=== PATIENT | female | born 1955 | race Caucasian/White ===

== ENCOUNTER → 2016-07-15 | Outpatient (CLI) | payer OTHER ==
[~2016-07-15] MED LIST: /AMLO25TA PO; /BACL20TA OR; /ESCI20TA OR; /QUET25TA OR; ACET50TA PO; AMBI10TA OR; AMBIEN PO; AMLO10TA2 PO; ATORVASTATIN PO; BACL-67 PO; BUSP15TA OR; CALC500T49 PO; COLA100C2 OR; COLA50CA3 PO; CRES20TA OR; DETR4CAP PO; DOC-8.6T PO; FIBE625T4 PO; FOLI1TAB OR; FOLI1TAB2 PO; HYDR-3565 PO; HYDR1TAB97 PO; HYZAAR PO; IMIT100T OR; LAMO100T PO; LORATADINE PO; LOSARTAN/HCTZ PO; LYRI150C PO; LYRI300C OR; NEUR300C PO; NORC10TA2 PO; NORVASC; OMEP20TA7 PO; OXYB5TA PO; OXYC1TAB23 PO; OXYCO5TA PO; OXYCODONE PO; PAXI40TA2 PO; PRIN10TA PO; PROP20TA2 PO; PROZ10CA OR; PROZ40CA PO; PROZAC PO; SERO1TAB PO; SERO200T PO; TRAZ100T OR; TRAZ100T2 PO; TRAZADONE PO; VALT500T PO; VARE05TA PO; VARE1TA OR; VENL37CA PO; VENL75CA PO; VENTAER IN; VESICARE PO; VICO5TAB OR; VICODINES TAB OR; VITA500019 PO; WELL75TA PO; ZOFR20TA PO; [UNRECOGNIZED DRUG - CODE] PO; [UNRECOGNIZED DRUG - MIXTURE] PO; [UNRECOGNIZED DRUG - OTHER] PO; [UNRECOGNIZED DRUG - REMARK] TOP; fibercon PO; hyzaar PO; oysco
--- NOTE | 2016-07-15 08:45 | REP ---
Clinical: Left upper quadrant mass by physical examination. Technique: Real time boone scale and color evaluation using linear high frequency transducer. Findings: Directed ultrasound examination in the left upper quadrant over the area of presumed mass in straits normal subcutaneous tissues without mass lesion, fluid collection, or obvious abnormality. Contralateral right side of the abdomen was scanned for comparison and demonstrates similar normal findings. Impression: No obvious fluid collection or mass lesion identified in the left upper quadrant anterior abdominal wall. Signed by Angelito Jones MD 07/15/2016 08:37 A
== END ==
LOC: M RAD 07:59
PROVIDERS: ATTEND Physician Assistant Medical
DX: R10.84 Generalized abdominal pain (principal)

== ENCOUNTER → 2016-09-05 | Outpatient (CLI) | payer OTHER ==
[~2016-09-05] MED LIST changes: +GASTROGRAFIN SOLUTION 30ML (Q9963) As Ordered ONE; -HYDR-3565 PO; +HYDR-3713 PO; +HYDR-3719 PO; -HYDR1TAB97 PO; +ISOVUE-370 76% 100ML VIAL (Q9967) As Ordered ONE
[2016-09-05 16:11] LABS: BASO % 0.3 % (0.0-1.0); EOS # 0.2 K/mm3 (0.0-0.50); EOS % 3.1 % (0.0-3.0); LYMPH # 1.5 K/mm3 (1.5-4.5); LYMPH % 27.8 % (24.0-44.0); MEAN CORPUSCULAR HEMOGLOBIN 29.4 pg (27.0-33.0); MEAN CORPUSCULAR HGB CONC 31.7 g/dl (32.0-36.5); MEAN CORPUSCULAR VOLUME 92.9 fl (80.0-96.0); MONO # 0.2 K/mm3 (0.0-0.8); MONO % 4.6 % (0.0-5.0); NEUTROPHILS # 3.3 K/mm3 (1.8-7.7); NEUTROPHILS % 62.5 % (36.0-66.0); RED CELL DISTRIBUTION WIDTH 14.5 % (11.5-14.5); WHITE BLOOD COUNT 5.2 K/mm3 (4.0-10.0)
[2016-09-05 16:24] LABS: ALBUMIN 3.7 GM/DL (3.2-5.2); ALBUMIN/GLOBULIN RATIO 1.12 (1.00-1.93); ALKALINE PHOSPHATASE 76 U/L (45-117); ALT/SGPT 18 U/L (12-78); ANION GAP 7 MEQ/L (8-16); AST/SGOT 14 U/L (15-37); BILIRUBIN,TOTAL 0.2 MG/DL (0.2-1.0); BLOOD UREA NITROGEN 17 MG/DL (7-18); CALCIUM LEVEL 8.3 MG/DL (8.8-10.2); CARBON DIOXIDE LEVEL 30 MEQ/L (21-32); CHLORIDE LEVEL 102 MEQ/L (98-107); CHOLESTEROL LEVEL 137 MG/DL (<200); CREATININE FOR GFR 0.64 MG/DL (0.55-1.02); GLOMERULAR FILTRATION RATE > 60.0 (>45); GLUCOSE, FASTING 119 MG/DL (80-110); PERCENT SATURATION 10.3 % (13.2-37.4); POTASSIUM SERUM 4.1 MEQ/L (3.5-5.1); SODIUM LEVEL 139 MEQ/L (136-145); TOTAL IRON BINDING CAPACITY 477 UG/DL (250-450); TRIGLYCERIDES LEVEL 133 MG/DL (<150)
--- NOTE | 2016-09-05 16:45 | REP ---
CT ABDOMEN AND PELVIS: HISTORY: Generalized abdominal pain. COMPARISON: Noncontrast enhanced CT of the abdomen and pelvis 06/19/2012. CONTRAST: 100 mL Isovue-370. The lung bases are essentially clear and unchanged from the prior exam. There are no pleural or pericardiac effusions. There is minimal bibasilar dependent subsegmental atelectatic change. There is a small to moderate hiatal hernia. The size of which has increased from the prior exam. The precontrast enhanced portion of the examination shows hepatic and splenic densities to be within normal limits. There is no evidence of cholelithiasis. There was no evidence of right sided nephrolithiasis as seen in the inferior mid polar region of the left kidney there is a tiny 3 mm sized calcification which is not causing obstructive phenomena but has increased in size by 2 mm compared to the prior exam. Contrast enhanced portion of the examination shows the liver, gallbladder, spleen, pancreas, adrenal glands, kidneys to be within normal limits. The abdominal aorta and paraaortic regions are within normal limits. The bowel loops of the mesenteries are within normal limits. There is no free fluid or free air. CT PELVIS: The bowel loops and their mesenteries are within normal limits. There is no free fluid or air. There is no mass or adenopathy. Bone window technique throughout the examination shows no evidence of an acute abnormality. Posterior spinous process lumbar spine fixators are noted at multiple levels which represent a change from the prior exam. IMPRESSION: 1. There is evidence of a hiatal hernia as described above. 2. There is no evidence of acute intraabdominal or intrapelvic disease. 3. There is a tiny left nephrolith as described above. Signed by Major Allen DO 09/06/2016 12:00 P
== END ==
LOC: M RAD 13:12
PROVIDERS: ATTEND Physician Assistant Medical
DX: R10.84 Generalized abdominal pain (principal); K44.9 Diaphragmatic hernia without obstruction or gangrene; N20.0 Calculus of kidney

== ENCOUNTER → 2016-10-22 | Outpatient (CLI) | payer OTHER ==
[~2016-10-22] MED LIST changes: -GASTROGRAFIN SOLUTION 30ML (Q9963) As Ordered ONE; -ISOVUE-370 76% 100ML VIAL (Q9967) As Ordered ONE
[2016-10-22 12:16] LABS: FREE T4 0.89 NG/DL (0.76-1.46)
== END ==
LOC: M LAB 11:21
PROVIDERS: ATTEND Physician Assistant Medical
DX: E07.9 Disorder of thyroid, unspecified (principal)

== ENCOUNTER → 2016-11-28 | Outpatient (CLI) | payer OTHER ==
--- NOTE | 2016-11-28 10:30 | REP ---
Gastric emptying nuclear scintigraphy: History: Nausea and vomiting. Technique: 1.01 mCi of technetium-99m sulfur colloid was ingested in two scrambled eggs and 6 ounces of water and sequential anterior and posterior images are acquired for an 89-minute imaging observation period. Regions of interest are drawn around the stomach to plot gastric emptying. Scintigraphic findings: Expected T1/2 is 90 minutes. Only 2 % emptying is observed in this patient during the 89-minute imaging observation period, for a calculated T1/2 in this patient of 2004 minutes. Impression: Markedly delayed gastric emptying. Signed by Devonte Whiting MD 11/28/2016 10:21 A
== END ==
LOC: M RAD 07:19
PROVIDERS: ATTEND Internal Medicine Gastroenterology
DX: R47.02 Dysphasia (principal)

== ENCOUNTER → 2016-12-12 | Outpatient (CLI) | payer OTHER ==
[~2016-12-12] MED LIST changes: +E-Z-GAS II EFFERVESCENT PACKET (SODIUM BICARB./CITRIC ACID/SIMETHICONE) As Ordered ONE; +E-Z-HD 98% w/w 340GM SUSP BTL As Ordered ONE; +E-Z-PAQUE 96% w/w SUSP 176GM BTL As Ordered ONE
--- NOTE | 2016-12-12 16:52 | REP ---
Esophagram The procedure was performed under the direct supervision of Dr. Whiting. The images were reviewed with Dr. Whiting. A single view PA chest x-ray is submitted as a beet topper film. The superior mediastinal structures are midline. The heart size is within normal limits. The lungs are clear. Liquid barium and gas producing granules were given in the erect position as well as liquid barium in the prone oblique positions in order to perform a double contrast esophagram examination. The oral and pharyngeal stages of deglutition are unremarkable. Esophageal transport demonstrates tertiary waves. There is no esophagitis, stricture or mucosal ring. There is a hiatal hernia present. There is gastroesophageal reflux demonstrated to below the level of the nino. Impression: 1. Esophageal dysmotility. 2. There is a hiatal hernia present. There is gastroesophageal reflux demonstrated to below the level of the nino. 1 minute and 2 seconds of fluoro time was utilized for this procedure. Reviewed by CHARLES Pike 12/12/2016 03:21 PSigned by Devonte Whiting MD 12/12/2016 04:43 P
== END ==
LOC: M RAD 08:18
PROVIDERS: ATTEND Internal Medicine Gastroenterology
DX: R13.10 Dysphagia, unspecified (principal)

== ENCOUNTER → 2016-12-16 | Outpatient (CLI) | payer OTHER ==
[~2016-12-16] MED LIST changes: -E-Z-GAS II EFFERVESCENT PACKET (SODIUM BICARB./CITRIC ACID/SIMETHICONE) As Ordered ONE; -E-Z-HD 98% w/w 340GM SUSP BTL As Ordered ONE; -E-Z-PAQUE 96% w/w SUSP 176GM BTL As Ordered ONE
[2016-12-16 13:47] LABS: BASO % 0.2 % (0.0-1.0); EOS # 0.2 K/mm3 (0.0-0.50); EOS % 3.1 % (0.0-3.0); LYMPH # 1.3 K/mm3 (1.5-4.5); LYMPH % 24.4 % (24.0-44.0); MEAN CORPUSCULAR HEMOGLOBIN 31.1 pg (27.0-33.0); MEAN CORPUSCULAR VOLUME 97.3 fl (80.0-96.0); MONO # 0.2 K/mm3 (0.0-0.8); MONO % 4.5 % (0.0-5.0); NEUTROPHILS # 3.4 K/mm3 (1.8-7.7); NEUTROPHILS % 66.7 % (36.0-66.0); RED CELL DISTRIBUTION WIDTH 13.8 % (11.5-14.5); WHITE BLOOD COUNT 5.2 K/mm3 (4.0-10.0)
[2016-12-16 14:35] LABS: FERRITIN 19 NG/ML (8-252); PHOSPHORUS LEVEL 2.8 MG/DL (2.5-4.9)
[2016-12-16 17:19] LABS: VITAMIN B12 LEVEL 1243 PG/ML (247-911)
[2016-12-16 17:20] LABS: FOLATE > 24.0 NG/ML (>5.4)
[2016-12-18 00:06] LABS: Lyme Disease IgG/IgM Antibodie <0.91 ISR (0.00-0.90); Lyme Disease IgM Ab Quantitati <0.80 index (0.00-0.79)
== END ==
LOC: M LAB 12:50
PROVIDERS: ATTEND Physician Assistant Medical
DX: R53.83 Other fatigue (principal)

== ENCOUNTER → 2016-12-16 | Outpatient (CLI) | payer OTHER ==
[2016-12-16 13:53] LABS: MEAN CORPUSCULAR HEMOGLOBIN 31.7 pg (27.0-33.0); MEAN CORPUSCULAR HGB CONC 32.5 g/dl (32.0-36.5); MEAN CORPUSCULAR VOLUME 97.3 fl (80.0-96.0); RED CELL DISTRIBUTION WIDTH 13.6 % (11.5-14.5); WHITE BLOOD COUNT 5.7 K/mm3 (4.0-10.0)
[2016-12-16 13:59] LABS: ALBUMIN 3.9 GM/DL (3.2-5.2); ALBUMIN/GLOBULIN RATIO 1.44 (1.00-1.93); ALKALINE PHOSPHATASE 69 U/L (45-117); ALT/SGPT 22 U/L (12-78); ANION GAP 7 MEQ/L (8-16); AST/SGOT 13 U/L (15-37); BILIRUBIN,DIRECT < 0.1 MG/DL (0.0-0.2); BILIRUBIN,TOTAL 0.2 MG/DL (0.2-1.0); BLOOD UREA NITROGEN 18 MG/DL (7-18); CALCIUM LEVEL 8.3 MG/DL (8.8-10.2); CARBON DIOXIDE LEVEL 28 MEQ/L (21-32); CHLORIDE LEVEL 105 MEQ/L (98-107); CREATININE FOR GFR 0.77 MG/DL (0.55-1.02); GLOMERULAR FILTRATION RATE > 60.0 (>45); GLUCOSE, FASTING 117 MG/DL (80-110); PHOSPHORUS LEVEL 2.8 MG/DL (2.5-4.9); POTASSIUM SERUM 4.2 MEQ/L (3.5-5.1); SODIUM LEVEL 140 MEQ/L (136-145); TOTAL PROTEIN 6.6 GM/DL (6.4-8.2)
== END ==
LOC: M LAB 12:53
PROVIDERS: ATTEND Podiatrist Foot & Ankle Surgery
DX: B35.1 Tinea unguium (principal)

== ENCOUNTER → 2017-05-24 | Outpatient (CLI) | payer OTHER ==
[~2017-05-24] MED LIST changes: -BACL-67 PO; +BACL1TAB9 PO; -DOC-8.6T PO; +DOC-8.6T3 PO; -FOLI1TAB2 PO; +FOLI1TAB4 PO; -NORC10TA2 PO; +NORC10TA21 PO; -OXYB5TA PO; +OXYB5TAB10 PO; +PAXI40TA10 PO; -PAXI40TA2 PO; +PROHANCE 279.3MG/ML 15ML VIAL (A9576) As Ordered ONE; +PROHANCE 279.3MG/ML 5ML VIAL (A9576) As Ordered ONE
--- NOTE | 2017-05-24 10:02 | REP ---
CT LUMBAR SPINE WITHOUT CONTRAST: HISTORY: None provided. COMPARISON: 11/09/2013 There is no disc bulge or herniation at the L1-2 and L2-3 levels. The nerves exit the neural foramina without compression. A diffuse disc bulge is present at the L3-4 level. There is hypertrophy of the ligamenta flava and posterior articulating facets. There are 5 mm of grade 1 spondylolisthesis of L3 on 4. These findings produce mild central canal stenosis. The L3 nerves exit the neural foramina without compression. A diffuse disc bulge is present at the L4-5 level. There is hypertrophy of the ligamenta flava and posterior articulating facets. There are 4 mm of retrolisthesis of L4 on 5. These findings produce mild central canal stenosis. The L4 nerves exit the neural foramina without compression. A diffuse disc bulge is present at the L5 S1 level. There is minimal compression of the thecal sac. There is hypertrophy of the posterior to the facets. The L5 nerves exit the neural foramina without compression. The patient is status post L3-4 and L4-5 interspinous spacer placement. The L3-4 and L4-5 intervertebral discs are decreased in height. Vacuum phenomenon is present at the L4-5 level. These findings are consistent with disc degeneration. IMPRESSION: 1. Mild central canal stenosis at the L3-4 level secondary to disc bulge, ligamentous and facet hypertrophy and grade 1 spondylolisthesis. 2. Mild central canal stenosis at the L4-5 level secondary to disc bulge, ligamentous and facet hypertrophy and retrolisthesis. 3. Diffuse disc bulge at the L5-S1 level with minimal thecal sac compression. 4. The patient is status post L3-4 and L4-5 interspinous spacer placement. Signed by Clifford De Leon MD 05/24/2017 10:08 A
--- NOTE | 2017-05-24 10:26 | REP ---
PARTIAL LUMBAR SPINE, THREE VIEWS: HISTORY: None provided. COMPARISON: 11/07/2013 The patient is status post L3-4 and L4-5 interspinous spacer placement. There is no acute fracture. The L3-4 through L5-S1 intervertebral discs are decreased in height. Vacuum phenomenon is present at the L4-5 level. These findings are consistent with disc degeneration. There are 5 mm of grade I spondylolisthesis of L3 on L4 and 4 mm of retrolisthesis of L4 on L5. IMPRESSION: Degenerative change as described above. Signed by Clifford De Leon MD 05/24/2017 10:58 A
--- NOTE | 2017-05-24 12:05 | REP ---
MR LUMBAR SPINE WITHOUT AND WITH CONTRAST: HISTORY: Back pain. CONTRAST: ProHance 18 mL. COMPARISON: 06/23/2016 Decreased signal intensity on T2-weighted images is present in the lumbar intervertebral discs. The L2-3 through L5-S1 intervertebral discs are decreased in height. These findings are consistent with disc degeneration. There is no disc bulge or herniation at the L1-2 level. The L1 nerves exit the neural foramina without compression. A diffuse disc bulge is present at the L2-3 level. There is minimal compression of the thecal sac. There is hypertrophy of the posterior articulating facets. The L2 nerves exit the neural foramina without compression. The patient is status post L3-4 interspinous spacer placement. A diffuse disc bulge and small left paracentral disc extrusion are present at the L3-4 level. There is superior migration of disc material. There is hypertrophy of the posterior articulating facets. There are 3 mm of grade 1 spondylolisthesis of L3 on L4. These findings produce minimal central canal stenosis. The L3 nerves exit the neural foramina without compression. The patient is status post L4-5 interspinous spacer placement. A diffuse disc bulge is present. There is hypertrophy of the posterior articulating facets. There are 4 mm of retrolisthesis of L4 on L5. There is minimal compression of the thecal sac. The L4 nerves exit the neural foramina without compression. A diffuse disc bulge and small disc protrusion central and eccentric to the left are present at the L5-S1 level. There is no thecal sac or nerve compression. There is hypertrophy of the posterior articulating facets. The L5 nerves exit the neural foramina without compression. The conus medullaris is normal in appearance terminating at the level of the L1-2 intervertebral disc. Increased signal intensity on T2-weighted images is present in the endplates of the L3 through L5 vertebral bodies. This represents degenerative change. There is scoliosis convex to the left. IMPRESSION: 1. Diffuse disc bulge at the L2-3 level with minimal thecal sac compression. 2. Minimal central canal stenosis at the L3-4 level secondary to disc bulge, facet hypertrophy, and grade 1 spondylolisthesis. 3. Diffuse disc bulge and retrolisthesis at the L4-5 level with minimal thecal sac compression. 4. Diffuse disc bulge and small disc protrusion at the L5-S1 level without thecal sac or nerve compression. 5. The patient is status post L3-4 and L4-5 interspinous spacer placement. There is no significant change compared to the previous study. Signed by Clifford De Leon MD 05/24/2017 12:09 P
== END ==
LOC: M RAD 09:02
PROVIDERS: ATTEND Neurological Surgery
DX: M48.07 Spinal stenosis, lumbosacral region (principal)
CPT/HCPCS: 72100; 72131; 72158; A9576

== ENCOUNTER → 2017-07-25 | Outpatient (REF) | payer OTHER ==
[2017-07-25 21:23] LABS: BASO % 0.5 % (0.0-1.0); EOS # 0.2 10^3/uL (0.0-0.50); HEMATOCRIT 40.7 % (36.0-47.0); HEMOGLOBIN 12.8 g/dl (12.0-16.0); IMMATURE GRANULOCYTE % 0.3 % (0-0); LYMPH # 1.9 10^3/uL (1.5-4.5); LYMPH % 32.3 % (24.0-44.0); MEAN CORPUSCULAR HEMOGLOBIN 30.4 pg (27.0-33.0); MEAN CORPUSCULAR HGB CONC 31.4 g/dl (32.0-36.5); MEAN CORPUSCULAR VOLUME 96.7 fl (80.0-96.0); MONO # 0.3 10^3/uL (0.0-0.8); MONO % 5.7 % (0.0-5.0); NEUTROPHILS # 3.5 10^3/uL (1.8-7.7); NEUTROPHILS % 58.2 % (36.0-66.0); PLATELET COUNT, AUTOMATED 263 10^3/uL (150-450); RED BLOOD COUNT 4.21 10^6/uL (4.00-5.40)
[2017-07-25 21:39] LABS: ALBUMIN 4.6 GM/DL (3.2-5.2); ALBUMIN/GLOBULIN RATIO 1.53 (1.00-1.93); ALKALINE PHOSPHATASE 76 U/L (45-117); ALT/SGPT 21 U/L (12-78); ANION GAP 4 MEQ/L (8-16); AST/SGOT 15 U/L (7-37); BILIRUBIN,TOTAL 0.2 MG/DL (0.2-1.0); BLOOD UREA NITROGEN 19 MG/DL (7-18); CALCIUM LEVEL 9.2 MG/DL (8.8-10.2); CARBON DIOXIDE LEVEL 33 MEQ/L (21-32); CHLORIDE LEVEL 104 MEQ/L (98-107); CHOLESTEROL LEVEL 172 MG/DL (<200); CHOLESTEROL RISK RATIO 3.245 (<5); CREATININE FOR GFR 0.77 MG/DL (0.55-1.02); FREE THYROXINE INDEX 2.4 % (1.3-4.8); GLOMERULAR FILTRATION RATE > 60.0 (>45); GLUCOSE, FASTING 106 MG/DL (80-110); HDL CHOLESTEROL 53 MG/DL (>40); LDL CHOLESTEROL 84.8 MG/DL (<100); NON-HDL-C 119 MG/DL; POTASSIUM SERUM 5.1 MEQ/L (3.5-5.1); SODIUM LEVEL 141 MEQ/L (136-145); T UPTAKE 31 % (30-39); THYROID STIMULATING HORMONE 0.684 uIU/ML (0.358-3.740); THYROXINE (T4) 7.6 UG/DL (4.5-12.0); TOTAL 25(OH) VITAMIN D 34.8 NG/ML (30.0-100.0); TOTAL PROTEIN 7.6 GM/DL (6.4-8.2); TRIGLYCERIDES LEVEL 171 MG/DL (<150)
[2017-07-26 11:23] LABS: HEPATITIS C VIRUS ABY INDEX 0.1 INDEX (<0.8)
[2017-07-26 11:24] LABS: HIV 1&2 SCREEN CENTAUR NEGATIVE (NEGATIVE)
== END ==
LOC: M LABDRWAD 20:20
DX: E78.2 Mixed hyperlipidemia (principal); G47.00 Insomnia, unspecified; E55.9 Vitamin D deficiency, unspecified; Z11.3 Encounter for screening for infections with a predominantly sexual mode of transmission

== ENCOUNTER → 2018-01-22 | Outpatient (CLI) | payer OTHER | LOC: M RAD 14:46 | DX: M47.892 Other spondylosis, cervical region (principal); M50.223 Other cervical disc displacement at C6-C7 level; M50.222 Other cervical disc displacement at C5-C6 level | CPT/HCPCS: 72141 ==

== ENCOUNTER 2018-08-09 15:05 | Emergency (ER) | payer OTHER ==
[~2018-08-09] VITALS: Ht 157.5 cm; Wt 79.5 kg
[~2018-08-09 15:05] MED LIST changes: +AMLO10TA5 PO; +FOLI1TAB11 PO; -FOLI1TAB4 PO; -PROHANCE 279.3MG/ML 15ML VIAL (A9576) As Ordered ONE; -PROHANCE 279.3MG/ML 5ML VIAL (A9576) As Ordered ONE; -ZOFR20TA PO; +ZOFR4TAB16 PO
[2018-08-09] MEDS ORDERED: ROPI2TAB PO ×2 (15:30)
[2018-08-09] MEDS ORDERED: TROS20TA3 PO (15:31)
[2018-08-09] MEDS ORDERED: KETOROLAC 30 MG/ML VIAL (J1885) IV ONE (16:30)
[2018-08-09 16:31] LABS: BASO % 0.4 % (0.0-1.0); EOS # 0.2 10^3/uL (0.0-0.50); EOS % 3.2 % (0.0-3.0); HEMATOCRIT 39.1 % (36.0-47.0); HEMOGLOBIN 12.7 g/dl (12.0-15.5); LYMPH # 1.7 10^3/uL (1.5-4.5); LYMPH % 33.5 % (24.0-44.0); MEAN CORPUSCULAR HEMOGLOBIN 30.8 pg (27.0-33.0); MEAN CORPUSCULAR HGB CONC 32.5 g/dl (32.0-36.5); MEAN CORPUSCULAR VOLUME 94.9 fl (80.0-96.0); MONO # 0.4 10^3/uL (0.0-0.8); MONO % 7.6 % (0.0-5.0); NEUTROPHILS # 2.8 10^3/uL (1.8-7.7); NEUTROPHILS % 54.9 % (36.0-66.0); PLATELET COUNT, AUTOMATED 257 10^3/uL (150-450); RED BLOOD COUNT 4.12 10^6/uL (4.00-5.40)
[2018-08-09 16:38] LABS: ALBUMIN 4.2 GM/DL (3.2-5.2); ALT/SGPT 23 U/L (12-78); BILIRUBIN,DIRECT 0.1 MG/DL (0.0-0.2); BILIRUBIN,TOTAL 0.4 MG/DL (0.2-1.0); BLOOD UREA NITROGEN 15 MG/DL (7-18); CALCIUM LEVEL 9.2 MG/DL (8.8-10.2); CARBON DIOXIDE LEVEL 25 MEQ/L (21-32); CHLORIDE LEVEL 107 MEQ/L (98-107); GLOMERULAR FILTRATION RATE > 60.0 (>45); GLUCOSE, FASTING 108 MG/DL (70-100); POTASSIUM SERUM 3.5 MEQ/L (3.5-5.1); SODIUM LEVEL 140 MEQ/L (136-145); TOTAL PROTEIN 7.1 GM/DL (6.4-8.2)
[2018-08-09] MEDS ORDERED: METOCLOPRAMIDE INJ 10MG/2ML VIAL (J2765) IV ONE (17:00)
[2018-08-09] MEDS ORDERED: LISINOPRIL 10 MG TAB PO ONE (17:15)
[2018-08-09 17:26] VITALS: BP 151/86
[2018-08-09 18:34] VITALS: BP 168/86
--- NOTE | 2018-08-16 10:42 | REP ---
CT of the brain without IV contrast for headache and hypertension: Comparison is 04/20/2008. There is no hemorrhage. There is no edema, mass effect or midline shift. Ventricles are normal size and midline. The cortical stripe is unremarkable. The visualized paranasal sinuses and mastoid air cells are clear. Impression: Essentially negative CT study of the brain. There is no interval change. Electronically Signed by Eduardo Awad MD 08/16/2018 10:33 A
== END 2018-08-09 18:37 | disposition home or self-care (01) ==
LOC: EDBD 15:05 → M ED 15:05
DX: G43.909 Migraine, unspecified, not intractable, without status migrainosus (principal); I10 Essential (primary) hypertension; Z79.899 Other long term (current) drug therapy; Z88.5 Allergy status to narcotic agent; Z88.8 Allergy status to other drugs, medicaments and biological substances; F17.210 Nicotine dependence, cigarettes, uncomplicated
CPT/HCPCS: 36415; 70450; 80048; 80076; 85025; 96374; 96375; 99284; J1885; J2765

== ENCOUNTER → 2018-09-04 | Outpatient (CLI) | payer OTHER ==
[~2018-09-04] MED LIST changes: +ROPI2TAB PO; +TROS20TA3 PO
--- NOTE | 2018-09-04 15:02 | REP ---
Clinical: Left wrist pain. Technique: AP and lateral views of the left wrist. Findings: Generalized age-related changes are appreciated. No acute fracture dislocation. No significant osteoarthritic degenerative changes noted. Surrounding soft tissues are unremarkable. Impression: Generalized age-related changes. Electronically Signed by Angelito Jones MD 09/04/2018 02:53 P
--- NOTE | 2018-09-04 15:02 | REP ---
Clinical: Cough . Comparison: 12/06/2013 . Technique: PA and lateral. Findings: The mediastinum and cardiac silhouette are normal. The lung knowles are clear and without acute consolidation, effusion, or pneumothorax. The skeletal structures are intact and normal. Impression: 1. No acute cardiopulmonary process. Electronically Signed by Angelito Jones MD 09/04/2018 02:52 P
== END ==
LOC: M RAD 14:31
PROVIDERS: ATTEND Family Medicine Addiction Medicine
DX: M25.532 Pain in left wrist (principal); R05 Cough

== ENCOUNTER → 2019-02-22 | Outpatient (REF) | payer OTHER ==
[~2019-02-22] MED LIST changes: -/AMLO25TA PO; -/BACL20TA OR; -/ESCI20TA OR; -/QUET25TA OR; -ACET50TA PO; +BACL1TAB9 OR; +CALC625T13 PO; -FIBE625T4 PO; +LEXA1TAB2 OR; +MAPA500T17 PO; -NORC10TA21 PO; +NORC1TAB5 PO; +NORV2TAB PO; +OXYC-517 PO; -OXYCO5TA PO; +SERO1TAB3 OR
[2019-02-22 13:24] LABS: BASO % 0.4 % (0.0-1.0); EOS # 0.3 10^3/uL (0.0-0.50); EOS % 4.2 % (0.0-3.0); HEMATOCRIT 39.5 % (36.0-47.0); HEMOGLOBIN 12.6 g/dl (12.0-15.5); LYMPH # 1.9 10^3/uL (1.5-4.5); LYMPH % 24.5 % (24.0-44.0); MEAN CORPUSCULAR HGB CONC 31.9 g/dl (32.0-36.5); MEAN CORPUSCULAR VOLUME 97.1 fl (80.0-96.0); MONO # 0.5 10^3/uL (0.0-0.8); MONO % 6.7 % (0.0-5.0); NEUTROPHILS # 4.9 10^3/uL (1.8-7.7); NEUTROPHILS % 63.5 % (36.0-66.0); PLATELET COUNT, AUTOMATED 263 10^3/uL (150-450); RED BLOOD COUNT 4.07 10^6/uL (4.00-5.40); WHITE BLOOD COUNT 7.7 10^3/uL (4.0-10.0)
[2019-02-22 13:36] LABS: ALBUMIN 4.2 GM/DL (3.2-5.2); ALT/SGPT 24 U/L (12-78); BILIRUBIN,TOTAL 0.1 MG/DL (0.2-1.0); BLOOD UREA NITROGEN 23 MG/DL (7-18); CALCIUM LEVEL 9.5 MG/DL (8.8-10.2); CARBON DIOXIDE LEVEL 28 MEQ/L (21-32); CHLORIDE LEVEL 106 MEQ/L (98-107); CHOLESTEROL LEVEL 198 MG/DL (<200); CHOLESTEROL RISK RATIO 4.125 (<5); CREATININE FOR GFR 0.72 MG/DL (0.55-1.30); FERRITIN 64 NG/ML (8-252); FREE T4 0.86 NG/DL (0.76-1.46); GLOMERULAR FILTRATION RATE > 60.0 (>45); GLUCOSE, FASTING 98 MG/DL (70-100); HDL CHOLESTEROL 48 MG/DL (>40); IRON (FE) 64 UG/DL (50-170); LDL CHOLESTEROL 119 MG/DL (<100); NON-HDL-C 150 MG/DL; POTASSIUM SERUM 4.2 MEQ/L (3.5-5.1); SODIUM LEVEL 141 MEQ/L (136-145); THYROID STIMULATING HORMONE 0.591 uIU/ML (0.358-3.740); TOTAL 25(OH) VITAMIN D 19.5 NG/ML (30.0-100.0); TOTAL PROTEIN 7.3 GM/DL (6.4-8.2); TRIGLYCERIDES LEVEL 154 MG/DL (<150)
[2019-02-22 13:58] LABS: HEMOGLOBIN A1c 6.1 %
== END ==
LOC: M LAB REF 12:12
PROVIDERS: ATTEND Nurse Practitioner Family
DX: Z00.00 Encounter for general adult medical examination without abnormal findings (principal)

== ENCOUNTER → 2019-07-14 | Outpatient (REF) | payer MEDICARE, MEDICAID ==
[~2019-07-14] MED LIST changes: -LAMO100T PO; +LAMO100T3 PO
== END ==
LOC: M LAB REF 12:09
PROVIDERS: ATTEND Physician Assistant
DX: N39.0 Urinary tract infection, site not specified (principal)

== ENCOUNTER → 2019-09-11 | Outpatient (REF) | payer MEDICARE, MEDICAID ==
[~2019-09-11] MED LIST changes: -ROPI2TAB PO; +ROPI2TAB3 PO
[2019-09-11 17:47] LABS: C REACTIVE PROTEIN QUANTITATIV 0.35 MG/DL (0.00-0.30); RHEUMATOID FACTOR QUANT < 10.0 IU/ML (<15.0)
== END ==
LOC: M SFHCRHEU 14:58
PROVIDERS: ATTEND Internal Medicine
DX: M25.50 Pain in unspecified joint (principal)
CPT/HCPCS: 36415; 85652; 86140; 86200; 86431; G0463

== ENCOUNTER → 2019-09-26 | Outpatient (CLI) | payer MEDICARE, MEDICAID ==
--- NOTE | 2019-09-26 14:58 | REP ---
BILATERAL HAND SERIES: Four views of each hand performed. No acute fracture or dislocation is seen. There is mild diffuse narrowing of the proximal and distal interphalangeal joints. This is relatively symmetrical. There is mild calcification in the right triangular fibrocartilage complex. Rounded calcific density adjacent to the second distal phalanx probably represents an old avulsion fracture. IMPRESSION: Bilateral degenerative changes of the proximal and distal interphalangeal joints. Electronically Signed by Eduardo Qiu MD 09/26/2019 05:42 P
== END ==
LOC: M ADAMS 13:32
PROVIDERS: ATTEND Internal Medicine
DX: M25.50 Pain in unspecified joint (principal)

== ENCOUNTER → 2019-11-05 | Outpatient (REF) | payer MEDICARE, MEDICAID ==
[2019-11-05 17:34] LABS: BASO % 0.6 % (0.0-1.0); EOS # 0.3 10^3/uL (0.0-0.5); EOS % 3.9 % (0.0-3.0); HEMATOCRIT 38.8 % (36.0-47.0); HEMOGLOBIN 12.4 g/dl (12.0-15.5); LYMPH # 1.7 10^3/uL (1.5-5.0); LYMPH % 27.4 % (24.0-44.0); MEAN CORPUSCULAR HEMOGLOBIN 30.4 pg (27.0-33.0); MEAN CORPUSCULAR VOLUME 95.1 fl (80.0-96.0); MONO # 0.4 10^3/uL (0.0-0.8); MONO % 5.8 % (0.0-5.0); NEUTROPHILS # 3.9 10^3/uL (1.5-8.5); NEUTROPHILS % 61.8 % (36.0-66.0); PLATELET COUNT, AUTOMATED 260 10^3/uL (150-450); RED BLOOD COUNT 4.08 10^6/uL (4.00-5.40); WHITE BLOOD COUNT 6.3 10^3/uL (4.0-10.0)
[2019-11-05 18:08] LABS: ALBUMIN 4.2 GM/DL (3.2-5.2); ALT/SGPT 19 U/L (12-78); BILIRUBIN,TOTAL 0.3 MG/DL (0.2-1.0); BLOOD UREA NITROGEN 26 MG/DL (7-18); CALCIUM LEVEL 9.1 MG/DL (8.8-10.2); CARBON DIOXIDE LEVEL 27 MEQ/L (21-32); CHLORIDE LEVEL 109 MEQ/L (98-107); CHOLESTEROL LEVEL 147 MG/DL (<200); CHOLESTEROL RISK RATIO 3.868 (<5); CREATININE FOR GFR 0.69 MG/DL (0.55-1.30); FREE T4 0.88 NG/DL (0.76-1.46); GLOMERULAR FILTRATION RATE > 60.0 (>45); GLUCOSE, FASTING 101 MG/DL (70-100); HDL CHOLESTEROL 38 MG/DL (>40); LDL CHOLESTEROL 86 MG/DL (<100); NON-HDL-C 109 MG/DL; POTASSIUM SERUM 4.5 MEQ/L (3.5-5.1); SODIUM LEVEL 142 MEQ/L (136-145); THYROID STIMULATING HORMONE 0.342 uIU/ML (0.358-3.740); TRIGLYCERIDES LEVEL 114 MG/DL (<150)
[2019-11-05 18:11] LABS: TOTAL 25(OH) VITAMIN D 25.8 NG/ML (30.0-100.0)
== END ==
LOC: M LAB REF 17:13
PROVIDERS: ATTEND Nurse Practitioner Family
DX: M25.50 Pain in unspecified joint (principal); F41.1 Generalized anxiety disorder; N32.81 Overactive bladder; F41.8 Other specified anxiety disorders; F51.04 Psychophysiologic insomnia; I10 Essential (primary) hypertension; M54.5 Low back pain

== ENCOUNTER → 2020-01-09 | Outpatient (REF) | payer MEDICARE, MEDICAID ==
[~2020-01-09] MED LIST changes: -AMLO10TA5 PO; +AMLO1TAB25 PO
[2020-01-09 18:46] LABS: BASO % 0.4 % (0.0-1.0); EOS # 0.2 10^3/uL (0.0-0.5); EOS % 2.9 % (0.0-3.0); HEMATOCRIT 39.1 % (36.0-47.0); HEMOGLOBIN 12.3 g/dl (12.0-15.5); LYMPH # 2.5 10^3/uL (1.5-5.0); LYMPH % 34.5 % (24.0-44.0); MEAN CORPUSCULAR HEMOGLOBIN 30.9 pg (27.0-33.0); MEAN CORPUSCULAR HGB CONC 31.5 g/dl (32.0-36.5); MEAN CORPUSCULAR VOLUME 98.2 fl (80.0-96.0); MONO # 0.4 10^3/uL (0.0-0.8); MONO % 6.1 % (0.0-5.0); NEUTROPHILS % 55.7 % (36.0-66.0); PLATELET COUNT, AUTOMATED 268 10^3/uL (150-450); RED BLOOD COUNT 3.98 10^6/uL (4.00-5.40); WHITE BLOOD COUNT 7.2 10^3/uL (4.0-10.0)
[2020-01-09 19:17] LABS: ALBUMIN 4.2 GM/DL (3.2-5.2); ALT/SGPT 19 U/L (12-78); BILIRUBIN,TOTAL 0.3 MG/DL (0.2-1.0); BLOOD UREA NITROGEN 18 MG/DL (7-18); CALCIUM LEVEL 9.3 MG/DL (8.8-10.2); CARBON DIOXIDE LEVEL 28 MEQ/L (21-32); CHLORIDE LEVEL 108 MEQ/L (98-107); CREATININE FOR GFR 0.65 MG/DL (0.55-1.30); FREE T4 0.95 NG/DL (0.76-1.46); GLOMERULAR FILTRATION RATE > 60.0 (>45); GLUCOSE, FASTING 85 MG/DL (70-100); POTASSIUM SERUM 4.3 MEQ/L (3.5-5.1); SODIUM LEVEL 140 MEQ/L (136-145); THYROID STIMULATING HORMONE 0.385 uIU/ML (0.358-3.740); TOTAL PROTEIN 7.2 GM/DL (6.4-8.2)
== END ==
LOC: M LAB REF 17:42
PROVIDERS: ATTEND Nurse Practitioner Family
DX: L29.2 Pruritus vulvae (principal); R73.03 Prediabetes; Z13.9 Encounter for screening, unspecified; F33.1 Major depressive disorder, recurrent, moderate

== ENCOUNTER → 2020-05-01 | Outpatient (CLI) | payer MEDICARE, MEDICAID ==
--- NOTE | 2020-05-05 14:35 | ECWPNPC ---
PATIENT NAME: LUL RAMOS : 1955 GENDER: FEMALE VISIT DATE: 05/01/2020 DISCHARGE DATE: 05/01/20 1350 VISIT LOCKED DATE TIME: PHYSICIAN: YUVAL TEJADA RESOURCE: YUVAL TEJADA REASON FOR APPOINTMENT 1. LOW BACK HISTORY OF PRESENT ILLNESS GENERAL: 65-YEAR-OLD FEMALE KNOWN TO OUR PRACTICE RETURNS FOR CONSULTATION IN REGARDS TO CHRONIC LOW BACK PAIN. PAIN HAS GOTTEN WORSE OVER THE PAST YEAR. PAIN IS LOCATED ACROSS THE LOWER BACK WITH INTERMITTENT RADIATION INTO THE RIGHT LATERAL THIGH. PAIN IS AGGRAVATED BY STANDING TO DO THE DISHES. PAIN IS RELIEVED SOMEWHAT AT REST. ATTENDED PHYSICAL THERAPY THIS YEAR WHICH ENDED AROUND SEPTEMBER. STATES THAT SHE DID NOT IMPROVE POST PHYSICAL THERAPY. CURRENTLY ON BACLOFEN 20 MG 3 TIMES A DAY FOR CHRONIC BACK PAIN WHICH SHE FINDS IT INEFFECTIVE. NO RECENT IMAGING OF THE LUMBAR SPINE. DENIES BOWEL OR BLADDER INCONTINENCE. DENIES RECENT ILLNESS OR WEIGHT LOSS.- - -. FALL RISK SCREENING: SCREENING :TWO OR MORE FALLS WITHOUT INJURY IN THE PAST YEAR PAIN SCREENING: PATIENT HAS A COMPLAINT OF ACUTE OR CHRONIC PAIN :YES LOCATION OF PAIN:LOW BACK, RIGHT HIP, LEG(S) RADIATES DOWN RIGHT LEG INTENSITY OF PAIN (SCALE OF 1 TO 10):6 WHAT DOES YOUR PAIN FEEL LIKE:ACHING, INTERMITTENT, STABBING DURATION:MAINLY DURING THE NIGHT PAIN IS INCREASED BY:ACTIVITIES, PROLONGED STANDING PAIN IS DECREASED BY:OTHERS NOTHING REALLY HELPS PAIN RIGHT NOW NURSING NOTE: - - -. PAIN CENTER INTAKE QUESTIONS: DO YOU HAVE A HISTORY OF MRSA? :NO DO YOU TAKE A BLOOD THINNERS? :NO DO YOU HAVE ANY BLEEDING DISORDERS? :NO ANY NEW NUMBNESS OR WEAKNESS IN YOUR LEGS OR ARMS? :YES STATES NUMBNESS AND WEAKNESS HAS GOTTEN WORSE IN HER RIGHT LEG, MAKES HER FEEL LIKE SHE IS GOING TO FALL ANY PACEMAKER,DEFIBRILLATOR, OR DORSAL COLUMN STIMULATOR? :NO DO YOU HAVE ANY RASHES OR OPEN SORES? :YES STOMACH AREA STATES "JUST LIKE A HEAT RASH" ARE YOU ALLERGIC TO IV DYE? :NO ARE YOU DIABETIC? :NO ANY NEW PROBLEMS WITH YOUR MEDICATIONS? :NO HAVE YOU RECEIVED A VACCINE IN THE PAST 30 DAYS? :NO DO YOU PLAN TO RECEIVE A VACCINE IN THE NEXT 21 DAYS? :NO DO YOU NEED ANY PRESCRIPTION? :NO DO YOU TAKE ANY IMMUNOSUPPRESSIVE MEDICATIONS? :NO ANY HISTORY OF SEIZURES? :NO ANY HISTORY OF CARDIAC ISSUES OR EVENTS? :NO DO YOU HAVE SLEEP APNEA? :YES DO YOU WEAR A CPAP?YES ANY RECENT HEAD INJURY? :NO DO YOU HAVE ANY NEW INFECTIONS? :NO IS THERE A CHANCE YOU COULD BE ? :NO ARE YOU BREAST FEEDING? :NO CURRENT MEDICATIONS TAKING LISINOPRIL 10 MG TABLET 1 TABLET ORALLY ONCE A DAY TAKING ATORVASTATIN CALCIUM 10 MG TABLET 1 TABLET ORALLY ONCE A DAY TAKING LAMOTRIGINE 100 MG TABLET 1 TAB ORALLY ONCE A DAY, NOTES: [facility] TAKING ZOFRAN 8 MG TABLET 1 TABLET ORALLY TWICE A DAY NEEDED TAKING ROPINIROLE HCL 2 MG TABLET 1 1/2 TABS ORALLY 1 HOUR BEFORE BEDTIME TAKING OMEPRAZOLE 40 MG CAPSULE DELAYED RELEASE 1 CAPSULE ORALLY TWICE A DAY TAKING METOPROLOL TARTRATE 25 MG TABLET 1 TABLET WITH FOOD ORALLY TWICE A DAY TAKING ZALEPLON 10 MG CAPSULE 1 CAPSULE AT BEDTIME NEEDED ORALLY ONCE A DAY TAKING ESCITALOPRAM OXALATE 20 MG TABLET 1 TABLET ORALLY ONCE A DAY TAKING AMLODIPINE BESYLATE 2.5 MG TABLET 1 TABLET ORALLY ONCE A DAY TAKING AIMOVIG 70 MG/ML SOLUTION AUTO-INJECTOR DIRECTED SUBCUTANEOUS TAKING BACLOFEN 20 MG TABLET 1 TABLET WITH FOOD OR MILK ORALLY EVERY 8 HRS PRN FOR SPASMS TAKING ZOLMITRIPTAN 5 MG TABLET 1 TABLET ORALLY ONCE A DAY, NOTES: AT THE ONSET OF A MIGRAINE MAY REPEAT IN 2 HOURS TAKING MYRBETRIQ 25 MG TABLET EXTENDED RELEASE 24 HOUR 1 TABLET ORALLY ONCE A DAY TAKING METOPROLOL TARTRATE 25 MG TABLET 1 TABLET WITH FOOD ORALLY TWICE A DAY TAKING SHOWER CHAIR WITHOUT WHEELS DX: 724.2 DIRECTED - DAILY USE NOT-TAKING BACLOFEN 10 MG TABLET 1 TABLET WITH FOOD OR MILK ORALLY FOUR TIMES DAILY, NOTES: PAIN CLINIC NOT-TAKING GABAPENTIN 600 MG TABLET 2-AM,1NOON,2PM ORALLY THREE TIMES A DAY, NOTES: PAIN CLINIC NOT-TAKING TYLENOL 8 HOUR 650 MG TABLET EXTENDED RELEASE ORALLY NEEDED NOT-TAKING DRISDOL 50024 UNIT CAPSULE 1 CAPSULE ORALLY ONCE EVERY 2 WEEKS WITH MEAL NOT-TAKING TROSPIUM CHLORIDE 20 MG TABLET 1 TAB ORALLY BID NOT-TAKING FIBERCON 625MG TABLET 1 TABLET NEEDED ORALLY TWO TIMES A DAY NOT-TAKING FOLIC ACID 1MG DAILY TABLET 1 TAB ORALLY DAILY NOT-TAKING VITAMIN B-12 1000 MCG TABLET SUBLINGUAL 1 TABLET UNDER THE TONGUE AND ALLOW TO DISSOLVE SUBLINGUAL ONCE A DAY NOT-TAKING TRAZODONE HCL 150 MG TABLET TABS ORALLY AT BEDTIME, NOTES: [facility] NOT-TAKING PAXIL 40 MG TABLET [address] THE M[address] DIEZ ORALLY ONCE A DAY, NOTES: [facility] NOT-TAKING MIRALAX 17 G POWDER 1 CAPFUL MIXED WITH 8 OUNCES OF FLUID ORALLY TWICE A DAY NEEDED NOT-TAKING TYLENOL PM EXTRA STRENGTH 500-25 MG TABLET 2 TABS AT BEDTIME NEEDED ORALLY ONCE A DAY NOT-TAKING IMITREX 100MG TABLET 1 TABLET NEEDED ONE TIME ORALLY ONCE A DAY NOT-TAKING NORCO 5-325 MG TABLET 1-2 ORALLY Q8H PRN MDD3 NOT-TAKING COLACE 100MG CAPSULE 2 CAPSULES ORALLY THREE TIMES DAILY NEEDED NOT-TAKING NORCO 10-325 MG TABLET 1/2 ORALLY Q8H PRN MDD1.5, NOTES: PAIN CLINIC NOT-TAKING VALTREX 1 GM TABLET 2 TAB ORALLY EVERY 12 HRS X 1 DAY AT ONSET NOT-TAKING OYSCO 500+D - TABLET 1 TAB ORALLY ONCE DAILY WITH MEAL NOT-TAKING SEROQUEL 100 MG TABLET [address] DIEZ ORALLY AT BEDTIME, NOTES: [facility] NOT-TAKING SLEEP AID (DIPHENHYDRAMINE) 25 MG TABLET 1 TABLET AT BEDTIME ORALLY ONCE A DAY NOT-TAKING SALINE NASAL SPRAY 0.65 % SOLUTION 2 DROPS IN EACH NOSTRIL NEEDED NASALLY EVERY 2 HRS NOT-TAKING CHANTIX 0.5 MG TABLET 1 TABLET ORALLY ONCE A DAY NOT-TAKING OXYBUTYNIN CHLORIDE 5 MG TABLET 1 TABLET ORALLY TWICE A DAY, NOTES: [facility] NOT-TAKING CHOLECALCIFEROL 5000 UNIT CAPSULE ORALLY EVERY 2 WEEKS MEDICATION LIST REVIEWED AND RECONCILED WITH THE PATIENT PAST MEDICAL HISTORY HYPERTENSION HEADACHES, MIGRAINES GERD DEPRESSION,ANXIETY, PTSD - [facility] FIBROMYALGIA ARTHRITIS DEGENERATIVE DISC DISEASE - CHRONIC BACK PAIN _ DR NAYAK URINARY INCONTINENCE - CAR GROOMER ALLERGIES TOPAMAX 100: TONGUE SWELLING - SIDE EFFECTS TRAMADOL: TONGUE SWELLING - SIDE EFFECTS CYMBALTA: MUSCLE SPASMS - SIDE EFFECTS PREDNISONE: TONGUE SWELLING - SIDE EFFECTS SURGICAL HISTORY BLADDER REPAIR -CAR GROOMER 2003,2005,2111 NO PERSONAL OR FHX OF SEVERE REACTION TO ANESTHESIA HYSTERECTOMY 1977 EGD ([facility]) - GASTRITIS,GERD, HH 2005,03/20 COLONOSCOPY (JT) 2005 CARPAL TUNNEL RELEASE (S.FISH) RIGHT 2000 BACK SURGERY DECOMPRESION L3-4 AND L4-5 - WILIAM 11-06-13 RECTOCELE REPAIR- DR CABRERA ([facility] CAR GROOMER) 1-15 BILAT CATARACT 2-15 COLONOSCOPY EGD - SMALL MARK - NAYA 02-04-15 FAMILY HISTORY FATHER: 60 YRS, DIAGNOSED WITH OTHER MALIGNANT NEOPLASM OF UNSPECIFIED SITE MOTHER: 55 YRS, UNSPECIFIED HEART DISEASE 5 BROTHER(S) , 1 SISTER(S) . 2 SON(S) , 1 DAUGHTER(S) - HEALTHY. NOT SURE OF [facility] HISTORYNO KNOWN FAMILY HX OF RHEUMATIC ILLNESSES. SOCIAL HISTORY GENERAL: TOBACCO USE ARE YOU A:CURRENT SMOKER ARE YOU INTERESTED IN QUITTING?NOT READY TO QUIT COUNSELED THE PATIENT ON SMOKING EFFECTS, EDUCATION ESTDPWJA90/23/2020 LATEX QUESTIONNAIRE LATEX ALLERGY : HAVE YOU EVER DEVELOPED ANY TYPE OF REACTION AFTER HANDLING LATEX PRODUCTS SUCH RUBBER GLOVES, CONDOMS, DIAPHRAGMS, BALLOONS, SOCKS, OR UNDERWEAR?NO LATEX ALLERGY : HAVE YOU EVER DEVELOPED ANY TYPE OF REACTION DURING OR AFTER DENTAL APPOINTMENT, VAGINAL/RECTAL EXAMINATION, SURGICAL PROCEDURE, OR ANY OTHER EXPOSURE?NO LATEX RISK : HAVE YOU EVER HAD ANY DIFFICULTY BREATHING OR HIVES AFTER EATING OR HANDLING ANY FRUITS, OR VEGETABLES; SUCH KIWI, BANANAS, STONE FRUITS, OR CHESTNUTSNO LATEX RISK : DO YOU HAVE A PREVIOUS PERSONAL HISTORY OF MORE THAN NINE SURGERIES, SPINA BIFIDA, OR REPEATED CATHERIZATIONS? YES - PLEASE INDICATE : > 9 SURGERIES LATEX RISK : ARE YOU FREQUENTLY EXPOSED TO LATEX PRODUCTS IN YOUR OCCUPATION?NO DATE ASKED : 05/01/2020 ALCOHOL SCREENING DID YOU HAVE A DRINK CONTAINING ALCOHOL IN THE PAST YEAR?NO POINTS0 INTERPRETATIONNEGATIVE RECREATIONAL DRUG USE DENIES. CAFFEINE 1-2/DAY COFFEE, 1 SODA/DAY. [place] NO DENOMINATIONAL BELIEFS THAT WOULD IMPACT HEALTH CARE, NO PREFERENCE. LANGUAGE LANGUAGES SPOKEN:SYRIAN LEARNING BARRIERS / SPECIAL NEEDS ABILITY TO UNDERSTAND VERBAL INSTRUCTIONS AVERAGE, ABILITY TO UNDERSTAND WRITTEN INSTRUCTIONS AVERAGE, KNOWLEDGE OF EDUCATIONAL NEEDS/TREATMENT PLAN AVERAGE, DENOMINATIONAL? NO, LEARNING PREFERENCE NO PREFERENCE, ORIENTED TO PLAN OF CARE: PATIENT, TEACHING MATERIALS DEMONSTRATION/VERBAL INSTRUCTION, RESPONSE TO EDUCATION EXPLAINES ACCURATELY/VERBALIZES UNDERSTANDING, PAIN MANAGEMENT PATIENT, TEACHING MATERIALS DEMONSTRATION/VERBAL INSTRUCTION, RESPONSE TO EDUCATION EXPLAINS ACCURATELY/VERBALIZES UNDERSTANDING. DOMESTIC VIOLENCE NONE. OCCUPATION: DISABILITY. DIET: REGULAR, HIGH FIBER. EXERCISE: NO REGULAR EXERCISE. OTHERS AT HOME: BOYFRIEND AND HIS SON. PAIN CLINIC PFS, CLERGY, PUBLIC HEALTH REFERRALS HAS THE PATIENT BEEN EDUCATED REGARDING HIS/HER PLAN OF CARE?YES HAS THE PATIENT BEEN EDUCATED REGARDING PAIN, THE RISK FOR PAIN, THE IMPORTANCE OF EFFECTIVE PAIN MANAGEMENT, AND THE PAIN ASSESSMENT PROCESS?YES ADVANCE DIRECTIVE HEALTH CARE PROXY? NO INFORMATION OFFERED AND DECLINED.. HOSPITALIZATION/MAJOR DIAGNOSTIC PROCEDURE SURGERY RELATED MENTAL HEALTH - DEPRESSION 05/2013, 02/2011 REVIEW OF SYSTEMS CONSTITUTIONAL: ANY RECENT FEVER NO . CHILLS NO . WEIGHT CHANGE OF UNKNOWN REASONS NO . MUSCULOSKELETAL: ANY UNUSUAL JOINT PAIN OR SWELLING NOT MENTIONED NO . SYSTEMIC LUPUS NO . ANY NEUROMUSCULAR DISORDER NOT MENTIONED NO . LYME DISEASE NO . GASTROENTEROLOGY: ANY NEW CHANGE IN BOWEL CONTROL? NO . HISTORY OF LIVER DISORDER NOT MENTIONED NO . HISTORY OF UNUSUAL ABDOMINAL PAIN OR CRAMPING NOT MENTIONED NO . NO CONSTIPATION. GENITOURINARY: ANY NEW CHANGE IN BLADDER CONTROL? NO . ANY RENAL/KIDNEY CONDITON NOT MENTIONED NO . NEUROLOGY: HISTORY OF TBI NOT MENTIONED NO . HAVE YOU FALLEN IN THE PAST 12 MONTHS? NO, NO . HEAD INJURY NO, NO . DEMENTIA NO, NO . CEREBRAL PALSY NO, NO . MULTIPLE SCLEROSIS NO, NO . MYAASTHENIA GRAVIS NO, NO . NEW ONSET DIZZINESS OR NEUROLOGICAL CHANGES NOT MENTIONED NO . PATIENT COMPLAINING OF FOLLOWS WITH NEUROLOGY IN [place] FOR CHRONIC MIGRAINE HEADACHE . DIZZINESS NO, NO . VERTIGO NO, NO . CARDIOLOGY: HEART SURGERY NO . CONGESTIVE HEART FAILURE/FLUID OVERLOAD NOT MENTIONED NO . HISTORY OF CHEST PAIN,IRREGULAR HEART BEAT NOT MENTIONED YES-FOLLOWING WITH CARDIOLOGY FOR RAPID HEARTBEAT . RESPIRATORY: SHORTNESS OF BREATH ON EXERTION, WHEEZES, UNUSUAL COUGH NOT MENTIONED NO . ENDOCRINOLOGY: ADRENAL GLAND OR THYROID DISORDERS NOT MENTIONED NO . UNUSUAL URINATION, DIZZINESS OR LETHARGY NOT MENTIONED NO . VITAL SIGNS WT 194.2 LBS, HT 62 IN, BMI 35.52 INDEX, BP 142/82 MM HG, HR 61 /MIN, RR 18 /MIN, TEMP 97.7 F, OXYGEN SAT % 96%, SAFE IN ENV? (Y/N) YES, NA INITIALS SC 13:00, REVIEWED BY: SHAHEEN. EXAMINATION GENERAL EXAMINATION: GENERALNO ACUTE DISTRESS, WELL NOURISHED AND HYDRATED. PSYCHAPPROPRIATE MOOD AND AFFECT . NECK:NO LYMPHADENOPATHY, SUPPLE, NO THYROMEGALLY,. LUNGS:CLEAR TO AUSCULTATION BILATERALLY, NO WHEEZES, RHONCHI, RALES. HEART:NO MURMURS, REGULAR RATE AND RHYTHM. MUSCULOSKELETAL:NORMAL RANGE OF MOTION/MUSCLE STRENGTH TESTING UPPER AND LOWER EXTREMITIES 5/5. LUMBAR: PALPATION: POSITIVE FOR PAIN OVER L/S SPINE. POSITIVE FOR PAIN OVER L/S PARSPINALS TENDER OVER BILATERAL SACROILIAC JOINTS. ASSESSMENTS LOW BACK PAIN AT MULTIPLE SITES - M54.5 (PRIMARY) TREATMENT LOW BACK PAIN AT MULTIPLE SITES [facility] MRI LUMBAR W/O CONTRAST (CPT 31013)[id number] PROCEDURE CODES FA211 ESTABILISHED PATIENT [facility] FACILITY CHARGE DISPOSITION & COMMUNICATION FOLLOW UP 6 WEEKS (REASON: LOW BACK PAIN/REVIEW MRI L/S SPINE) ELECTRONICALLY SIGNED BY KYLE GREGORY ON 05/05/2020 AT 11:23 AM EDT DISCLAIMER : THIS IS A VISIT SUMMARY EXTRACTED FROM THE [employer] CHART. IT IS NOT A COPY OF THE [employer] PROGRESS NOTE. JOHN
== END ==
LOC: M PAIN 13:00
PROVIDERS: ATTEND Nurse Practitioner Family
DX: M54.5 Low back pain (principal); G89.29 Other chronic pain; G47.30 Sleep apnea, unspecified; I10 Essential (primary) hypertension; G43.909 Migraine, unspecified, not intractable, without status migrainosus; K21.9 Gastro-esophageal reflux disease without esophagitis; M79.7 Fibromyalgia; F17.210 Nicotine dependence, cigarettes, uncomplicated; Z86.59 Personal history of other mental and behavioral disorders; Z88.5 Allergy status to narcotic agent; Z88.8 Allergy status to other drugs, medicaments and biological substances; Z79.899 Other long term (current) drug therapy

== ENCOUNTER → 2020-06-01 | Outpatient (CLI) | payer MEDICARE, MEDICAID ==
--- NOTE | 2020-06-01 20:54 | REPVR ---
PROCEDURE INFORMATION: Exam: MR Lumbar Spine Without Contrast. Exam date and time: 06/01/2020 6:46 PM Age: 65 years old Clinical indication: Low back pain; Patient HX: Lbp TECHNIQUE: Imaging protocol: Multiplanar magnetic resonance images of the lumbar spine without intravenous contrast. COMPARISON: MRI-LS SPINE W/O FOLL WITH CON 05/24/2017 10:15 AM FINDINGS: Grade 1 anterolisthesis of L2 on L3 and L3 on L4. Mild retrolisthesis of L4 on L5. Vertebral body heights are preserved. Multilevel disc desiccation and disc space narrowing. Conus medullaris terminates L1. No epidural fluid collection. No evidence of discitis/osteomyelitis. There is posterior metallic hardware. Previous laminectomy at L3-L4 through L4-L5. T12-L1: Shallow central protrusion without central or foraminal stenosis. L1-L2: No significant central or foraminal stenosis. L2-L3: Mild bilateral facet joint arthropathy. No significant central or foraminal stenosis. L3-L4: Mild posterior disc bulge with bilateral facet joint hypertrophy. No significant central or foraminal stenosis. L4-L5: Hxyi-ry-wrdzmszo disc osteophyte complex with bilateral facet joint hypertrophy. No significant central canal stenosis. Cgvj-lh-bnbwdlfu right and mild left foraminal stenosis. L5-S1: Mild disc bulge and mild bilateral facet joint arthropathy. Small left-sided facet joint effusion. No significant central canal stenosis. Moderate to severe right and czhe-ce-loiilrad left foraminal stenosis. IMPRESSION: 1. No acute abnormality involving the lumbar spine. 2. No significant central canal compromise. 3. Foraminal stenosis greatest at L5-S1, moderate to severe on the right and [id number]-yh-[id number] on the left. Electronically signed by: Peter Herman On 06/01/2020 20:54:37 PM
== END ==
LOC: M RAD 18:08
PROVIDERS: ATTEND Nurse Practitioner Family
DX: M51.27 Other intervertebral disc displacement, lumbosacral region (principal)

== ENCOUNTER → 2020-08-05 | Outpatient (CLI) | payer MEDICARE, MEDICAID ==
[~2020-08-05] MED LIST changes: +AMLO2.5T3; +ATOR1TAB21; +ESCI20TA16; +LAMO200T3; +LISI20TA35; +METO1TAB87; +MYRB25TA; +ZALE10CA
--- NOTE | 2020-08-12 03:21 | ECWPNPC ---
PATIENT NAME: LUL RAMOS : 1955 GENDER: FEMALE VISIT DATE: 08/05/2020 DISCHARGE DATE: 08/05/20 1523 VISIT LOCKED DATE TIME: PHYSICIAN: YUVAL TEJADA RESOURCE: YUVAL TEJADA REASON FOR APPOINTMENT 1. LOW BACK PAIN/REVIEW MRI L/S SPINE HISTORY OF PRESENT ILLNESS DEPRESSION SCREENING: PHQ-2 (2015 EDITION) LITTLE INTEREST OR PLEASURE IN DOING THINGS?NOT AT ALL FEELING DOWN, DEPRESSED, OR HOPELESS?SEVERAL DAYS TOTAL SCORE1 GENERAL: HERE FOR F/U AND TO REVIEW MRI L/S SPINE.CONTINUES WITH LOW BACK PAIN THAT RADIATES INTO RIGHT LEG.PAIN IS AGGREVATED BY PROLONGED STANDING.DISCUSSED TREATMENT OPTIONS. -. FALL RISK SCREENING: SCREENING :TWO OR MORE FALLS WITHOUT INJURY IN THE PAST YEAR PAIN SCREENING: PATIENT HAS A COMPLAINT OF ACUTE OR CHRONIC PAIN :YES LOCATION OF PAIN:LOW BACK INTENSITY OF PAIN (SCALE OF 1 TO 10):7 WHAT DOES YOUR PAIN FEEL LIKE:ACHING DURATION:CONTINOUS, AWAKENS FROM SLEEP PAIN IS INCREASED BY:ACTIVITIES, PROLONGED STANDING BENDING, LIFTING PAIN IS DECREASED BY:OTHERS HEATING PAD, REST NURSING NOTE: -. PAIN CENTER INTAKE QUESTIONS: DO YOU HAVE A HISTORY OF MRSA? :NO DO YOU TAKE A BLOOD THINNERS? :NO DO YOU HAVE ANY BLEEDING DISORDERS? :NO ANY NEW NUMBNESS OR WEAKNESS IN YOUR LEGS OR ARMS? :NO ANY PACEMAKER,DEFIBRILLATOR, OR DORSAL COLUMN STIMULATOR? :NO DO YOU HAVE ANY RASHES OR OPEN SORES? :NO ARE YOU ALLERGIC TO IV DYE? :NO ARE YOU DIABETIC? :NO ANY NEW PROBLEMS WITH YOUR MEDICATIONS? :NO HAVE YOU RECEIVED A VACCINE IN THE PAST 30 DAYS? :YES IF SO WHAT VACCINE AND WHEN? FLU & PNEUMONIA 07/10/20 DO YOU PLAN TO RECEIVE A VACCINE IN THE NEXT 21 DAYS? :NO DO YOU NEED ANY PRESCRIPTION? :NO DO YOU TAKE ANY IMMUNOSUPPRESSIVE MEDICATIONS? :NO IS THERE A CHANCE YOU COULD BE ? :NO ARE YOU BREAST FEEDING? :NO CURRENT MEDICATIONS TAKING LISINOPRIL 10 MG TABLET 1 TABLET ORALLY ONCE A DAY TAKING ATORVASTATIN CALCIUM 10 MG TABLET 1 TABLET ORALLY ONCE A DAY TAKING LAMOTRIGINE 100 MG TABLET 1 TAB ORALLY ONCE A DAY, NOTES: HC TAKING ZOFRAN 8 MG TABLET 1 TABLET ORALLY TWICE A DAY NEEDED TAKING ROPINIROLE HCL 2 MG TABLET 1 1/2 TABS ORALLY 1 HOUR BEFORE BEDTIME TAKING OMEPRAZOLE 40 MG CAPSULE DELAYED RELEASE 1 CAPSULE ORALLY TWICE A DAY TAKING METOPROLOL TARTRATE 25 MG TABLET 1 TABLET WITH FOOD ORALLY TWICE A DAY TAKING ZALEPLON 10 MG CAPSULE 1 CAPSULE AT BEDTIME NEEDED ORALLY ONCE A DAY TAKING ESCITALOPRAM OXALATE 20 MG TABLET 1 TABLET ORALLY ONCE A DAY TAKING AMLODIPINE BESYLATE 2.5 MG TABLET 1 TABLET ORALLY ONCE A DAY TAKING AIMOVIG 70 MG/ML SOLUTION AUTO-INJECTOR DIRECTED SUBCUTANEOUS TAKING BACLOFEN 20 MG TABLET 1 TABLET WITH FOOD OR MILK ORALLY EVERY 8 HRS PRN FOR SPASMS TAKING ZOLMITRIPTAN 5 MG TABLET 1 TABLET ORALLY ONCE A DAY, NOTES: AT THE ONSET OF A MIGRAINE MAY REPEAT IN 2 HOURS TAKING MYRBETRIQ 25 MG TABLET EXTENDED RELEASE 24 HOUR 1 TABLET ORALLY ONCE A DAY TAKING SHOWER CHAIR WITHOUT WHEELS DX: 724.2 DIRECTED - DAILY USE NOT-TAKING METOPROLOL TARTRATE 25 MG TABLET 1 TABLET WITH FOOD ORALLY TWICE A DAY NOT-TAKING BACLOFEN 10 MG TABLET 1 TABLET WITH FOOD OR MILK ORALLY FOUR TIMES DAILY, NOTES: PAIN CLINIC NOT-TAKING GABAPENTIN 600 MG TABLET 2-AM,1NOON,2PM ORALLY THREE TIMES A DAY, NOTES: PAIN CLINIC NOT-TAKING TYLENOL 8 HOUR 650 MG TABLET EXTENDED RELEASE ORALLY NEEDED NOT-TAKING DRISDOL 66146 UNIT CAPSULE 1 CAPSULE ORALLY ONCE EVERY 2 WEEKS WITH MEAL NOT-TAKING TROSPIUM CHLORIDE 20 MG TABLET 1 TAB ORALLY BID NOT-TAKING FIBERCON 625MG TABLET 1 TABLET NEEDED ORALLY TWO TIMES A DAY NOT-TAKING FOLIC ACID 1MG DAILY TABLET 1 TAB ORALLY DAILY NOT-TAKING VITAMIN B-12 1000 MCG TABLET SUBLINGUAL 1 TABLET UNDER THE TONGUE AND ALLOW TO DISSOLVE SUBLINGUAL ONCE A DAY NOT-TAKING TRAZODONE HCL 150 MG TABLET TABS ORALLY AT BEDTIME, NOTES: [facility] NOT-TAKING PAXIL 40 MG TABLET [address] THE MORNING [address] DIEZ ORALLY ONCE A DAY, NOTES: [facility] NOT-TAKING MIRALAX 17 G POWDER 1 CAPFUL MIXED WITH 8 OUNCES OF FLUID ORALLY TWICE A DAY NEEDED NOT-TAKING TYLENOL PM EXTRA STRENGTH 500-25 MG TABLET 2 TABS AT BEDTIME NEEDED ORALLY ONCE A DAY NOT-TAKING IMITREX 100MG TABLET 1 TABLET NEEDED ONE TIME ORALLY ONCE A DAY NOT-TAKING NORCO 5-325 MG TABLET 1-2 ORALLY Q8H PRN MDD3 NOT-TAKING COLACE 100MG CAPSULE 2 CAPSULES ORALLY THREE TIMES DAILY NEEDED NOT-TAKING NORCO 10-325 MG TABLET 1/2 ORALLY Q8H PRN MDD1.5, NOTES: PAIN CLINIC NOT-TAKING VALTREX 1 GM TABLET 2 TAB ORALLY EVERY 12 HRS X 1 DAY AT ONSET NOT-TAKING OYSCO 500+D - TABLET 1 TAB ORALLY ONCE DAILY WITH MEAL NOT-TAKING SEROQUEL 100 MG TABLET [address] DIEZ ORALLY AT BEDTIME, NOTES: [facility] NOT-TAKING SLEEP AID (DIPHENHYDRAMINE) 25 MG TABLET 1 TABLET AT BEDTIME ORALLY ONCE A DAY NOT-TAKING SALINE NASAL SPRAY 0.65 % SOLUTION 2 DROPS IN EACH NOSTRIL NEEDED NASALLY EVERY 2 HRS NOT-TAKING CHANTIX 0.5 MG TABLET 1 TABLET ORALLY ONCE A DAY NOT-TAKING OXYBUTYNIN CHLORIDE 5 MG TABLET 1 TABLET ORALLY TWICE A DAY, NOTES: [facility] NOT-TAKING CHOLECALCIFEROL 5000 UNIT CAPSULE ORALLY EVERY 2 WEEKS MEDICATION LIST REVIEWED AND RECONCILED WITH THE PATIENT PAST MEDICAL HISTORY HYPERTENSION HEADACHES, MIGRAINES GERD DEPRESSION,ANXIETY, PTSD - [facility] FIBROMYALGIA ARTHRITIS DEGENERATIVE DISC DISEASE - CHRONIC BACK PAIN _ DR NAYAK 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 COUNSELED THE PATIENT ON SMOKING CESSATION, EDUCATION [id number]/27/2021 HOW MANY CIGARETTES A DAY DO YOU SMOKE?11-20 PATIENT COUNSELED ON THE DANGERS OF TOBACCO USE AND URGED TO QUIT:08/05/2020 LATEX QUESTIONNAIRE LATEX ALLERGY : HAVE YOU EVER DEVELOPED ANY TYPE OF REACTION AFTER HANDLING LATEX PRODUCTS SUCH RUBBER GLOVES, CONDOMS, DIAPHRAGMS, BALLOONS, SOCKS, OR UNDERWEAR?NO LATEX ALLERGY : HAVE YOU EVER DEVELOPED ANY TYPE OF REACTION DURING OR AFTER DENTAL APPOINTMENT, VAGINAL/RECTAL EXAMINATION, SURGICAL PROCEDURE, OR ANY OTHER EXPOSURE?NO LATEX RISK : HAVE YOU EVER HAD ANY DIFFICULTY BREATHING OR HIVES AFTER EATING OR HANDLING ANY FRUITS, OR VEGETABLES; SUCH KIWI, BANANAS, STONE FRUITS, OR CHESTNUTSNO LATEX RISK : DO YOU HAVE A PREVIOUS PERSONAL HISTORY OF MORE THAN NINE SURGERIES, SPINA BIFIDA, OR REPEATED CATHERIZATIONS? YES - PLEASE INDICATE : > 9 SURGERIES LATEX RISK : ARE YOU FREQUENTLY EXPOSED TO LATEX PRODUCTS IN YOUR OCCUPATION?NO DATE ASKED : 08/05/2020 ALCOHOL USE: NO. ALCOHOL SCREENING DID YOU HAVE A DRINK CONTAINING ALCOHOL IN THE PAST YEAR?NO POINTS0 INTERPRETATIONNEGATIVE RECREATIONAL DRUG USE DENIES. CAFFEINE 1-2/DAY COFFEE, 1 SODA/DAY. MUSLIM NO MU-ISM BELIEFS THAT WOULD IMPACT HEALTH CARE, NO PREFERENCE. 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 DIET: REGULAR, HIGH FIBER. EXERCISE: NO REGULAR EXERCISE. OTHERS AT HOME: BOYFRIEND AND HIS SON. REVIEW OF SYSTEMS CONSTITUTIONAL: ANY RECENT FEVER NO . CHILLS NO . WEIGHT CHANGE OF UNKNOWN REASONS NO . GASTROENTEROLOGY: NEW UNEXPLAINABLE CHANGES IN BOWEL CONTROL NO . CONSTIPATION NO . GENITOURINARY: ANY NEW CHANGE IN BLADDER CONTROL? NO . NEUROLOGY: NEW ONSET DIZZINESS OR NEUROLOGICAL CHANGES NOT MENTIONED NO . NEW NUMBNESS OR PAIN PATTERNS NOT MENTIONED AND PERTINENT TO TODAY'S VISIT NO . CARDIOLOGY: NEW CHEST PRESSURE NO . NEW CHEST PAIN NO . RESPIRATORY: UNEXPLAINABLE COUGH NO . NEW SHORTNESS OF BREATH NO . VITAL SIGNS WT 195.4 LBS, HT 62 IN, BMI 35.74 INDEX, BP 177/80 MM HG, REPEAT BP 150/84 MANUAL, HR 60 /MIN, RR 18 /MIN, TEMP 98 F, OXYGEN SAT % 98, SAFE IN ENV? (Y/N) YES, REVIEWED BY: APNOTIFIED YUVAL TEJADA OF ELEVATED BP AND THAT PATIENT TAKES BLOOD PRESSURE MEDICATION AT HOME. Shravan TEJADA AWARE. Kulwant MARINELLI RN. EXAMINATION GENERAL EXAMINATION: GENERAL AWAKE,ALERT ,PLEASANT . PSYCH AFFECT NORMAL . LUNGS: LUNG CARRASCO ARE CLEAR TO AUSCULTATION BILATERALLY. GOOD MOVEMENT OF AIR . HEART: S1, S2 IN A REGULAR RATE AND RHYTHM. NO SIGNIFICANT MURMURS, RUBS OR GALLOPS NOTED . LUMBAR: PALPATION: + FOR PAIN OVER L/S SPINE. + FOR PAIN OVER L/S PARASPINALS . NEUROLOGIC EXAM: WEAKNESS NOTED OVER RIGHT LEG. DIAGNOSTIC TESTS REVIEWED MRI L/S SPINE 2020. ASSESSMENTS POST LAMINECTOMY SYNDROME - M96.1 (PRIMARY) TREATMENT POST LAMINECTOMY SYNDROME NOTES: CAUDAL EPIDURAL STEROID INJECTION PATIENT EDUCATED ON PRE-PROCEDURE INSTRUCTIONS AND VERBALIZED AN UNDERSTANDING. PATIENT GIVEN INFORMATIONAL HANDOUT ON CUADAL EPIDURAL STEROID INJECTION. Kulwant MARINELLI RN. PROCEDURE CODES FA211 ESTABILISHED PATIENT [facility] CHARGE DISPOSITION & COMMUNICATION FOLLOW UP POST PROC (REASON: CAUDAL EPIDURAL STEROID INJECTION) ELECTRONICALLY SIGNED BY KYLE GREGORY ON 08/11/2020 AT 05:44 PM EST DISCLAIMER : THIS IS A VISIT SUMMARY EXTRACTED FROM THE [employer] CHART. IT IS NOT A COPY OF THE [employer] PROGRESS NOTE. JOHN
== END ==
LOC: M PAIN 14:15
PROVIDERS: ATTEND Nurse Practitioner Family
DX: M96.1 Postlaminectomy syndrome, not elsewhere classified (principal); G43.909 Migraine, unspecified, not intractable, without status migrainosus; K21.9 Gastro-esophageal reflux disease without esophagitis; M79.7 Fibromyalgia; F17.210 Nicotine dependence, cigarettes, uncomplicated; Z86.59 Personal history of other mental and behavioral disorders; Z88.5 Allergy status to narcotic agent; Z88.8 Allergy status to other drugs, medicaments and biological substances; Z79.899 Other long term (current) drug therapy

== ENCOUNTER 2020-08-12 22:31 | Emergency (ER) | payer MEDICARE, MEDICAID ==
[~2020-08-12] VITALS: Ht 157.5 cm; Wt 91.5 kg
[~2020-08-12 22:31] MED LIST changes: -AMLO2.5T3; -ATOR1TAB21; -ESCI20TA16; -LAMO200T3; -LISI20TA35; -METO1TAB87; -MYRB25TA; -ZALE10CA
[2020-08-12 22:32] VITALS: BP 165/79
--- OUTSIDE RECORDS SUMMARY | 2020-08-12 22:41 | CCD ---
Author Organization Unknown Address [address] [place] [address] Phone [phone] Care Team Providers Care Promotional Model Name Role Phone ANAHY CARDENAS 3 Unavailable Allergies Code Code System Name Reaction Severity Status Onset 462966 RxNorm Cymbalta Active 10/03/2017 Tramadol Active 10/03/2017 8640 RxNorm Prednisone Active 05/04/2018 Medications Name Status Start Date Stop Date Aimovig Autoinjector 140 mg/mL subcutane ous auto-injector INJECT 1ML UNDER THE SKIN ONCE A MONTH START 1 MONTH FROM LAST DOSE DIRECTED Active Not available Aimovig Autoinjector 70 mg/mL subcutaneous auto-injector Active Not available albuterol sulfate HFA 90 mcg/actuation aerosol inhaler Active Not available amlodipine 2.5 mg tablet Active Not fya ilable atorvastatin 10 mg tablet Active Not av ailable atorvastatin 20 mg tablet Active Not av ailable baclofen 20 mg tablet Active Not availa ble cephalexin 500 mg capsule Active Not av ailable Chantix 1 mg tablet TAKE ONE TABLET BY MOUTH TWICE A DAY Active No t available Chantix Starting Month Box 0.5 mg (11)-1 mg (42) tablets in dose pack Active Not available clindamycin HCl 300 mg capsule Active N ot available doxycycline monohydrate 100 mg tablet Active Not available escitalopram 10 mg tablet Active Not av ailable escitalopram 20 mg tablet Take 1 tablet every day by oral route. Active Not available fluticasone propionate 50 mcg/actuation nasal spray,suspension A ctive Not available lamotrigine 100 mg tablet Active Not av ailable lamotrigine 200 mg tablet Take 1 tablet every day by oral route for 30 days. Active Not available lamotrigine 25 mg tablet Active Not fay ilable lisinopril 10 mg-hydrochlorothiazide 12.5 mg tablet Active Not available lisinopril 20 mg-hydrochlorothiazide 12.5 mg tablet Active Not available metoprolol tartrate 25 mg tablet Active Not available Myrbetriq 25 mg tablet,extended release Active Not available nystatin 100,000 unit/gram topical cream Active Not available nystatin 100,000 unit/gram topical ointment Active Not available omeprazole 40 mg capsule,delayed release Active Not available ondansetron HCl 8 mg tablet Active Not available ropinirole 2 mg tablet Active Not avail able zaleplon 10 mg capsule Active Not avail able zolmitriptan 5 mg tablet Active Not fay ilable zolpidem 10 mg tablet Take 1 tablet by oral route at bedtime for 30 days. Active Not available zolpidem 5 mg tablet Active Not availab le Problems Name Status Onset Date Source Low Back Pain Active 10/03/2017 History At Risk - Finding Active 11/09/2017 History Chronic Constipation Active 03/23/2018 History Obstructive Sleep Apnea Syndrome Active 05/04/2018 History Cough Active 06/28/2018 History Breast Neoplasm Screening Status Active 06/28/2018 History Pain of Left Wrist Active 06/28/2018 History Hypertensive Disorder Active 08/28/2018 History Influenza Vaccine Needed Active 08/28/2018 History Clinical Finding Active 08/29/2018 History Psychophysiologic Insomnia Active 08/30/2018 Histo ry Tobacco Use and Exposure - Finding Active 10/10/2018 History Migraine Active 01/24/2019 History Chest Pain Active 01/24/[address] Concept Active 01/24/2019 History Emotional State Finding Active 03/07/2019 History Overactive Bladder Active 04/19/2019 History Severe Recurrent Major Depression without Psychotic Features Act chante 05/09/2019 History Generalized Anxiety Disorder Active 05/09/2019 His tory Posttraumatic Stress Disorder Active 05/09/2019 Hi story Panic Disorder Active 05/09/2019 History Nasal Congestion Active 08/05/2019 History Nausea and Vomiting Active 08/05/2019 History Epigastric Pain Active 08/05/2019 History Finding of Body Region Active 08/05/2019 History Moderate Recurrent Major Depression Active 09/12/2019 History Clinical Finding Active 10/28/2019 History Pruritus of Vulva Active 12/05/2019 History Prediabetes Active 12/05/2019 History Patient Asked to Attend Active 12/05/2019 History Procedure by Method Active 12/05/2019 History Procedures Notes: full hysterectomy (1977), eye candida luci , back surgery Results Lab Results None recorded. Past Encounters 05/25/2020 Severe Recurrent Major Depression without Psychotic Features; Mixed Anxiety and Depressive Disorder Nai Navarro MD: [address] [place] [address], Ph. Social History Tobacco Smoking Status Heavy Tobacco Smoker (1 PPD) Vaccine List Vaccine Type Influenza, injectable, MDCK, preservativ e free, quadrivalent 08/28/20180.5 mL Plan of Care Reminders Provider Appointments None recorded. Lab None recorded. Referral None recorded. Procedures None recorded. Surgeries None recorded. Imaging None recorded. Vitals 05/25/2020 01:00PM TELEHEALTH 30 Height Weight BMI 62 in 192 lbs 6.4 oz 35.2 kg/m2 02/03/2020 Height Weight 62 in 190 lbs 8 oz 12/09/2019 Height Weight 62 in 190 lbs 6.08 oz 12/05/2019 Height Weight Blood Pressure 62 in 186 lbs 6.08 oz 112/71 mm[Hg] 11/05/2019 Blood Pressure 135/66 mm[Hg] 09/30/2019 Height Weight 62 in 191 lbs 0.96 oz 08/12/2019 Blood Pressure 134/90 mm[Hg] 08/05/2019 Height Weight Blood Pressure 62 in 195 lbs 9.6 oz 156/96 mm[Hg] 07/01/2019 Height Weight Blood Pressure 62 in 178 lbs 6.08 oz 153/104 mm[Hg] 05/30/2019 Height Weight 62 in 201 lbs 2.08 oz 05/02/2019 Height Weight 62 in 198 lbs 8 oz 03/07/2019 Height Weight Blood Pressure 62 in 201 lbs 136/88 mm[Hg] 01/24/2019 Height Weight Blood Pressure 62 in 203 lbs 179/95 mm[Hg] 08/28/2018 Height Weight Blood Pressure 62 in 178 lbs 8 oz 149/102 mm[Hg]
--- OUTSIDE RECORDS SUMMARY | 2020-08-12 22:41 | CCD ---
Author Organization Unknown Address [address] [place] [address] Phone [phone] Care Team Providers Care Power Shovel Engineer Name Role Phone ANAHY CARDENAS 3 Unavailable Allergies Code Code System Name Reaction Severity Status Onset 506330 RxNorm Cymbalta Active 10/03/2017 Tramadol Active 10/03/2017 8640 RxNorm Prednisone Active 05/04/2018 Medications Name Status Start Date Stop Date Aimovig Autoinjector 140 mg/mL subcutaneous auto-injector Active Not available Aimovig Autoinjector 70 mg/mL subcutaneous auto-injector Active Not available albuterol sulfate HFA 90 mcg/actuation a erosol inhaler INHALE ONE PUFF BY MOUTH EVERY 6 HOURS NEEDED FOR WHEEZING Active Not available amlodipine 2.5 mg tablet Active Not fay ilable atorvastatin 10 mg tablet Completed 2020 atorvastatin 20 mg tablet Active Not av ailable baclofen 20 mg tablet Active Not availa ble cephalexin 500 mg capsule Completed 2020 Chantix 1 mg tablet TAKE ONE TABLET BY MOUTH TWICE A DAY Active No t available Chantix Starting Month Box 0.5 mg (11)-1 mg (42) tablets in dose pack Active Not available clindamycin HCl 300 mg capsule Completed 0 07/24/2020 doxycycline monohydrate 100 mg tablet Active Not available escitalopram 10 mg tablet Completed 2020 escitalopram 20 mg tablet Active Not av ailable fluticasone propionate 50 mcg/actuation nasal spray,suspension A ctive Not available lamotrigine 100 mg tablet Completed 2020 lamotrigine 200 mg tablet Active Not av ailable lamotrigine 25 mg tablet Active Not fay ilable lisinopril 10 mg-hydrochlorothiazide 12.5 mg tablet Active Not available lisinopril 20 mg-hydrochlorothiazide 12.5 mg tablet Active Not available metoprolol tartrate 25 mg tablet Active Not available Myrbetriq 25 mg tablet,extended release Active Not available naproxen 500 mg tablet Take 1 tablet twice a day by oral route. Active Not available nystatin 100,000 unit/gram topical cream Active Not available nystatin 100,000 unit/gram topical ointment Active Not available omeprazole 40 mg capsule,delayed release Active Not available ondansetron HCl 8 mg tablet Active Not available ropinirole 2 mg tablet Active Not avail able Valtrex 1 gram tablet Take 2 tablets every 12 hours by oral route as directed for 1 day. take two tablet every 12 hours x 1 day on onset of cold sore Active Not available zaleplon 10 mg capsule Active Not avail able zolmitriptan 5 mg tablet TAKE 1 TABLET BY MOUTH AT ONSET OF MIGRAINS MAY REPEAT IN 2 HOURS NEEDED MAXIMUM DAILY DOSE 2 MAXIMUM WEEKLY DOSE 3 Active Not available zolpidem 10 mg tablet TAKE ONE TABLET BY MOUTH AT BEDTIME MAXIMUM DAILY DOSE 1 TABLET Active Not available zolpidem 5 mg tablet [...] History Procedure by Method Active 12/05/2019 History Herpes Labialis Active 07/26/2020 Administration of Pneumococcal Vaccine Active Needs Influenza Immunization Active 07/26/2020 Nicotine Dependence with Current Use Active 07/26/2020 Procedures Notes: full hysterectomy (1977), eye candida luci , back surgery Results Lab Results None recorded. Past Encounters 07/24/2020 Nicotine Dependence with Current Use; Administration of Pneumococcal Vaccine; Needs Influenza Immunization; Pain of Left Wrist; Prediabetes; Herpes Labialis; Severe Recurrent Major Depression without Psychotic Features Radha Paiz TRAFFIC COUNTER-: [address] [place] [address], Ph. 05/25/2020 Severe Recurrent Major Depression without Psychotic Features; Mixed Anxiety and Depressive Disorder Nai Navarro MD: [address] [place] [address], Ph. Social History Tobacco Smoking Status Heavy Tobacco Smoker (1 PPD) Vaccine List Vaccine Type Influenza, injectable, MDCK, preservativ e free, quadrivalent 08/28/20180.5 mL influenza, injectable, quadrivalent, pre servative free 10.5 mL pneumococcal polysaccharide PPV23 .5 mL Plan of Care Reminders Provider Appointments None recorded. Lab None recorded. Referral None recorded. Procedures None recorded. Surgeries None recorded. Imaging None recorded. Vitals 07/24/2020 01:40PM ESTABLISHED [id number] Height Weight BMI Blood Pressure 62 in 196 lbs 3.2 oz 35.9 kg/m2 131/69 mm[Hg ] 05/25/2020 01:00PM TELEHEALTH 30 Height Weight BMI [...]
[2020-08-12] MEDS ORDERED: ZALE10CA (22:42)
[2020-08-12] MEDS ORDERED: METO1TAB87 (22:42)
[2020-08-12] MEDS ORDERED: MYRB25TA (22:42)
[2020-08-12] MEDS ORDERED: ATOR1TAB21 (22:42)
[2020-08-12] MEDS ORDERED: AMLO2.5T3 (22:42)
[2020-08-12] MEDS ORDERED: LISI20TA35 (22:42)
[2020-08-12] MEDS ORDERED: ESCI20TA16 (22:42)
[2020-08-12] MEDS ORDERED: LAMO200T3 (22:42)
--- OUTSIDE RECORDS SUMMARY | 2020-08-12 22:42 | CCD ---
Author Author [facility] Organization [facility] Address Unknown Phone Unavailable Care Team Providers Care Canvas Worker Apprentice Name Role Phone Flores, T Russ PA Unavailable Unavailable Flores, T Russ PA Unavailable Unavailable Flores, T Russ PA Unavailable Unavailable Flores, T Russ PA Unavailable Unavailable Flores, T Russ PA Unavailable Unavailable Flores, T Russ PA Unavailable Unavailable Flores, T Russ PA Unavailable Unavailable Flores, T Russ PA Unavailable Unavailable Flores, T Russ PA Unavailable Unavailable Flores, T Russ PA Unavailable Unavailable Flores, T Russ PA Unavailable Unavailable Flores, T Russ PA Unavailable Unavailable Flores, T Russ PA Unavailable Unavailable Flores, T Russ PA Unavailable Unavailable Flores, T Russ PA Unavailable Unavailable Flores, T Russ PA Unavailable Unavailable Flores, T Russ PA Unavailable Unavailable Flores, T Russ PA Unavailable Unavailable Flores, T Russ PA Unavailable Unavailable Flores, T Russ PA Unavailable Unavailable Flores, T Russ PA Unavailable Unavailable Flores, T Russ PA Unavailable Unavailable Flores, T Russ PA Unavailable Unavailable Flores, T Russ PA Unavailable Unavailable Flores, T Russ PA Unavailable Unavailable Flores, T Russ PA Unavailable Unavailable Flores, T Russ PA Unavailable Unavailable Flores, T Russ PA Unavailable Unavailable Flores, T Russ PA Unavailable Unavailable Flores, T Russ PA Unavailable Unavailable Flores, T Russ PA Unavailable Unavailable Flores, T Russ PA Unavailable Unavailable Flores, T Russ PA Unavailable Unavailable Flores, T Russ PA Unavailable Unavailable Flores, T Russ PA Unavailable Unavailable Flores, T Russ PA Unavailable Unavailable Flores, T Russ PA Unavailable Unavailable Flores, T Russ PA Unavailable Unavailable Flores, T Russ PA Unavailable Unavailable Flores, T Russ PA Unavailable Unavailable Flores, T Russ PA Unavailable Unavailable Flores, T Russ PA Unavailable Unavailable Flores, T Russ PA Unavailable Unavailable Maki, Dot Unavailable Unavailable Maki, Dot Unavailable Unavailable Maki, Dot Unavailable Unavailable Hoang Elizabeth MD Unavailable Unavailable Hoang Elizabeth MD Unavailable Unavailable Hoang Elizabeth MD Unavailable Unavailable Hoang Elizabeth MD Unavailable Unavailable Hoang Elizabeth MD Unavailable Unavailable Hoang Elizabeth MD Unavailable Unavailable Hoang Elizabeth MD Unavailable Unavailable Hoang Elizabeth MD Unavailable Unavailable Hoang Elizabeth MD Unavailable Unavailable Amy Acevedo HOT PACKER HOT PACKER Unavailable Unavailable Garcia, L Mariya PA Unavailable Unavailable Garcia, L Mariya PA Unavailable Unavailable Garcia, L Mariya PA Unavailable Unavailable Garcia, L Mariya PA Unavailable Unavailable Garcia, L Mariya PA Unavailable Unavailable Garcia, L Mariya PA Unavailable Unavailable Garcia, L Mariya PA Unavailable Unavailable Garcia, L Mariya PA Unavailable Unavailable Garcia, L Mariya PA Unavailable Unavailable Garcia, L Mariya PA Unavailable Unavailable Garcia, L Mariya PA Unavailable Unavailable Garcia, L Mariya PA Unavailable Unavailable Garcia, L Mariya PA Unavailable Unavailable Garcia, L Mariya PA Unavailable Unavailable Garcia, L Mariya PA Unavailable Unavailable Garcia, L Mariya PA Unavailable Unavailable Garcia, L Mariya PA Unavailable Unavailable Garcia, L Mariya PA Unavailable Unavailable Garcia, L Mariya PA Unavailable Unavailable Garcia, L Mariya PA Unavailable Unavailable Garcia, L Mariya PA Unavailable Unavailable Garcia, L Mariya PA Unavailable Unavailable Garcia, L Mariya PA Unavailable Unavailable Garcia, L Mariya PA Unavailable Unavailable Garcia, L Mariya PA Unavailable Unavailable Garcia, L Mariya PA Unavailable Unavailable Garcia, L Mariya PA Unavailable Unavailable Garcia, L Mariya PA Unavailable Unavailable Garcia, L Mariya PA Unavailable Unavailable Garcia, L Mariya PA Unavailable Unavailable Garcia, L Mariya PA Unavailable Unavailable Garcia, L Mariya PA Unavailable Unavailable Garcia, L Mariya PA Unavailable Unavailable Garcia, L Mariya PA Unavailable Unavailable Garcia, L Mariya PA Unavailable Unavailable Garcia, L Mariya PA Unavailable Unavailable Chencho, A Radha HOT PACKER Unavailable Unavailable Chencho, A Radha HOT PACKER Unavailable Unavailable Chencho, A Radha HOT PACKER Unavailable Unavailable Chencho, A Radha HOT PACKER Unavailable Unavailable Chencho, A Radha HOT PACKER Unavailable Unavailable Chencho, A Radha HOT PACKER Unavailable Unavailable Chencho, A Radha HOT PACKER Unavailable Unavailable Chencho, A Radha HOT PACKER Unavailable Unavailable Chencho, A Radha HOT PACKER Unavailable Unavailable Bradley, A Radha HOT PACKER Unavailable Unavailable Bradley, A Radha HOT PACKER Unavailable Unavailable Bradley, A Radha HOT PACKER Unavailable Unavailable Bradley, A Radha HOT PACKER Unavailable Unavailable Bradley, A Radha HOT PACKER Unavailable Unavailable Bradley, A Radha HOT PACKER Unavailable Unavailable Bradley, A Radha HOT PACKER Unavailable Unavailable Bradley, A Radha HOT PACKER Unavailable Unavailable Bradley, A Radha HOT PACKER Unavailable Unavailable Bradley, A Radha HOT PACKER Unavailable Unavailable Bradley, A Radha HOT PACKER Unavailable Unavailable Bradley, A Radha HOT PACKER Unavailable Unavailable Bradley, A Radha HOT PACKER Unavailable Unavailable Bradley, A Radha HOT PACKER Unavailable Unavailable Bradley, A Radha HOT PACKER Unavailable Unavailable Bradley, A Radha HOT PACKER Unavailable Unavailable Bradley, A Radha HOT PACKER Unavailable Unavailable Bradley, A Radha HOT PACKER Unavailable Unavailable Chencho, A Radha HOT PACKER Unavailable Unavailable Flores, T Russ PA Unavailable Unavailable Flores, T Russ PA Unavailable Unavailable Flores, T Russ PA Unavailable Unavailable Flores, T Russ PA Unavailable Unavailable Flores, T Russ PA Unavailable Unavailable Flores, T Russ PA Unavailable Unavailable Flores, T Russ PA Unavailable Unavailable Flores, T Russ PA Unavailable Unavailable Flores, T Russ PA Unavailable Unavailable Flores, T Russ PA Unavailable Unavailable Flores, T Russ PA Unavailable Unavailable Flores, T Russ PA Unavailable Unavailable Flores, T Russ PA Unavailable Unavailable Flores, T Russ PA Unavailable Unavailable Flores, T Russ PA Unavailable Unavailable Flores, T Russ PA Unavailable Unavailable Flores, T Russ PA Unavailable Unavailable Flores, T Russ PA Unavailable Unavailable Flores, T Russ PA Unavailable Unavailable Flores, T Russ PA Unavailable Unavailable Flores, T Russ PA Unavailable Unavailable Flores, T Russ PA Unavailable Unavailable Flores, T Russ PA Unavailable Unavailable Flores, T Russ PA Unavailable Unavailable Flores, T Russ PA Unavailable Unavailable Flores, T Russ PA Unavailable Unavailable Flores, T Russ PA Unavailable Unavailable Flores, T Russ PA Unavailable Unavailable Flores, T Russ PA Unavailable Unavailable Flores, T Russ PA Unavailable Unavailable Flores, T Russ PA Unavailable Unavailable Flores, T Russ PA Unavailable Unavailable Flores, T Russ PA Unavailable Unavailable Flores, T Russ PA Unavailable Unavailable Flores, T Russ PA Unavailable Unavailable Flores, T Russ PA Unavailable Unavailable Flores, T Russ PA Unavailable Unavailable Flores, T Russ PA Unavailable Unavailable Flores, T Russ PA Unavailable Unavailable Flores, T Russ PA Unavailable Unavailable Flores, T Russ PA Unavailable Unavailable Flores, T Russ PA Unavailable Unavailable Flores, T Russ PA Unavailable Unavailable STEPHENIE, P BUBBA MD Unavailable Unavailable STEPHENIE, P BUBBA MD Unavailable Unavailable STEPHENIE, P BUBBA MD Unavailable Unavailable STEPHENIE, P BUBBA MD Unavailable Unavailable STEPHENIE, P BUBBA MD Unavailable Unavailable STEPHENIE, P BUBBA MD Unavailable Unavailable STEPHENIE, P BUBBA MD Unavailable Unavailable STEPHENIE, P BUBBA MD Unavailable Unavailable STEPHENIE, P BUBBA MD Unavailable Unavailable STEPHENIE, P BUBBA MD Unavailable Unavailable STEPHENIE, P BUBBA MD Unavailable Unavailable STEPHENIE, P BUBBA MD Unavailable Unavailable STEPHENIE, P BUBBA MD Unavailable Unavailable STEPHENIE, P BUBBA MD Unavailable Unavailable STEPHENIE, P BUBBA MD Unavailable Unavailable STEPHENIE, P BUBBA MD Unavailable Unavailable STEPHENIE, P BUBBA MD Unavailable Unavailable STEPHENIE, P BUBBA MD Unavailable Unavailable STEPHENIE, P BUBBA MD Unavailable Unavailable STEPHENIE, P BUBBA MD Unavailable Unavailable STEPHENIE, P BUBBA MD Unavailable Unavailable STEPHENIE, P BUBBA MD Unavailable Unavailable STEPHENIE, P BUBBA MD Unavailable Unavailable STEPHENIE, P BUBBA MD Unavailable Unavailable STEPHENIE, P BUBBA MD Unavailable Unavailable STEPHENIE, P BUBBA MD Unavailable Unavailable STEPHENIE, P BUBBA MD Unavailable Unavailable STEPHENIE, P BUBBA MD Unavailable Unavailable STEPHENIE, P BUBBA MD Unavailable Unavailable STEPHENIE, P BUBBA MD Unavailable Unavailable STEPHENIE, P BUBBA MD Unavailable Unavailable STEPHENIE, P BUBBA MD Unavailable Unavailable STEPHENIE, P BUBBA MD Unavailable Unavailable STEPHENIE, P BUBBA MD Unavailable Unavailable STEPHENIE, P BUBBA MD Unavailable Unavailable STEPHENIE, P BUBBA MD Unavailable Unavailable STEPHENIE, P BUBBA MD Unavailable Unavailable STEPHENIE, P BUBBA MD Unavailable Unavailable STEPHENIE, P BUBBA MD Unavailable Unavailable STEPHENIE, P BUBBA MD Unavailable Unavailable STEPHENIE, P BUBBA MD Unavailable Unavailable STEPHENIE, P BUBBA MD Unavailable Unavailable STEPHENIE, P BUBBA MD Unavailable Unavailable STEPHENIE, P BUBBA MD Unavailable Unavailable STEPHENIE, P BUBBA MD Unavailable Unavailable STEPHENIE, P BUBBA MD Unavailable Unavailable STEPHENIE, P BUBBA MD Unavailable Unavailable STEPHENIE, P BUBBA MD Unavailable Unavailable STEPHENIE, P BUBBA MD Unavailable Unavailable STEPHENIE, P BUBBA MD Unavailable Unavailable STEPHENIE, P BUBBA MD Unavailable Unavailable STEPHENIE, P BUBBA MD Unavailable Unavailable STEPHENIE, P BUBBA MD Unavailable Unavailable STEPHENIE, P BUBBA MD Unavailable Unavailable STEPHENIE, P BUBBA MD Unavailable Unavailable STEPHENIE, P BUBBA MD Unavailable Unavailable STEPHENIE, P BUBBA MD Unavailable Unavailable STEPHENIE, P BUBBA MD Unavailable Unavailable STEPHENIE, P BUBBA MD Unavailable Unavailable STEPHENIE, P BUBBA MD Unavailable Unavailable STEPHENIE, P BUBBA MD Unavailable Unavailable STEPHENIE, P BUBBA MD Unavailable Unavailable STEPHENIE, P BUBBA MD Unavailable Unavailable STEPHENIE, P BUBBA MD Unavailable Unavailable STEPHENIE, P BUBBA MD Unavailable Unavailable STEPHENIE, P BUBBA MD Unavailable Unavailable STEPHENIE, P BUBBA MD Unavailable Unavailable STEPHENIE, P BUBBA MD Unavailable Unavailable STEPHENIE, P BUBBA MD Unavailable Unavailable STEPHENIE, P BUBBA MD Unavailable Unavailable STEPHENIE, P BUBBA MD Unavailable Unavailable STEPHENIE, P BUBBA MD Unavailable Unavailable STEPHENIE, P BUBBA MD Unavailable Unavailable STEPHENIE, P BUBBA MD Unavailable Unavailable STEPHENIE, P BUBBA MD Unavailable Unavailable STEPHENIE, P BUBBA MD Unavailable Unavailable STEPHENIE, P BUBBA MD Unavailable Unavailable STEPHENIE, P BUBBA MD Unavailable Unavailable STEPHENIE, P BUBBA MD Unavailable Unavailable STEPHENIE, P BUBBA MD Unavailable Unavailable STEPHENIE, P BUBBA MD Unavailable Unavailable STEPHENIE, P BUBBA MD Unavailable Unavailable STEPHENIE, P BUBBA MD Unavailable Unavailable STEPHENIE, P BUBBA MD Unavailable Unavailable STEPHENIE, P BUBBA MD Unavailable Unavailable STEPHENIE, P BUBBA MD Unavailable Unavailable STEPHENIE, P BUBBA MD Unavailable Unavailable STEPHENIE, P BUBBA MD Unavailable Unavailable STEPHENIE, P BUBBA MD Unavailable Unavailable STEPHENIE, P BUBBA MD Unavailable Unavailable STEPHENIE, P BUBBA MD Unavailable Unavailable STEPHENIE, P BUBBA MD Unavailable Unavailable STEPHENIE, P BUBBA MD Unavailable Unavailable STEPHENIE, P BUBBA MD Unavailable Unavailable RING, K DHRUV PA Unavailable Unavailable RING, K DHRUV PA Unavailable Unavailable RING, K DHRUV PA Unavailable Unavailable RING, K DHRUV PA Unavailable Unavailable RING, K DHRUV PA Unavailable Unavailable RING, K DHRUV PA Unavailable Unavailable RING, K DHRUV PA Unavailable Unavailable RING, K DHRUV PA Unavailable Unavailable RING, K DHRUV PA Unavailable Unavailable RING, K DHRUV PA Unavailable Unavailable RING, K DHRUV PA Unavailable Unavailable RING, K DHRUV PA Unavailable Unavailable RING, K DHRUV PA Unavailable Unavailable RING, K DHRUV PA Unavailable Unavailable RING, K DHURV PA Unavailable Unavailable RING, K DHRUV PA Unavailable Unavailable RING, K DHRUV PA Unavailable Unavailable RING, K DHRUV PA Unavailable Unavailable RING, K DHRUV PA Unavailable Unavailable RING, K DHRUV PA Unavailable Unavailable RING, K DHRUV PA Unavailable Unavailable Acevedo, F Amy HOT PACKER-BC Unavailable Unavailable Acevedo, F Amy HOT PACKER-BC Unavailable Unavailable Acevedo, F Amy HOT PACKER-BC Unavailable Unavailable Acevedo, F Amy HOT PACKER-BC Unavailable Unavailable Acevedo, F Amy HOT PACKER-BC Unavailable Unavailable Acevedo, F Amy HOT PACKER-BC Unavailable Unavailable Acevedo, F Amy HOT PACKER-BC Unavailable Unavailable Acevedo, F Amy HOT PACKER-BC Unavailable Unavailable Acevedo, F Amy HOT PACKER-BC Unavailable Unavailable Acevedo, F Amy HOT PACKER-BC Unavailable Unavailable Acevedo, F Amy HOT PACKER-BC Unavailable Unavailable Acevedo, F Amy HOT PACKER-BC Unavailable Unavailable Acevedo, F Amy HOT PACKER-BC Unavailable Unavailable Acevedo, F Amy HOT PACKER-BC Unavailable Unavailable Acevedo, F Amy HOT PACKER-BC Unavailable Unavailable Acevedo, F Amy HOT PACKER-BC Unavailable Unavailable Acevedo, F Amy HOT PACKER-BC Unavailable Unavailable Acevedo, F Amy HOT PACKER-BC Unavailable Unavailable Acevedo, F Amy HOT PACKER-BC Unavailable Unavailable Acevedo, F Amy HOT PACKER-BC Unavailable Unavailable Acevedo, F Amy HOT PACKER-BC Unavailable Unavailable Acevedo, F Amy HOT PACKER-BC Unavailable Unavailable PorrasNuris PA Unavailable Unavailable Porras, Nuris Yuann PA Unavailable Unavailable Porras, Nuris Julia PA Unavailable Unavailable Porras, Nuris Julia PA Unavailable Unavailable Porras, Nuris Julia PA Unavailable Unavailable Porras, Nuris Julia PA Unavailable Unavailable Porras, Nuris Julia PA Unavailable Unavailable Porras, Nuris Julia PA Unavailable Unavailable Porras, Nuris Julia PA Unavailable Unavailable Porras, Nuris Julia PA Unavailable Unavailable Chaudhri, S Mahipal MD Unavailable Unavailable Chaudhri, S Mahipal MD Unavailable Unavailable Chaudhri, S Mahipal MD Unavailable Unavailable Chaudhri, S Mahipal MD Unavailable Unavailable Chaudhri, S Mahipal MD Unavailable Unavailable Chaudhri, S Mahipal MD Unavailable Unavailable Chaudhri, S Mahipal MD Unavailable Unavailable Chaudhri, S Mahipal MD Unavailable Unavailable Re-disclosure Warning The records that you are about to access may contain information from federally-assisted alcohol or drug abuse programs. If such information is present, then the following federally mandated warning applies: This information has been disclosed to you from records protected by federal confidentiality rules (42 CFR part 2). The federal rules prohibit you from making any further disclosure of this information unless further disclosure is expressly permitted by the written consent of the person to whom it pertains or as otherwise permitted by 42 CFR part 2. A general authorization for the release of medical or other information is NOT sufficient for this purpose. The Federal rules restrict any use of the information to criminally investigate or prosecute any alcohol or drug abuse patient.The records that you are about to access may contain highly sensitive health information, the redisclosure of which is protected by Article 27-F of the [facility] Public Health law. If you continue you may have access to information: Regarding HIV / AIDS; Provided by facilities licensed or operated by the [facility] Office of Mental Health; or Provided by the [facility] Office for People With Developmental Disabilities. If such information is present, then the following [facility] mandated warning applies: This information has been disclosed to you from confidential records which are protected by state law. State law prohibits you from making any further disclosure of this information without the specific written consent of the person to whom it pertains, or as otherwise permitted by law. Any unauthorized further disclosure in violation of state law may result in a fine or alf sentence or both. A general authorization for the release of medical or other information is NOT sufficient authorization for further disc losure. Allergies and Adverse Reactions Type Description Substance Reaction Status Data Source(s ) Drug allergy Cymbalta Drug allergy muscle spasms Active eCW1 ( [facility]) Drug allergy Topamax 100 Drug allergy tongue swelling Active eCW 1 ([facility]) Drug allergy Tramadol Tramadol tongue swelling Active eCW1 ( [facility]) PredniSONE PredniSONE PredniSONE tongue swelling Active eCW1 ([facility]) PredniSONE PredniSONE PredniSONE tongue swelling Active eCW1 ([facility]) Family History Family Member Name Family Member Gender Family Member Status Date o f Status Description Data Source(s) Unknown Male Problem MEDENT ([facility]) Unknown Male Problem MEDENT ([facility]) Unknown Unknown Problem MEDENT ([facility]) Unknown Male Problem MEDENT ([facility] () [facility] Unknown Problem MED[facility] ([facility]) Unknown Unknown Problem [facility] ([facility]) Unknown Female Problem [facility] ([facility]) Encounters Encounter Providers Location Date Indications Data Source(s ) Outpatient Attender: Hoang Elizabeth MD 01/06/2021 12:00:00 AM [facility] Radha Paiz [facility]: [address] [place] [address], Ph. Attender: Radha Paiz [facility] Medical 07/24/2020 12:00:00 AM MEENU GIBBS ([facility]) Nai Navarro MD: [address] [place] [address], Ph. Attender: Nai Navarro MD [facility] Medical 05/25/2020 12:00:00 AM EST BERNIE ([facility]) Nai Navarro MD: [address] [place] [address], Ph. Attender: Nai Navarro MD MD - [facility] Medical 05/25/2020 12:00:00 AM EST [facility] ([facility]) Outpatient Attender: Mariya ROSE-SJConrad.JOHNNA 10/2019 12:00:00 AM EST - 05/13/2020 02:50:02 PM EST [facility] Outpatient [address] [facility] [address] 05/01/2020 12:00:00 AM EDT eCW1 ([facility]) Outpatient Attender: Amy DALLAS 04/21/2020 05: 47:00 PM EDT [facility] Outpatient Attender: Amy DALLAS 04/13/2020 07: 15:08 PM EDT [facility] Outpatient Attender: Russ FLANNERY [facility] [place] 04/07/2020 03:40:00 PM EDT [facility] ([facility]) Outpatient Attender: KYLE DALLAS 03/17/2020 11:52:01 AM EDT [facility] Outpatient Attender: Amy DALLAS 03/02/2020 01: 02:03 PM EDT [facility] Outpatient Attender: Julia sullivan 02/29/2020 02:15:00 PM EDT [facility] ([facility]) Outpatient Attender: KYLE DALLAS 02/20/2020 12:02:21 AM EDT [facility] Outpatient Attender: KYLE DALLAS 02/19/2020 03:38:00 PM EDT [facility] Outpatient Attender: Amy DALLAS 02/16/2020 11: 50:02 PM EDT [facility] Outpatient Attender: Amy DALLAS 02/13/2020 03: 04:01 PM EDT [facility] Outpatient Attender: KYLE DALLAS 02/04/2020 10:43:01 AM EDT [facility] Outpatient Attender: KYLE DALLAS 02/03/2020 03:44:01 PM EDT [facility] Outpatient Attender: KYLE WRIGHT FP 01/15/2020 08:43:01 AM EDT [facility] Outpatient Attender: KYLE DALLAS 01/13/2020 01:18:01 PM EDT [facility] Outpatient Attender: Amy DALLAS 01/13/2020 01: 18:00 PM EDT [facility] Outpatient Attender: Amy DALLAS 01/13/2020 01: 17:04 PM EDT [facility] Outpatient Attender: KYLE WRIGHT FP 01/13/2020 01:17:03 PM EDT [facility] Outpatient Attender: KYLE DALLAS 01/08/2020 12:03:00 PM EDT [facility] Outpatient Attender: KYLE WRIGHT FP 01/07/2020 10:56:00 AM EDT [facility] Outpatient Attender: Amy DALLAS 01/06/2020 01: 17:04 PM EDT [facility] Outpatient Attender: KYLE WRIGHT FP 01/06/2020 10:36:01 AM EDT [facility] Outpatient Attender: Hoang Elizabeth MD [id number] 12/30/19 12:00:00 AM EDT - 12/30/2019 02:17:00 PM EDT [facility] Restless legs syndrome Outpatient Attender: Amy DALLAS 12/29/2019 04: 44:00 PM EDT [facility] Outpatient Attender: Amy DALLAS 12/26/2019 08: 45:04 AM EDT [facility] Outpatient Attender: Russ FLANNERY [facility] [place] 12/18/2019 12:40:00 PM EDT [facility] ([facility]) Outpatient Attender: KYLE DALLAS 12/17/2019 07:54:21 PM EDT [facility] Outpatient Attender: Amy DALLAS 12/10/2019 03: 32:02 PM EDT [facility] Outpatient Attender: KYLE DALLAS 12/06/2019 07:10:00 AM EDT [facility] Outpatient Attender: KYLE DALLSA 12/05/2019 04:02:02 PM EDT [facility] Outpatient Attender: Amy SALGUEROBC FP 12/05/2019 04: 02:00 PM EDT [facility] Outpatient Attender: KYLE WRIGHT FP 12/05/2019 04:01:59 PM EDT [facility] Outpatient Attender: KYLE WRIGHT FP 12/05/2019 02:35:00 PM EDT [facility] Outpatient Attender: KYLE WRIGHT FP 12/05/2019 02:34:00 PM EDT [facility] Outpatient Attender: KYLE WRIGHT FP 11/29/2019 01:22:01 PM EDT [facility] Outpatient Attender: KYLE WRIGHT FP 11/12/2019 03:41:01 PM EDT [facility] Outpatient Attender: Amy SALGUEROBC FP 11/10/2019 09: 16:01 PM EDT [facility] Outpatient Attender: KYLE WRIHGT FP 11/10/2019 09:16:01 PM EDT [facility] Outpatient Attender: Amy SALGUEROBC FP 11/07/2019 03: 28:03 PM EDT [facility] Outpatient Attender: KYLE WRIGHT FP 11/05/2019 11:08:00 AM EDT [facility] Outpatient Attender: KYLE WRIGHT FP 10/28/2019 04:24:01 PM EDT [facility] Outpatient Attender: Amy SALGUEROBC FP 10/28/2019 04: 23:01 PM EDT [facility] Outpatient Attender: KYLE WRIGHT FP 10/28/2019 10:27:01 AM EDT [facility] Outpatient Attender: KYLE WRIGHT FP 10/25/2019 05:20:00 PM EDT [facility] [address] [place] [address] 10/10/2019 12:00:00 AM EDT eCW1 ([facility]) Outpatient Attender: KYLE WRIGHT FP 10/03/2019 08:01:03 PM EDT [facility] Outpatient Attender: Amy HIGGINBOTHAM FP 10/03/2019 06: 22:59 PM EDT [facility] Outpatient Attender: KYLE WRIGHT FP 10/03/2019 03:39:01 PM EDT [facility] Outpatient Attender: KYLE WRIGHT FP 10/01/2019 01:24:00 PM EDT [facility] Outpatient Attender: KYLE WRIGHT FP 09/30/2019 12:51:01 PM EDT [facility] Outpatient Attender: Amy SALGUEROBC FP 09/26/2019 12: 57:01 PM EDT [facility] Outpatient Attender: Amy SALGUEROBC FP 09/26/2019 12: 56:03 PM EDT [facility] Outpatient Attender: KYLE WRIGHT FP 09/12/2019 08:01:04 PM EST [facility] Outpatient Attender: KYLE WRIGHT FP 09/12/2019 11:00:01 AM EST [facility] [address] [place] [id number] 09/11/2019 12:00:00 AM EST [facility] ([facility]) Outpatient Attender: Mariya ROSE-SJCatrachitaJOHNNA 12:00:00 AM EST [facility] Outpatient Attender: KYLE WRIGHT FP 08/27/2019 01:23:02 PM EST [facility] Outpatient Attender: Amy WRIGHT-BC FP 08/21/2019 01: 11:03 PM EST [facility] [facility] Referrer: Mariya ROSE-SJCatrachitaJOHNNA 06/2020 12:00:00 AM EST - 08/21/2019 04:15:27 PM EST [facility] Outpatient Referrer: Russ FLANNERY 08/13/2019 08:57:00 PM EST [facility] Outpatient Attender: KYLE WRIGHT FP 08/12/2019 01:04:01 PM EST [facility] Outpatient Referrer: Russ FLANNERY 08/10/2019 08:16:00 AM EST [facility] Outpatient Referrer: Russ FLANNERY 08/10/2019 08:16:00 AM EST [facility] Outpatient Attender: KYLE WRIGHT FP 08/09/2019 02:51:00 PM [facility] Outpatient Referrer: Russ FLANNERY 08/09/2019 02:34:00 PM EST [facility] Outpatient Attender: Amy WRIGHT-BC CELENA 08/06/2019 05: 49:02 AM [facility] Outpatient Attender: BUBBA CASIANO MD 08/06/2019 12:00:00 AM [facility] Outpatient Attender: KYLE WRIGHT FP 08/05/2019 08:01:02 PM [facility] Outpatient Attender: KYLE WRIGHT FP 08/05/2019 02:06:05 PM [facility] Outpatient Attender: KYLE WRIGHT FP 08/05/2019 09:20:00 AM [facility] Outpatient Attender: BUBBA CASIANO MD 07/30/2019 12:00:00 AM [facility] Outpatient Attender: KYLE WRIGHT FP 07/29/2019 11:08:00 AM [facility] Outpatient Referrer: Russ FLANNERY 07/25/2019 02:32:00 PM EST [facility] Outpatient Referrer: Russ FLANNERY 07/24/2019 08:34:00 AM EST [facility] Outpatient Referrer: Russ FLANNERY 07/23/2019 11:09:00 AM EST [facility] Outpatient Referrer: Russ FLANNERY 07/23/2019 11:08:00 AM EST [facility] Outpatient Referrer: Russ FLANNERY 07/23/2019 11:08:00 AM EST [facility] Outpatient Attender: Russ FLANNERY [facility] [place] 07/22/2019 03:00:00 PM EST [facility] ([facility] Outpatient Attender: KYLE WRIGHT FP 07/15/2019 10:47:00 AM [facility] Outpatient Attender: KYLE WRIGHT FP 07/15/2019 10:46:01 AM [facility] Outpatient Attender: DHRUV Blair 07/14/2019 12:45:00 PM EST [facility] ([facility] Outpatient Attender: KYLE WRIGHT FP 07/12/2019 11:16:02 AM [facility] Outpatient Attender: KYLE WRIGHT FP 07/11/2019 08:01:01 PM [facility] Outpatient Attender: KYLE WRIGHT FP 07/11/2019 02:00:01 PM [facility] Outpatient Attender: KYLE WRIGHT FP 07/11/2019 01:50:01 PM [facility] Outpatient Attender: KYLE WRIGHT FP 07/08/2019 01:58:00 PM [facility] Outpatient Attender: Amy HIGGINBOTHAM FP 07/08/2019 01: 57:01 PM [facility] Outpatient Attender: Dot Gambino 07/08/2019 12:00:00 AM [facility] Outpatient Attender: KYLE WRIGHT FP 07/04/2019 03:13:00 PM [facility] Outpatient Attender: KYLE WRIGHT FP 07/04/2019 02:51:01 PM [facility] Outpatient Attender: Amy DALLAS 07/02/2019 10: 55:01 AM [facility] Outpatient Attender: KYLE WRIGHT FP 07/01/2019 12:49:00 PM [facility] Outpatient Attender: KYLE WRIGHT FP 06/28/2019 08:03:24 PM [facility] Outpatient Attender: Hoang Elizabeth MD [id number] 06/03/20 19 12:00:00 AM EST - 06/03/2019 04:40:57 PM [facility] Restless legs syndrome [facility] Restless legs syndrome Immunizations Vaccine Date Status Description Data Source(s) pneumococcal polysaccharide PPV23 07/24/2020 04:08:00 PM EST com pleted .5 mL [facility] ([facility]) New in 2011. IIV4 07/24/2020 04:08:00 PM EST completed .5 mL [facility] ([facility]) INFLUENZA VIRUS VACCINE TRIVAL SPLIT [id number](64 YR U P)/PF 07/09/2019 12:00:00 AM EST completed [facility] PNEUMOCOCCAL 13-VALENT CONJUGATE VACCINE (DIPHTHERIA C RM)/PF 07/09/2019 12:00:00 AM EST completed [facility] Medications Medication Brand Name Start Date Product Form Dose Route Admi nistrative Instructions Pharmacy Instructions Status Indications Reaction Description Data Source(s) valacyclovir 1000 MG Oral Tablet VALACYCLOVIR HCL 07/27/2020 12: 00:00 AM EST tablet 4 TAKE 2 TABLETS BY MOUTH EVERY 12 HOURS DIRECTED FOR 1 DAY TAKE 2 TABLETS BY MOUTH EVERY 12 HOURS DIRECTED FOR 1 DAY SOLD: 07/29/2020 [facility] 500 mg 07/24/2020 12:00:00 AM EST tablet 60 TAKE ONE TABLET BY MOUTH TWICE A DAY TAKE ONE TABLET BY MOUTH TWICE A DAY SOLD: 07/25/2020 [facility] 10 mg 07/23/2020 12:00:00 AM EST capsule 30 TAKE ONE CAPSULE BY MOUTH AT BEDTIME, MAXIMUM DAILY DOSE = 1 CAPSULE TAKE ONE CAPSULE BY MOUTH AT BEDTIME, MAXIMUM DAILY DOSE = 1 CAPSULE SOLD: 07/23/2020 [facility] 20-12.5 mg 07/21/2020 12:00:00 AM EST tablet 30 TAKE ONE TABLET BY MOUTH EVERY DAY TAKE ONE TABLET BY MOUTH EVERY DAY SOLD: 07/21/2020 [facility] 2 mg 07/18/2020 12:00:00 AM EST tablet 45 TAKE ONE AND ONE-HALF TABLETS BY MOUTH EVERY EVENING ONE HOUR BEFORE BEDTIME TAKE ONE AND ONE-HALF TABLETS BY MOUTH EVERY EVENING ONE HOUR BEFORE BEDTIME SOLD: 07/20/2020 [facility] 25 mg 07/18/2020 12:00:00 AM EST tablet extended release 24 hr 30 TAKE ONE TABLET BY MOUTH EVERY DAY TAKE ONE TABLET BY MOUTH EVERY DAY SOLD: 07/20/2020 [facility] 40 mg 07/18/2020 12:00:00 AM EST capsule,delayed release (DR/EC) 60 TAKE ONE CAPSULE BY MOUTH TWICE A DAY TAKE ONE CAPSULE BY MOUTH TWICE A DAY SOLD: 07/20/2020 [facility] 200 mg 07/18/2020 12:00:00 AM EST tablet 30 TAKE ONE TABLET BY MOUTH EVERY DAY TAKE ONE TABLET BY MOUTH EVERY DAY SOLD: 07/20/2020 [facility] 8 mg 06/23/2020 12:00:00 AM EST tablet 60 TAKE ONE TABLET BY MOUTH TWICE A DAY DIRECTED TAKE ONE TABLET BY MOUTH TWICE A DAY DIRECTED SOLD: 07/23/2020 [facility] 8 mg 06/23/2020 12:00:00 AM EST tablet 60 TAKE ONE TABLET BY MOUTH TWICE A DAY DIRECTED TAKE ONE TABLET BY MOUTH TWICE A DAY DIRECTED SOLD: 06/24/2020 [facility] 10 mg 06/23/2020 12:00:00 AM EST capsule 30 TAKE ONE CAPSULE BY MOUTH AT BEDTIME MAXIMUM DAILY DOSE = 1 CAPSULE TAKE ONE CAPSULE BY MOUTH AT BEDTIME MAXIMUM DAILY DOSE = 1 CAPSULE SOLD: 06/24/2020 [facility] 90 mcg/actuation 06/16/2020 12:00:00 AM EST HFA aerosol inha ler 25 INHALE ONE PUFF BY MOUTH EVERY 6 HOURS NEEDED FOR WHEEZING INHALE ONE PUFF BY MOUTH EVERY 6 HOURS NEEDED FOR WHEEZING SOLD: 06/17/2020 [facility] 20 mg 06/14/2020 12:00:00 AM EST tablet 90 TAKE 1 TABLET BY MOUTH EVERY 8 HOURS NEEDED FOR SPASMS TAKE 1 TABLET BY MOUTH EVERY 8 HOURS NEEDED FOR SPASMS SOLD: 07/20/2020 [facility] 10 mg 05/26/2020 12:00:00 AM EST tablet 30 TAKE ONE TABLET BY MOUTH AT BEDTIME MAXIMUM DAILY DOSE = 1 TABLET TAKE ONE TABLET BY MOUTH AT BEDTIME MAXIMUM DAILY DOSE = 1 TABLET SOLD: 05/29/2020 [facility] 10 mg 05/23/2020 12:00:00 AM EST capsule 30 TAKE ONE CAPSULE BY MOUTH AT BEDTIME TAKE ONE CAPSULE BY MOUTH AT BEDTIME SOLD: 05/25/2020 [facility] Escitalopram 20 MG Oral Tablet ESCITALOPRAM OXALATE 05/16/2020 1 2:00:00 AM EST tablet 30 TAKE ONE TABLET BY MOUTH EVERY D AY TAKE ONE TABLET BY MOUTH EVERY DAY SOLD: 05/17/2020 [facility] Escitalopram 20 MG Oral Tablet ESCITALOPRAM OXALATE 05/16/2020 1 2:00:00 AM EST tablet 30 TAKE ONE TABLET BY MOUTH EVERY D AY TAKE ONE TABLET BY MOUTH EVERY DAY SOLD: 07/20/2020 [facility] 1 mg 05/14/2020 12:00:00 AM EST tablet 120 TAKE ONE TABLET BY MOUTH TWICE A DAY TAKE ONE TABLET BY MOUTH TWICE A DAY SOLD: 05/17/2020 [facility] 0.5 mg (11)- 1 mg (42) 05/13/2020 12:00:00 AM EST tablets,do se pack 53 TAKE ONE TABLET BY MOUTH ONCE A DAY FOR 3 DAYS THEN 1 TABLET BY MOUTH TWO TIMES A DAY FOR 4 DAYS THEN INCREASE TO 1MG TWO TIMES A DAY TAKE ONE TABLET BY MOUTH ONCE A DAY FOR 3 DAYS THEN 1 TABLET BY MOUTH TWO TIMES A DAY FOR 4 DAYS THEN INCREASE TO 1MG TWO TIMES A DAY SOLD: 05/17/2020 [email or web address] varenicline 1 MG Oral Tablet varenicline (CHANTIX CONTINUING MONTH ) 1 MG tablet varenicline (CHANTIX CONTINUING MONTH ) 1 MG tablet 05/13/2020 12:00:00 AM EST 1 mg Oral active Cigarette smoker Take 1 tablet (1 mg total) by mouth 2 (two) times a day [facility] Cigarette smoker varenicline (CHANTIX STARTING MONTH ) 0.5 MG X 11 & 1 MG X 42 tablet [id number] 05/13/2020 12:00:00 AM EST active Cigar ette smoker Take 0.5mg tablet by mouth once daily for 3 days, then 0.5mg tablet twice daily for 4 days, then increase to 1mg tablet twice daily. [facility] Cigarette smoker Ondansetron 8 MG Oral Tablet ondansetron (ZOFRAN) 8 MG tablet ondansetron (ZOFRAN) 8 MG tablet 05/03/2020 12:00:00 AM EDT active TAKE ONE TABLET BY MOUTH TWICE A DAY DIRECTED [facility] zolmitriptan 5 MG Oral Tablet ZOLMitriptan (ZOMIG) 5 M G tablet ZOLMitriptan (ZOMIG) 5 MG tablet 05/03/2020 12:00:00 AM EDT active TAKE 1 TABLET BY MOUTH AT ONSET OF MIGRAINS MAY REPEAT IN 2 HOURS NEEDED MAXIMUM DAILY DOSE 2 MAXIMUM WEEKLY DOSE 3 [facility] 10 mg 04/25/2020 12:00:00 AM EDT capsule 30 TAKE ONE CAPSULE BY MOUTH AT BEDTIME, MAXIMUM DAILY DOSE = 1 CAPSULE TAKE ONE CAPSULE BY MOUTH AT BEDTIME, MAXIMUM DAILY DOSE = 1 CAPSULE SOLD: 04/25/2020 [facility] zaleplon 10 MG Oral Capsule zaleplon (SONATA) 10 MG ca psule zaleplon (SONATA) 10 MG capsule 04/25/2020 12:00:00 AM EDT active TAKE ONE CAPSULE BY MOUTH AT BEDTIME MAXIMUM DAILY DOSE 1 CAPSULE [facility] Nystatin 100 UNT/MG Topical Ointment nystatin (MYCOSTA TIN) ointment nystatin (MYCOSTATIN) ointment 04/21/2020 12:00:00 AM EDT Topical active Apply topically [facility] 200 mg 04/20/2020 12:00:00 AM EDT tablet 30 TAKE ONE TABLET BY MOUTH EVERY DAY TAKE ONE TABLET BY MOUTH EVERY DAY SOLD: 04/21/2020 [facility] 200 mg 04/20/2020 12:00:00 AM EDT tablet 30 TAKE ONE TABLET BY MOUTH EVERY DAY TAKE ONE TABLET BY MOUTH EVERY DAY SOLD: 05/17/2020 [facility] Escitalopram 20 MG Oral Tablet escitalopram (LEXAPRO) 20 MG tablet escitalopram (LEXAPRO) 20 MG tablet 04/20/2020 12:00:00 AM EDT 20 mg Oral active Take 20 mg by mouth daily [facility] 140 mg/mL 04/08/2020 12:00:00 AM EDT auto-injector 1 INJECT 1ML UNDER THE SKIN ONCE A MONTH, START 1 MONTH FROM LAST DOSE DIRECTED INJECT 1ML UNDER THE SKIN ONCE A MONTH, START 1 MONTH FROM LAST DOSE DIRECTED SOLD: 04/09/2020 [facility] 140 mg/mL 04/08/2020 12:00:00 AM EDT auto-injector 1 INJECT 1ML UNDER THE SKIN ONCE A MONTH, START 1 MONTH FROM LAST DOSE DIRECTED INJECT 1ML UNDER THE SKIN ONCE A MONTH, START 1 MONTH FROM LAST DOSE DIRECTED SOLD: 05/19/2020 [facility] 140 mg/mL 04/08/2020 12:00:00 AM EDT auto-injector 1 INJECT 1ML UNDER THE SKIN ONCE A MONTH, START 1 MONTH FROM LAST DOSE DIRECTED INJECT 1ML UNDER THE SKIN ONCE A MONTH, START 1 MONTH FROM LAST DOSE DIRECTED SOLD: 07/20/2020 [facility] AIMOVIG 140 MG/ML SOAJ [id number] 04/08/2020 12:00:00 AM EDT active INJECT 1ML UNDER THE SKIN ON CE A MONTH START 1 MONTH FROM LAST DOSE DIRECTED [facility] Aimovig Aimovig 04/07/2020 12:00:00 AM EDT active [facility] ([facility]) 10 mg 03/25/2020 12:00:00 AM EDT capsule 30 TAKE ONE CAPSULE BY MOUTH AT BEDTIME, MAXIMUM DAILY DOSE = 1 CAPSULE TAKE ONE CAPSULE BY MOUTH AT BEDTIME, MAXIMUM DAILY DOSE = 1 CAPSULE SOLD: 03/27/2020 [facility] 20 mg 03/20/2020 12:00:00 AM EDT tablet 270 TAKE ONE TABLET BY MOUTH EVERY 8 HOURS NEEDED FOR SPASMS TAKE ONE TABLET BY MOUTH EVERY 8 HOURS A S NEEDED FOR SPASMS SOLD: 03/22/2020 [facility] 100,000 unit/gram 03/02/2020 12:00:00 AM EDT ointment 15 APPLY TO AFFECTED AREA TWICE DAILY NEEDED APPLY TO AFFECTED AREA TWICE DAILY NEEDED SOLD: 03/05/2020 [facility] 100,000 unit/gram 03/02/2020 12:00:00 AM EDT ointment 15 APPLY TO AFFECTED AREA TWICE DAILY NEEDED APPLY TO AFFECTED AREA TWICE DAILY NEEDED SOLD: 04/21/2020 [facility] Clindamycin 300 MG Oral Capsule Clindamycin HCL 02/29/2020 12:00:00 A M EDT active [facility] ([facility]) 300 mg 02/29/2020 12:00:00 AM EDT capsule 28 TAKE ONE CAPSULE BY MOUTH FOUR TIMES A DAY FOR 7 DAYS TAKE ONE CAPSULE BY MOUTH FOUR TIMES A DAY FOR 7 DAYS SOLD: 02/29/2020 [facility] Escitalopram 20 MG Oral Tablet ESCITALOPRAM OXALATE 02/24/2020 1 2:00:00 AM EDT tablet 30 TAKE ONE TABLET BY MOUTH EVERY D AY TAKE ONE TABLET BY MOUTH EVERY DAY SOLD: 04/21/2020 [facility] 25 mg 02/24/2020 12:00:00 AM EDT tablet 60 TAKE ONE TABLET BY MOUTH TWICE A DAY TAKE ONE TABLET BY MOUTH TWICE A DAY SOLD: 03/27/2020 [facility] 25 mg 02/24/2020 12:00:00 AM EDT tablet 60 TAKE ONE TABLET BY MOUTH TWICE A DAY TAKE ONE TABLET BY MOUTH TWICE A DAY SOLD: 05/17/2020 [facility] 25 mg 02/24/2020 12:00:00 AM EDT tablet 60 TAKE ONE TABLET BY MOUTH TWICE A DAY TAKE ONE TABLET BY MOUTH TWICE A DAY SOLD: 02/25/2020 [facility] Escitalopram 20 MG Oral Tablet ESCITALOPRAM OXALATE 02/24/2020 1 2:00:00 AM EDT tablet 30 TAKE ONE TABLET BY MOUTH EVERY D AY TAKE ONE TABLET BY MOUTH EVERY DAY SOLD: 03/27/2020 [facility] Escitalopram 20 MG Oral Tablet ESCITALOPRAM OXALATE 02/24/2020 1 2:00:00 AM EDT tablet 30 TAKE ONE TABLET BY MOUTH EVERY D AY TAKE ONE TABLET BY MOUTH EVERY DAY SOLD: 02/25/2020 [facility] 25 mg 02/24/2020 12:00:00 AM EDT tablet 60 TAKE ONE TABLET BY MOUTH TWICE A DAY TAKE ONE TABLET BY MOUTH TWICE A DAY SOLD: 07/20/2020 [facility] 25 mg 02/24/2020 12:00:00 AM EDT tablet 60 TAKE ONE TABLET BY MOUTH TWICE A DAY TAKE ONE TABLET BY MOUTH TWICE A DAY SOLD: 04/21/2020 [facility] 2.5 mg 02/23/2020 12:00:00 AM EDT tablet 30 TAKE ONE TABLET BY MOUTH EVERY DAY TAKE ONE TABLET BY MOUTH EVERY DAY SOLD: 03/27/2020 [facility] 2.5 mg 02/23/2020 12:00:00 AM EDT tablet 30 TAKE ONE TABLET BY MOUTH EVERY DAY TAKE ONE TABLET BY MOUTH EVERY DAY SOLD: 05/17/2020 [facility] 2.5 mg 02/23/2020 12:00:00 AM EDT tablet 30 TAKE ONE TABLET BY MOUTH EVERY DAY TAKE ONE TABLET BY MOUTH EVERY DAY SOLD: 07/20/2020 [facility] 2.5 mg 02/23/2020 12:00:00 AM EDT tablet 30 TAKE ONE TABLET BY MOUTH EVERY DAY TAKE ONE TABLET BY MOUTH EVERY DAY SOLD: 04/21/2020 [facility] 2.5 mg 02/23/2020 12:00:00 AM EDT tablet 30 TAKE ONE TABLET BY MOUTH EVERY DAY TAKE ONE TABLET BY MOUTH EVERY DAY SOLD: 02/25/2020 [facility] 200 mg 02/06/2020 12:00:00 AM EDT tablet 16 TAKE ONE TABLET BY MOUTH EVERY DAY TAKE ONE TABLET BY MOUTH EVERY DAY SOLD: 02/06/2020 [facility] 200 mg 02/06/2020 12:00:00 AM EDT tablet 30 TAKE ONE TABLET BY MOUTH EVERY DAY TAKE ONE TABLET BY MOUTH EVERY DAY SOLD: 02/25/2020 [facility] 200 mg 02/06/2020 12:00:00 AM EDT tablet 30 TAKE ONE TABLET BY MOUTH EVERY DAY TAKE ONE TABLET BY MOUTH EVERY DAY SOLD: 03/27/2020 [facility] atorvastatin 20 MG Oral Tablet ATORVASTATIN CALCIUM 01/23/2020 1 2:00:00 AM EDT tablet 30 TAKE ONE TABLET BY MOUTH EVERY D AY TAKE ONE TABLET BY MOUTH EVERY DAY SOLD: 01/27/2020 [facility] 2 mg 01/23/2020 12:00:00 AM EDT tablet 45 TAKE ONE AND ONE-HALF TABLETS BY MOUTH EVERY EVENING 1 HOUR BEFORE BEDTIME TAKE ONE AND ONE-HALF TABLETS BY MOUTH EVERY EVENING 1 HOUR BEFORE BEDTIME SOLD: 02/25/2020 [facility] 20 mg 01/23/2020 12:00:00 AM EDT tablet 90 TAKE 1 TABLET BY MOUTH EVERY 8 HOURS NEEDED FOR SPASMS TAKE 1 TABLET BY MOUTH EVERY 8 HOURS NEEDED FOR SPASMS SOLD: 02/25/2020 [facility] 2 mg 01/23/2020 12:00:00 AM EDT tablet 45 TAKE ONE AND ONE-HALF TABLETS BY MOUTH EVERY EVENING 1 HOUR BEFORE BEDTIME TAKE ONE AND ONE-HALF TABLETS BY MOUTH EVERY EVENING 1 HOUR BEFORE BEDTIME SOLD: 03/27/2020 [facility] atorvastatin 20 MG Oral Tablet ATORVASTATIN CALCIUM 01/23/2020 1 2:00:00 AM EDT tablet 30 TAKE ONE TABLET BY MOUTH EVERY D AY TAKE ONE TABLET BY MOUTH EVERY DAY SOLD: 02/25/2020 [facility] 20 mg 01/23/2020 12:00:00 AM EDT tablet 90 TAKE 1 TABLET BY MOUTH EVERY 8 HOURS NEEDED FOR SPASMS TAKE 1 TABLET BY MOUTH EVERY 8 HOURS NEEDED FOR SPASMS SOLD: 01/27/2020 [facility] atorvastatin 20 MG Oral Tablet ATORVASTATIN CALCIUM 01/23/2020 1 2:00:00 AM EDT tablet 30 TAKE ONE TABLET BY MOUTH EVERY D AY TAKE ONE TABLET BY MOUTH EVERY DAY SOLD: 07/20/2020 [facility] 20-12.5 mg 01/23/2020 12:00:00 AM EDT tablet 30 TAKE ONE TABLET BY MOUTH EVERY DAY TAKE ONE TABLET BY MOUTH EVERY DAY SOLD: 03/27/2020 [facility] 20-12.5 mg 01/23/2020 12:00:00 AM EDT tablet 30 TAKE ONE TABLET BY MOUTH EVERY DAY TAKE ONE TABLET BY MOUTH EVERY DAY SOLD: 01/27/2020 [facility] atorvastatin 20 MG Oral Tablet ATORVASTATIN CALCIUM 01/23/2020 1 2:00:00 AM EDT tablet 30 TAKE ONE TABLET BY MOUTH EVERY D AY TAKE ONE TABLET BY MOUTH EVERY DAY SOLD: 05/17/2020 [facility] atorvastatin 20 MG Oral Tablet ATORVASTATIN CALCIUM 01/23/2020 1 2:00:00 AM EDT tablet 30 TAKE ONE TABLET BY MOUTH EVERY D AY TAKE ONE TABLET BY MOUTH EVERY DAY SOLD: 04/21/2020 [facility] 20-12.5 mg 01/23/2020 12:00:00 AM EDT tablet 30 TAKE ONE TABLET BY MOUTH EVERY DAY TAKE ONE TABLET BY MOUTH EVERY DAY SOLD: 02/25/2020 [facility] 2 mg 01/23/2020 12:00:00 AM EDT tablet 45 TAKE ONE AND ONE-HALF TABLETS BY MOUTH EVERY EVENING 1 HOUR BEFORE BEDTIME TAKE ONE AND ONE-HALF TABLETS BY MOUTH EVERY EVENING 1 HOUR BEFORE BEDTIME SOLD: 01/27/2020 [facility] 2 mg 01/23/2020 12:00:00 AM EDT tablet 45 TAKE ONE AND ONE-HALF TABLETS BY MOUTH EVERY EVENING 1 HOUR BEFORE BEDTIME TAKE ONE AND ONE-HALF TABLETS BY MOUTH EVERY EVENING 1 HOUR BEFORE BEDTIME SOLD: 05/17/2020 [facility] 20-12.5 mg 01/23/2020 12:00:00 AM EDT tablet 30 TAKE ONE TABLET BY MOUTH EVERY DAY TAKE ONE TABLET BY MOUTH EVERY DAY SOLD: 04/21/2020 [facility] atorvastatin 20 MG Oral Tablet ATORVASTATIN CALCIUM 01/23/2020 1 2:00:00 AM EDT tablet 30 TAKE ONE TABLET BY MOUTH EVERY D AY TAKE ONE TABLET BY MOUTH EVERY DAY SOLD: 03/27/2020 [facility] 20-12.5 mg 01/23/2020 12:00:00 AM EDT tablet 30 TAKE ONE TABLET BY MOUTH EVERY DAY TAKE ONE TABLET BY MOUTH EVERY DAY SOLD: 05/17/2020 [facility] 2 mg 01/23/2020 12:00:00 AM EDT tablet 45 TAKE ONE AND ONE-HALF TABLETS BY MOUTH EVERY EVENING 1 HOUR BEFORE BEDTIME TAKE ONE AND ONE-HALF TABLETS BY MOUTH EVERY EVENING 1 HOUR BEFORE BEDTIME SOLD: 04/21/2020 [facility] atorvastatin 20 MG Oral Tablet atorvastatin (LIPITOR) 20 MG tablet atorvastatin (LIPITOR) 20 MG tablet 01/23/2020 12:00:00 AM EDT active TAKE ONE TABLET BY MOUTH EVERY DAY [facility] Hydrochlorothiazide 12.5 MG / Lisinopril 20 MG Oral Tablet lisinopril- hydrochlorothiazide (PRINZIDE,ZESTORETIC) 20-12.5 MG per tablet lisinopril- hydrochlorothiazide (PRINZIDE,ZESTORETIC) 20-12.5 MG per tablet 01/23/2020 12:00:00 AM EDT active TAKE ONE TABLET BY MOUTH ONCE DAILY [facility] 100 mg 01/14/2020 12:00:00 AM EDT tablet 45 TAKE 1 1/2 TABLETS BY MOUTH ONCE DAILY TAKE 1 1/2 TABLETS BY MOUTH ONCE DAILY SOLD: 01/27/2020 [facility] 100 mg 01/14/2020 12:00:00 AM EDT tablet 21 TAKE 1 1/2 TABLETS BY MOUTH ONCE DAILY TAKE 1 1/2 TABLETS BY MOUTH ONCE DAILY SOLD: 01/23/2020 [facility] 8 mg 01/08/2020 12:00:00 AM EDT tablet 30 TAKE ONE TABLET BY MOUTH TWICE A DAY DIRECTED TAKE ONE TABLET BY MOUTH TWICE A DAY DIRECTED SOLD: 01/09/2020 [facility] 8 mg 01/08/2020 12:00:00 AM EDT tablet 30 TAKE ONE TABLET BY MOUTH TWICE A DAY DIRECTED TAKE ONE TABLET BY MOUTH TWICE A DAY DIRECTED SOLD: 05/04/2020 [facility] 8 mg 01/08/2020 12:00:00 AM EDT tablet 30 TAKE ONE TABLET BY MOUTH TWICE A DAY DIRECTED TAKE ONE TABLET BY MOUTH TWICE A DAY DIRECTED SOLD: 02/25/2020 [facility] 8 mg 01/08/2020 12:00:00 AM EDT tablet 30 TAKE ONE TABLET BY MOUTH TWICE A DAY DIRECTED TAKE ONE TABLET BY MOUTH TWICE A DAY DIRECTED SOLD: 06/10/2020 [facility] 8 mg 01/08/2020 12:00:00 AM EDT tablet 30 TAKE ONE TABLET BY MOUTH TWICE A DAY DIRECTED TAKE ONE TABLET BY MOUTH TWICE A DAY DIRECTED SOLD: 03/27/2020 [facility] Hydrochlorothiazide 12.5 MG / Lisinopril 10 MG Oral Ta blet 10-12.5 mg LISINOPRIL/HYDROCHLOROTHIAZIDE 01/07/2020 12:00:00 AM EDT tablet 21 TAKE ONE TABLET BY MOUTH EVERY DAY TAKE ONE TABLET BY MOUTH EVERY DAY SOLD: 01/09/2020 [facility] 10 mg 12/27/2019 12:00:00 AM EDT capsule 30 TAKE ONE CAPSULE BY MOUTH AT BEDTIME MAXIMUM DAILY DOSE = 1 CAPSULE TAKE ONE CAPSULE BY MOUTH AT BEDTIME MAXIMUM DAILY DOSE = 1 CAPSULE SOLD: 12/27/2019 [facility] 10 mg 12/27/2019 12:00:00 AM EDT capsule 30 TAKE ONE CAPSULE BY MOUTH AT BEDTIME MAXIMUM DAILY DOSE = 1 CAPSULE TAKE ONE CAPSULE BY MOUTH AT BEDTIME MAXIMUM DAILY DOSE = 1 CAPSULE SOLD: 01/27/2020 [facility] 10 mg 12/27/2019 12:00:00 AM EDT capsule 30 TAKE ONE CAPSULE BY MOUTH AT BEDTIME MAXIMUM DAILY DOSE = 1 CAPSULE TAKE ONE CAPSULE BY MOUTH AT BEDTIME MAXIMUM DAILY DOSE = 1 CAPSULE SOLD: 02/25/2020 [facility] Metoprolol Tartrate 25 MG Oral Tablet me toprolol tartrate (LOPRESSOR) 25 MG tablet metoprolol tartrate (LOPRESSOR) 25 MG tablet 12/23/2019 12:0 0:00 AM EDT 25 mg Oral active Palpitations Take 1 tabl et (25 mg total) by mouth 2 (two) times a day [facility] Palpitations Escitalopram 20 MG Oral Tablet ESCITALOPRAM OXALATE 12/10/2019 1 2:00:00 AM EDT tablet 16 TAKE ONE TABLET BY MOUTH EVERY D AY TAKE ONE TABLET BY MOUTH EVERY DAY SOLD: 01/13/2020 [facility] Escitalopram 20 MG Oral Tablet ESCITALOPRAM OXALATE 12/10/2019 1 2:00:00 AM EDT tablet 30 TAKE ONE TABLET BY MOUTH EVERY D AY TAKE ONE TABLET BY MOUTH EVERY DAY SOLD: 12/13/2019 [facility] Escitalopram 20 MG Oral Tablet ESCITALOPRAM OXALATE 12/10/2019 1 2:00:00 AM EDT tablet 30 TAKE ONE TABLET BY MOUTH EVERY D AY TAKE ONE TABLET BY MOUTH EVERY DAY SOLD: 01/27/2020 [facility] Hydrochlorothiazide 12.5 MG / Lisinopril 10 MG Oral Ta blet 10-12.5 mg LISINOPRIL/HYDROCHLOROTHIAZIDE 12/06/2019 12:00:00 AM EDT tablet 30 TAKE ONE TABLET BY MOUTH EVERY DAY TAKE ONE TABLET BY MOUTH EVERY DAY SOLD: 12/07/2019 [facility] 100,000 unit/gram 12/05/2019 12:00:00 AM EDT ointment 15 APPLY TO AFFECTED AREA TWO TIMES A DAY NEEDED APPLY TO AFFECTED AREA TWO TIMES A DAY NEEDED SOLD: 12/17/2019 [facility] 100,000 unit/gram 12/05/2019 12:00:00 AM EDT ointment 15 APPLY TO AFFECTED AREA TWO TIMES A DAY NEEDED APPLY TO AFFECTED AREA TWO TIMES A DAY NEEDED SOLD: 12/18/2019 [facility] 20 mg 11/26/2019 12:00:00 AM EDT tablet 90 TAKE ONE TABLET BY MOUTH EVERY 8 HOURS NEEDED FOR SPASMS MAXIMUM DAILY DOSE = 3 TAKE ONE TABLET BY MOUTH EVERY 8 HOURS NEEDED FOR SPASMS MAXIMUM DAILY DOSE = 3 SOLD: 12/27/2019 [facility] 20 mg 11/26/2019 12:00:00 AM EDT tablet 90 TAKE ONE TABLET BY MOUTH EVERY 8 HOURS NEEDED FOR SPASMS MAXIMUM DAILY DOSE = 3 TAKE ONE TABLET BY MOUTH EVERY 8 HOURS NEEDED FOR SPASMS MAXIMUM DAILY DOSE = 3 SOLD: 11/27/2019 [facility] 2 mg 11/25/2019 12:00:00 AM EDT tablet 60 TAKE ONE-HALF TABLET BY MOUTH EVERY EVENING 1 HOUR BEFORE BEDTIME TAKE ONE-HALF TABLET BY MOUTH EVERY EVEN ING 1 HOUR BEFORE BEDTIME SOLD: 11/27/2019 [facility] 100 mg 11/16/2019 12:00:00 AM EDT tablet 45 TAKE 1 AND 1/2 TABLET BY MOUTH ONCE DAILY TAKE 1 AND 1/2 TABLET BY MOUTH ONCE DAILY SOLD: 12/18/2019 [facility] 100 mg 11/16/2019 12:00:00 AM EDT tablet 45 TAKE 1 AND 1/2 TABLET BY MOUTH ONCE DAILY TAKE 1 AND 1/2 TABLET BY MOUTH ONCE DAILY SOLD: 11/18/2019 [facility] ropinirole 2 MG Oral Tablet rOPINIRole HCl 2 MG Oral T ablet (REQUIP) rOPINIRole HCl 2 MG Oral Tablet (REQUIP) 11/15/2019 12:00:00 AM EDT 3 mg Oral active Restless leg syndrome Take 1.5 tablets by mouth ni silastleze Take 1 hr before bedtime. [facility] Restless leg syndrome ropinirole 2 MG Oral Tablet rOPINIRole (REQUIP) 2 MG t ablet rOPINIRole (REQUIP) 2 MG tablet 11/15/2019 12:00:00 AM EDT 3 mg Oral active Take 3 mg by mouth nightly [facility] 100,000 unit/gram 11/04/2019 12:00:00 AM EDT cream 15 APPLY TWO TIMES A DAY TO RASH UNDER BREASTS FOR UP TO 2 WEEKS APPLY TWO TIMES A DAY TO RASH UNDER BREASTS FOR UP TO 2 WEEKS SOLD: 11/29/2019 [facility] 100,000 unit/gram 11/04/2019 12:00:00 AM EDT cream 15 APPLY TWO TIMES A DAY TO RASH UNDER BREASTS FOR UP TO 2 WEEKS APPLY TWO TIMES A DAY TO RASH UNDER BREASTS FOR UP TO 2 WEEKS SOLD: 11/05/2019 [facility] zaleplon 10 MG Oral Capsule Zaleplon 10 MG Oral Capsul e (SONATA) Zaleplon 10 MG Oral Capsule (SONATA) 10/30/2019 12:00:00 AM EDT a [facility] 25 mg 10/29/2019 12:00:00 AM EDT tablet extended release 24 hr 90 TAKE ONE TABLET BY MOUTH EVERY DAY TAKE ONE TABLET BY MOUTH EVERY DAY SOLD: 10/30/2019 [facility] 25 mg 10/29/2019 12:00:00 AM EDT tablet extended release 24 hr 30 TAKE ONE TABLET BY MOUTH EVERY DAY TAKE ONE TABLET BY MOUTH EVERY DAY SOLD: 02/25/2020 [facility] 25 mg 10/29/2019 12:00:00 AM EDT tablet extended release 24 hr 30 TAKE ONE TABLET BY MOUTH EVERY DAY TAKE ONE TABLET BY MOUTH EVERY DAY SOLD: 03/27/2020 [facility] Escitalopram 10 MG Oral Tablet ESCITALOPRAM OXALATE 10/29/2019 1 2:00:00 AM EDT tablet 30 TAKE ONE TABLET BY MOUTH EVERY M ORNING TAKE ONE TABLET BY MOUTH EVERY MORNING SOLD: 10/30/2019 [facility] 25 mg 10/29/2019 12:00:00 AM EDT tablet extended release 24 hr 30 TAKE ONE TABLET BY MOUTH EVERY DAY TAKE ONE TABLET BY MOUTH EVERY DAY SOLD: 01/27/2020 [facility] Escitalopram 10 MG Oral Tablet ESCITALOPRAM OXALATE 10/29/2019 1 2:00:00 AM EDT tablet 30 TAKE ONE TABLET BY MOUTH EVERY M ORNING TAKE ONE TABLET BY MOUTH EVERY MORNING SOLD: 11/29/2019 [facility] 70 mg/mL 10/17/2019 12:00:00 AM EDT auto-injector 1 INJECT ONCE PER MONTH INJECT ONCE PER MONTH SOLD: 02/27/2020 [facility] 5 mg 10/17/2019 12:00:00 AM EDT tablet 9 TAKE 1 TABLET BY MOUTH AT ONSET OF MIGRAINS, MAY REPEAT IN 2 HOURS NEEDED MAXIMUM DAILY DOSE = 2 MAXIMUM WEEKLY DOSE = 3 TAKE 1 TABLET BY MOUTH AT ONSET OF MIGRA INS, MAY REPEAT IN 2 HOURS NEEDED MAXIMUM DAILY DOSE = 2 MAXIMUM WEEKLY DOSE = 3 SOLD: 12/27/2019 [facility] zolmitriptan 5 MG Oral Tablet ZOLMitriptan 5 MG Oral T ablet (ZOMIG) ZOLMitriptan 5 MG Oral Tablet (ZOMIG) 10/17/2019 12:00:00 AM EDT [facility] 70 mg/mL 10/17/2019 12:00:00 AM EDT auto-injector 1 INJECT ONCE PER MONTH INJECT ONCE PER MONTH SOLD: 11/21/2019 [facility] 70 mg/mL 10/17/2019 12:00:00 AM EDT auto-injector 1 INJECT ONCE PER MONTH INJECT ONCE PER MONTH SOLD: 03/27/2020 [facility] 5 mg 10/17/2019 12:00:00 AM EDT tablet 9 TAKE 1 TABLET BY MOUTH AT ONSET OF MIGRAINS, MAY REPEAT IN 2 HOURS NEEDED MAXIMUM DAILY DOSE = 2 MAXIMUM WEEKLY DOSE = 3 TAKE 1 TABLET BY MOUTH AT ONSET OF MIGRA INS, MAY REPEAT IN 2 HOURS NEEDED MAXIMUM DAILY DOSE = 2 MAXIMUM WEEKLY DOSE = 3 SOLD: 03/27/2020 [facility] 5 mg 10/17/2019 12:00:00 AM EDT tablet 9 TAKE 1 TABLET BY MOUTH AT ONSET OF MIGRAINS, MAY REPEAT IN 2 HOURS NEEDED MAXIMUM DAILY DOSE = 2 MAXIMUM WEEKLY DOSE = 3 TAKE 1 TABLET BY MOUTH AT ONSET OF MIGRA INS, MAY REPEAT IN 2 HOURS NEEDED MAXIMUM DAILY DOSE = 2 MAXIMUM WEEKLY DOSE = 3 SOLD: 05/04/2020 [facility] 70 mg/mL 10/17/2019 12:00:00 AM EDT auto-injector 1 INJECT ONCE PER MONTH INJECT ONCE PER MONTH SOLD: 10/18/2019 [facility] 5 mg 10/17/2019 12:00:00 AM EDT tablet 9 TAKE 1 TABLET BY MOUTH AT ONSET OF MIGRAINS, MAY REPEAT IN 2 HOURS NEEDED MAXIMUM DAILY DOSE = 2 MAXIMUM WEEKLY DOSE = 3 TAKE 1 TABLET BY MOUTH AT ONSET OF MIGRA INS, MAY REPEAT IN 2 HOURS NEEDED MAXIMUM DAILY DOSE = 2 MAXIMUM WEEKLY DOSE = 3 SOLD: 10/18/2019 [facility] 5 mg 10/17/2019 12:00:00 AM EDT tablet 9 TAKE 1 TABLET BY MOUTH AT ONSET OF MIGRAINS, MAY REPEAT IN 2 HOURS NEEDED MAXIMUM DAILY DOSE = 2 MAXIMUM WEEKLY DOSE = 3 TAKE 1 TABLET BY MOUTH AT ONSET OF MIGRA INS, MAY REPEAT IN 2 HOURS NEEDED MAXIMUM DAILY DOSE = 2 MAXIMUM WEEKLY DOSE = 3 SOLD: 02/27/2020 [facility] 70 mg/mL 10/17/2019 12:00:00 AM EDT auto-injector 1 INJECT ONCE PER MONTH INJECT ONCE PER MONTH SOLD: 01/27/2020 [facility] 5 mg 10/17/2019 12:00:00 AM EDT tablet 9 TAKE 1 TABLET BY MOUTH AT ONSET OF MIGRAINS, MAY REPEAT IN 2 HOURS NEEDED MAXIMUM DAILY DOSE = 2 MAXIMUM WEEKLY DOSE = 3 TAKE 1 TABLET BY MOUTH AT ONSET OF MIGRA INS, MAY REPEAT IN 2 HOURS NEEDED MAXIMUM DAILY DOSE = 2 MAXIMUM WEEKLY DOSE = 3 SOLD: 06/24/2020 [facility] 70 mg/mL 10/17/2019 12:00:00 AM EDT auto-injector 1 INJECT ONCE PER MONTH INJECT ONCE PER MONTH SOLD: 12/20/2019 [facility] Escitalopram 10 MG Oral Tablet ESCITALOPRAM OXALATE 10/01/2019 1 2:00:00 AM EDT tablet 30 TAKE ONE TABLET BY MOUTH EVERY M ORNING TAKE ONE TABLET BY MOUTH EVERY MORNING SOLD: 10/02/2019 [facility] 10 mg 10/01/2019 12:00:00 AM EDT capsule 30 TAKE ONE CAPSULE BY MOUTH AT BEDTIME MAXIMUM DAILY DOSE = 1 TAKE ONE CAPSULE BY MOUTH AT BEDTIME MAX IMUM DAILY DOSE = 1 SOLD: 11/29/2019 [facility] 10 mg 10/01/2019 12:00:00 AM EDT capsule 30 TAKE ONE CAPSULE BY MOUTH AT BEDTIME MAXIMUM DAILY DOSE = 1 TAKE ONE CAPSULE BY MOUTH AT BEDTIME MAX IMUM DAILY DOSE = 1 SOLD: 10/30/2019 [facility] 10 mg 10/01/2019 12:00:00 AM EDT capsule 30 TAKE ONE CAPSULE BY MOUTH AT BEDTIME MAXIMUM DAILY DOSE = 1 TAKE ONE CAPSULE BY MOUTH AT BEDTIME MAX IMUM DAILY DOSE = 1 SOLD: 10/02/2019 [facility] 2.5 mg 09/27/2019 12:00:00 AM EDT tablet 90 TAKE ONE TABLET BY MOUTH EVERY DAY TAKE ONE TABLET BY MOUTH EVERY DAY SOLD: 09/28/2019 [facility] 2.5 mg 09/27/2019 12:00:00 AM EDT tablet 30 TAKE ONE TABLET BY MOUTH EVERY DAY TAKE ONE TABLET BY MOUTH EVERY DAY SOLD: 01/27/2020 [facility] 20 mg 09/27/2019 12:00:00 AM EDT tablet 90 TAKE ONE TABLET BY MOUTH EVERY 8 HOURS NEEDED FOR SPASMS MAXIMUM DAILY DOSE = 3 TAKE ONE TABLET BY MOUTH EVERY 8 HOURS NEEDED FOR SPASMS MAXIMUM DAILY DOSE = 3 SOLD: 09/28/2019 [facility] 20 mg 09/27/2019 12:00:00 AM EDT tablet 90 TAKE ONE TABLET BY MOUTH EVERY 8 HOURS NEEDED FOR SPASMS MAXIMUM DAILY DOSE = 3 TAKE ONE TABLET BY MOUTH EVERY 8 HOURS NEEDED FOR SPASMS MAXIMUM DAILY DOSE = 3 SOLD: 10/28/2019 [facility] 2.5 mg 09/27/2019 12:00:00 AM EDT tablet 34 TAKE ONE TABLET BY MOUTH EVERY DAY TAKE ONE TABLET BY MOUTH EVERY DAY SOLD: 12/27/2019 [facility] 100 mg 09/17/2019 12:00:00 AM EDT tablet 45 TAKE 1 AND 1/2 TABLET BY MOUTH ONCE DAILY TAKE 1 AND 1/2 TABLET BY MOUTH ONCE DAILY SOLD: 10/18/2019 [facility] 100 mg 09/17/2019 12:00:00 AM EDT tablet 45 TAKE 1 AND 1/2 TABLET BY MOUTH ONCE DAILY TAKE 1 AND 1/2 TABLET BY MOUTH ONCE DAILY SOLD: 10/18/2019 [facility] 25 mg 08/29/2019 12:00:00 AM EST tablet 180 TAKE ONE TABLET BY MOUTH TWICE A DAY TAKE ONE TABLET BY MOUTH TWICE A DAY SOLD: 08/29/2019 [facility] 25 mg 08/29/2019 12:00:00 AM EST tablet 180 TAKE ONE TABLET BY MOUTH TWICE A DAY TAKE ONE TABLET BY MOUTH TWICE A DAY SOLD: 11/29/2019 [facility] AIMOVIG 70 MG/ML SOAJ [id number] 08/22/2019 12:00:00 AM EST aborted [facility] 20-12.5 mg 08/15/2019 12:00:00 AM EST tablet 90 TAKE ONE TABLET BY MOUTH EVERY DAY TAKE ONE TABLET BY MOUTH EVERY DAY SOLD: 08/19/2019 [facility] 100 mg 08/12/2019 12:00:00 AM EST tablet 30 TAKE ONE AND ONE-HALF TABLETS BY MOUTH EVERY DAY TAKE ONE AND ONE-HALF TABLETS BY MOUTH EVERY DAY SOLD: 08/12/2019 [facility] 100 mg 08/12/2019 12:00:00 AM EST tablet 30 TAKE ONE AND ONE-HALF TABLETS BY MOUTH EVERY DAY TAKE ONE AND ONE-HALF TABLETS BY MOUTH EVERY DAY SOLD: 09/01/2019 [facility] 40 mg 08/10/2019 12:00:00 AM EST capsule,delayed release (DR/EC) 60 TAKE ONE CAPSULE BY MOUTH TWICE A DAY TAKE ONE CAPSULE BY MOUTH TWICE A DAY SOLD: 01/27/2020 [facility] 40 mg 08/10/2019 12:00:00 AM EST capsule,delayed release (DR/EC) 60 TAKE ONE CAPSULE BY MOUTH TWICE A DAY TAKE ONE CAPSULE BY MOUTH TWICE A DAY SOLD: 04/21/2020 [facility] 40 mg 08/10/2019 12:00:00 AM EST capsule,delayed release (DR/EC) 60 TAKE ONE CAPSULE BY MOUTH TWICE A DAY TAKE ONE CAPSULE BY MOUTH TWICE A DAY SOLD: 03/27/2020 [facility] 40 mg 08/10/2019 12:00:00 AM EST capsule,delayed release (DR/EC) 60 TAKE ONE CAPSULE BY MOUTH TWICE A DAY TAKE ONE CAPSULE BY MOUTH TWICE A DAY SOLD: 02/25/2020 [facility] 40 mg 08/10/2019 12:00:00 AM EST capsule,delayed release (DR/EC) 60 TAKE ONE CAPSULE BY MOUTH TWICE A DAY TAKE ONE CAPSULE BY MOUTH TWICE A DAY SOLD: 08/12/2019 [facility] 40 mg 08/10/2019 12:00:00 AM EST capsule,delayed release (DR/EC) 60 TAKE ONE CAPSULE BY MOUTH TWICE A DAY TAKE ONE CAPSULE BY MOUTH TWICE A DAY SOLD: 09/11/2019 [facility] 40 mg 08/10/2019 12:00:00 AM EST capsule,delayed release (DR/EC) 60 TAKE ONE CAPSULE BY MOUTH TWICE A DAY TAKE ONE CAPSULE BY MOUTH TWICE A DAY SOLD: 11/08/2019 [facility] 40 mg 08/10/2019 12:00:00 AM EST capsule,delayed release (DR/EC) 60 TAKE ONE CAPSULE BY MOUTH TWICE A DAY TAKE ONE CAPSULE BY MOUTH TWICE A DAY SOLD: 12/07/2019 [facility] 40 mg 08/10/2019 12:00:00 AM EST capsule,delayed release (DR/EC) 60 TAKE ONE CAPSULE BY MOUTH TWICE A DAY TAKE ONE CAPSULE BY MOUTH TWICE A DAY SOLD: 05/17/2020 [facility] 40 mg 08/10/2019 12:00:00 AM EST capsule,delayed release (DR/EC) 60 TAKE ONE CAPSULE BY MOUTH TWICE A DAY TAKE ONE CAPSULE BY MOUTH TWICE A DAY SOLD: 10/10/2019 [facility] 40 mg 08/10/2019 12:00:00 AM EST capsule,delayed release (DR/EC) 42 TAKE ONE CAPSULE BY MOUTH TWICE A DAY TAKE ONE CAPSULE BY MOUTH TWICE A DAY SOLD: 01/09/2020 [facility] 2.5 mg 08/06/2019 12:00:00 AM EST tablet 30 TAKE ONE TABLET BY MOUTH EVERY DAY TAKE ONE TABLET BY MOUTH EVERY DAY SOLD: 08/06/2019 [facility] 25 mg 08/06/2019 12:00:00 AM EST tablet extended release 24 hr 90 TAKE ONE TABLET BY MOUTH EVERY DAY TAKE ONE TABLET BY MOUTH EVERY DAY SOLD: 08/06/2019 [facility] 25 mg 08/06/2019 12:00:00 AM EST tablet extended release 24 hr 30 TAKE ONE TABLET BY MOUTH EVERY DAY TAKE ONE TABLET BY MOUTH EVERY DAY SOLD: 04/21/2020 [facility] 2.5 mg 08/06/2019 12:00:00 AM EST tablet 30 TAKE ONE TABLET BY MOUTH EVERY DAY TAKE ONE TABLET BY MOUTH EVERY DAY SOLD: 09/03/2019 [facility] 25 mg 08/06/2019 12:00:00 AM EST tablet extended release 24 hr 30 TAKE ONE TABLET BY MOUTH EVERY DAY TAKE ONE TABLET BY MOUTH EVERY DAY SOLD: 05/17/2020 [facility] 50 mcg/actuation 08/05/2019 12:00:00 AM EST spray,suspension 16 SPRAY 1 SPRAY EACH NOSTRIL TWO TIMES A DAY NEEDED FOR 7 DAYS SPRAY 1 SPRAY EACH NOSTRIL TWO TIMES A DAY NEEDED FOR 7 DAYS SOLD: 08/05/2019 [facility] benzonatate 100 MG Oral Capsule BENZONATATE 08/05/2019 12:00:00 AM EST capsule 30 TAKE ONE CAPSULE BY MOUTH THREE TIMES A DAY NEEDED FOR 10 DAYS TAKE ONE CAPSULE BY MOUTH THREE TIMES A DAY NEEDED FOR 10 DAYS SOLD: 08/05/2019 [facility] Amlodipine 2.5 MG Oral Tablet amLODIPine (NORVASC) 2.5 MG tablet amLODIPine (NORVASC) 2.5 MG tablet 08/05/2019 12:00:00 AM EST 2.5 mg Oral active Take 2.5 mg by mouth daily [facility] 5 mg 07/26/2019 12:00:00 AM EST tablet 9 TAKE 1 TABLET BY MOUTH AT ONSET OF MIGRAINE, MAY REPEAT IN 2 HOURS NEEDED, MAX DAILY DOSE = 2 TABLETS, MAX WEEKLY DOSE = 3 TABLETS TAKE 1 TABLET BY MOUTH AT ONSET OF MIGRA INE, MAY REPEAT IN 2 HOURS NEEDED, MAX DAILY DOSE = 2 TABLETS, MAX WEEKLY DOSE = 3 TABLETS SOLD: 09/11/2019 [facility] 5 mg 07/26/2019 12:00:00 AM EST tablet 9 TAKE 1 TABLET BY MOUTH AT ONSET OF MIGRAINE, MAY REPEAT IN 2 HOURS NEEDED, MAX DAILY DOSE = 2 TABLETS, MAX WEEKLY DOSE = 3 TABLETS TAKE 1 TABLET BY MOUTH AT ONSET OF MIGRA INE, MAY REPEAT IN 2 HOURS NEEDED, MAX DAILY DOSE = 2 TABLETS, MAX WEEKLY DOSE = 3 TABLETS SOLD: 07/26/2019 [facility] 70 mg/mL 07/24/2019 12:00:00 AM EST auto-injector 1 INJECT ONCE PER MONTH INJECT ONCE PER MONTH SOLD: 09/21/2019 [facility] 70 mg/mL 07/24/2019 12:00:00 AM EST auto-injector 1 INJECT ONCE PER MONTH INJECT ONCE PER MONTH SOLD: 08/23/2019 [facility] 70 mg/mL 07/24/2019 12:00:00 AM EST auto-injector 1 INJECT ONCE PER MONTH INJECT ONCE PER MONTH SOLD: 07/25/2019 [facility] zolmitriptan 5 MG Oral Tablet Zolmitriptan 07/22/2019 12:00:00 AM EST active [facility] ([facility]) Aimovig Aimovig 07/22/2019 12:00:00 AM EST active [facility] ([facility]) 200 ACTUAT Albuterol 0.09 MG/ACTUAT Metered Dose Inhaler [Pr oAir] Proair HFA 07/14/2019 12:00:00 AM EST ORAL active [facility] ([facility], [facility]) Cephalexin 500 MG Oral Tablet Cephalexin 07/14/2019 12:00:00 AM EST ORAL active [facility] ([facility]) benzonatate 200 MG Oral Capsule Benzonatate 07/14/2019 12:00:00 AM EST ORAL active [facility] ([facility]) 500 mg 07/14/2019 12:00:00 AM EST capsule 14 TAKE ONE CAPSULE BY MOUTH EVERY 12 HOURS FOR 7 DAYS TAKE ONE CAPSULE BY MOUTH EVERY 12 HOURS FOR 7 DAYS SO LD: 07/14/2019 [facility] 90 mcg/actuation 07/14/2019 12:00:00 AM EST HFA aerosol inha ler 8 INHALE TWO PUFFS BY MOUTH EVERY 4 TO 6 HOURS NEEDED FOR COUGH AND WHEEZING INHALE TWO PUFFS BY MOUTH EVERY 4 TO 6 HOURS NEEDED FOR COUGH AND WHEEZING SOLD: 07/14/2019 [facility] benzonatate 200 MG Oral Capsule BENZONATATE 07/14/2019 12:00:00 AM EST capsule 15 TAKE ONE CAPSULE BY MOUTH EVERY 8 HOURS NEEDED FOR COUGH TAKE ONE CAPSULE BY MOUTH EVERY 8 HOURS NEEDED FOR COUGH SOLD: 07/14/2019 [facility] 100 mg 07/11/2019 12:00:00 AM EST tablet 30 TAKE 1 1/2 TABLETS BY MOUTH ONCE DAILY TAKE 1 1/2 TABLETS BY MOUTH ONCE DAILY SOLD: 07/11/2019 [facility] 100 mg 07/11/2019 12:00:00 AM EST tablet 30 TAKE 1 1/2 TABLETS BY MOUTH ONCE DAILY TAKE 1 1/2 TABLETS BY MOUTH ONCE DAILY SOLD: 07/31/2019 [facility] 10 mg 07/09/2019 12:00:00 AM EST capsule 30 TAKE ONE CAPSULE BY MOUTH AT BEDTIME TAKE ONE CAPSULE BY MOUTH AT BEDTIME SOLD: 07/11/2019 [facility] 10 mg 07/09/2019 12:00:00 AM EST capsule 30 TAKE ONE CAPSULE BY MOUTH AT BEDTIME TAKE ONE CAPSULE BY MOUTH AT BEDTIME SOLD: 09/03/2019 [facility] 10 mg 07/09/2019 12:00:00 AM EST capsule 30 TAKE ONE CAPSULE BY MOUTH AT BEDTIME TAKE ONE CAPSULE BY MOUTH AT BEDTIME SOLD: 08/06/2019 [facility] 25 mg 07/02/2019 12:00:00 AM EST tablet extended release 24 hr 30 TAKE ONE TABLET BY MOUTH EVERY DAY TAKE ONE TABLET BY MOUTH EVERY DAY SOLD: 07/02/2019 [facility] 2 mg 07/01/2019 12:00:00 AM EST tablet 60 TAKE ONE AND ONE-HALF TABLETS BY MOUTH 1 HOUR BEFORE BEDTIME TAKE ONE AND ONE-HALF TABLETS BY MOUTH 1 HOUR BEFORE BEDTIME SOLD: 07/02/2019 [facility] Baclofen 20 MG Oral Tablet baclofen (LIORESAL) 20 MG t ablet baclofen (LIORESAL) 20 MG tablet 06/24/2019 12:00:00 AM EST active [facility] ropinirole 2 MG Oral Tablet rOPINIRole HCl 2 MG Oral T ablet (REQUIP) rOPINIRole HCl 2 MG Oral Tablet (REQUIP) 06/03/2019 12:00:00 AM EST 3 mg Oral active Restless leg syndrome Take 1.5 tablets by mouth ni ghtly Take 1 hr before bedtime. [facility] Restless leg syndrome ropinirole 2 MG Oral Tablet rOPINIRole (REQUIP) 2 MG t ablet rOPINIRole (REQUIP) 2 MG tablet 06/03/2019 12:00:00 AM EST 3 mg Oral aborte d Take 3 mg by mouth [facility] 100 mg 05/30/2019 12:00:00 AM EST tablet 30 TAKE 1 TABLET BY MOUTH AT NIGHT TAKE 1 TABLET BY MOUTH AT NIGHT SOLD: 06/27/2019 [facility] 10 mg 05/30/2019 12:00:00 AM EST tablet 30 TAKE ONE TABLET BY MOUTH AT BEDTIME MAXIMUM DAILY DOSE = 1 TAKE ONE TABLET BY MOUTH AT BEDTIME MAXI MUM DAILY DOSE = 1 SOLD: 06/27/2019 [facility] 20 mg 05/27/2019 12:00:00 AM EST tablet 90 TAKE ONE TABLET BY MOUTH EVERY 8 HOURS NEEDED FOR SPASMS TAKE ONE TABLET BY MOUTH EVERY 8 HOURS A S NEEDED FOR SPASMS SOLD: 06/26/2019 [facility] 10 mg 05/06/2019 12:00:00 AM EDT tablet 25 TAKE ONE TABLET BY MOUTH EVERY DAY TAKE ONE TABLET BY MOUTH EVERY DAY SOLD: 01/03/2020 [facility] atorvastatin 20 MG Oral Tablet ATORVASTATIN CALCIUM 04/08/2019 1 2:00:00 AM EDT tablet 90 TAKE ONE TABLET BY MOUTH EVERY D AY TAKE ONE TABLET BY MOUTH EVERY DAY SOLD: 07/08/2019 [facility] atorvastatin 20 MG Oral Tablet ATORVASTATIN CALCIUM 04/08/2019 1 2:00:00 AM EDT tablet 90 TAKE ONE TABLET BY MOUTH EVERY D AY TAKE ONE TABLET BY MOUTH EVERY DAY SOLD: 10/03/2019 [facility] 20-12.5 mg 03/30/2019 12:00:00 AM EDT tablet 30 TAKE ONE TABLET BY MOUTH ONCE DAILY TAKE ONE TABLET BY MOUTH ONCE DAILY SOLD: 07/25/2019 [facility] 20-12.5 mg 03/30/2019 12:00:00 AM EDT tablet 30 TAKE ONE TABLET BY MOUTH ONCE DAILY TAKE ONE TABLET BY MOUTH ONCE DAILY SOLD: 11/21/2019 [facility] 20-12.5 mg 03/30/2019 12:00:00 AM EDT tablet 30 TAKE ONE TABLET BY MOUTH ONCE DAILY TAKE ONE TABLET BY MOUTH ONCE DAILY SOLD: 06/26/2019 [facility] 2 mg 03/21/2019 12:00:00 AM EDT tablet 60 TAKE 1 TABLET BY MOUTH NIGHTLY 1 HOUR BEFORE BEDTIME TAKE 1 TABLET BY MOUTH NIGHTLY 1 HOUR BEFORE BEDTIME S OLD: 08/12/2019 [facility] 2 mg 03/21/2019 12:00:00 AM EDT tablet 60 TAKE 1 TABLET BY MOUTH NIGHTLY 1 HOUR BEFORE BEDTIME TAKE 1 TABLET BY MOUTH NIGHTLY 1 HOUR BEFORE BEDTIME S OLD: 10/10/2019 [facility] 40 mg 08/25/2018 12:00:00 AM EST capsule,delayed release (DR/EC) 60 TAKE ONE CAPSULE BY MOUTH TWICE A DAY TAKE ONE CAPSULE BY MOUTH TWICE A DAY SOLD: 06/17/2019 [facility] 40 mg 08/25/2018 12:00:00 AM EST capsule,delayed release (DR/EC) 60 TAKE ONE CAPSULE BY MOUTH TWICE A DAY TAKE ONE CAPSULE BY MOUTH TWICE A DAY SOLD: 07/14/2019 [facility] lamotrigine 100 MG Oral Tablet lamotrigine 100 mg tabl et lamotrigine 100 mg tablet completed lamotrigine 100 MG Oral Tablet [facility] ([facility]) Clindamycin 300 MG Oral Capsule clindamycin HCl 300 mg capsule clindamycin HCl 300 mg capsule completed clindam ycin 300 MG Oral Capsule [facility] ([facility]) Cephalexin 500 MG Oral Capsule cephalexin 500 mg capsu le cephalexin 500 mg capsule completed cephalexin 500 MG Oral Capsule [facility] ([facility]) atorvastatin 10 MG Oral Tablet atorvastatin 10 mg tabl et atorvastatin 10 mg tablet completed atorvastatin 10 MG Oral Tablet [facility] ([facility]) Escitalopram 10 MG Oral Tablet escitalopram 10 mg tabl et escitalopram 10 mg tablet completed escitalopram 10 MG Oral Tablet [facility] ([facility]) Insurance Providers Payer name Policy type / Coverage type Policy ID Covered libertarian ID Covered libertarian's relationship to maria Policy Maria Plan Information EMEDYOSELIN [id number] SP [id number] MEDICARE [id number] SP [id number] MEDICARE C [id number] S [id number] MEDICAID M [id number] MEDICAID M [id number] Self [id number] MEDICARE A [id number] Self [id number] MEDICAID [id number] MEDICARE [id number] MEDICAID [id number] MEDICARE [id number] Jennifer [id number] T15 Medicare P [id number] S [id number] Medicaid S [id number] S [id number] MEDICAID [id number] SP [id number] [facility] I [id number] Self [id number] Medicare P [id number] S [id number] Medicaid S [id number] MEDICARE [id number] SP [id number] [facility] COMMUNITY PLAN MCDHMO [id number] SP [id number] Managed Care - [facility] Community Plan P [id number] S [id number] Managed Care - Community Plan [employer] P [id number] S [id number] Managed Care - Community Plan [facility] P [id number] S [id number] UNITED HEALTHCARE HEA [id number] S [id number] UNITED HEALTHCARE HEA [id number] S [id number] Medicaid S [id number] [facility] Community Plan Commercial [id number] Self [id number] [facility] COMMUNITY PLAN MCDHMO [id number] SP [id number] [place] Ins (pr) Medigap Part [id number] Self [id number] [facility] Community Plan Commercial [id number] Self [id number] United CR/Community [facility] (HMO) [id number] Self [id number] Medicaid [place] Medigap Part B [id number] Self [id number] United Healthcare Commercial [id number] Self [id number] [facility](MCAID) O [id number] S [id number] [facility] Care Hmo Commercial [id number] Self [id number] UnitedHealth Care Hmo Commercial [id number] Self [id number] Medicaid [place] Medigap Part B [id number] Self [id number] Medicare [facility] Medigap Part B [id number] Self [id number] [facility] Commercial [id number] Self [id number] UNHC COMMUNITY PLAN MCDHMO [id number] SP [id number] [facility] Hmo Commercial [id number] Self [id number] [facility] Health Maintenance Organization (HMO) [id number] Self [id number] United[employer] Medicaid Medicaid [id number] Self [id number] Unitedhealthcare Medicaid Medicaid [id number] Self [id number] Unitedhealthcare Medicaid Medicaid [id number] Self [id number] [facility] Hmo Commercial [id number] Self [id number] [facility] Hmo Commercial [id number] Self [id number] MEDICAID M [id number] Self [id number] [facility](MCAID) O [id number] S [id number] [facility] Hmo Commercial Self UNHC COMMUNITY PLAN MCDHMO [id number] SP [id number] United CR/Community [facility] (HMO) Self [employer] Medicaid Medicaid Self UNHC COMMUNITY PLAN MCDHMO [id number] SP [id number] United HLCR/Community [facility] (HMO) Self United[employer] Medicaid Medicaid Self MEDICAID [id number] SP [id number] MEDICAID [id number] SP [id number] MEDICAID M [id number] Self [id number] MEDICAID-O/P [id number] MEDICAID - CLINIC [id number] Problems, Conditions, and Diagnoses Code Display Name Description Problem Type Effective Dates Data Source(s) 738977933 Nicotine dependence with current use Osito otine Dependence with Current Use Problem 07/26/2020 12:00:00 AM [facility]U [facility] ([facility]) [id number] Needs influenza immunization Needs Influenza Immunizat ion Problem 07/26/2020 12:00:00 AM [facility]U [facility] ([facility]) 29009930 Administration of pneumococcal vaccine A dministration of Pneumococcal Vaccine Problem 07/26/2020 12:00:00 AM [facility] ([facility]) 1793710 Herpes labialis Herpes Labialis Problem 07/26/2020 12:0 0:00 AM EST [place] ([facility]) R73.03 Prediabetes Prediabetes 12/05/2019 04:01:12 PM EDT [facility] V65.8 Person consulting for explanation of exa mination or test findings Person consulting for explanation of examination or test findings 12/05/2019 04:01:12 PM EDT [facility] V70.0 Encounter for general adult medical exam ination with abnormal findings Encounter for general adult medical examination with abnormal findings 12/05/2019 04:01:12 PM EDT [facility] [id number] Pruritus vulvae Pruritus vulvae 12/05/2019 04:0 1:12 PM EDT [facility] [id number] Procedure by method Procedure by Method Problem 0 12/05/2019 12:00:00 AM EDT [place] ([facility]) [id number] Patient asked to attend Patient Asked to Attend [facility] 12/05/2019 12:00:00 AM EDT [place] ([facility]) 303041481 Prediabetes Prediabetes Problem 12/05/2019 12:00:00 AM EDT [facility]) 76118401 Pruritus of vulva Pruritus of Vulva Problem 12/05/2019 12:00:00 AM EDT [facility]) [id number] Procedure by method Procedure by Method Problem 0 12/05/2019 12:00:00 AM EDT [place] ([facility]) [id number] Patient asked to attend Patient Asked to Attend [facility] 12/05/2019 12:00:00 AM EDT [place] ([facility]) [id number] Prediabetes Prediabetes Problem 12/05/2019 12:00:00 AM EDT [place] ([facility]) 05394673 Pruritus of vulva Pruritus of Vulva Problem 12/05/2019 12:00:00 AM EDT [facility]) V70.0 Health Screening Health Screening 10/28/2019 04 :22:28 PM EDT [facility] [id number] Clinical finding Clinical Finding Problem 10/28/2019 12 :00:00 AM EDT [place] ([facility]) [id number] Clinical finding Clinical Finding Problem 10/28/2019 12 :00:00 AM EDT [facility] ([facility]) M19.041 [id number] Primary osteoarthritis, right hand Proble m 10/10/2019 12:00:00 AM EDT [facility]) M19.042 [id number] Primary osteoarthritis, left hand Prob estephania 10/10/2019 12:00:00 AM EDT [facility] ([facility]) M19.041 [id number] Primary osteoarthritis, right hand Proble m 10/10/2019 12:00:00 AM EDT eCW1 ([facility]) M19.042 [id number] Primary osteoarthritis, left hand Prob estephania 10/10/2019 12:00:00 AM EDT eCW1 ([facility]) [id number] Moderate recurrent major depression Mode rate Recurrent Major Depression Problem 09/12/2019 12:00:00 AM EST BERNIE ([facility]) [id number] Moderate recurrent major depression Mode rate Recurrent Major Depression Problem 09/12/2019 12:00:00 AM EST BENRIE ([facility]) M79.7 [id number] Fibromyalgia Problem 09/11/2019 12:00:00 AM EST eCW1 ([facility]) M15.0 [id number] Primary osteoarthritis involving multiple joints Problem 09/11/2019 12:00:00 AM EST eCW1 [facility] M47.812 [id number] Cervical spondylosis Problem 09/11/2019 12:0 0:00 AM EST eCW1 ([facility]) M51.36 [id number] Lumbar degenerative disc disease Problem 09/11/2019 12:00:00 AM EST eCW1 ([facility]) M79.7 [id number] Fibromyalgia Problem 09/11/2019 12:00:00 AM EST eCW1 ([facility]) M15.0 [id number] Primary osteoarthritis involving multiple joints Problem 09/11/2019 12:00:00 AM EST eCW1 ([facility]) M47.812 [id number] Cervical spondylosis Problem 09/11/2019 12:0 0:00 AM EST eCW1 ([facility]) M51.36 [id number] Lumbar degenerative disc disease Problem 09/11/2019 12:00:00 AM EST eCW1 ([facility]) I10 Essential hypertension Essential hypertension [id number] 08/28/2019 12:00:[address] [facility] R07.89 Other chest pain Other chest pain [id number] 08/28/2019 12 :00:[address] [facility] R00.2 Palpitations Palpitations [id number] 08/28/2019 12:00:[address] [facility] F17.210 Cigarette smoker Cigarette smoker [id number] 08/28/2019 12 :00:[address] [facility] R06.02 Shortness of breath Shortness of breath [id number] 0 08/28/2019 12:00:[address] [facility] 786.2 Cough Cough 08/05/2019 02:04:00 PM ES T [facility] 478.19 Congestion of nasal sinus Congestion of nasal sinus 08/05/2019 02:04:00 PM [facility] 787.01 Nausea with vomiting, unspecified Nausea with vomiting , unspecified 08/05/2019 02:04:00 PM [facility] R10.13 Epigastric pain Burning epigastric pain 020 02:04:00 PM [facility] [id number] Pain in unspecified joint Pain in unspecified joint 08/05/2019 02:04:00 PM [facility] [id number] Finding of body region Finding of Body Region Problem 08/05/2019 12:00:00 AM EST BERNIE ([facility]) [id number] Epigastric pain Epigastric Pain Problem 08/05/2019 12:0 0:00 AM EST [facility]) [id number] Nausea and vomiting Nausea and Vomiting Problem 0 08/05/2019 12:00:00 AM EST BERNIE ([facility]) [id number] Nasal congestion Nasal Congestion Problem 08/05/2019 12 :00:00 AM EST [facility]) [id number] Finding of body region Finding of Body Region Problem 08/05/2019 12:00:00 AM EST BERNIE ([facility]) [id number] Epigastric pain Epigastric Pain Problem 08/05/2019 12:0 0:00 AM EST BERNIE ([facility]) [id number] Nausea and vomiting Nausea and Vomiting Problem 0 08/05/2019 12:00:00 AM EST BERNIE ([facility]) [id number] Nasal congestion Nasal Congestion Problem 08/05/2019 12 :00:00 AM MEENU GIBBS ([facility]) R06.02 Shortness of breath Shortness of breath Diagnosis 1 07/13/2019 01:43:53 PM EST [facility] R00.2 Palpitations Palpitations Diagnosis 05/13/2020 01:43:53 P M EST [facility] R07.89 Other chest pain Other chest pain Diagnosis 05/13/2020 01 :43:[address] [facility] I10 Essential (primary) hypertension Essential (primary) h ypertension Diagnosis 05/13/2020 01:43:[address] [facility] F17.210 Nicotine dependence, cigarettes, uncompl icated Nicotine dependence, cigarettes, uncompl Diagnosis 05/13/2020 01:43:53 PM EST [facility] F17.210 Nicotine dependence, cigarettes, uncompl icated Nicotine dependence, cigarettes, uncomplicated Diagnosis 12/30/2019 07:18:16 AM [facility] R07.9 Chest pain, unspecified Chest pain, unspecified Diagno sis 08/21/2019 07:57:[address] [facility] Surgeries/Procedures Procedure Description Date Indications Data Source(s) ECG ROUTINE ECG W/LEAST 12 LDS W/I&R POCT AMB EKG Routine 05/13/2020 2:42 PM EST Essential hypertension Other chest pain 05/13/2020 07:42:00 PM EST Other chest p ainEssential hypertension [facility] Other chest pain Essential hypertension BLOOD COUNT COMPLETE AUTO&AUTO DIFRNTL WBC COUNT CBC AND DIFFER ENTIAL Routine 01/09/2020 01/09/2020 12:00:00 AM EDT [facility] THYROID STIMULATING HORMONE TSH TSH Routine 01/09/2020 01/09/2020 12:00:00 AM EDT [facility] HEPATIC FUNCTION PANEL HEPATIC FUNCTION PANEL Routine 01/09/2020 01/09/2020 12:00:00 AM EDT [facility] BASIC METABOLIC PANEL CALCIUM TOTAL BASIC METABOLIC PANEL Routine 01/09/2020 01/09/2020 12:00:00 AM EDT [facility] LIPID PANEL LIPID PANEL Routine 11/05/2019 11/05/2019 1 2:00:00 AM EDT [facility] Office Visit, Est Pt., Level 2 FC 10/10/2019 12:00:00 AM EDT eCW1 ([facility]) Office Visit, Est Pt., Level 4 PC 10/10/2019 12:00:00 AM EDT eCW1 ([facility]) Office Visit, New Pt., Level 4 PC 09/11/2019 12:00:00 AM EST eCW1 ([facility]) Office Visit, New Pt., Level 3 FC 09/11/2019 12:00:00 AM EST eCW1 ([facility]) VENIPUNCT, ROUTINE* 09/11/2019 12:00:00 AM EST eCW1 ([facility]) Results ID Date Data Source [id number] 01/20/2020 08:48:35 AM EDT [facility] Name Value Range Interpretation Code Description Data Elli rce(s) Supporting Document(s) Progress Note [facility] RMEMCe8zMrVJEsRk05/CXQuoJZCgs9YnWPkzNSg0URuoEXQnF2QtHSM0rT0hHRB3WQqBDzRzKrSfKpMa lbm [file] z1WmixS6npEwWHqxHCF7AH6XNBTQY2NRWa== ID Date Data Source [id number] 01/09/2020 10:50:00 AM EDT [facility] Name Value Range Interpretation Code Description Data Elli rce(s) Supporting Document(s) BG FASTING 85 mg/dL 70-100 N [facility] T4, FREE 0.95 ng/dL 0.76-1.46 N [facility] TSH 0.385 microintl units/mL 0.358-3.740 N [facility] ID Date Data Source [id number] 01/09/2020 10:50:00 AM EDT [facility] Name Value Range Interpretation Code Description Data Elli rce(s) Supporting Document(s) HCT 39.1 % 36.0-47.0 N [facility] HGB 12.3 g/dL 12.0-15.5 N [facility] MCH 31.5 G/DL pg 32.0-36.5 L [facility] MCHC 30.9 PG % 27.0-33.0 N [facility] PLATELETS 268 10 10*3/mm3 150-450 N [facility] RBC 3.98 10 10*6/mm3 4.00-5.40 L [facility] RDW 13.7 % 11.5-14.5 N [facility] WBC TOTAL 7.2 4.0-10.0 N [facility] ID Date Data Source [id number] 01/09/2020 07:53:24 AM EDT [facility] Labs In-House Blood TestsDate/Time Colle cted: January 09, 2020 7:53 AMTest Result Reference Range Normal ValueShanice [facility], February 11, 2020 7:53 AMAssessment & Plan Orders:[id number] Vst-Est Level I [[id number]] 92140 - Venipuncture [[id number]] Name Value Range Interpretation Code Description Data Elli rce(s) Supporting Document(s) ID Date Data Source [id number] 12/30/2019 12:06:03 PM EDT [facility] Name Value Range Interpretation Code Description Data Elli rce(s) Supporting Document(s) Progress Note [facility] IKUZLw9tVkDRBoJu04/KLBgqDRLri3VlTOidUIf8XQxyHPGqX4KeWWO2nB3oFBM6WQhPKjPdSuVxCiTu lbm [file] p3EJhqzFEGTpE1PzlNSqStez6Fu4HRZpo3iwxZzeCvazUcHPkCMnbxlFIBxNJb2YCqwwEmXvZEyJ/ANIMAL 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 [file] AMKg/qlnCj+gAAAAAAAAAAAAAAAAAAAAAAAAAAAAAAAAAAAAAAAAAAAAAAAAAAAAAAAAAAAAAAAAAAAA AAAAAAAAAAAAAAAAAAAAAAAAAAAAAAAAAAAAAAAAAA AAAAAAAAAAAAAAAAAAAAAAAAAAAAAAAAAAAAAAAAAAAAAAAAAAAAAAAAAAAAAAAAAAAAAAAAAAAAAAAA AAAAAAAAAAAAAAAAAAAAAAAAAAAAAAAAAAAAAAAAAAAAAAAAAAAAAAAAAAAAAAAAAAAAAAAAAAAAAAAA AAAAAAAAAAAAAAAAAAAAAAAAAAAAAAAAAAAAAAAAAA AAAAAAAAAAAAAAAAAAAAAAAAAAAAAAAAAAAAAAAAAAAAAAAAAAAAAAAAAAAAAAAAAAAAAAAAAAAAAAAA AAAAAAAAAAAAAAAAAAAAAAAAAAAAAAAAAAAAAAAAAAAAAAAAAAAAAAAAAAAAAAAAAAAAAAAAAAAAAAAA AAAAAAAAAAAAAAAAAAAAAAAAAAAAAAAAAAAAAAAAAA AAAAAAAAAAAAAAAAAAAAAAAAAAAAAAAAAAAAAAAAAAAAAAAAAAAAAAAAAAAAAAAAAAAAAAAAAAAAAAAA AAAAAAAAAAAAAAAAAAAAAAAAAAAAAAAAAAAAAAAAAAAAAAAAAAAAAAAAAAAAAAAAAAAAAAAAAAAAAAAA AAAAAAAAAAAAAAAAAAAAAAAAAAAAAAAAAAAAAAAAAA AAAAAAAAAAAAAAAAAAAAAAAAAAAAAAAAAAAAAAAAAAAAAAAAAAAAAAAAAAAAAAAAAAAAAAAAAAAAAAAA AAAAAAAAAAAAAAAAAAAAAAAAAAAAAAAAAAAAAAAAAAAAAAAAAAAAAAAAAAAAAAAAAAAAAAAAAAAAAAAA AAAAAAAAAAAAAAAAAAAAAAAAAAAAAAAAAAAAAAAAAA UIJXOKQOXQAFWYNWXISWZFGWFPPKQLZMYTNGRRMJZVHCIWBPOPAETEICTCKJOJVMDJJYOJLSNlVL0FJq 7PVZ8is3XkCGEtVNgqjdKxEdrSErTeTVUht8LzDKa0YV8ZVGWdMGcwUD1DL9WePIW5S8Z6LbC3pFUiXE 3pL1VrJzBfCX3rwJtoR0LywCSOIUXMd04ya43rcvFa KJ7Rf6kriaNzMXDqG6XliwgpYKUPJu7JeCL8zMQ5GHthGWEtA5f0XXb6HN8ZGI5nkQgxVKt5MqSmZ0Ea vCTqwiQnY2MmCJHwXAYre9GdVV8SYGBsR63uh4jrMuYxRCVUGH4SUk3YTyJ5rbUecT7HIQHgjC3dnskU zlxiKPkATqPYyBShgIhnhTw5YtmQM4HPTYPDDZG19u dfH4IX1PK64e9wts68qg6isqVQrZVrA+ocadfjm8vMtyjhbtS/RYuhZle82QWYE/61u/NorVYGLz7+qP Lc1Yo8xQT8B/AweR2h7+yOUEiCX4RPyFzDPGUsq/JHDGH5x7XBQnctgXTul9EqEfOiCx4/39RNxo56QD 2Z3C7uSwHbvlSTQJjCioSswr2vUZ8yXV+cv55O2ok3 GPUpVjdTqslk+cuFo0aONfJb5hS5rHEpDj31uZzVfqt0EzuilXpA0NVKtmBHKUgrSvdNFay320/NqC1M vQelxqgmk+isCGthZclWqUxsT4gMyfJlo0I65bJHzJ9cxjrkJhRr6YLXQeDQnJaHLOCGWa5LkdoF+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 [file] MktVixq0twibUKZ0z8ifDHXPJsUVOKDOXa+CwV5V+SELF SEALING FUEL TANK BUILDER+GaSwxauKzQxSR33ekCRsAIGNs/XDrqQTiFx [file] g4LwHYy2ARVm7C78dbg4t5nhxXg5FaTwP9/Ir+BARREL RIFLER BUTTON/j [file] ckWte7q3daaGZ5dOEAoB+f9+dH0dvAU2vm9hWEYeR6tVcAikGOy0o7uCL4qRoqboiBZm0up/WhaZ/Radhames OCJ/h8G9WZUfXswcx7K37j53rj38wmmv0Pk8AjwVg7 R8VtU5+WWXGuYoKp0Ao7SBy75Gz8lmhPG26f/Ch/7935859i79/6s6cA/hjVDbNZBHBUoKZALrvWmUnR VkuH96wOptAtQ1o/9pb0iQTsxQh6q7vulW57bCMk8MLvkG9VSMdbvfg0CjXQm1JjGPqI1eJBJ9kZ4jRN BZzHRD71cLrz7MCjjRy4v8gZ3V5XJ5VbzjQS/LPt2v 8pmDii9he/jmwjU6kItHky89GU0grRif0qPUfsv/c0w4EFOwHb4bjb3qUhiNm7UQex8KuZXCp1hzCUad ScBrBf5MK0eixQa2Yx6bUkYRdlw4rO0tflVzaQBKqX2OV7bmTANBDe4BYF2eJkLT9DUIa477pXV/zxU7 tnAYAZk6BX2ez+TzKsclU1mD530Xe1/x8/BCB75MfP QEc4dxGlJJ+tVXc+Gc5Pbr28NlWwFgttTMqJkcxidOwjMcf1eqzlP2AX4LCz93LtS5EtUKbsPzkjGurq mm2ky4jwtNRUxUrxHt2Qk1s5V8v74xhhT1CQnOnJbOK0UQjPog1IpA1TVX3RBxzHlw8Dt9csz8jG9ZZv wR98Oj6k7e1u/s+BKOgDAdYDGAwGg+Zy7FeMFlagyf IYPgXJFP/QTzA0GisbNeq/QNmvC3OTJG2Ed8MnVWbNEuIgjakZmhpy/wn9xmDV5J6OiN6TU3UuCYq+DF 90JZuGEwHk3PbiVofSuDhSVrFQhAVGYp7Lq8qCHq3PBrTe8WfGHx8UOeezRUcPDsDULjbPfbcRI [facility] [place] [file] AgICAgICAgICAgICAgICAgICAgICAgICAgICAgICAgICAgICAgICAgICAgICAgICAgICAgICAgICAgIC AgICAgICAgICAgICANCiAgICAgICAgICAgICAgICAg ICAgICAgICAgICAgICAgICAgICAgICAgICAgICAgICAgICAgICAgICAgICAgICAgICAgICAgICAgICAg ICAgICAgICAgICAgICAgICAgICAgICANCiAgICAgICAgICAgICAgICAgICAgICAgICAgICAgICAgICAg ICAgICAgICAgICAgICAgICAgICAgICAgICAgICAgIC AgICAgICAgICAgICAgICAgICAgICAgICAgICAgICAgICANCiAgICAgICAgICAgICAgICAgICAgICAgIC AgICAgICAgICAgICAgICAgICAgICAgICAgICAgICAgICAgICAgICAgICAgICAgICAgICAgICAgICAgIC AgICAgICAgICAgICAgICANCiAgICAgICAgICAgICAg ICAgICAgICAgICAgICAgICAgICAgICAgICAgICAgICAgICAgICAgICAgICAgICAgICAgICAgICAgICAg ICAgICAgICAgICAgICAgICAgICAgICAgICANCiAgICAgICAgICAgICAgICAgICAgICAgICAgICAgICAg ICAgICAgICAgICAgICAgICAgICAgICAgICAgICAgIC AgICAgICAgICAgICAgICAgICAgICAgICAgICAgICAgICAgICANCiAgICAgICAgICAgICAgICAgICAgIC AgICAgICAgICAgICAgICAgICAgICAgICAgICAgICAgICAgICAgICAgICAgICAgICAgICAgICAgICAgIC AgICAgICAgICAgICAgICAgICANCiAgICAgICAgICAg ICAgICAgICAgICAgICAgICAgICAgICAgICAgICAgICAgICAgICAgICAgICAgICAgICAgICAgICAgICAg ICAgICAgICAgICAgICAgICAgICAgICAgICAgICANCiAgICAgICAgICAgICAgICAgICAgICAgICAgICAg ICAgICAgICAgICAgICAgICAgICAgICAgICAgICAgIC AgICAgICAgICAgICAgICAgICAgICAgICAgICAgICAgICAgICAgICANCiAgICAgICAgICAgICAgICAgIC AgICAgICAgICAgICAgICAgICAgICAgICAgICAgICAgICAgICAgICAgICAgICAgICAgICAgICAgICAgIC AgICAgICAgICAgICAgICAgICAgICANCjw/gIJfT1dk wUTdshI7C5upDj9NEj9BLW1ip2HpASXkUUtxatMrBkbRQpSvZAXmCmgWPyn1YTrbTL8XhJLaL9HsO2Dp CJchJU6LZDGxZJQwjQVeINGjTXLmAlC5EPGeQRiaJZ4NoSIjAHegZFLjUZCwDrYsHKAsNUEbGPErENEg NXZGJQDgGZXvQuOvSPNmROXzKV5WMBCjX934rrIdDr 1LVp4LUbFeXO3szw8IMuFzOQDxYrjZEdk5QFmxOZ3NcWMklBTzSHYvNYLLXzDzW8lus2KzZcIdXLFEMD fuPO2Nt8HjyCDfIXx+Vo7QZM6se0YiJTuqAYLyKO0lqw3GFFlUKeUaD4ZgqDqeALIut8tlSRUeRM2qqD CmXHI1FXBnSFQktrLSeCNpFK7ANDB0JTNlMhTzGxLl FLSsQYneLDOQBQiQWhBfN8Cqh2WyLzS9GYBzNuMwKGdgSUFxXoA3DQ88pXlxXK3GSYOlNBYwUQ67FDL0 RKBgPj3YVc5FTvSfWE9fcp3LEoHnTQKzOeoMRio8WJfdVP8RpVXuS5CkyOTha8ySKjXaX5IXQBZiNNYm Ey1JSMMcNjVoYOPzBKdnUZ7bPDNrLKUEhZbtgrQ9MA 2WXW3mywOzKN0INuNzJu1aMv4BYsPxP6ZzW8YeUGWjBZGGTUprYL8KZEesUQ9tRJ2Bt2CJlIOwzL2wvz 4XAUGiGEEuRiimfw2FDgoaZ8R1kIhwOIEvLxUzRNGGHIwqLA3TJLHgGCX0MJXjJiDhXSZMRqDfQ17zYV 8MK8Yxd81uLxX2MWYcYlZkOXszHZ28zGwagvYtxUEr aElaVY9RVm8+RTdjkeEoKblZIiwdUYBFYgIvKjyDRrFxNRWkAGCgCVAgMaY6TgWuLw9UTYIeLMGiVNFu EvOwCAHuAQSqXAssZPCuQeJjYut6ZVVeSQOqSU7WUiZbLHEqPDH9ZXSgFDCsTAPreu5UYHWoTWKmNWY4 IqLgSPAxZILqBMwzHLFqADBiYHAzJKLzWJZdGU3QPt ZhJJZsFQKdGVygXEPsNQJxem3JCOIlKSCwSeL1LOCxBVFhCLCtJQaqQTZxILV0AVomFFVuEEWxOM9CXz PfOSZeRRYdERBvEAFfCZBefs5HWZTsRPZpIZR7HXEeSAMgKGHjYNunMUHjHXIgOmh4QSPuBIUwMH3LPx QeALKmTGA6WNNgWZRgWNYewp1ZWTMfSUTcNXU7NJNo MEOmYHAzAXxhPKXrVTO7Fpk0UHQpBGOdAT0LZpZaMSZuJEivVJpoIHRhBULzgf9XBXHfQPRxHvHuCLCo SYCuUHPvDYgvYALbRPU7TIb6PNZoSEEeXQ3ATeVkNXCxZYyfCnNePJXkZYJyuq9ILGAlTMGsASK7QOLr OFHrUQSqNOxcOLOlPVN9QCUjSZInWNGjKS5VXaRsEP NtHZp8OUKlFQKlBFPsnr9MHBJnYSMwCFlgQyAgAJXpPHLmHHktXZCwFTBfNxAoHQNgFKHqIE6LRmKfDO IsDLLcBKEeSYBsIVZdxv7ZZQPdWHD8CULgIQEbBYEiNSMdAWcwYBVcSIN0Rro5ZHRvKGHiTL9ZJcRpWP HbOPM0GMPqVFDjENCvez7CWHLbILH6XqW6QGXpMZVi JWWwRVjrWDBySFI3Gpa8WUTaCDDqCF2KJsOaRIRsBGQ3EBLcFEYiPMPpfi4YFDVaMAX3CbovDeRgSUAu HCNaCUonJMFqWfWfDdE5JORyGLMsFN5MDaMcQZUsUATfBSDlKAUlTPLxlf3QUNExCWW5CIY5CTLpTLWj OKMoQNybXVUyDsN0BnV6JPDbKGVgJK5VFqZyCUQhSJ I0UCTlBOIjZKJvjw9OrCVwbQzted3MELfURp3WiZcuNSR4WIawKo9zaAInHnKzPEBUQk5JvjClKVOxUZ HFSVplHSCmZYohMTUjQWO7P5UbFTE6WJBoQNX6KtJzRCIlUCEiHmLxAgG8BSX2MfG1BHCeGoP5NvI3J3 RkNTljNWExMWZlYTNiZmE+FD4eXMa+Fl5Ji3QnijA7vfIoUAhnDHSeHVBXEcDoEA6BNRz= ID Date Data Source [id number] 12/27/2019 03:11:50 PM EDT [facility] Name Value Range Interpretation Code Description Data Elli rce(s) Supporting Document(s) Progress Note [facility] TVVDJr7jRpMRHwOm92/MPBqpUDPfm3TvKPceCAy8IQxpRMGtV3OpUXC5lG5mEHN8KOdBCuKsPpHnJkE2 lbm [file] AgICAgICAgICAgICAgICAgICAgICAgICAgICAgICAgICAgICAgICAgICAgICAgICAgICAgICAgDQogIC AgICAgICAgICAgICAgICAgICAgICAgICAgICAgICAg ICAgICAgICAgICAgICAgICAgICAgICAgICAgICAgICAgICAgICAgICAgICAgICAgICAgICAgICAgICAg ICAgICAgDQogICAgICAgICAgICAgICAgICAgICAgICAgICAgICAgICAgICAgICAgICAgICAgICAgICAg ICAgICAgICAgICAgICAgICAgICAgICAgICAgICAgIC AgICAgICAgICAgICAgICAgDQogICAgICAgICAgICAgICAgICAgICAgICAgICAgICAgICAgICAgICAgIC AgICAgICAgICAgICAgICAgICAgICAgICAgICAgICAgICAgICAgICAgICAgICAgICAgICAgICAgICAgDQ ogICAgICAgICAgICAgICAgICAgICAgICAgICAgICAg ICAgICAgICAgICAgICAgICAgICAgICAgICAgICAgICAgICAgICAgICAgICAgICAgICAgICAgICAgICAg ICAgICAgICAgDQogICAgICAgICAgICAgICAgICAgICAgICAgICAgICAgICAgICAgICAgICAgICAgICAg ICAgICAgICAgICAgICAgICAgICAgICAgICAgICAgIC AgICAgICAgICAgICAgICAgICAgDQogICAgICAgICAgICAgICAgICAgICAgICAgICAgICAgICAgICAgIC AgICAgICAgICAgICAgICAgICAgICAgICAgICAgICAgICAgICAgICAgICAgICAgICAgICAgICAgICAgIC AgDQogICAgICAgICAgICAgICAgICAgICAgICAgICAg ICAgICAgICAgICAgICAgICAgICAgICAgICAgICAgICAgICAgICAgICAgICAgICAgICAgICAgICAgICAg ICAgICAgICAgICAgDQogICAgICAgICAgICAgICAgICAgICAgICAgICAgICAgICAgICAgICAgICAgICAg ICAgICAgICAgICAgICAgICAgICAgICAgICAgICAgIC AgICAgICAgICAgICAgICAgICAgICAgDQogICAgICAgICAgICAgICAgICAgICAgICAgICAgICAgICAgIC AgICAgICAgICAgICAgICAgICAgICAgICAgICAgICAgICAgICAgICAgICAgICAgICAgICAgICAgICAgIC AaMPYhAEu5I6jeAPBgLKKoIX0vSQw1Fe2+DQoNCmVu SJJ1skHodO7AUS7xt4GcPCocKFRun1WlEDg4QK7ZLHSvSJyqQM9PMBcdiw4PBLOyRTYujEROt6owGgCd FJH7SEXdDhyfTT7DRESkW6xzjtKuMALbLXQUNJ0DLyKuO9GybJ45JXBMYz3+AAqmjvGvSlzWPwY3ZRDv a5NmFXu8PS5HDNEyMqucn8FaMkAwOEYXHPznGS8VFE A6ANDyHJShAt5OGFVoT105ovZbHR1OAj3NOlVgNI5kwi9RFbFxNUCcRqoWKpy7GFurXC8VaHHjOIrPlp 0vzlQsvkDNd5BygsTazKAXSVpdRJDdQoSpthCka2ZxWWEOYS7dHUGtSf2oWj3hTMIwUPSmQfGyXPQQXQ 5HSXMqKKPhxUVwQEPeRWKTZL1BHIzoGAB5PJTrmpGc nUMiVLpfMF1LPAGkumPgNTwtGTGNKSy+Lh5PLB6ef5EjUNrgICDiIC5lvk6EPCmUVrDbE0Z8dBHaH7O7 GGzwKa1JSAQxHUGoMEwjGOFEIEwzGV0OBU5elcQ4HU3KzFTqKSXjJSGtgBErGZw9P79uoCZdTTguXF5N ICA+Jeremy+Qy2EXYWsMJZwQNFpBmZyHGBGQgQyV2AwV8 NEy5ZlC6TqBH16fRhlplJuFTiqDT9JSR8zOJKgXFVHLH7DaJOnxB7nhuMpCDYhBQTAMtFfQ88tuAWoUJ KyODK4KSRaMp8FTLEpC0MdyiEdtCwexeMrQCXcJHMNMD4EMNwkxoNchOQuxVrtKS63sRgsIV4IMo5HRc ZzLQ5bng1NjCNcNa7JKUUrIz0AGNRaMGRuRPTlWDQ9 DQUwOqKfURlqBADmEESkTAT5HEQgAGEgBJ3IWyYwWACoZTwuLYIvTSMoCEJlnm3MQQZhNIFxMFdvZnQs LZYuRLRwBLcnXFPfBBAkGRJ1OJMrTRWnMM0KHaEzTIPdRHC4QVEcYWObKBQpmt6RFISpEADeTwAoVUYo UYXhDASrCMsxLFUoNNDhMEw2NJIzONGoWL8JInErOJ NwSIAfAjMgLYQmIMJszd8VBZZlDEGrHqS4LFTgTITmWHMyCBqiUGTiMQN5UPP7IMGbHWDcJA7WJfCjGW HfXJT1HXJkKFWpAMRnnl9GXJXzKSYcKHz4GrEnFNMmXEUbRUesKGFfOKD7YPNuPQEgEKIdGD2PQdJiQX WyJRI4IxaxZRZkZMFrbz3NVAEzVRIwJnF2AcGxZTIe QEMcDAbfJFWpQQL2JRU3DABqYFEmXI0VYfSoMZKjJErqYoCnKLVzAXNrcs6ZVWOgGCKhXgA1LpYxFODg VZUyHQamQYUyAAZ4GKCfHOGxFLNyPF3OJdXmEEIiMEz5YqShSPTxAOFurs7QBKDcKMQzQGInOSFgJKUn XXAbBYj9zeCnbXXdVWk9MG2EM6TxmyEyAkPQAp3Yy3 81KECwQZHiWa6OA1yvVo4aBSClXVKHEu1ZRMb3OvY1QSW2ZUO1PHn3BSN8FxofRDSeT6JeXjBjXLJ6Z1 Y+LFl8AurzBRy7VtA1ASp2VZVoXSD2FhXcX9FlEnZ3TqGnEs5iDOQDMj5+BObaxALncDjsARNPRaJ2Ck F6XCcbNDJMFr0O ID Date Data Source [id number] 12/27/2019 03:11:35 PM EDT [facility] Name Value Range Interpretation Code Description Data Elli rce(s) Supporting Document(s) Progress Note [facility] PRIHSy6tHtNJMaIp79/CJNtyKUInc3VhVZbrFHf1RTyiHKFeZ0RkXTO1rC0wYBC9ENzFLoHnOyScDgC8 lbm [file] ICAgICAgICAgICAgICAgICAgICAgICAgICAgICAgICAgICAgICAgICAgICAgICAgICAgICAgICAgICAg ICAgICAgICAgICAgDQogICAgICAgICAgICAgICAgIC AgICAgICAgICAgICAgICAgICAgICAgICAgICAgICAgICAgICAgICAgICAgICAgICAgICAgICAgICAgIC AgICAgICAgICAgICAgICAgICAgICAgDQogICAgICAgICAgICAgICAgICAgICAgICAgICAgICAgICAgIC AgICAgICAgICAgICAgICAgICAgICAgICAgICAgICAg ICAgICAgICAgICAgICAgICAgICAgICAgICAgICAgICAgDQogICAgICAgICAgICAgICAgICAgICAgICAg ICAgICAgICAgICAgICAgICAgICAgICAgICAgICAgICAgICAgICAgICAgICAgICAgICAgICAgICAgICAg ICAgICAgICAgICAgICAgDQogICAgICAgICAgICAgIC AgICAgICAgICAgICAgICAgICAgICAgICAgICAgICAgICAgICAgICAgICAgICAgICAgICAgICAgICAgIC AgICAgICAgICAgICAgICAgICAgICAgICAgDQogICAgICAgICAgICAgICAgICAgICAgICAgICAgICAgIC AgICAgICAgICAgICAgICAgICAgICAgICAgICAgICAg ICAgICAgICAgICAgICAgICAgICAgICAgICAgICAgICAgICAgDQogICAgICAgICAgICAgICAgICAgICAg ICAgICAgICAgICAgICAgICAgICAgICAgICAgICAgICAgICAgICAgICAgICAgICAgICAgICAgICAgICAg ICAgICAgICAgICAgICAgICAgDQogICAgICAgICAgIC AgICAgICAgICAgICAgICAgICAgICAgICAgICAgICAgICAgICAgICAgICAgICAgICAgICAgICAgICAgIC AgICAgICAgICAgICAgICAgICAgICAgICAgICAgDQogICAgICAgICAgICAgICAgICAgICAgICAgICAgIC AgICAgICAgICAgICAgICAgICAgICAgICAgICAgICAg ICAgICAgICAgICAgICAgICAgICAgICAgICAgICAgICAgICAgICAgDQogICAgICAgICAgICAgICAgICAg ICAgICAgICAgICAgICAgICAgICAgICAgICAgICAgICAgICAgICAgICAgICAgICAgICAgICAgICAgICAg RSEtGHFvCCBhIULlCNTvMHPkRTEzKKy3A5ubLMUvRL SvZH3sSIp0Tt0+SKtTEhJlRHL0kwChnN6VMI2eh5HwWIpcFYMxz5UiHSb8NW3BDDJxZYlqWH5XZXdgrn 8VBGDcFQOlrUJKp0xsUgUlWCR4SOBbJxdqRL5JDIKtX6qhigPoAZLvFEJUQG3VNtYiD2MzmA51OUIADq 4+GVuuolSrKvlOIvW1EWDgz8LwULk0ZY8SWCYzLuhg m0OaIsYmJNYNEPhvWV2ERTU4OYPyNWQlMz5YHALxU616xgEjWW3IGo5AVfRqYF5adl4HBbHtVORtVnmU Wqy8ILziAB5CrIUmLKaKvc0idoLriuZRu3DvhpPjiBYRZBdsRUHfGqJcqiGpr9RtXHNYFE7qFLIzKa7z El7xEFPoWGYeShAqFBYTEJ3IGIFdSAVtvTDqINDlGW LPVS9MIWvcEDA0KJYpgmGeaBRlEWuhUN5YAJScypUzKNirJWIEXHn+Vr4PRY9iy0VuDCedREBwXE1ivf 0SZRwMPaTyQ2R0nIPkD1E1YXbaQf9GJENyIDUzKQttAXQTHPdgPR1WDI2zmwE8QD3RuCEaWYQdIEPtcF WoGJp8N43kmRGlTNkxQV5CKLA+Jeremy+Ni6KMQFwSQQq NBYkAjSbVQUWZiTuV1RcJ4CVm4UpS4LcKI14eAgeeqIhBBdeIN9WLK6hYAByRIBUFI8AoGHvgN4ptlWq JLUjLOKWCfQxF18qrKBgZXPpRTQ1IKTuOu6ZVYPtM9SpunNlhVfrmgHnTCOcJAWSQC5PITcecgJheWNi gDdsPC93zOpxMJ3XZx2MMjFfCY8six5WlLDmJm2WLJ OeNq2AEYXaUFTuKVWqABA6SHPuUcWaGVzxDZOrNAMbENA8KVYbRERjEL2LYoCjEKExBXb3YJqvFSOrLM Nwrr2DTJNnCEVzPCU4OsKfHAQsCVAnYLacXUIlKXVsFFP5GYAtSDNoIL5HVnGkZKXrDPB2ANBkGGUjSH Ttwm0DJFPdLESfYmr4BGJhCEEbTGXzODubZKRmKGRo FIK9MQUkFYDwIY3TLvVrUXJgAHQnTZIkLSLvDBHxcw7VSQUkJGGbJBRtSZOeJZGkHBYiXJyhLXYmWFV0 QMxvNRYyEEZcTI1LXkBvJQYzBXVcJWXmRFFoBUFjmt8BHGMaPRStVAV2WFFuXXEqGVNtRTkaUXWxACS3 VJQ4GKJxJOAnAZ7CXlRvUMKqUItzMLGjSDHaCVZjou 9BJANmGGUfMtN7IIZuISFzUPJyYJglQSCfSTL2JaozNCMlZPTgOR2CJwIeQWVkEMr7TelhYROlNTIvbm 8GNHNhSBKgSIFuUpIrKTDpCVGcJDrfATYdOWK7Vqi4NMQdBROrKI1AJpVeHXAdMWd3DIOoZHGjJEMfdk 5OWTLeHWPiQHr8TTWcWVTsLOGyMLp5nzTcaYIdKLn6 OR5ZT0NyghVzWuGNHd1My451DKHxPLDoGp9BA1bxHs7fPDPtWFEJEh4IJXd9BmE5CyMiRRfzWELjQafj JyZcJrK1HST9SNE6ZFSmQqu+OFwlXHOvYQOwT3XlVzWlOZHoXVGsErW4SMsmXPM4EyHgHy9nEUMPVb3+ MJzzvMWoyBtkBIBBYoFzWVTlYAniWKHCKw5F ID Date Data Source [id number] 12/05/2019 02:37:04 PM EDT [facility] Measurements & CalculationsHeight: 62 inches (5 ft. 2 in.) 157.48 cm Weight: 186 pounds 6 oz. 84.72 kg Body Mass Index (BMI): 34.21BMI Interpretation: ObeseBody Surface Area (BSA): 1.86Weight Management Education Done (Nutrition/Physical Activity)Vital SignsTemperature: 97.6FPulse Rate: 66 beats/minuteRespiratory Rate: 14 respirati ons/minuteBlood Pressure: 112/71 O2 Saturation: 96% Vital Signs performed by: Delmy Scott LPN, December 05, 2019 2:37 PMVital Signs performed by: Delmy Scott LPN, December 05, 2019 2:37 PMMultiple Vital SignsInitial BP: 80/53Vitals #2BP: 112/71 (primary)Initial Intake Information From: patientRoom #: 11Infectious Disease / Travel ScreeningRecent travel for you or any close contacts? NoHave you had any close contact with anyone diagnosed with or under investigation for COVID-19 (coronavirus)? NoFever? NoRespiratory symptoms: cough, cold, congestion, shortness of breath, difficulty breathing? NoLoss of smell? NoLoss of taste? NoSmoking, Tobacco, Vaping or Smoke Exposure StatusSmoke Status: current every day smokerTobacco Use: YesAdv to Quit: YesDo you vape? NoPassive Smoke Exposure: YesPassive Smoke Exposure comments: FamilyMenstrual HistoryAny possibility of ? NoComments: totall hysterectomyHealthcare HistorySince your last office visit...Have you been admitted to the hospital? No Have you been to an emergency room (ER) or urgent care clinic? NoHave you seen another healthcare provider? Yes - Pulmonary,cardio,Have you seen a dentist? NoIntake performed by: Delmy Scott LPN, December 05, 2019 2:42 PMRate Your HealthIn general, would you say your health is? FairPain AssessmentAre you currently having any pain which... You would like your provider to address? Yes Affects your activity level? YesDepression Screening - PHQ-2Over the last two weeks, have you... Had little interest or pleasure in doing things? Not at all Been feeling down, depressed, or hopeless? Not at all PHQ-2 Score: 0Anxiety Screening - MIGUELANGEL-2Over the last two weeks, have you been... Feeling nervous, anxious, or on edge? Not at all Unable to stop or control worrying? Not at all MIGUELANGEL-2 Score: 0Food InsecurityWithin the past year...Did you worry whether your food would run out before you got money to buy more? NoWas there a time when the food you bought didn't last and you didn't have money to get more? Cheryain AssessmentPain ScaleNumeric Rating Scale: 8 / 10Location: low back Duration: chronicFrequency: DailyCharacter/Quality: aching and stabbingIs the pain radiating? YesTo what body part(s) is the pain radiating? down Right leg PRAPARE Sociodemographic Characteristics Race: White Ethnicity: Patient Declined Preferred Language: EnglishFamily and Home Address: [address] [place] [address] What is your housing situation today? I have housing Are you worried about losing your housing? YesMoney and Resources In the past year, have you or any family members you live with been unable to get any of the following when it was really needed? Denies Insecurity: food, utilities, clothing, child support case officer, phone, legal services, otherWithin the past year did you worry whether your food would run out before you got money to buy more? NoWithin the past year was there a time when the food you bought didn't last and you didn't have money to get more? NoSocial and Emotional Health How often do you see or talk to people that you care about and feel close to? More than 5 times a week How stressed are you? Quite a bitAdditional Optional Domains Do you feel physically and emotionally safe where you live? Yes In the past year, have you been afraid of a partner, ex-partner? NoScreening, Brief Intervention, & Referral to Treatment (SBIRT)Pre-Screening Questions How many times have you have 4 or more drinks in a day? 0How many times have you used an illegal drug or used a prescription medication for a non-medical reason? 0Performed by: Delmy Scott LPN, December 05, 2019 2:56 PMPatient History Medical History:fibromyalgia DepressionHypertensionChronic pain Anxiety Surgical History:full hysterectomy (1977)eye surgery back surgery Family History:Heart disease (Mother)leukemia (Father)Social/Personal History: Age of First Use: 15Advised to Quit/Tobacco Education: YesChief Complaintannual exam room 11History of Present Illness (HPI)64 yo female here today for annual physical. Pt states taking medications as prescribed without side effects. 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 Pt states had back surgery in the past but pain started flaring up about 2-3 years ago. HPI performed by: Radha WRIGHT, December 05, 2019 3:14 PMTransitions of Care InboundMedication Reconciliation & ReviewMe dication List was reviewed and/or updated during this visit, including review of any ucjp-qsp-cazffpl medications, herbal therapies, and/or supplements.Allergy ReviewAllergy List was reviewed and/or updated during this visit.Adult Preventive CareProvider Calculated and Reviewed all Clinical Protocols for patient today. Screening Tobacco Screening: Smoking Status: current every day smoker (12/05/2019) Tobacco Use: Currently (12/05/2019) Advised to Quit: Yes (12/05/2019)Labs/Meds/Other Counseling-Nutrition and Physical Activity:BMI Interpretation: Obese (12/05/2019) Counseling: Done (12/05/2019) Physical Activity: Done (12/05/2019)Cancer Screening Mammogram Reviewed: Previous Comments: Would lue referral (10/28/2019)Today's Comments: wouldn like referral Review of Systems General: Denies loss of appetite, chills, dizziness, fatigue, fever, continued fever, headache, feeling ill, sweats, night sweats, sleep disturbances, weight loss. Eyes: Denies blurring of vision, double vision, irritation, discharge, vision loss, eye pain, eye swelling, droopy eyelid, sensitivity to light, redness, itching. Ears/Nose/Throat: Denies earache, ear discharge, ringing in ears, decreased hearing, nasal congestion, nosebleeds, runny nose, sore throat, hoarseness, difficulty swallowing, dry mouth, tooth pain, bleeding gums, swollen glands. Cardiovascular: Denies chest pain, palpitations, feeling faint, trouble breathing w/exertion, SOB upon lying down, SOB at night, peripheral edema, elevated blood pressure, decreased heart rate. Respiratory: Denies cough, difficulty breathing, shortness of breath, excessive sputum, coughing up blood, wheezing, chest pain. Breast: Denies discoloration, tenderness, breast changes, breast lump, nipple discharge. Gastrointestinal: Denies nausea, vomiting, bleeding, burning, itching, irritation, cramps, diarrhea, constipation. Genitourinary: Complains of vaginal itching. Denies urinary incontinence, pain with urination, burning with urination, urinary frequency, urinary hesitancy, urinary urgency, urinary urgency at night, incomplete emptying, blood in urine. Musculoskeletal: Complains of back pain, joint pain, leg pain, muscle aches. Denies other pain-see comments, joint swelling, body aches, muscle cramps, muscle weakness, stiffness, recent injury. Skin: Denies rash, hives, redness, itching, dryness, nail changes, suspicious lesions, athlete's foot, rash on palms, rash on bottom of feet. Neurologic: Denies muscle impairment, weakness, numbness/tingling, seizures, slurred speech, feeling faint, tremors, vertigo, paralysis on one side, paralysis on both sides. Psychiatric: Denies depression, anxiety, memory loss, mental disturbance, suicidal ideation, homicidal ideation, hallucinations, paranoia, feeling stressed, hearing voices. Endocrine: Denies cold intolerance, heat intolerance, excessive thirst, excessive hunger, excessive urination, weight loss, weight gain. Physical ExamGeneral Appearance: well nourished, well hydrated, no acute distressEyes, External: conjunctivae and lids normal, EOMIRespiratory, Auscultation: clear to auscultation bilaterally; no rales, rhonchi, or wheezesRespiratory, Effort: no intercostal retractions or use of accessory musclesCardiovascular, Auscultation: S1, S2 audible; no murmur, rub, or gallop; RRRPeripheral Circulation: no clubbing, cyanosis, edema, or varicositiesAbdomen: soft, non-tender, no masses, bowel sounds normalGait & Station: normalSkin, Inspection: no rashes, lesions, or ulcerationsOrientation: oriented to time, place, and personMood & Affect: no depression, anxiety, or agitationJudgment &am p; Insight: intactCare Management Plan Transitions of CareInboundRate Your HealthIn general, would you say your health is? FairAssessment & Plan Problems:Added: Pruritus vulvae (NTZ14-V04.2) Assessment: Instructions: We have sent a prescription to your pharmacy today. Please use medication as prescribed. Please try to maintain good personal hygiene.Prediabetes (ICD10- R73.03) Assessment: Instructions: HGA1c 6.0. This indicates prediabetes. Please continue lifestyle changes to include healthy diet and physical activities. Please try to limit sugars and carbohydrates in your diet.Encounter for general adult medical examination with abnormal findings (ICD-V70.0) (ICD10- Z00.01) Assessment: Instructions: You have had your annual physical exam day done today.Person consulting for explanation of examination or test findings (ICD-V65.8) (XGH73-D77.2) Assessment: Instructions: lab results reviewed with you today.Assessed:Chronic low back pain (ICD-724.2) (NNX70-C08.5) Assessment: Instructions: We have made areferral for you today. We will contact you to set this up.May continue muscle relaxers as prescribed.Health Screening (ICD-V70.0) (MOJ99-J84.9) Assessment: Instructions: labs reviewed with you today. Will recheck cbc cmp and tsh in 6 weeksPatient Instructions/Care Plan: Chronic low back pain: We have made areferral for you today. We will contact you to set this up.May continue muscle relaxers as prescribed.Pruritus vulvae: We have sent a prescription to your pharmacy today. Please use medication as prescribed. Please try to maintain good personal hygiene.Predia jim: HGA1c 6.0. This indicates prediabetes. Please continue lifestyle changes to include healthy diet and physical activities. Please try to limit sugars and carbohydrates in your diet.Encounter for general adult medical examination with abnormal findings: You have had your annual physical exam day done today.Person consulting for explanation of examination or test findings: lab results reviewed with you today.Health Screening: labs reviewed with you today. Will recheck cbc cmp and tsh in 6 weeks Plan developed in collaboration with patient and/or familyMedications:AIMOVIG INJECTION 70MG/MLZOLMITIRIPTAN 5 MGMETOPROLOL TARTRATE 25 MGNYSTATIN 266509 UNIT/GM EXTERNAL OINTMENTBLOOD PRESSURE MONITOR/ARM DEVICELEXAPRO 10 MG ORAL TABLETNORVASC 2.5 MG ORAL TABLETFLONASE ALLERGY RELIEF 50 MCG/ACT NASAL SUSPENSIONLISINOPRIL-HYDROCHLOROTHIAZIDE 10-12.5 MG ORAL TABLETZALEPLON 10 MG ORAL CAPSULEMYRBETRIQ 25 MG ORAL TABLET EXTENDED RELEASE 24 HOURLAMICTAL 100 MG ORAL TABLETLIPITOR 10 MG ORAL TABLETONDANSETRON HCL 8 MG ORAL TABLETROPINIROLE HCL 1 MG ORAL TABLETBACLOFEN 20 MG ORAL TABLETMedication Changes:Added: * METOPROLOL TARTRATE 25 MG-Take one tab my mouth twice daily* ZOLMITIRIPTAN 5 MG-take one tablet at onset of migraine , may repeat in 2 hours as needed mdd 2 tabs, max weekly dose is 3 tabs* AIMOVIG INJECTION 70MG/ML-as needed for migrainesRefilled:NYSTATIN 063781 UNIT/GM EXTERNAL OINTMENT-apply to affected area twice daily as needed Qty: 1[Tube] Refills: 1 Method: ElectronicLISINOPRIL-HYDROCHLOROTHIAZIDE 10-12.5 MG ORAL TABLET-take one tablet by mouth daily Qty: 30[Tablet] Refills: 3 Method: ElectronicChanged:From: EXTERNAL NYSTATIN 538313 UNIT/GM EXTERNAL CREAM Qty: [id number] Refills: 1[Tube] To: NYSTATIN 398543 UNIT/GM EXTERNAL OINTMENT- apply to affected area twice daily as needed Qty: 1[Tube] Refills: 1From: ORAL LISINOPRIL-HYDROCHLOROTHIAZIDE 20-12.5 MG ORAL TABLET Qty: [phone] Refills: 30[Tablet] To: LISINOPRIL-HYDROCHLOROTHIAZIDE 10-12.5 MG ORAL TABLET- take one tablet by mouth daily Qty: 30[Tablet] Refills: 3Allergies:* TRAMADOL (Critical)PREDNISONE (PREDNISONE TABS) (Critical)* CYMBALTA (Critical)Orders:Pain Management Consult [CPT-82820] COMP METABOLIC PANEL [CPT- 12266] CBC W/DIFF [CPT-52343] TSH [CPT-71621] T-4 free [CPT-66376] Adult - Ofc Vst, EST, Level IV [CPT-59594] Follow-Up Return to clinic: 4-6 weeks for follow up Clinical Visit Summary CompletedMedications:LISINOPRIL-HYDROCHLOROTHIAZIDE 10-12.5 MG ORAL TABLET (LISINOPRIL-HYDROCHLOROTHIAZIDE) take one tablet by mouth daily #30[Tablet] x 3 Route:ORAL Entered and Authorized by: Radha WRIGHT Method used: Electronically to [facility] (retail) [id number] [facility] [address] [place] [address] Ph: Note to Pharmacy: Route: ORAL; Indications: ESSENTIAL (PRIMARY) HYPERTENSION RxID: [id number] UNIT/GM EXTERNAL OINTMENT (NYSTATIN) apply to affected area twice daily as needed #1[Tube] x 1 Route:EXTERNAL Entered and Authorized by: Radha WRIGHT Method used: Electronically to [facility] (retail) [address] [facility] [address] [place] [id number] Note to Pharmacy: Route: EXTERNAL; Indications: PRURITUS VULVAE RxID: [id number] signed by Radha WRIGHT on 12/10/2019 at 3:31 PM Name Value Range Interpretation Code Description Data Elli rce(s) Supporting Document(s) ID Date Data Source [id number] 11/05/2019 12:00:00 PM EDT [facility] Name Value Range Interpretation Code Description Data Elli rce(s) Supporting Document(s) VIT D25 TOT 25.8 ng/mL 30.0-100.0 L [facility] BG FASTING 101 mg/dL 70-100 H [facility] T4, FREE 0.88 ng/dL 0.76-1.46 N [facility] TSH 0.342 microintl units/mL 0.358-3.740 L [facility] ID Date Data Source [id number] 11/05/2019 12:00:00 PM EDT [facility] Name Value Range Interpretation Code Description Data Elli rce(s) Supporting Document(s) HCT 38.8 % 36.0-47.0 N [facility] HGB 12.4 g/dL 12.0-15.5 N [facility] MCH 32.0 G/DL pg 32.0-[facility].5 [facility] MCHC 30.4 PG % 27.0-33.0 N [facility] PLATELETS 260 10 10*3/mm3 150-450 N [facility] RBC 4.08 10 10*6/mm3 4.00-5.40 [facility] RDW 14.2 % 11.5-14.5 [facility] WBC TOTAL 6.3 4.0-10.0 N [facility] ID Date Data Source [id number] 11/05/2019 12:00:00 PM EDT [facility] Name Value Range Interpretation Code Description Data Elli rce(s) Supporting Document(s) HGBA1C 6.0 % N [facility] ID Date Data Source [id number] 11/05/2019 11:55:36 AM EDT [facility] Information From: patientRoom #: 9Infect ious Disease / Travel ScreeningRecent travel for you or any close contacts? NoHave you had any close contact with anyone diagnosed with or under investigation for COVID-19 (coronavirus)? NoFever? NoRespiratory symptoms: cough, cold, congestion, shortness of breath, difficulty breathing? NoLoss of smell? NoLoss of taste? NoPediatric Acute Intake History of Present Illness Chief Complaint: BP recheckLabs In-House Blood TestsDate/Time Collected: November 05, 2019 11:56 AMTest Result Reference Range Normal ValueShanice Seaman, November 05, 2019 11:56 AMAssessment & Plan Orders:[id number] Vst-Est Level I [CPT-10221] 70007 - Venipuncture [CPT-36605] Vital SignsTemperature: 98.4FPulse Rate: 60 beats/minuteRespiratory Rate: 14 respirations/minuteBlood Pressure: 135/66 Vital Signs performed by: Shanice Seaman, November 05, 2019 11:57 AMVital Signs performed by: Shanice Seaman, November 05, 2019 11:57 AMElect ronically signed by Radha WRIGHT on 11/07/2019 at 3:27 PM Name Value Range Interpretation Code Description Data Elli rce(s) Supporting Document(s) ID Date Data Source [id number] 10/28/2019 02:57:49 PM EDT [facility] Vital Signs performed by: Delmy Espino, October 28, 2019 2:59 PMVital Signs performed by: Delmy Scott LPN, October 28, 2019 2:59 PMInitial Intake Information from: patientSmoking, Tobacco, Vaping or Smoke Exposure StatusSmoke Status: current every day smokerTobacco Use: YesAdv to Quit: YesDo you vape? NoPassive Smoke Exposure: YesPassive Smoke Exposure comments: Family Menstrual HistoryAny possibility of ? NoComments: Total Hysterectomy Healthcare HistorySince your last office visit...Have you been admitted to the hospital? NoHave you been to an emergency room (ER) or urgent care clinic? NoHave you seen another healthcare provider? Yes - Pulm, Cardio, Ortho,Have you seen a dentist? NoInfectious Disease / Travel ScreeningRecent travel for you or any close contacts? NoHave you had any close contact with anyone diagnosed with or under investigation for COVID-19 (coronavirus)? NoHave you had any of the following symptoms recently? Fever? NoRespiratory symptoms: cough, cold, congestion, sh ortness of breath, difficulty breathing? NoScreening, Brief Intervention, & Referral to Treatment (SBIRT)Pre-Screening Questions How many times have you have 4 or more drinks in a day? 0How many times have you used an illegal drug or used a prescription medication for a non-medical reason? 0Performed by: Delmy Scott LPN, October 28, 2019 3:02 PMPatient History Medical History:fibromyalgia DepressionHypertensionChronic pain Anxiety Surgical History:full hysterectomy (1977)eye surgery back surgery Family History:Heart disease (Mother)leukemia (Father)Social/Personal History: Age of First Use: 15Advised to Quit/Tobacco Education: YesChief Complaintfollow-up visit HTN Via phone call History of Present Illness (HPI)This visit was conducted via telephone. KYLE [facility] has received verbal consent from the patient/guardian to conduct this visit via telehealth. The patient has been made aware that they have the right to refuse telehealth; of my location and the security of the telehealth software; any other parties present in the session; and that they have a right to select another provider if chosen for a face to face visit.64 YO female for phone follow up visit.Pt states tolerating BP medications well without side effects. Pt denies s/s of elevated blood pressures. Pt requesting home blood pressure monitor. Pt requesting refill of Myrbetrriq. Pt verbalized ongoing fatique, requesting thyroid levels to be checked. Pt denies other concerns todayTelephone visit 12 minutes HPI performed by: Radha WRIGHT, October 28, 2019 3:30 PMTransitions of Care InboundProblem ReviewProblem List was reviewed and/or updated during this visit.Medication Reconciliation & ReviewMedication List was reviewed and/or updated during this visit, including review of any jetr-ahp-cqcdfzn medications, herbal therapies, and/or supplements.Allergy ReviewAllergy List was reviewed and/or updated during this visit.Adult Preventive CareProvider Calculated and Reviewed all Clinical Protocols for tena nt today. Screening Tobacco Screening: Smoking Status: current every day smoker (10/28/2019) Tobacco Use: Currently (10/28/2019) Advised to Quit: Yes (10/28/2019)Cancer Screening Mammogram Reviewed: Previous Comments: unsure of where her last one was done (08/05/2019)Today's Comments: Would lue referralReview of Systems General: Complains of fatigue. Denies loss of appetite, chills, dizziness, fever, continued fever, headache, feeling ill, sweats, night sweats, sleep disturbances, weight loss. Eyes: Denies blurring of vision, double vision, irritation, discharge, vision loss, eye pain, eye swel ling, droopy eyelid, sensitivity to light, redness, itching. Ears/Nose/Throat: Denies earache, ear discharge, ringing in ears, decreased hearing, nasal congestion, nosebleeds, runny nose, sore throat, hoarseness, difficulty swallowing, dry mouth, tooth pain, bleeding gums, swollen glands. Cardiovascular: Denies chest pain, palpitations, feeling faint, trouble breathing w/exertion, SOB upon lying down, SOB at night, peripheral edema, elevated blood pressure, decreased heart rate. Respiratory: Denies cough, difficulty breathing, shortness of breath, excessive sputum, coughing up blood, wheezing, chest pain. Gastrointestinal: Denies nausea, vomiting, bleeding, burning, itching, irritation, cramps, diarrhea, constipation. Genitourinary: Denies urinary incontinence, pain with urination, burning with urination, urinary frequency, urinary hesitancy, urinary urgency, urinary urgency at night, incomplete emptying, blood in urine. Musculoskeletal: Denies back pain, joint pain, leg pain, joint swelling, body aches, muscle aches, muscle cramps, muscle weakness, stiffness, recent injury. Skin: Denies rash, hives, redness, itching, dryness, nail changes, suspicious lesions, athlete's foot, rash on palms, rash on bottom of feet. Neurologic: Denies muscle impairment, weakness, numbness/tingling, seizures, slurred speech, feeling faint, tremors, vertigo, paralysis on one side, paralysis on both sides. Psychiatric: Denies depression, anxiety, memory loss, mental disturbance, suicidal ideation, homicidal ideation, hallucinations, paranoia, feeling stressed, hearing voices. Endocrine: Denies cold intolerance, heat intolerance, excessive thirst, excessive hunger, excessive urination, weight loss, weight gain. Physical ExamJudgment & Insight: seems intact. Care Management Plan Transitions of CareInboundAssessment & Plan Problems:Added: Health Screening (ICD-V70.0) (BFS65-P86.9) Assessment: telephone visit 12 minutes Instructions: We have ordered fasting labs for you today.Assessed:Essential (primary) hypertension (JXW35-V88) Assessment: Blood pressure management discussed. Pt requesting home BP monitoring device.Pt denies dizziness. pt denies headaches. pt denies chest pain. Pt denies SOB. Pt will come in for nurse visit to have BP checked and blood work done. Instructions: Please continue medications as prescribed. Please continue lifestyle changes to include healthy diet and physical activities. Please try to maintain adequate fluid intakePlease try to avoid added sodium in your diet. Please try to avoid processed foods.Overactive bladder (ICD-596.51) (CKK40-N37.81) Assessment: Instructions: We have refilled medication for you today. Please try to maintain good nutrition and adequate fluid intake.Patient Instructions/Care Plan: Essential (primary) hypertension: Please continue medications as prescribed. Please continue lifestyle changes to include healthy diet and physical activities. Please try to maintain adequate fluid intakePlease try to avoid added sodium in your diet. Please try to avoid processed foods.Overactive bladder: We have refilled medication for you today. Please try to maintain good nutrition and adequate fluid intake.Health Screening: We have ordered fasting labs for you today. Plan developed in collaboration with patient and/or familyMedications:BLOOD PRESSURE MONITOR/ARM DEVICELEXAPRO 10 MG ORAL TABLETNORVASC 2.5 MG ORAL TABLETFLONASE ALLERGY RELIEF 50 MCG/ACT NASAL SUSPENSIONLISINOPRIL-HYDROCHLOROTHIAZIDE 20-12.5 MG ORAL TABLETZALEPLON 10 MG ORAL CAPSULEMYRBETRIQ 25 MG ORAL TABLET EXTENDED RELEASE 24 HOURLAMICTAL 100 MG ORAL TABLETLIPITOR 10 MG ORAL TABLETONDANSETRON HCL 8 MG ORAL TABLETROPINIROLE HCL 1 MG ORAL TABLETBACLOFEN 20 MG ORAL TABLETMedication Changes:Refilled:MYRBETRIQ 25 MG ORAL TABLET EXTENDED RELEASE 24 HOUR-Take one tab po qd Qty: 90[Tablet] Refills: 1 Method: ElectronicNew Prescription:BLOOD PRESSURE MONITOR/ARM DEVICE-use to monitor blood pressure twice daily Qty: 1[Device] Refills: 0 Method: ElectronicRemoved:TESSALON PERLES 100 MG ORAL CAPSULE-take one capsule by mouth three times daily as needed x 10 day. Qty: 30[Capsule] Refills: 0Allergies:* TRAMADOL (Critical)PREDNISONE (PREDNISONE TABS) (Critical)* CYMBALTA (Critical)Orders:COMP METABOLIC PANEL [CPT-67172] CBC W/DIFF [CPT-84583] HgBA1c [CPT-62955] LIPID PANEL [CPT-03332] TSH [CPT-04457] T-4 free [CPT-11479] Vitamin D 250H Unspecified [CPT-43814] URINALYSIS [CPT-41635] Telephone E&M 11-20 min Medical Discussion [CPT-29337] Follow-Up Return to clinic: 4-6 weeks for follow up. Additional Follow-Up: nurse visit for BP check and labsMedications:BLOOD PRESSURE MONITOR/ARM DEVICE (BLOOD PRESSURE MONITORING) use to monitor blood pressure twice daily #1[Device] x 0 Entered and Authorized by: Radha WRIGHT Method used: Electronically to [facility] (retail) [address] [place] [address] Ph: Indications: ESSENTIAL (PRIMARY) HYPERTENSION RxID: [id number] 25 MG ORAL TABLET EXTENDED RELEASE 24 HOUR (MIRABEGRON) Take one tab po qd #90[Tablet] x 1 Route:ORAL Entered and Authorized by: Radha WRIGHT Method used: Electronically to [facility] (retail) [address] [place] [address] Note to Pharmacy: Route: ORAL; Indications: OVERACTIVE BLADDER RxID: [id number] TESSALSANTANA PERLES 100 MG ORAL CAPSULE (BENZONATATE) take one capsule by mouth three times daily as needed x 10 day. #30[Capsule] x 0 Route:ORAL Entered by: Delmy Scott LPN Authorized by: Radha WRIGHT Method used: Electronically to [facility] (retail) [address] [facility] [address] [place] [address] Ph: [phone] RxID: [id number] signed by Radha WRIGHT on 10/28/2019 at 4:22 PM Name Value Range Interpretation Code Description Data Elli rce(s) Supporting Document(s) ID Date Data Source [id number] 08/12/2019 01:07:12 PM [facility] Initial Intake Information from: patient Room #: 10Chief ComplaintBP recheckVital SignsPulse Rate: 75 beats/minuteRespiratory Rate: 14 respirations/minuteBlood Pressure: 134/90 Vital Signs performed by: Shanice Seaman, August 12, 2019 1:10 PMVital Signs performed by: Shanice Seaman, August 12, 2019 1:10 PM Name Value Range Interpretation Code Description Data Elli rce(s) Supporting Document(s) ID Date Data Source [id number] 08/09/2019 12:00:00 AM EST [facility] [place] [facility] [place] Patient Name: TORRIE RAMOS Date of : 1955[address] Date of Exam: 08/09/2019YOSELIN Whyte [id number]#: Fax: [phone] EXAM: MRI BRAIN WITHOUT CONTRASTPROCEDURE INFORMATION:Exam: MR Head Without ContrastExam date and time: 08/09/2019 2:54 PM Age: 64 years oldClinical indication: Pain; HeadacheTECHNIQUE: Imaging protocol: MR of the head without contrast.COMPARISON: MRI BRAIN WITHOUT CONTRAST 03/25/2017 11:54 AMFINDINGS: Brain: No evidence of acute cortical infarct. No evidence ofrestricted diffusion. No abnormal magnetic susceptibility signal changes.No intracranial hemorrhage. Nonspecific Flair/T2 hyperintensities withinthe cerebral white matter statistically most likely on the basis of chronicsmall vessel ischemic change. No basal ganglion, thalami, midbrain,brainstem or cerebellar mass. No Chiari malformation. No CP angle mass.Ventricles: Normal. No ventriculomegaly.Bones/joints: No suspicious marrow replacing lesions.Soft tissues: Unremarkable. Sinuses: The demonstrated paranasal sinuses arefree of air-fluid level or suspicious mass.Mastoid air cells: Mastoids are free of acute inflammatory change.Orbits: No suspicious orbital mass.Sella: No pituitary region mass. The optic chiasm is normal.Internal carotid arteries: Normal vascular flow voids are present.Basilar artery: Normal vascular flow void present.IMPRESSION:No evidence of acute ischemia, hemorrhage or mass effect. Similar to thecomparison study, nonspecific Flair/T2 hyperintensities within the cerebralwhite matter statistically most likely on the basis of chronic small vesselischemic change.Thank you for allowing us to participate in the care of your patient.Dictated and Authenticated by: Angelito Rodriguez MD 08/10/2019 11:09 AMEastern Time ([place] & [place])VrrosaV/Garth you for referring LUL RAMOS to our office. Electronically Signed - PIYUSH 08/12/19 9:08 Name Value Range Interpretation Code Description Data Elli rce(s) Supporting Document(s) ID Date Data Source [id number] 08/05/2019 01:07:02 PM [facility] Measurements & CalculationsHeight: 62 inches (5 ft. 2 in.) 157.48 cm Weight: 195.6 pounds 88.91 kg Body Mass Index (BMI): 35.91BMI Interpretation: ObeseBody Surface Area (BSA): 1.90Weight Management Education Done (Nutrition/Physical Activity)Vital SignsTemperature: 97.4F oral Pulse Rate: 68 beats/minuteRespiratory Rate: 17 respirations/minuteBlood Pressure: 156/96 right arm sitting automaticO2 Saturation: 99% room airVital Signs performed by: Gretta Manzano MA, August 05, 2019 1:15 PMInitial Intake Information from: patientRoom #: 14Infectious Disease- Travel Have you or your sexual partner travelled outside of the country recently? NoSmoking, Tobacco or Smoke Exposure StatusSmoke Status: current every day smokerTobacco Use: YesPassive Smoke Exposure: YesMenstrual HistoryComments: Total HysterectomyHealthcare HistorySince your last office visit...Have you been admitted to the hospital? NoHave you been to an emergency room (ER) or urgent care clinic? Yes - [facility], Sinus InfectionsHave you seen another healthcare provider? Yes - Pulm, Neuro, Ortho, RheumHave you seen a dentist? NoIntake performed by: Gretta Manzano MA, August 05, 2019 1:08 PMRate Your HealthIn general, would you say your health is? FairPain AssessmentAre you currently having any pain which... You would like your provider to address? No Affects your activity level? NoDepression Screening - PHQ-2Over the last two weeks, have you... Had little interest or pleasure in doing things? Not at all Been feeling down, depressed, or hopeless? Not at all PHQ-2 Score: 0Anxiety Screening - MIGUELANGEL-2Over the last two weeks, have you been... Feeling nervous, anxious, or on edge? Not at all Unable to stop or control worrying? Not at all MIGUELANGEL-2 Score: 0Screening, Brief Intervention, & Referral to Treatment (SBIRT)Pre-Screening Questions How many times have you have 4 or more drinks in a day? 0How many times have you used an illegal drug or used a prescription medication for a non-medical reason? 0Performed by: Gretta Manzano MA, August 05, 2019 1:09 PMPatient History Medical History:fibromyalgia DepressionHypertensionChronic pain Anxiety Surgical History:full hysterectomy (1977)eye surgery back surgery Family History:Heart disease (Mother)leukemia (Father)Social/Personal History: Smoking Status: current every day smokerAge of First Use: 15Chief ComplaintFollow-up visit Needs referral for GI History of Present Illness (HPI)64 yo female here for a referral for GI - Dr Samuel has seen him in the past & found a hiatal hernia but they did not treat her for it. Wants referral to someone else for a 2nd opinion. Would like referral to [facility] in [place] as it is too hard to get to her appts in [place]. Pt states was seen in [facility] for a sinus infection 2-3 weeks ago and does not feel as if she is getting any better. Pt requesting refills on Myrbetriq. HPI performed by: Radha WRIGHT, August 05, 2019 1:30 PMTransitions of Care InboundProblem ReviewProblem List was reviewed and/or updated during this visit.Medication Reconciliation & ReviewMedication List was reviewed and/or updated during this visit, including review of any lsrd-odq-qsecaxn medications, herbal therapies, and/or supplements.Allergy ReviewAllergy List was reviewed and/or updated during this visit.Adult Preventive CareProvider Calculated and Reviewed all Clinical Protocols for patient today. Labs/Meds/Other Counseling- Nutrition and Physical Activity:BMI Interpretation: Obese (08/05/2019) Counseling: Done (08/05/2019) Physical Activity: Done (08/05/2019)Review of Systems General: Denies loss of appetite, chills, dizziness, fatigue, fever, continued fever, headache, feeling ill, sweats, night sweats, sleep disturbances, weight loss. Eyes: Denies blurring of vision, double vision, irritation, discharge, vision loss, eye pain, eye swelling, droopy eyelid, sensitivity to light, redness, itching. Ears/Nose/Throat: Denies earache, ear discharge, ringing in ears, decreased hearing, nasal congestion, nosebleeds, runny nose, sore throat, hoarseness, difficulty swallowing, dry mouth, tooth pain, bleeding gums, swollen glands. Cardiovascular: Denies chest pain, palpitations, feeling faint, trouble breathing w/exertion, SOB upon lying down, SOB at night, peripheral edema, elevated blood pressure, decreased heart rate. Respiratory: Denies cough, difficulty breathing, shortness of breath, excessive sputum, coughing up blood, wheezing, chest pain. Gastrointestinal: Complains of nausea, vomiting, abdominal pain, heartburn. Denies bleeding, burning, itching, irritation, cramps, diarrhea, constipation. Genitourinary: Denies urinary incontinence, pain with urination, burning with urination, urinary frequency, urinary hesitancy, urinary urgency, urinary urgency at night, incomplete emptying, blood in urine. Musculoskeletal: Complains of back pain, joint pain. Denies leg pain, joint swelling, body aches, muscle aches, muscle cramps, muscle weakness, stiffness, recent injury. Neurologic: Denies muscle impairment, weakness, numbness/tingling, seizures, slurred speech, feeling faint , tremors, vertigo, paralysis on one side, paralysis on both sides. Psychiatric: Denies depression, anxiety, memory loss, mental disturbance, suicidal ideation, homicidal ideation, hallucinations, paranoia, feeling stressed, hearing voices. Endocrine: Denies cold intolerance, heat intolerance, excessive thirst, excessive hunger, excessive urination, weight loss, weight gain. Physical ExamGeneral Appearance: well nourished, well hydrated, no acute distressEyes, External: conjunctivae and lids normal, EOMIRespiratory, Auscultation: clear to auscultation bilaterally; no rales, rhonchi, or wheezesR espiratory, Effort: no intercostal retractions or use of accessory musclesCardiovascular, Auscultation: S1, S2 audible; no murmur, rub, or gallop; RRRPeripheral Circulation: no clubbing, cyanosis, edema, or varicositiesAbdomen: soft, non-tender, no masses, bowel sounds normalGait & Station: normalSkin, Inspection: no rashes, lesions, or ulcerationsOrientation: oriented to time, place, and personMood & Affect: no depression, anxiety, or agitationJudgment & Insight: intactCare Management Plan Transitions of CareInboundRate Your HealthIn general, would you say your health is? FairAssessment & Plan Problems:Added: Pain in unspecified joint (NJO87-T85.50) Assessment: Instructions: We have made a referral to Rheumatology. We will contact you to set this up.Cough (ICD-786.2) (QBV26-M49) Assessment: Instructions: We have sent a prescription to your pharmacy today. Please take medication as prescribed. Please report any major side effects.Please try to maintain adequate fluid intake to include 6-8 glasses of water daily.Congestion of nasal sinus (ICD-478.19) (AIO51-U08.81) Assessment: Instructions: We have sent a prescription to your pharmacy today. Please take medication as prescribed. Please report any major side effects.Please try to maintain adequate fluid intake to include 6-8 glasses of water daily.Nausea with vomiting, unspecified (ICD-787.01) (YHL63-U51.2) Assessment: Instructions: Please continue medications as prescribed. Please continue to maintain lifestyle changes to include a bland diet. Please try to avoid spicy or acidic foods. Please try to limit your caffeine intake. Please try to maintain adequate fluid intake.Burning epigastric pain (ICD-789.06) (LTZ10-D75.13) Assessment: Instructions: Please continue medications as prescribed. Please continue to maintain lifestyle changes to include a bland diet. Please try to avoid spicy or acidic foods. Please try to limit your caffeine intake. Please try to maintain adequate fluid intake.Assessed:Essential (primary) hypertension (AQC61-G78) Assessment: Instructions: Your Blood Pressure is elevated today. We have added norvasc. Please take this medication as prescribed. Please report any lonny or side effects. Please start lifestyle changes to include healthy diet and physical activities. Please try to avoid added sodium in your diet. Please try to quit smoking.Smokes tobacco daily (ICD-305.1) (GCO04-P84.0) Assessment: Instructions: Please try to quit smoking. Please let us know if you need assistance in doing so.Patient Instructions/Care Plan: Pain in unspecified joint: We have made a referral to Rheumatology. We will contact you to set this up.Cough: We have sent a prescription to your pharmacy today. Please take medication as prescribed. Please report any major side effects.Please try to maintain adequate fluid intake to include 6-8 glasses of water daily.Congestion of nasal sinus: We have sent a prescription to your pharmacy today. Please take medication as prescribed. Please report any major side effects.Please try to maintain adequate fluid intake to include 6-8 glasses of water daily.Nausea with vomiting- unspecified: Please continue medications as prescribed. Please cont inue to maintain lifestyle changes to include a bland diet. Please try to avoid spicy or acidic foods. Please try to limit your caffeine intake. Please try to maintain adequate fluid intake.Burning epigastric pain: Please continue medications as prescribed. Please continue to maintain lifestyle changes to include a bland diet. Please try to avoid spicy or acidic foods. Please try to limit your caffeine intake. Please try to maintain adequate fluid intake.Essential (primary) hypertension: Your Blood Pressure is elevated today. We have added norvasc. Please take this medication as prescribed. Please report any major side effects. Please start lifestyle changes to include healthy diet and physical activities. Please try to avoid added sodium in your diet. Please try to quit smoking.Smokes tobacco daily: Please try to quit smoking. Please let us know if you need assistance in doing so. Plan developed in collaboration with patient and/or familyMedications:NORVASC 2.5 MG ORAL TABLETTESSALON PERLES 100 MG ORAL CAPSULEFLONASE ALLERGY RELIEF 50 MCG/ACT NASAL SUSPENSIONLISINOPRIL-HYDROCHLOROTHIAZIDE 20-12.5 MG ORAL TABLETZALEPLON 10 MG ORAL CAPSULEMYRBETRIQ 25 MG ORAL TABLET EXTENDED RELEASE 24 HOURLAMICTAL 100 MG ORAL TABLETLIPITOR 10 MG ORAL TABLETONDANSETRON HCL 8 MG ORAL TABLETROPINIROLE HCL 1 MG ORAL TABLETBACLOFEN 20 MG ORAL TABLETMedication Changes:Refilled:MYRBETRIQ 25 MG ORAL TABLET EXTENDED RELEASE 24 HOUR-Take one tab po qd Qty: 90[Tablet] Refills: 1 Method: ElectronicNew Prescription:FLONASE ALLERGY RELIEF 50 MCG/ACT NASAL SUSPENSION-one spray to each nostril twice daily as needed x 7 days Qty: 1[Unspecified] Refills: 0 Method: ElectronicTESSALON PERLES 100 MG ORAL CAPSULE-take one capsule by mouth three times daily as needed x 10 day. Qty: 30[Capsule] Refills: 0 Method: ElectronicNORVASC 2.5 MG ORAL TABLET-take one tablet by mouth daily Qty: 30[Tablet] Refills: 1 Method: ElectronicRemoved:EQL VITAMIN D3 2000 UNIT ORAL CAPSULE-Take one tab po QD Qty: 30[Capsule] Refills: 2, BLOOD PRESSURE MONITOR AUTOMAT DEVICE-Check BP once a day at the same time. Check BP if patien has headache. Qty: 1[Device] Refills: 0, BLOOD PRESSURE MONITOR AUTOMAT DEVICE- Check BP every day at the same time Qty: 1[Device] Refills: 0, BLOOD PRESSURE MONITOR AUTOMAT DEVICE-Take BP daily at the same time, DOCUSATE SODIUM 100 MG ORAL CAPSULE-One po q12h prn constipation. MDD 2., VITAMIN D2 2000 UNIT ORAL TABLET-take one cap po weekly, CETIRIZINE HCL 10 MG ORAL TABLET-take one tab po qd, TROSPIUM CHLORIDE 20 MG ORAL TABLET-take one tab po bid Qty: 30[Tablet] Refills: 2Changed:From: ORAL MYRBETRIQ 25 MG ORAL TABLET EXTENDED RELEASE 24 HOUR Qty: [id number] Refills: 90[Tablet] To: MYRBETRIQ 25 MG ORAL TABLET EXTENDED RELEASE 24 HOUR-Take one tab po qd Qty: 90[Tablet] Refills: 1All ergies:* TRAMADOL (Critical)PREDNISONE (PREDNISONE TABS) (Critical)* CYMBALTA (Critical)Orders:Rheumatology Consult [CPT-75956] Gastroenterology Consult [CPT- 83853] Adult - Ofc Vst, EST, Level IV [CPT-62189] Follow-Up Return to clinic: 4- 6 weeks for follow up Additional Follow-Up: please return in one week for nurse visit to have BP rechecked. Clinical Visit Summary Completed Name Value Range Interpretation Code Description Data Elli rce(s) Supporting Document(s) ID Date Data Source [id number] 07/22/2019 02:52:00 PM EST [facility] ([facility]) Name Value Range Interpretation Code Description Data Elli rce(s) Supporting Document(s) MRI Brain W/O Contrast Laboratory test result [facility] ([facility]) ID Date Data Source [id number] 07/14/2019 02:31:00 PM EST [facility] ([facility]) Name Value Range Interpretation Code Description Data Elli rce(s) Supporting Document(s) Bacteria identified in Urine by Culture <pending> [facility] ([facility], [facility]) ID Date Data Source [id number] 06/26/2019 08:52:48 AM EST [facility] Name Value Range Interpretation Code Description Data Elli rce(s) Supporting Document(s) Progress Note [facility] GGZUIt1cClJWUzVf05/VOPklRPBfe9SsJEbxSNk6HJkgXKYvU0DlPBM3pH1rIHW6KMoTDgYlEFczVkM9 [facility] [file] Kpp633xhc1fHNTaw/+1fM+6b/9S3V/roe+bsfZDLiiq+2wvXaCDKTlZWqj7RulrQswCMTkPWKc8icCVem j3bpCOJada4/rjqSvBG2eF4Qu7V0jSoIH/hxw5jgbV 91Gz9CwQ1Qc2ZBrgYAB31HVJn5FE0WOple8YoMYKY8HsTxo3Z3VsS8xqKIKrNhtwqrqWdYunEKtPNPZg d26DcIp9A8MHvgzr11NykMjHVO/+VnuTBtcCsh5qNGKOdBBZoR4Yz6CbpO4QobMBkAHxNnssjxY7w2mL l4c5IzR5L1I1Aawsvkz553sfLyq7o3+vx2QMVaWjSu ZasR8VRe/maBeivFDRXPajJhHZSXDn1WsZMrXiiB+16x48KXWyHoR12H7GSOZK58qimy7aXb2loNUgWm KXBWrKlBxoChhLQ1CNxeaNRHQl6MP/a1pw9OJX4PL7tJc0mYJillHGnYPh+/vkOLuJZH2knsIVCxGLRw KyV5TOyzYoU9E9wxfgBD3JN+ayi7COqxNfnVmKpM4U Ms5GBFEdIlO9sMJ7nNBLRRae/5ManhAqwLdL3di7fxULEzB8vjWDrRbQ7vhFTgLPUQ3fRoj1pXHeWHeO EjQCeZv54JrYP8mxAvCppucHTtHlvlFiDrDVvuQVnpVReNUeIXu0OfHVNWVZj9tD9+tA/rdMoX3E+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 [file] 6h8bO9UQBeWNt/OEvQ0XBO73LEjhQN9gMZ0d1sQ34RGsrVvd6cPJenkrVLhk/Hernán/xhNkRLLi08BViMa [file] XSANCj4+EPhflVCkuSbpKPTLJmU6FqMmDMhlAVLBGt3P Procedure Social History Code Duration Value Status Description Data Source(s ) Alcohol intake 05/13/2020 12:00:00 AM EST Never completed [facility] Cigarette pack-years 05/13/2020 12:00:00 AM EST UNK completed [facility] Cigarettes smoked current (pack per day) - Reported 05/13/20 12:00:00 AM EST UNK completed [facility] Smoking 05/13/2020 12:00:00 AM EST Current some day smoker com pleted Current some day smoker [facility] Smoking 05/01/2020 12:00:00 AM EDT Current Smoker completed [facility] nt Smoker eCW1 ([facility]) Alcohol intake 12/30/2019 12:00:00 AM EDT Current non-d brendan of alcohol (finding) completed Current non-drinker of alcohol (finding) [facility] Cigarette pack-years 12/30/2019 12:00:00 AM EDT UNK [facility] Cigarettes smoked current (pack per day) - Reported 12/30/19 12:00:00 AM EDT UNK completed [facility] Smoking 12/30/2019 12:00:00 AM EDT Current some day smoker com pleted Current some day smoker [facility] Vital Signs ID Date Data Source UNK Name Value Range Interpretation Code Description Data Source(s) Body weight 3139.2 [oz_av] 3139.2 [oz_av] ATHEN A ([facility]) Systolic blood pressure 131 mm[Hg] 131 mm[Hg] A THENA ([facility]) Body mass index (BMI) [Ratio] 35.9 kg/m2 35.9 k g/m2 BERNIE ([facility]) Body height 62 [in_i] 62 [in_i] BERNIE ([facility]) Diastolic blood pressure 69 mm[Hg] 69 mm[Hg] BERNIE ([facility]) Body weight 3078.4 [oz_av] 3078.4 [oz_av] ATHEN A ([facility]) Body mass index (BMI) [Ratio] 35.2 kg/m2 35.2 k g/m2 BERNIE ([facility]) Body height 62 [in_i] 62 [in_i] BERNIE ([facility]) Body weight 3078.4 [oz_av] 3078.4 [oz_av] ATHMYNOR A ([facility]) Body mass index (BMI) [Ratio] 35.2 kg/m2 35.2 k g/m2 BERNIE ([facility]) Body height 62 [in_i] 62 [in_i] BERNIE ([facility]) Oxygen saturation in Arterial blood by Pulse oximetry 96 % 96 % [facility] Body mass index (BMI) [Ratio] 35.23 kg/m2 35.23 kg/m2 [facility] Body weight 87.363 kg 87.363 kg [facility] Body height 157.5 cm 157.5 cm [facility] Heart rate 59 /min 59 /min [facility] Diastolic blood pressure 80 mm[Hg] 80 mm[Hg] [facility] Systolic blood pressure 130 mm[Hg] 130 mm[Hg] [facility] Diastolic blood pressure 82 mm[Hg] 82 mm[Hg] eCW1 ([facility]) Systolic blood pressure 142 mm[Hg] 142 mm[Hg] e CW1 ([facility]) Body temperature 97.7 [degF] 97.7 [degF] eCW1 ( [facility]) Respiratory rate 18 /min 18 /min eCW1 ([facility]) Body height 62 [in_i] 62 [in_i] eCW1 ([facility]) Body weight 194.2 [lb_av] 194.2 [lb_av] eCW1 ([facility]) Heart rate 61 /min 61 /min eCW1 ([facility]) Body mass index (BMI) [Ratio] 35.52 kg/m2 35.52 kg/m2 eCW1 ([facility]) Body mass index (BMI) [Ratio] 34.7 kg/m2 34.7 k g/m2 [facility] ([facility]) Body height 62 [in_i] 62 [in_i] [facility] ([facility]) 5'2" Body weight 190.00 [lb_av] 190.00 [lb_av] MEDEN T ([facility], [facility]) Body temperature 97.3 [degF] 97.3 [degF] [facility] ([facility], [facility]) Oxygen saturation in Arterial blood by Pulse oximetry 98 % 98 % [facility] ([place] [facility]) Respiratory rate 16 /min 16 /min [facility] ( [facility] [facility], [facility]) Heart rate 66 /min 66 /min [facility] ([facility], [facility]) Diastolic blood pressure 80 mm[Hg] 80 mm[Hg] [facility] ([place] [facility]) Systolic blood pressure 125 mm[Hg] 125 mm[Hg] M EDENT ([place] [facility]) Body weight 3048 [oz_av] 3048 [oz_av] BERNIE ([facility]) Body height 62 [in_i] 62 [in_i] BERNIE ([facility]) Body weight 3048 [oz_av] 3048 [oz_av] BERNIE ([facility]) Body height 62 [in_i] 62 [in_i] BERNIE ([facility]) Body weight 3046.08 [oz_av] 3046.08 [oz_av] ATH AGGIE ([facility]) Body height 62 [in_i] 62 [in_i] BERNIE ([facility]) Body weight 3046.08 [oz_av] 3046.08 [oz_av] ATH AGGIE ([facility]) Body height 62 [in_i] 62 [in_i] BERNIE ([facility]) Body weight 2982.08 [oz_av] 2982.08 [oz_av] ATH AGGIE ([facility]) Systolic blood pressure 112 mm[Hg] 112 mm[Hg] A THENA ([facility]) Body height 62 [in_i] 62 [in_i] BERNIE ([facility]) Diastolic blood pressure 71 mm[Hg] 71 mm[Hg] BERNIE ([facility]) Body weight 2982.08 [oz_av] 2982.08 [oz_av] ATH AGGIE ([facility]) Systolic blood pressure 112 mm[Hg] 112 mm[Hg] A THENA ([facility]) Body height 62 [in_i] 62 [in_i] BERNIE ([facility]) Diastolic blood pressure 71 mm[Hg] 71 mm[Hg] BERNIE ([facility]) Systolic blood pressure 135 mm[Hg] 135 mm[Hg] A THENA ([facility]) Diastolic blood pressure 66 mm[Hg] 66 mm[Hg] BERNIE ([facility]) Systolic blood pressure 135 mm[Hg] 135 mm[Hg] A THENA ([facility]) Diastolic blood pressure 66 mm[Hg] 66 mm[Hg] BERNIE ([facility]) Systolic blood pressure 112 mm[Hg] 112 mm[Hg] e CW1 ([facility]) Body temperature 97.8 [degF] 97.8 [degF] eCW1 ( [facility]) Respiratory rate 18 /min 18 /min eCW1 ([facility]) Heart rate 59 /min 59 /min eCW1 ([facility]) Body mass index (BMI) [Ratio] 34.97 kg/m2 34.97 kg/m2 [facility] ([facility]) Body height 62 [in_us] 62 [in_us] eCW1 ([facility]) Body weight Measured 191.2 [lb_av] 191.2 [lb_av ] eCW1 ([facility]) Diastolic blood pressure 60 mm[Hg] 60 mm[Hg] eCW1 ([facility]) Body weight 3056.96 [oz_av] 3056.96 [oz_av] ATH AGGIE ([facility]) Body height 62 [in_i] 62 [in_i] BERNIE ([facility]) Body weight 3056.96 [oz_av] 3056.96 [oz_av] ATH AGGIE ([facility]) Body height 62 [in_i] 62 [in_i] BERNIE ([facility]) Diastolic blood pressure 80 mm[Hg] 80 mm[Hg] eCW1 ([facility]) Systolic blood pressure 132 mm[Hg] 132 mm[Hg] e CW1 ([facility]) Body temperature 98.4 [degF] 98.4 [degF] eCW1 ( [facility]) Respiratory rate 18 /min 18 /min eCW1 ([facility]) Heart rate 69 /min 69 /min eCW1 ([facility]) Body mass index (BMI) [Ratio] 35.55 kg/m2 35.55 kg/m2 eCW1 ([facility]) Body height 62 [in_us] 62 [in_us] eCW1 ([facility]) Body weight Measured 194.4 [lb_av] 194.4 [lb_av ] eCW1 ([facility]) Systolic blood pressure 134 mm[Hg] 134 mm[Hg] A [facility] ([facility]) Diastolic blood pressure 90 mm[Hg] 90 mm[Hg] BERNIE ([facility]) Systolic blood pressure 134 mm[Hg] 134 mm[Hg] A [facility] ([facility]) Diastolic blood pressure 90 mm[Hg] 90 mm[Hg] BERNIE ([facility]) Body weight 3129.6 [oz_av] 3129.6 [oz_av] ATHEN A ([facility]) Systolic blood pressure 156 mm[Hg] 156 mm[Hg] [facility] Body height 62 [in_i] 62 [in_i] BERNIE ([facility]) Diastolic blood pressure 96 mm[Hg] 96 mm[Hg] BERNIE ([facility]) Body weight 3129.6 [oz_av] 3129.6 [oz_av] ATHEN A ([facility]) Systolic blood pressure 156 mm[Hg] 156 mm[Hg] A [facility]) Body height 62 [in_i] 62 [in_i] BERNIE ([facility]) Diastolic blood pressure 96 mm[Hg] 96 mm[Hg] BERNIE ([facility]) Respiratory rate 16 /min 16 /min [facility] ( [facility]) Body temperature 36.5 Camryn 36.5 Camryn [facility] ( [facility]) Body temperature 97.7 [degF] 97.7 [degF] [facility] ([facility]) Heart rate 84 /min 84 /min [facility] ([facility]) Diastolic blood pressure 81 mm[Hg] 81 mm[Hg] [facility] ([facility]) Systolic blood pressure 132 mm[Hg] 132 mm[Hg] EDENT ([facility]) Respiratory rate 16 /min 16 /min [facility] ( [facility]) Body temperature 97.7 [degF] 97.7 [degF] [facility] ([facility]) Heart rate 84 /min 84 /min [facility] ([facility]) Diastolic blood pressure 81 mm[Hg] 81 mm[Hg] [facility] ([facility]) Systolic blood pressure 132 mm[Hg] 132 mm[Hg] [facility] ([facility]) Body mass index (BMI) [Ratio] 36.6 kg/m2 36.6 k g/m2 [facility]) Body height 62 [in_i] 62 [in_i] [facility] [facility]) 5'2" Body weight 200.00 [lb_av] 200.00 [lb_av] MEDEN T ([facility], [facility]) Body temperature 98.4 [degF] 98.4 [degF] MEDENT ([facility], [facility]) Oxygen saturation in Arterial blood by Pulse oximetry 96 % 96 % MEDENT ([facility], [facility]) Respiratory rate 18 /min 18 /min MEDENT ( [facility], [facility]) Heart rate 89 /min 89 /min MEDENT ([facility], [facility]) Diastolic blood pressure 84 mm[Hg] 84 mm[Hg] MEDENT ([facility], [facility]) Systolic blood pressure 135 mm[Hg] 135 mm[Hg] [facility]) Body weight 2854.08 [oz_av] 2854.08 [oz_av] ATH AGGIE ([facility]) Systolic blood pressure 153 mm[Hg] 153 mm[Hg] A THENA ([facility]) Body height 62 [in_i] 62 [in_i] BERNIE ([facility]) Diastolic blood pressure 104 mm[Hg] 104 mm[Hg] BERNIE ([facility]) Body weight 2854.08 [oz_av] 2854.08 [oz_av] ATH AGGIE ([facility]) Systolic blood pressure 153 mm[Hg] 153 mm[Hg] A BRANDT ([facility]) Body height 62 [in_i] 62 [in_i] BERNIE ([facility]) Diastolic blood pressure 104 mm[Hg] 104 mm[Hg] BERNIE ([facility]) ID Date Data Source [id number] 07/17/2019 01:31:45 PM [facility] Name Value Range Interpretation Code Description Data Source(s) WEIGHT RECORDED 202.4 lb 202.4 lb [facility] Body height Measured 62.01 in 62.01 in [facility] Patient Treatment Plan of Care Planned Activity Planned Date Details Description Data Source (s) varenicline 1 MG Oral Tablet 05/13/2020 12:00:[address] [facility] varenicline (CHANTIX STARTING MONTH ) 0.5 MG X 11 & 1 MG X 42 tablet 05/13/2020 12:00:00 AM EST [facility] Ondansetron 8 MG Oral Tablet 05/03/2020 12:00:00 AM EDT [facility] zolmitriptan 5 MG Oral Tablet 05/03/2020 12:00:00 AM EDT [facility] zaleplon 10 MG Oral Capsule 04/25/2020 12:00:00 AM EDT [facility] Nystatin 100 UNT/MG Topical Ointment 04/21/2020 12:00:00 AM EDT [facility] Escitalopram 20 MG Oral Tablet 04/20/2020 12:00:00 AM EDT [facility] AIMOVIG 140 MG/ML SOAJ 04/08/2020 12:00:00 AM EDT [facility] atorvastatin 20 MG Oral Tablet 01/23/2020 12:00:00 AM EDT [facility] Hydrochlorothiazide 12.5 MG / Lisinopril 20 MG Oral Ta blet 01/23/2020 12:00:00 AM EDT [facility] Metoprolol Tartrate 25 MG Oral Tablet 12/23/2019 12:00:00 AM EDT [facility] ropinirole 2 MG Oral Tablet 11/15/2019 12:00:00 AM EDT [facility] ropinirole 2 MG Oral Tablet 11/15/2019 12:00:00 AM [facility] zaleplon 10 MG Oral Capsule 10/30/2019 12:00:00 AM [facility] zolmitriptan 5 MG Oral Tablet 10/17/2019 12:00:00 AM [facility] AIMOVIG 70 MG/ML SOAJ 08/22/2019 12:00:[address] [facility] Amlodipine 2.5 MG Oral Tablet 08/05/2019 12:00:00 AM EST [facility] Baclofen 20 MG Oral Tablet 06/24/2019 12:00:00 AM EST [facility] ropinirole 2 MG Oral Tablet 06/03/2019 12:00:[address] [facility] ropinirole 2 MG Oral Tablet 06/03/2019 12:00:00 AM [facility] Escitalopram 10 MG Oral Tablet BERNIE ([facility]) Clindamycin 300 MG Oral Capsule BERNIE ([facility]) Cephalexin 500 MG Oral Capsule BERNIE ([facility]) atorvastatin 10 MG Oral Tablet BERNIE ([facility]) lamotrigine 100 MG Oral Tablet BERNIE ([facility])
--- NOTE | 2020-08-12 23:09 | REPVR ---
PROCEDURE INFORMATION: Exam: XR Left Wrist Exam date and time: 08/12/2020 10:46 PM Age: 65 years old Clinical indication: Other: Trauma; Additional info: Injury TECHNIQUE: Imaging protocol: XR Left wrist. Views: 3 or more views. COMPARISON: CR Wrist Ap, Lat 09/04/2018 2:43 PM FINDINGS: Bones/joints: Widening of the scapholunate ligament which is unchanged from the prior study. Mild deformity of the scaphoid with spur extending horizontally distal to the radial styloid. Joint space narrowing between the scaphoid and radial styloid. No acute fracture. Flattening of the 1st metacarpal head which is unchanged. No acute fracture. Soft tissues: Within normal limits. IMPRESSION: 1. Widening of the scapholunate ligament suggesting disruption which is similar to 08/29. 2. Mild deformity of the scaphoid with spur extending from the mid scaphoid which may be slightly more pronounced since the prior study. There is narrowing of the articulation between the scaphoid and radial styloid and findings may reflect residua old trauma or fracture. 3. Flattening of the 1st metacarpal head which may reflect residua of old fracture or avascular necrosis. 4. Otherwise negative left wrist. No acute fracture. Electronically signed by: Patrick Carl On 08/12/2020 23:09:26 PM
--- OUTSIDE RECORDS SUMMARY | 2020-08-13 01:05 | CCD ---
Author Author [facility] Organization [facility] Address Unknown Phone Unavailable Care Team Providers Care Box Maker Name Role Phone Flores, T Russ PA [...] Unavailable Flores, T Russ PA Unavailable Unavailable Maik, Dot Unavailable Unavailable Maki, Dot Unavailable Unavailable Maki, Dot Unavailable Unavailable Hoang Elizabeth MD Unavailable Unavailable Hoang Elizabeth MD Unavailable Unavailable Hoang Elizabeth MD Unavailable Unavailable Hoang Elizabeth MD Unavailable Unavailable Hoang Elizabeth MD Unavailable Unavailable Hoang Elizabeth MD Unavailable Unavailable Hoang Elizabeth MD Unavailable Unavailable Hoang Elizabeth MD Unavailable Unavailable Hoang Elizabeth MD Unavailable Unavailable Amy Acevedo MANAGER E COMMERCE MANAGER E COMMERCE Unavailable Unavailable Garcia, L Mariya PA Unavailable [...] Mariya PA Unavailable Unavailable Chencho, A Radha MANAGER E COMMERCE Unavailable Unavailable Chencho, A Radha MANAGER E COMMERCE Unavailable Unavailable Chencho, A Radha MANAGER E COMMERCE Unavailable Unavailable Chencho, A Radha MANAGER E COMMERCE Unavailable Unavailable Chencho, A Radha MANAGER E COMMERCE Unavailable Unavailable Chencho, A Radha MANAGER E COMMERCE Unavailable Unavailable Chencho, A Radha MANAGER E COMMERCE Unavailable Unavailable Chencho, A Radha MANAGER E COMMERCE Unavailable Unavailable Chencho, A Radha MANAGER E COMMERCE Unavailable Unavailable [place], A Radha MANAGER E COMMERCE Unavailable Unavailable [place], A Radha MANAGER E COMMERCE Unavailable Unavailable [place], A Radha MANAGER E COMMERCE Unavailable Unavailable [place], A Radha MANAGER E COMMERCE Unavailable Unavailable [place], A Radha MANAGER E COMMERCE Unavailable Unavailable [place], A Radha MANAGER E COMMERCE Unavailable Unavailable [place], A Radha MANAGER E COMMERCE Unavailable Unavailable [place], A Radha MANAGER E COMMERCE Unavailable Unavailable [place], A Radha MANAGER E COMMERCE Unavailable Unavailable [place], A Radha MANAGER E COMMERCE Unavailable Unavailable [place], A Radha MANAGER E COMMERCE Unavailable Unavailable [place], A Radha MANAGER E COMMERCE Unavailable Unavailable [place], A Radha MANAGER E COMMERCE Unavailable Unavailable [place], A Radha MANAGER E COMMERCE Unavailable Unavailable [place], A Radha MANAGER E COMMERCE Unavailable Unavailable [place], A Radha MANAGER E COMMERCE Unavailable Unavailable [place], A Radha MANAGER E COMMERCE Unavailable Unavailable [place], A Radha MANAGER E COMMERCE Unavailable Unavailable Chencho, A Radha MANAGER E COMMERCE Unavailable Unavailable Flores, T Russ PA Unavailable [...] Unavailable STEPHENIE, P BUBBA MD Unavailable Unavailable STEPHEINE, P BUBBA MD Unavailable Unavailable STEPHENIE, P [...] Unavailable STEPHENIE, P BUBBA MD Unavailable Unavailable STEPEHNIE, P BUBBA MD Unavailable Unavailable STEPHENIE, P [...] DHRUV PA Unavailable Unavailable Acevedo, F Amy MANAGER E COMMERCE-BC Unavailable Unavailable Acevedo, F Amy MANAGER E COMMERCE-BC Unavailable Unavailable Acevedo, F Amy MANAGER E COMMERCE-BC Unavailable Unavailable Acevedo, F Amy MANAGER E COMMERCE-BC Unavailable Unavailable Acevedo, F Amy MANAGER E COMMERCE-BC Unavailable Unavailable Acevedo, F Amy MANAGER E COMMERCE-BC Unavailable Unavailable Acevedo, F Amy MANAGER E COMMERCE-BC Unavailable Unavailable Acevedo, F Amy MANAGER E COMMERCE-BC Unavailable Unavailable Acevedo, F Amy MANAGER E COMMERCE-BC Unavailable Unavailable Acevedo, F Amy MANAGER E COMMERCE-BC Unavailable Unavailable Acevedo, F Amy MANAGER E COMMERCE-BC Unavailable Unavailable Acevedo, F Amy MANAGER E COMMERCE-BC Unavailable Unavailable Acevedo, F Amy MANAGER E COMMERCE-BC Unavailable Unavailable Acevedo, F Amy MANAGER E COMMERCE-BC Unavailable Unavailable Acevedo, F Amy MANAGER E COMMERCE-BC Unavailable Unavailable Acevedo, F Amy MANAGER E COMMERCE-BC Unavailable Unavailable Acevedo, F Amy MANAGER E COMMERCE-BC Unavailable Unavailable Acevedo, F Amy MANAGER E COMMERCE-BC Unavailable Unavailable Acevedo, F Amy MANAGER E COMMERCE-BC Unavailable Unavailable Acevedo, F Amy MANAGER E COMMERCE-BC Unavailable Unavailable Acevedo, F Amy MANAGER E COMMERCE-BC Unavailable Unavailable Acevedo, F Amy MANAGER E COMMERCE-BC Unavailable Unavailable PorrasNuris PA Unavailable Unavailable Porras, [...] is protected by Article 27-F of the [facility] Public Health law. If you continue you may have access to information: Regarding HIV / AIDS; Provided by facilities licensed or operated by the [facility] Office of Mental Health; or Provided by the [facility] Office for People With Developmental Disabilities. If such information is present, then the following [facility] mandated warning applies: This information has [...] law may result in a fine or fpc sentence or both. A general authorization for the release of medical or other information is NOT sufficient authorization for further disc losure. Allergies and Adverse Reactions Type Description Substance Reaction Status Data Source(s ) Drug allergy Cymbalta Drug allergy muscle spasms Active eCW1 ( [facility]) Drug allergy Topamax 100 Drug allergy tongue swelling Active eCW 1 ([facility]) Drug allergy Tramadol Tramadol tongue swelling Active eCW1 ( [facility]) PredniSONE PredniSONE PredniSONE tongue swelling Active eCW1 ([facility]) PredniSONE PredniSONE PredniSONE tongue swelling Active eCW1 ([facility]) Family History Family Member Name Family Member Gender Family Member Status Date o f Status Description Data Source(s) Unknown Male Problem MEDENT ([facility]) Unknown Male Problem MEDENT ([facility]) Unknown Unknown Problem MEDENT ([facility]) Unknown Male Problem MEDENT ([facility] () Unknown Unknown Problem MEDENT ([facility]) Unknown Unknown Problem MEDENT ([facility]) Unknown Female Problem MEDENT ([facility]) Encounters Encounter Providers Location Date Indications Data Source(s ) Outpatient Attender: Hoang Elizabeth MD 01/06/2021 12:00:00 AM [facility] Radha Paiz [facility]: [address] [place] [address], Ph. Attender: Radha Paiz [facility] Medical 07/24/2020 12:00:00 AM MEENU GIBBS ([facility]) Nai Navarro MD: [address] [place] [address], Ph. Attender: Nai Navarro MD [facility] Medical 05/25/2020 12:00:00 AM EST BERNIE ([facility]) Nai Navaror MD: [address] [place] [address], Ph. Attender: Nai Navarro MD [place] - [facility] Medical 05/25/2020 12:00:00 AM EST BERNIE ([facility]) Outpatient Attender: Mariya ROSE-SJConrad.JOHNNA 10/2019 12:00:00 AM EST - 05/13/2020 02:50:02 PM EST [facility] [address] [facility] [address] 05/01/2020 12:00:00 AM EDT eCW1 (Critical access hospital) Outpatient Attender: Amy DALLAS 04/21/2020 05: 47:00 PM EDT [facility] Outpatient Attender: Amy DALLAS 04/13/2020 07: 15:08 PM EDT [facility] Outpatient Attender: Russ FLANNERY [facility] [place] 04/07/2020 03:40:00 PM EDT MEDENT ([facility]) Outpatient Attender: KYLE DALLAS 03/17/2020 11:52:01 AM EDT [facility] Outpatient Attender: Amy DALLAS 03/02/2020 01: 02:03 PM EDT [facility] Outpatient Attender: Julia sullivan 02/29/2020 02:15:00 PM EDT MEDENT ([facility]) Outpatient Attender: KYLE DALLAS 02/20/2020 12:02:21 AM EDT [facility] Outpatient Attender: YKLE DALLAS 02/19/2020 03:38:00 PM EDT [facility] Outpatient Attender: Amy DALLAS 02/16/2020 11: 50:02 PM EDT [facility] Outpatient Attender: Amy DALLAS 02/13/2020 03: 04:01 PM EDT [facility] Outpatient Attender: KYLE DALLAS 02/04/2020 10:43:01 AM EDT [facility] Outpatient Attender: KYLE DALLAS 02/03/2020 03:44:01 PM EDT [facility] Outpatient Attender: KYLE WRIGHT FP 01/15/2020 08:43:01 AM EDT [facility] Outpatient Attender: KYLE DALLAS 01/13/2020 01:18:01 PM EDT [facility] Outpatient Attender: Amy DALLAS 01/13/2020 01: 18:00 PM EDT [facility] Outpatient Attender: Amy DALLAS 01/13/2020 01: 17:04 PM EDT [facility] Outpatient Attender: KYLE WRIGHT FP 01/13/2020 01:17:03 PM EDT [facility] Outpatient Attender: KYLE DALLAS 01/08/2020 12:03:00 PM EDT [facility] Outpatient Attender: KYLE WRIGHT FP 01/07/2020 10:56:00 AM EDT [facility] Outpatient Attender: Amy DALLAS 01/06/2020 01: 17:04 PM EDT [facility] Outpatient Attender: KYLE WRIGHT FP 01/06/2020 10:36:01 AM EDT [facility] Outpatient Attender: Hoang Elizabeth MD [id number] 12/30/19 12:00:00 AM EDT - 12/30/2019 02:17:00 PM EDT Restless legs [facility] Restless legs syndrome Outpatient Attender: Amy DALLAS 12/29/2019 04: 44:00 PM EDT [facility] Outpatient Attender: Amy DALLAS 12/26/2019 08: 45:04 AM EDT [facility] Outpatient Attender: Russ FLANNERY [facility] 12/18/2019 12:40:00 PM EDT MEDENT ([facility]) Outpatient Attender: KYLE DALLAS 12/17/2019 07:54:21 PM EDT [facility] Outpatient Attender: Amy DALLAS 12/10/2019 03: 32:02 PM EDT [facility] Outpatient Attender: KYLE DALLAS 12/06/2019 07:10:00 AM EDT [facility] Outpatient Attender: KYLE DALLAS 12/05/2019 04:02:02 PM EDT [facility] Outpatient Attender: Amy SALGUEROBC FP 12/05/2019 04: 02:00 PM EDT [facility] Outpatient Attender: KYLE WRIGHT FP 12/05/2019 04:01:59 PM EDT [facility] Outpatient Attender: KYLE WRIGHT FP 12/05/2019 02:35:00 PM EDT [facility] Outpatient Attender: KYLE WRIGHT FP 12/05/2019 02:34:00 PM EDT [facility] Outpatient Attender: KYLE WRIGHT FP 11/29/2019 01:22:01 PM EDT [facility] Outpatient Attender: KYLE WRIGHT FP 11/12/2019 03:41:01 PM EDT [facility] Outpatient Attender: Amy SALGUEROBC FP 11/10/2019 09: 16:01 PM EDT [facility] Outpatient Attender: KYLE WRIGHT FP 11/10/2019 09:16:01 PM EDT [facility] Outpatient Attender: Amy SALGUEROBC FP 11/07/2019 03: 28:03 PM EDT [facility] Outpatient Attender: KYLE WRIGHT FP 11/05/2019 11:08:00 AM EDT [facility] Outpatient Attender: KYLE WRIGHT FP 10/28/2019 04:24:01 PM EDT [facility] Outpatient Attender: Amy SALGUEROBC FP 10/28/2019 04: 23:01 PM EDT [facility] Outpatient Attender: KYLE WRIGHT FP 10/28/2019 10:27:01 AM EDT [facility] Outpatient Attender: KYLE WRIGHT FP 10/25/2019 05:20:00 PM EDT [facility] [address] [place] [address] 10/10/2019 12:00:00 AM EDT eCW1 (Critical access hospital) Outpatient Attender: KYLE WRIGHT FP 10/03/2019 08:01:03 PM EDT [facility] Outpatient Attender: Amy HIGGINBOTHAM FP 10/03/2019 06: 22:59 PM EDT [facility] Outpatient Attender: KYLE WRIGHT FP 10/03/2019 03:39:01 PM EDT [facility] Outpatient Attender: KYLE WRIGHT FP 10/01/2019 01:24:00 PM EDT [facility] Outpatient Attender: KYLE WRIGHT FP 09/30/2019 12:51:01 PM EDT [facility] Outpatient Attender: Amy SALGUEROBC FP 09/26/2019 12: 57:01 PM EDT [facility] Outpatient Attender: Amy SALGUEROBC FP 09/26/2019 12: 56:03 PM EDT [facility] Outpatient Attender: KYLE WRIGHT FP 09/12/2019 08:01:04 PM EST [facility] Outpatient Attender: KYLE WRIGHT FP 09/12/2019 11:00:01 AM EST [facility] [address] [place] [phone] 09/11/2019 12:00:00 AM EST [facility] (Critical access hospital) Outpatient Attender: Mariya ROSE-SJCatrachitaJOHNNA 12:00:00 AM EST [facility] Outpatient Attender: KYLE WRIGHT FP 08/27/2019 01:23:02 PM EST [facility] Outpatient Attender: Amy WRIGHT-BC FP 08/21/2019 01: 11:03 PM EST [facility] Outpatient Referrer: Mariya ROSE-SJCatrachitaJOHNNA 06/2020 12:00:00 AM EST - 08/21/2019 04:15:27 PM EST [facility] Outpatient Referrer: Russ FLANNERY 08/13/2019 08:57:00 PM EST [facility] Outpatient Attender: KYLE WRIGHT FP 08/12/2019 01:04:01 PM EST [facility] Outpatient Referrer: Russ FLANNERY 08/10/2019 08:16:00 AM EST [facility] Outpatient Referrer: Russ FLANNERY 08/10/2019 08:16:00 AM EST [facility] Outpatient Attender: KYLE WRIGHT FP 08/09/2019 02:51:00 PM [facility] Outpatient Referrer: Russ FLANNERY 08/09/2019 02:34:00 PM EST [facility] Outpatient Attender: Amy WRIGHT-BC CELENA 08/06/2019 05: 49:02 AM [facility] Outpatient Attender: BUBBA CASIANO MD 08/06/2019 12:00:00 AM [facility] Outpatient Attender: KYLE WRIGHT FP 08/05/2019 08:01:02 PM [facility] Outpatient Attender: KYLE WRIGHT FP 08/05/2019 02:06:05 PM [facility] Outpatient Attender: KYLE WRIGHT FP 08/05/2019 09:20:00 AM [facility] Outpatient Attender: BUBBA CASIANO MD 07/30/2019 12:00:00 AM [facility] Outpatient Attender: KYLE WRIGHT FP 07/29/2019 11:08:00 AM [facility] Outpatient Referrer: Russ FLANNERY 07/25/2019 02:32:00 PM EST [facility] Outpatient Referrer: Russ FLANNERY 07/24/2019 08:34:00 AM EST [facility] Outpatient Referrer: Russ FLANNERY 07/23/2019 11:09:00 AM EST [facility] Outpatient Referrer: Russ FLANNERY 07/23/2019 11:08:00 AM EST [facility] Outpatient Referrer: Russ FLANNERY 07/23/2019 11:08:00 AM EST [facility] Outpatient Attender: Russ FLANNERY [facility] [place] 07/22/2019 03:00:00 PM EST MEDENT ([facility]) Outpatient Attender: KYLE WRIGHT FP 07/15/2019 10:47:00 AM [facility] Outpatient Attender: KYLE WRIGHT FP 07/15/2019 10:46:01 AM [facility] Outpatient Attender: DHRUV Blair 07/14/2019 12:45:00 PM EST MEDENT ([facility] Outpatient Attender: KYLE WRIGHT FP 07/12/2019 11:16:02 AM [facility] Outpatient Attender: KYLE WRIGHT FP 07/11/2019 08:01:01 PM [facility] Outpatient Attender: KYLE WRIGHT FP 07/11/2019 02:00:01 PM [facility] Outpatient Attender: KYLE WRIGHT FP 07/11/2019 01:50:01 PM [facility] Outpatient Attender: KYLE WRIGHT FP 07/08/2019 01:58:00 PM [facility] Outpatient Attender: Amy HIGGINBOTHAM FP 07/08/2019 01: 57:01 PM [facility] Outpatient Attender: Dot Gambino 07/08/2019 12:00:00 AM [facility] Outpatient Attender: KYLE WRIGHT FP 07/04/2019 03:13:00 PM [facility] Outpatient Attender: KYLE WRIGHT FP 07/04/2019 02:51:01 PM [facility] Outpatient Attender: Amy DALLAS 07/02/2019 10: 55:01 AM [facility] Outpatient Attender: KYLE WRIGHT FP 07/01/2019 12:49:00 PM [facility] Outpatient Attender: KYLE WRIGHT FP 06/28/2019 08:03:24 PM [facility] Outpatient Attender: Hoang Elizabeth MD [id number] 06/03/20 19 12:00:00 AM EST - 06/03/2019 04:40:57 PM [facility] Restless legs syndrome [facility] Restless legs syndrome Immunizations Vaccine Date Status Description Data Source(s) pneumococcal polysaccharide PPV23 07/24/2020 04:08:00 PM EST com pleted .5 mL BERNEI ([facility]) New in 2011. IIV4 07/24/2020 04:08:00 PM EST completed .5 mL BERNIE ([facility]) INFLUENZA VIRUS VACCINE TRIVAL SPLIT [id number](65 YR U P)/PF 07/09/2019 12:00:00 AM EST [...] DAILY DOSE = 1 CAPSULE SOLD: 07/23/2020 [facility] 20-12.5 mg 07/21/2020 12:00:00 AM EST [...] TWO TIMES A DAY SOLD: 05/17/2020 [facility] varenicline 1 MG Oral Tablet varenicline (CHANTIX CONTINUING MONTH ) 1 MG tablet varenicline (CHANTIX CONTINUING MONTH ) 1 MG tablet 05/13/2020 12:00:00 AM EST 1 mg Oral active Cigarette smoker Take 1 tablet (1 mg total) by mouth 2 (two) times a day [facility] Cigarette smoker varenicline (CHANTIX STARTING MONTH ) 0.5 MG X 11 & 1 MG X 42 tablet [id number] 05/13/2020 12:00:00 AM EST active Cigar ette smoker Take 0.5mg tablet by mouth once daily for 3 days, then 0.5mg tablet twice daily for 4 days, then increase to 1mg tablet twice daily. [facility] Cigarette smoker Ondansetron 8 MG Oral Tablet ondansetron (ZOFRAN) 8 MG tablet ondansetron (ZOFRAN) 8 MG tablet 05/03/2020 12:00:00 AM EDT active TAKE ONE TABLET BY MOUTH TWICE A DAY DIRECTED [facility] zolmitriptan 5 MG Oral Tablet ZOLMitriptan (ZOMIG) 5 M G tablet ZOLMitriptan (ZOMIG) 5 MG tablet 05/03/2020 12:00:00 AM EDT active TAKE 1 TABLET BY MOUTH AT ONSET OF MIGRAINS MAY REPEAT IN 2 HOURS NEEDED MAXIMUM DAILY DOSE 2 MAXIMUM WEEKLY DOSE 3 [facility] 10 mg 04/25/2020 12:00:00 AM EDT [...] AT BEDTIME MAXIMUM DAILY DOSE 1 CAPSULE [facility] Nystatin 100 UNT/MG Topical Ointment nystatin (MYCOSTA TIN) ointment nystatin (MYCOSTATIN) ointment 04/21/2020 12:00:00 AM EDT Topical active Apply topically [facility] 200 mg 04/20/2020 12:00:00 AM EDT [...] active Take 20 mg by mouth daily [facility] 140 mg/mL 04/08/2020 12:00:00 AM EDT [...] 07/20/2020 [facility] AIMOVIG 140 MG/ML SOAJ [id number] 04/08/2020 12:00:00 AM EDT active INJECT 1ML UNDER THE SKIN ON CE A MONTH START 1 MONTH FROM LAST DOSE DIRECTED [facility] Aimovig 04/07/2020 12:00:00 AM EDT active MEDENT ([facility]) 10 mg 03/25/2020 12:00:00 AM EDT capsule 30 TAKE ONE CAPSULE BY MOUTH AT BEDTIME, MAXIMUM DAILY DOSE = 1 CAPSULE TAKE ONE CAPSULE BY MOUTH AT BEDTIME, MAXIMUM DAILY DOSE = 1 CAPSULE SOLD: 03/27/2020 [facility] 20 mg 03/20/2020 12:00:00 AM EDT [...] 02/29/2020 12:00:00 A M EDT active MEDENT ([facility]) 300 mg 02/29/2020 12:00:00 AM EDT capsule [...] TAKE ONE TABLET BY MOUTH EVERY DAY [facility] Hydrochlorothiazide 12.5 MG / Lisinopril 20 MG Oral Tablet lisinopril- hydrochlorothiazide (PRINZIDE,ZESTORETIC) 20-12.5 MG per tablet lisinopril- hydrochlorothiazide (PRINZIDE,ZESTORETIC) 20-12.5 MG per tablet 01/23/2020 12:00:00 AM EDT active TAKE ONE TABLET BY MOUTH ONCE DAILY [facility] 100 mg 01/14/2020 12:00:00 AM EDT [...] by mouth 2 (two) times a day [facility] Palpitations Escitalopram 20 MG Oral Tablet [...] TABLET BY MOUTH ONCE DAILY SOLD: 11/18/2019 [facility] ropinirole 2 MG Oral Tablet rOPINIRole HCl 2 MG Oral T ablet (REQUIP) rOPINIRole HCl 2 MG Oral Tablet (REQUIP) 11/15/2019 12:00:00 AM EDT 3 mg Oral active Restless leg syndrome Take 1.5 tablets by mouth ni silastleze Take 1 hr before bedtime. [facility] Restless leg syndrome ropinirole 2 MG Oral Tablet rOPINIRole (REQUIP) 2 MG t ablet rOPINIRole (REQUIP) 2 MG tablet 11/15/2019 12:00:00 AM EDT 3 mg Oral active Take 3 mg by mouth nightly [facility] 100,000 unit/gram 11/04/2019 12:00:00 AM EDT [...] Capsule (SONATA) 10/30/2019 12:00:00 AM EDT [facility] 25 mg 10/29/2019 12:00:00 AM EDT tablet [...] Oral Tablet (ZOMIG) 10/17/2019 12:00:00 AM EDT [facility] 70 mg/mL 10/17/2019 12:00:00 AM EDT auto-injector [...] 11/29/2019 [facility] AIMOVIG 70 MG/ML SOAJ [id number] 08/22/2019 12:00:00 AM EST aborted [facility] 20-12.5 mg 08/15/2019 12:00:00 AM [...] active Take 2.5 mg by mouth daily [facility] 5 mg 07/26/2019 12:00:00 AM EST [...] Zolmitriptan 07/22/2019 12:00:00 AM EST active MEDENT ([facility]) Aimovig Aimovig 07/22/2019 12:00:00 AM EST active MEDENT ([facility]) 200 ACTUAT Albuterol 0.09 MG/ACTUAT Metered Dose Inhaler [Pr oAir] Proair HFA 07/14/2019 12:00:00 AM EST ORAL active MEDENT ([facility]) Cephalexin 500 MG Oral Tablet Cephalexin 07/14/2019 12:00:00 AM EST ORAL active MEDENT ([facility]) benzonatate 200 MG Oral Capsule Benzonatate 07/14/2019 12:00:00 AM EST ORAL active MEDENT ([facility]) 500 mg 07/14/2019 12:00:00 AM EST capsule [...] MG tablet 06/24/2019 12:00:00 AM EST active [facility] ropinirole 2 MG Oral Tablet rOPINIRole HCl 2 MG Oral T ablet (REQUIP) rOPINIRole HCl 2 MG Oral Tablet (REQUIP) 06/03/2019 12:00:00 AM EST 3 mg Oral active Restless leg syndrome Take 1.5 tablets by mouth ni ghtly Take 1 hr before bedtime. [facility] Restless leg syndrome ropinirole 2 MG Oral Tablet rOPINIRole (REQUIP) 2 MG t ablet rOPINIRole (REQUIP) 2 MG tablet 06/03/2019 12:00:00 AM EST 3 mg Oral aborte d Take 3 mg by mouth [facility] 100 mg 05/30/2019 12:00:00 AM EST [...] completed lamotrigine 100 MG Oral Tablet BERNIE ([facility]) Clindamycin 300 MG Oral Capsule clindamycin HCl 300 mg capsule clindamycin HCl 300 mg capsule completed clindam ycin 300 MG Oral Capsule BERNIE ([facility]) Cephalexin 500 MG Oral Capsule cephalexin 500 mg capsu le cephalexin 500 mg capsule completed cephalexin 500 MG Oral Capsule BERNIE ([facility]) atorvastatin 10 MG Oral Tablet atorvastatin 10 mg tabl et atorvastatin 10 mg tablet completed atorvastatin 10 MG Oral Tablet BERNIE ([facility]) Escitalopram 10 MG Oral Tablet escitalopram 10 mg tabl et escitalopram 10 mg tablet completed escitalopram 10 MG Oral Tablet BERNIE ([facility]) Insurance Providers Payer name Policy type / Coverage type Policy ID Covered republican ID Covered republican's relationship to maria Policy Maria Plan Information EMEDYOSELIN [id number] SP [id number] MEDICARE [id number] SP [id number] MEDICARE C [id number] S [id number] [id number] MEDICAID M [id number] S [id number] MEDICAID M [id number] Self [id number] MEDICARE A [id number] Self [id number] T15 MEDICAID [id number] MEDICARE [id number] MEDICAID [id number] Jennifer [id number] MEDICARE [id number] Jennifer [id number] T15 Medicare P [id number] S [id number] [id number] Medicaid S [id number] S [id number] MEDICAID [id number] SP [id number] [facility] I [id number] Self [id number] Medicare P [id number] S [id number] T15 Medicaid S [id number] S [id number] MEDICARE [id number] SP [id number] T15 [facility] COMMUNITY PLAN [id number] SP [id number] Managed Care - [facility] Community Plan P [id number] S [id number] Managed Care - Community Plan [employer] P [id number] S [id number] Managed Care - Community Plan [facility] P [id number] S [id number] UNITED HEALTHCARE HEA [id number] S [id number] UNITED HEALTHCARE HEA [id number] S [id number] Medicaid S [id number] S [id number] [facility] Community Plan Commercial [id number] Self [id number] [facility] COMMUNITY PLAN MCDHMO [id number] SP [id number] Carmen Selden Ins (pr) Medigap Part B [id number] Self [id number] [facility] Community Plan Commercial [id number] Self [id number] United CR/Community [facility] Maintenance Organization (HMO) [id number] Self [id number] Medicaid [place] Medigap Part B [id number] Self [id number] [employer] Commercial [id number] Self [id number] [facility](MCAID) O [id number] S [id number] [facility] Care Hmo Commercial [id number] Self [id number] UnitedHealth Care Hmo Commercial [id number] Self [id number] [place] Medigap Part B [id number] Self [id number] Medicare [facility] Medigap Part B [id number] Self [id number] [facility] Commercial [id number] Self [id number] UNHC COMMUNITY PLAN MCDHMO [id number] SP [id number] [facility] Hmo Commercial [id number] Self [id number] [facility] Brittany/MCR Health Maintenance Organization (HMO) [id number] Self [id number] Unitedhealthcare Medicaid Medicaid [id number] Self [id number] Unitedhealthcare Medicaid Medicaid [id number] Self [id number] Unitedhealthcare Medicaid Medicaid [id number] Self [id number] [facility] Hmo Commercial [id number] Self [id number] [facility] Hmo Commercial [id number] Self [id number] MEDICAID M [id number] Self [id number] [facility](MCAID) O [id number] S [id number] [facility] Hmo Commercial Self UNHC COMMUNITY PLAN MCDHMO [id number] SP [id number] United CR/Community [facility] Maintenance [facility] (HMO) Self Unitedhealthcare Medicaid Medicaid Self UNHC COMMUNITY PLAN MCDHMO [id number] SP [id number] United HLCR/Community [facility] Maintenance Organization (HMO) Self Unitedhealthcare Medicaid Medicaid Self MEDICAID [id number] SP [id number] MEDICAID [id number] SP [id number] MEDICAID M [id number] Self [id number] MEDICAID-O/P [id number] MEDICAID - CLINIC [id number] Problems, Conditions, and Diagnoses Code Display Name Description Problem Type Effective Dates Data Source(s) 114066072 Nicotine dependence with current use Osito otine Dependence with Current Use Problem 07/26/2020 12:00:00 AM MEENU GIBBS ([facility]) [id number] Needs influenza immunization Needs Influenza Immunizat ion Problem 07/26/2020 12:00:00 AM MEENU GIBBS ([facility]) 47278436 Administration of pneumococcal vaccine A dministration of Pneumococcal Vaccine Problem 07/26/2020 12:00:00 AM [place]U GIBBS ([facility]) 1884432 Herpes labialis Herpes Labialis Problem 07/26/2020 12:0 0:00 AM EST [place] ([facility]) R73.03 Prediabetes Prediabetes 12/05/2019 04:01:12 PM EDT [facility] V65.8 Person consulting for explanation of exa mination or test findings Person consulting for explanation of examination or test findings 12/05/2019 04:01:12 PM EDT [facility] V70.0 Encounter for general adult medical exam ination with abnormal findings Encounter for general adult medical examination with abnormal findings 12/05/2019 04:01:12 PM EDT [facility] [id number] Pruritus vulvae Pruritus vulvae 12/05/2019 04:0 1:12 PM EDT [facility] [id number] Procedure by method Procedure by Method Problem 0 12/05/2019 12:00:00 AM EDT [place] ([facility]) [id number] Patient asked to attend Patient Asked to Attend [facility] 12/05/2019 12:00:00 AM EDT [place] ([facility]) 881485949 Prediabetes Prediabetes Problem 12/05/2019 12:00:00 AM EDT [facility]) 97246161 Pruritus of vulva Pruritus of Vulva Problem 12/05/2019 12:00:00 AM EDT [facility]) 627241066 Procedure by method Procedure by Method Problem 0 12/05/2019 12:00:00 AM EDT [place] ([facility]) [id number] Patient asked to attend Patient Asked to Attend [facility] 12/05/2019 12:00:00 AM EDT [place] ([facility]) 832532639 Prediabetes Prediabetes Problem 12/05/2019 12:00:00 AM EDT [place] ([facility]) 34795599 Pruritus of vulva Pruritus of Vulva Problem 12/05/2019 12:00:00 AM EDT [facility]) V70.0 Health Screening Health Screening 10/28/2019 04 :22:28 PM EDT [facility] [id number] Clinical finding Clinical Finding Problem 10/28/2019 12 :00:00 AM EDT [place] ([facility]) 754880331 Clinical finding Clinical Finding Problem 10/28/2019 12 :00:00 AM EDT [place] ([facility]) M19.041 [id number] Primary osteoarthritis, right hand Proble m 10/10/2019 12:00:00 AM EDT eCW1 ([facility]) M19.042 [id number] Primary osteoarthritis, left hand Prob estephania 10/10/2019 12:00:00 AM EDT eCW1 ([facility]) M19.041 91484838 Primary osteoarthritis, right hand Proble m 10/10/2019 12:00:00 AM EDT eCW1 ([facility]) M19.042 [id number] Primary osteoarthritis, left hand Prob estephania 10/10/2019 12:00:00 AM EDT eCW1 ([facility]) 64430186 Moderate recurrent major depression Mode rate Recurrent Major Depression Problem 09/12/2019 12:00:00 AM EST [place] ([facility]) 03669727 Moderate recurrent major depression Mode rate Recurrent Major Depression Problem 09/12/2019 12:00:00 AM EST [place] ([facility]) M79.7 [id number] Fibromyalgia Problem 09/11/2019 12:00:00 AM EST eCW1 ([facility]) M15.0 967281021 Primary osteoarthritis involving multiple joints Problem 09/11/2019 12:00:00 AM EST eCW1 ([facility]) M47.812 172835902 Cervical spondylosis Problem 09/11/2019 12:0 0:00 AM EST eCW1 ([facility]) M51.36 [id number] Lumbar degenerative disc disease Problem 09/11/2019 12:00:00 AM EST eCW1 ([facility]) M79.7 [id number] Fibromyalgia Problem 09/11/2019 12:00:00 AM EST eCW1 ([facility]) M15.0 731006213 Primary osteoarthritis involving multiple joints Problem 09/11/2019 12:00:00 AM EST eCW1 ([facility]) M47.812 024442429 Cervical spondylosis Problem 09/11/2019 12:0 0:00 AM EST eCW1 ([facility]) M51.36 05031640 Lumbar degenerative disc disease Problem 09/11/2019 12:00:00 AM EST eCW1 ([facility]) I10 Essential hypertension Essential hypertension 61376360 08/28/2019 12:00:00 AM [facility] R07.89 Other chest pain Other chest pain 75969565 08/28/2019 12 :00:00 AM [facility] R00.2 Palpitations Palpitations 58719217 08/28/2019 12:00:00 A M [facility] F17.210 Cigarette smoker Cigarette smoker 78011154 08/28/2019 12 :00:00 AM [facility] R06.02 Shortness of breath Shortness of breath 50355045 0 08/28/2019 12:00:00 AM [facility] 786.2 Cough Cough 08/05/2019 02:04:00 PM ES T [facility] 478.19 Congestion of nasal sinus Congestion of nasal sinus 08/05/2019 02:04:00 PM [facility] 787.01 Nausea with vomiting, unspecified Nausea with vomiting , unspecified 08/05/2019 02:04:00 PM [facility] R10.13 Epigastric pain Burning epigastric pain 020 02:04:00 PM [facility] 03335539 Pain in unspecified joint Pain in unspecified joint 08/05/2019 02:04:00 PM [facility] 896876165 Finding of body region Finding of Body Region Problem 08/05/2019 12:00:00 AM EST [place] ([facility]) 13253823 Epigastric pain Epigastric Pain Problem 08/05/2019 12:0 0:00 AM EST [facility]) 56641513 Nausea and vomiting Nausea and Vomiting Problem 0 08/05/2019 12:00:00 AM EST [place] ([facility]) 63798680 Nasal congestion Nasal Congestion Problem 08/05/2019 12 :00:00 AM EST [facility]) 560160528 Finding of body region Finding of Body Region Problem 08/05/2019 12:00:00 AM EST [place] ([facility]) 42034473 Epigastric pain Epigastric Pain Problem 08/05/2019 12:0 0:00 AM EST [place] ([facility]) 89301482 Nausea and vomiting Nausea and Vomiting Problem 0 08/05/2019 12:00:00 AM EST [place] ([facility]) 92781081 Nasal congestion Nasal Congestion Problem 08/05/2019 12 :00:00 AM MEENU GIBBS ([facility]) R06.02 Shortness of breath Shortness of breath Diagnosis 1 07/13/2019 01:43:53 PM EST [facility] R00.2 Palpitations Palpitations Diagnosis 05/13/2020 01:43:53 P M EST [facility] R07.89 Other chest pain Other chest pain Diagnosis 05/13/2020 01 :43:53 PM [facility] I10 Essential (primary) hypertension Essential (primary) h ypertension Diagnosis 05/13/2020 01:43:53 PM [facility] F17.210 Nicotine dependence, cigarettes, uncompl icated Nicotine dependence, cigarettes, uncompl Diagnosis 05/13/2020 01:43:53 PM EST [facility] F17.210 Nicotine dependence, cigarettes, uncompl icated Nicotine dependence, cigarettes, uncomplicated Diagnosis 12/30/2019 07:18:16 AM [facility] R07.9 Chest pain, unspecified Chest pain, unspecified Diagno sis 08/21/2019 07:57:44 AM [facility] Surgeries/Procedures Procedure Description Date Indications Data Source(s) ECG ROUTINE ECG W/LEAST 12 LDS W/I&R POCT AMB EKG Routine 05/13/2020 2:42 PM EST Essential hypertension Other chest pain 05/13/2020 07:42:00 PM EST Other chest p ainEssential hypertension [facility] Other chest pain Essential hypertension BLOOD COUNT COMPLETE AUTO&AUTO DIFRNTL WBC COUNT CBC AND DIFFER ENTIAL Routine 01/09/2020 01/09/2020 12:00:00 AM EDT [facility] THYROID STIMULATING HORMONE TSH TSH Routine 01/09/2020 01/09/2020 12:00:00 AM EDT [facility] HEPATIC FUNCTION PANEL HEPATIC FUNCTION PANEL Routine 01/09/2020 01/09/2020 12:00:00 AM EDT [facility] BASIC METABOLIC PANEL CALCIUM TOTAL BASIC METABOLIC PANEL Routine 01/09/2020 01/09/2020 12:00:00 AM EDT [facility] LIPID PANEL LIPID PANEL Routine 11/05/2019 11/05/2019 1 2:00:00 AM EDT [facility] Office Visit, Est Pt., Level 2 FC 10/10/2019 12:00:00 AM EDT eCW1 ([facility]) Office Visit, Est Pt., Level 4 PC 10/10/2019 12:00:00 AM EDT eCW1 ([facility]) Office Visit, New Pt., Level 4 PC 09/11/2019 12:00:00 AM EST eCW1 ([facility]) Office Visit, New Pt., Level 3 FC 09/11/2019 12:00:00 AM EST eCW1 ([facility]) VENIPUNCT, ROUTINE* 09/11/2019 12:00:00 AM EST eCW1 ([facility]) Results ID Date Data Source [id number] 01/20/2020 08:48:35 AM EDT [facility] Name Value Range Interpretation Code Description Data Elli rce(s) Supporting Document(s) Progress Note [facility] TQWBDr4aBaLIQlQb84/TBTxmHJSzl4QuDKdfDTk2BIwxDYVjU3HbVCJ5mX3dTBZ1MRfJMdTcDmQuFsOn lbm [file] e9XkahH0afGfBCulCNG8BV1OGDGGU6IJLe== ID Date Data Source [id number] 01/09/2020 10:50:00 AM EDT [facility] Name Value Range Interpretation Code Description Data Elli rce(s) Supporting Document(s) BG FASTING 85 mg/dL 70-100 N [facility] y Health T4, FREE 0.95 ng/dL 0.76-1.46 N [facility] TSH 0.385 microintl units/mL 0.358-3.740 N [facility] ID Date Data Source [id number] 01/09/2020 10:50:00 AM EDT [facility] Name Value Range Interpretation Code Description Data Elli rce(s) Supporting Document(s) HCT 39.1 % 36.0-47.0 N [facility] HGB 12.3 g/dL 12.0-15.5 N [facility] MCH 31.5 G/DL pg 32.0-36.5 L [facility] MCHC 30.9 PG % 27.0-33.0 N [facility] PLATELETS 268 10 10*3/mm3 150-450 N [facility] Family [facility] RBC 3.98 10 10*6/mm3 4.00-5.40 L [facility] RDW 13.7 % 11.5-14.5 N [facility] WBC TOTAL 7.2 4.0-10.0 N [facility] ID Date Data Source [id number] 01/09/2020 07:53:24 AM EDT [facility] Labs In-House Blood TestsDate/Time Colle cted: January 09, 2020 7:53 AMTest Result Reference Range Normal ValueShanice Gut[facility], February 11, 2020 7:53 AMAssessment & Plan Orders:[id number] Vst-Est Level I [[id number]] 40100 - Venipuncture [[id number]] Name Value Range Interpretation Code Description Data Elli rce(s) Supporting Document(s) ID Date Data Source [id number] 12/30/2019 12:06:03 PM EDT [facility] Name Value Range Interpretation Code Description Data Elli rce(s) Supporting Document(s) Progress Note [facility] QMFTFr5qIhXCQoRg00/OMEgiSRKkd4AxRQcnPMk9IWzqYKVhO1HkMCT9zD4yBOC2NJwLKaNpJfHfZuYj lbm [file] g9WTdktEOAZmI7VieSDkIava2Qy0XFAdb8yzyWtfJiyyVtFYpTRcvxzOKHuCYj3WRpwdWoGwGKpP/NEEDLE GRADER [file] AMKg/qlnCj+gAAAAAAAAAAAAAAAAAAAAAAAAAAAAAAAAAAAAAAAAAAAAAAAAAAAAAAAAAAAAAAAAAAAA AAAAAAAAAAAAAAAAAAAAAAAAAAAAAAAAAAAAAAAAAA AAAAAAAAAAAAAAAAAAAAAAAAAAAAAAAAAAAAAAAAAAAAAAAAAAAAAAAAAAAAAAAAAAAAAAAAAAAAAAAA AAAAAAAAAAAAAAAAAAAAAAAAAAAAAAAAAAAAAAAAAAAAAAAAAAAAAAAAAAAAAAAAAAAAAAAAAAAAAAAA AAAAAAAAAAAAAAAAAAAAAAAAAAAAAAAAAAAAAAAAAA AAAAAAAAAAAAAAAAAAAAAAAAAAAAAAAAAAAAAAAAAAAAAAAAAAAAAAAAAAAAAAAAAAAAAAAAAAAAAAAA AAAAAAAAAAAAAAAAAAAAAAAAAAAAAAAAAAAAAAAAAAAAAAAAAAAAAAAAAAAAAAAAAAAAAAAAAAAAAAAA AAAAAAAAAAAAAAAAAAAAAAAAAAAAAAAAAAAAAAAAAA AAAAAAAAAAAAAAAAAAAAAAAAAAAAAAAAAAAAAAAAAAAAAAAAAAAAAAAAAAAAAAAAAAAAAAAAAAAAAAAA AAAAAAAAAAAAAAAAAAAAAAAAAAAAAAAAAAAAAAAAAAAAAAAAAAAAAAAAAAAAAAAAAAAAAAAAAAAAAAAA AAAAAAAAAAAAAAAAAAAAAAAAAAAAAAAAAAAAAAAAAA AAAAAAAAAAAAAAAAAAAAAAAAAAAAAAAAAAAAAAAAAAAAAAAAAAAAAAAAAAAAAAAAAAAAAAAAAAAAAAAA AAAAAAAAAAAAAAAAAAAAAAAAAAAAAAAAAAAAAAAAAAAAAAAAAAAAAAAAAAAAAAAAAAAAAAAAAAAAAAAA AAAAAAAAAAAAAAAAAAAAAAAAAAAAAAAAAAAAAAAAAA HJUWTOHFHZMQUWXBGUHVIDPQAOZQWCDMDWBRVNQSLKXHKGADMUQBMYMYOMTMYVQVNAKFQTYQGgCM4CQx 0PBB7gg0DtDHFsBXobqeHnPphNMaKlHWGxj3AcGVh5BH6MOXUaIDgaLZ9ZG4UhZBG6E2N4UwS2oZHlKT 0sU3SlIxIsXR6gzSntI3GfwPYUKCOZo83tv38mmrVh GS0Oi0grtvXuOZJlH2NtfrcgWOCNSk0WrQR2vMR2YWmkOZOaJ2o5HKv0CY8RQW9zpXzkPBw3BfPdT4Ue hCThoiFrP4DiOEPaHXZbd1DiAB0JMCPjI93pe4ejUcPlVNAAZC0JBm0BMmV6hbMduY5SXRYpvE9wzeuS fmgtEXsCSoMKgYCkzMoetHk8KbiTU5TIFOLQYIP30r kzQ8OL7NW35y9jud61mi8gprMKpYXjC+ilekdol2iKouinzyS/QYtcJbp18RQOI/61u/NorVYGLz7+qP Su6Sg0gSW0H/KqfE0g0+xLCZoGT4LCcGiLCGVss/KNQQR2b2RVEnfveZYju7BqFiMiIr4/25IKns23NV 4C9F5oQrYpthEDSIfVguDsnm6eVX6hAH+xh40S0ir0 GPUpVjdTqslk+qgJk0uGDwVs1bO1aOInFh24dAfPpht3OozhySsU8NINiwGTPEreLynRAtf298/NqC1M vQelxqgmk+jhPWxuXhlRiXpnU4eLlfEqm4Y07cRZlM6fcnfmUuLy8CPNDtHFvXmUJAOGZq8WdjdJ+[employer]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 [file] o7EpXDi8YGTj7U22zef5c2nuxOo6ZcWqD1/Ir+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 [file] ppQii1g1frdEP7jHDGmH+f9+dY2jhGQ4xv2aCMNxA1hTsNgxSYf3f4fPF6nIeauibSCc0lq/WhaZ/Radhames OCJ/w3R3TEAnYyhvy7F74m25ax49bylk6Ms2KjqHu1 R8VtU5+ZFNPzEjDs7As7FAg85Mi9uniEH28q/Ch/3241115u81/6s6cA/hjVDbNZBHBUoKZALrvWmUnR IsjJ37uQxwItY8q/5ch5hNNmpPw9p0bpbF12zCGi4EXscR6PRSujidp3AnHSi7VtHFuY2aJDB7zI9eGR XYbUGT05xNgp2RGvcUh1s9cF3M1VJ8WajdCU/LPt2v 3gjSok2jf/ynlaG7sSeEyk04EK8ozTrj3zMKgjd/m0d1TXGkIm5jkt1hIyaUp2DZms7YhKYLh7qdFVpw OkQqYd6RE0fbzIx7Uy8fVrFNyae5jK3ojjXzqJMPtT0SZ8yrNDLXXd9LSJ1bZrEO3IHXj740fSL/zxU7 soJYFHz3PW8bj+BvNfnhP6bU846Mc9/x8/BDM80VrC WBp3ofAsPQ+tVXc+Db5Ulk27OhWxAhloMBzMzvtmxBfwBpp5kmslU4CQ5KRg51FyC9MhWAroJbttKdzk ju1ps6mueJJJqRlqCg0Xf3p6G9o59uqtM2VEkXzYtPY2DHqOmf0VgU7VVY8PZleOkg2Dy0iod8mD5HDt bW65Yw8e5g1b/s+BKOgDAdYDGAwGg+Mk9ZjLSdklie IYPgXJFP/VOaE4AfuhOmc/VQkfS0DCQO4Wq5CzNOiOMgQstwgRueid/ds1hnHV8U4MvI7LR4ZdAKr+DF 02VDhUBvGp3EddSknRvCcSRrHErNCJLr2Eq7fOSm5XTgCg3WuSLe6FNwpfNApOBeBEZryCshoFA [facility]+sw5E87qWPkHweXXxtNKZI+Hwm3Zba5kEdvB [file] AgICAgICAgICAgICAgICAgICAgICAgICAgICAgICAgICAgICAgICAgICAgICAgICAgICAgICAgICAgIC AgICAgICAgICAgICANCiAgICAgICAgICAgICAgICAg ICAgICAgICAgICAgICAgICAgICAgICAgICAgICAgICAgICAgICAgICAgICAgICAgICAgICAgICAgICAg ICAgICAgICAgICAgICAgICAgICAgICANCiAgICAgICAgICAgICAgICAgICAgICAgICAgICAgICAgICAg ICAgICAgICAgICAgICAgICAgICAgICAgICAgICAgIC AgICAgICAgICAgICAgICAgICAgICAgICAgICAgICAgICANCiAgICAgICAgICAgICAgICAgICAgICAgIC AgICAgICAgICAgICAgICAgICAgICAgICAgICAgICAgICAgICAgICAgICAgICAgICAgICAgICAgICAgIC AgICAgICAgICAgICAgICANCiAgICAgICAgICAgICAg ICAgICAgICAgICAgICAgICAgICAgICAgICAgICAgICAgICAgICAgICAgICAgICAgICAgICAgICAgICAg ICAgICAgICAgICAgICAgICAgICAgICAgICANCiAgICAgICAgICAgICAgICAgICAgICAgICAgICAgICAg ICAgICAgICAgICAgICAgICAgICAgICAgICAgICAgIC AgICAgICAgICAgICAgICAgICAgICAgICAgICAgICAgICAgICANCiAgICAgICAgICAgICAgICAgICAgIC AgICAgICAgICAgICAgICAgICAgICAgICAgICAgICAgICAgICAgICAgICAgICAgICAgICAgICAgICAgIC AgICAgICAgICAgICAgICAgICANCiAgICAgICAgICAg ICAgICAgICAgICAgICAgICAgICAgICAgICAgICAgICAgICAgICAgICAgICAgICAgICAgICAgICAgICAg ICAgICAgICAgICAgICAgICAgICAgICAgICAgICANCiAgICAgICAgICAgICAgICAgICAgICAgICAgICAg ICAgICAgICAgICAgICAgICAgICAgICAgICAgICAgIC AgICAgICAgICAgICAgICAgICAgICAgICAgICAgICAgICAgICAgICANCiAgICAgICAgICAgICAgICAgIC AgICAgICAgICAgICAgICAgICAgICAgICAgICAgICAgICAgICAgICAgICAgICAgICAgICAgICAgICAgIC AgICAgICAgICAgICAgICAgICAgICANCjw/yKEwB5cc mRKifpC3T7cyUb2CJj0OJX3mf9XnYRCwNUvnljDxDnwNZpHxBEFpSrgJKuv0IJflBI0KlTDvO3CuR8Mg CTfaQA2TKOVnUHWnpDJsRWGnZNBbMoF8BLBsVRubOV1DrYHvJQndXEJuXGAxRuJhIKDnIIXzOGMkOFZt XWRDZXGoRUSqGkFhXPHrOBFySQ3GTFOkH728ddIwHk 8MBj7CGiGkGN3sfx7LKqFgGNLoUbpCRuf6YYnpMU5RyISpwQYlQWXiTTFJHdXgN4hlh4PgAiNqZEGFDG thJH8Tc1ThdHXpUFi+Yc6TXD7wv7KaPQwcOTSdSB2pfe4NXSjRJaImX1AweQtqWBTan8olDFTpPV7ynR YnAHF5KUYvTBMlwvMDhANaHF4LRKY7ISDhCaShGiBe KTQbAWgaAFRCMQlNBtXyJ3Rzc1MkWaH4DMFsUjEoZMlxGMOiOcU2HC74wCssHI2DXKAsTUCuIQ95LUF6 FKIoYm0JFx6FNsTgPV2mjw0XLcDcCKYmKrcYGzm4IZjjDA8VjBBtL6VskIBjp4vFSgJfK2TROYSoLJLl Uu8RTQOuAjMfHLNhTNguSV0fRKGoNEYEbYftuwT9LT 7HIO4cfiKaSV8DQuGcSq2lTc8JYrJbI8VnH5UeJUVnJSRAVIxbLQ5ZANszRP3uYY9Qq7TTdGBkxI5wcj 7MXQMpBJPeOeuffs6PBjxwA7U0mEnvCJWuTcSyVSPUYYdjMD9DYHRiNTP8XQVtMeGeJRFJBiAtM14eEL 5VO0Kit75yFuH1WGUvTePpZZtvKM47qJnhlpTayEQg rFosEH0FOk2+OCxqatEwWxbNMnypJDMWZmFeAgmAGtGyMFJjDGLfJAQvXqK7EyJjCx9OJWDfOZMaCDYd QtBmFXKgMMFcZKwbHPGaVjJjMpt1DJJoXBTyPM8TNgZiABCiZCV2IARhGDWcSADgvt6NQVKmQNKyBQS7 GhPlWLSmSSSaLWqzTBInKVShVDPoWQNrSOWhPI6PGw MlHREzIQSvUJmgZKXxGJEevy0HPTOtZNPoFlC5KWTdAFNcFPDmOPvxUCPvRSY9CSlwRBQnJAJuJE3TIe ZcEUKcJWUvEOUaBDKwHEAapb2DZYExVQRxVRQ9YWUsMITsDTFcAKuvFUFxLYQbIux0WKWnGPFuXP5ZLi HcGNKsORJ8GTHrGZXdSXIqlx5VFABcCVAlIHO3SSGq JPEgHXQgWRxsYLGoQJR0Tob0MIPtCHPfTU6JNuLzNDEfDCzqIRyhLLQbDVRkov1ZEDGbFBRzEkUxCPZl CRUjBQKlIMofHAOcKNI4IEh4XGKhRWDeLG6FHuZpMFFcJXtuVnRcNEFfCSJfem1MJJSmLFMsXEO5CRMe MQKpLEMsXHmpGCOpJWF4ATRpHTMfQMDaGU7IMoXjFH VrKDk4ZWLdKSCyMNLqbt5CBVXcCOCzJYbhXeNpDSJpFUTxTPcqISGoHEZmVvRhHZZeQVLuVV3AFiIrMU SbXVQtIRXjNMFhFYTtkg1DCNTnJYZ5NEFwAOXfOBYkUUJiWInqTZQeZTK7Drt8VWGhCRKjVH1EEtRtHM PtBBJ1HAWsBBUqZBAiit6QPBNmMPG0GcP7VLSiBUXs YVHbAByiRYPhZBY9Ycs5CCTbWJZqDS1QDbLdKHQaGUC1WWElSFHqWPBjpp1TYXGsCAB3XkcfZrEtTOHz MJDeLQckHFTvJxNtCrY3IYPaJWGoAP5WCeKtBNPwFJCoROZjVWMdIZZycp1AIKQnGKF8ZLL4MXTbEXBv RURaCHdzARQlMxN2MhY4ODDvAMUcQC1ERgYnILTxHV A0KDNsYAYxRTFonl3MbFKvjRefch3QGVmJNv5ZhZhlXNP8QXftFh7nyAZkEiGyTHEHZg1EssRuKDHdUC FJILirJCHbUFlwZCFhARP7S0MlDIE7PVAsXWX3WsMgOYYqKLEhFgQtIhW0ENP2OiX3GSZdQqM4KgQ3S0 RkNTljNWExMWZlYTNiZmE+DT1tKTx+Pc5Wo5SterR4nrNoSMquELTaCEVJRrCfRS1RYRt= ID Date Data Source [id number] 12/27/2019 03:11:50 PM EDT [facility] Name Value Range Interpretation Code Description Data Elli rce(s) Supporting Document(s) Progress Note [facility] ZJJGOv7aFbGVHmZw42/CSHtbXQAze3XiLLxrZDg1BParVPCnH9FdIFS1sT9lCTA5RXbYVfOcCxKaPmX4 lbm [file] AgICAgICAgICAgICAgICAgICAgICAgICAgICAgICAgICAgICAgICAgICAgICAgICAgICAgICAgDQogIC AgICAgICAgICAgICAgICAgICAgICAgICAgICAgICAg ICAgICAgICAgICAgICAgICAgICAgICAgICAgICAgICAgICAgICAgICAgICAgICAgICAgICAgICAgICAg ICAgICAgDQogICAgICAgICAgICAgICAgICAgICAgICAgICAgICAgICAgICAgICAgICAgICAgICAgICAg ICAgICAgICAgICAgICAgICAgICAgICAgICAgICAgIC AgICAgICAgICAgICAgICAgDQogICAgICAgICAgICAgICAgICAgICAgICAgICAgICAgICAgICAgICAgIC AgICAgICAgICAgICAgICAgICAgICAgICAgICAgICAgICAgICAgICAgICAgICAgICAgICAgICAgICAgDQ ogICAgICAgICAgICAgICAgICAgICAgICAgICAgICAg ICAgICAgICAgICAgICAgICAgICAgICAgICAgICAgICAgICAgICAgICAgICAgICAgICAgICAgICAgICAg ICAgICAgICAgDQogICAgICAgICAgICAgICAgICAgICAgICAgICAgICAgICAgICAgICAgICAgICAgICAg ICAgICAgICAgICAgICAgICAgICAgICAgICAgICAgIC AgICAgICAgICAgICAgICAgICAgDQogICAgICAgICAgICAgICAgICAgICAgICAgICAgICAgICAgICAgIC AgICAgICAgICAgICAgICAgICAgICAgICAgICAgICAgICAgICAgICAgICAgICAgICAgICAgICAgICAgIC AgDQogICAgICAgICAgICAgICAgICAgICAgICAgICAg ICAgICAgICAgICAgICAgICAgICAgICAgICAgICAgICAgICAgICAgICAgICAgICAgICAgICAgICAgICAg ICAgICAgICAgICAgDQogICAgICAgICAgICAgICAgICAgICAgICAgICAgICAgICAgICAgICAgICAgICAg ICAgICAgICAgICAgICAgICAgICAgICAgICAgICAgIC AgICAgICAgICAgICAgICAgICAgICAgDQogICAgICAgICAgICAgICAgICAgICAgICAgICAgICAgICAgIC AgICAgICAgICAgICAgICAgICAgICAgICAgICAgICAgICAgICAgICAgICAgICAgICAgICAgICAgICAgIC RiPSSiYMl8P4lbFNYuZDZnRN9hYZz0Wo3+DQoNCmVu IGL8rfGibD7KTB2ac1FxYAskGAMbf1EkJQt4JG1QFAAgJTqxCM7BKMqynn0WVVFwVZBomMLVq8itJpNn MIW8TISfQxykNA4SWODzI1ihajEhJIQhTJEYXJ2YMzJsV5GtfD24DYIWYc6+ZEswozFrJgcKObC1MTDs n8BpKSu8DV7MXTWaPdtmx6YgUrWoVBJGFGbrCW6NKX K1YFVdWRHmEb8JMFPhS967jjLtHM8XCq9UFfBjCJ1gqk8SKhQpNUDiRlqFBfm3ZDhqCE7KrMCwGFjXez 4nllOdkzLAk7LrbzBeiMNMMZkzWTFbWuEnsaWef8HsOQZHOF8hTLDrKb8rKv1gXSHiPPUeCuHmOCQIGP 6HVJPpKUSnrCFdHGXsZGBYDV8WNNmkGAM8JMJpomKc xTEzZExjNW9IMBUyrkAyPHrsOAORCBz+If9JAO8uv9GhGBdpRCXxJL3pmc8GJFuKXrHiH2R2mXIcO2X3 PPokEa9HFRSxBCFqEPfvSWIYSKcyAF3DXZ2mzlP9JA7PuCXhHHUePKQniZSpVDd8L40reKZfCLxmWH8O ICA+Jeremy+Rb4EDQHtAVKqSPMkIdQrXFDYOeMiT1FwX2 STh9ZqD4DoVE99aYvwdmYlBVegYS0ENZ3uQUFnPUPERV5ZsUTpwL2evrArEUFkMZVVJbMlO07xwFTdML DkPZM0LEZaGf8HRSKtC6MbtsDblWtjljOkITZjLAIIMQ8GZKsxklFmgGFggZhdKY19cIezFR1MQi7YCj QhFC9xir0WvBFtKm1OXITxQq2JSLRoEKJfJRWwRAJ5 JYQwEoIsPUclRTSzAFUzYFZ8JSXwWXDaFB3XCpXlRWFuXAkdULKbXIFlZCFeii9KOXAxLLCnAHerDlJh EXZnEITjTKrqRKXxNDOfMFD6ZJZqUIAfMB5VYmFgGORsDPA9KCMeIHVjUQKdxy5VRUXtCQOcHfDxBKQo NTQgIXGpRUpxQDAjODPxLWt0EADhTLVxIE9QThSaJG QvPMAlDgQuRJBrCTUfhu6IDYJvOIWlLmD1KLBoGMXqHFPmTRhzBGXsQCB9ANO2KVJmMIIqOX3OFgVdBY QdBLJ4CGHeOSZwJUFqei9HZKJeCFAlBWe0KvTjBWNdSFVdXTcoXTXtHYF6BAVqRQSvVODqKD6SXgXuKE FqMLP8UurtQTMhEAVcfp3BVWAeMPEbYoW1ApTgSWIq ADFgVHieWFAgKOO3CSG7TUHjQTUwPI2JQuOlYHWsATfaZxLtCOYgEGBszp1LFHQsIGGlMqP1SgWxMFUd LQRbPUobDORuKIK8MFAkKVHeCMZmCT4NDcHfIBHoRIa2XeFxJCGnFNCaka1COLOxDYRoSLQaRMWjDWJu KFQcQQt6gxNggXZqJNt4DP6CS8IiwsUuNqDWZw9Sy3 24GJLdQFTdVh5RG1obCu2nKJJsPLNEJc9UBBe6RwB2OQY3OHJ1DXa0ENM0YsftEVUhT7YgYbCjYCI6R9 Y+KWg9OgdrPNw6MwY6VCd5RYQrCDU9WjZdD8RiRnE9IhXoUu6jDXXNDw7+XNdvbMNshCfwBXRQDvL2Kv F1ATcjJEIUVj8T ID Date Data Source [id number] 12/27/2019 03:11:35 PM EDT [facility] Name Value Range Interpretation Code Description Data Elli rce(s) Supporting Document(s) Progress Note [facility] JMUKUb2lAvBWCvTq18/SBWheXIMrm8JdJNxsLSe2RKgmMSLcJ6UhQAM1xL6kXJQ1IWqXQfXeSwPhJzS2 lbm [file] ICAgICAgICAgICAgICAgICAgICAgICAgICAgICAgICAgICAgICAgICAgICAgICAgICAgICAgICAgICAg ICAgICAgICAgICAgDQogICAgICAgICAgICAgICAgIC AgICAgICAgICAgICAgICAgICAgICAgICAgICAgICAgICAgICAgICAgICAgICAgICAgICAgICAgICAgIC AgICAgICAgICAgICAgICAgICAgICAgDQogICAgICAgICAgICAgICAgICAgICAgICAgICAgICAgICAgIC AgICAgICAgICAgICAgICAgICAgICAgICAgICAgICAg ICAgICAgICAgICAgICAgICAgICAgICAgICAgICAgICAgDQogICAgICAgICAgICAgICAgICAgICAgICAg ICAgICAgICAgICAgICAgICAgICAgICAgICAgICAgICAgICAgICAgICAgICAgICAgICAgICAgICAgICAg ICAgICAgICAgICAgICAgDQogICAgICAgICAgICAgIC AgICAgICAgICAgICAgICAgICAgICAgICAgICAgICAgICAgICAgICAgICAgICAgICAgICAgICAgICAgIC AgICAgICAgICAgICAgICAgICAgICAgICAgDQogICAgICAgICAgICAgICAgICAgICAgICAgICAgICAgIC AgICAgICAgICAgICAgICAgICAgICAgICAgICAgICAg ICAgICAgICAgICAgICAgICAgICAgICAgICAgICAgICAgICAgDQogICAgICAgICAgICAgICAgICAgICAg ICAgICAgICAgICAgICAgICAgICAgICAgICAgICAgICAgICAgICAgICAgICAgICAgICAgICAgICAgICAg ICAgICAgICAgICAgICAgICAgDQogICAgICAgICAgIC AgICAgICAgICAgICAgICAgICAgICAgICAgICAgICAgICAgICAgICAgICAgICAgICAgICAgICAgICAgIC AgICAgICAgICAgICAgICAgICAgICAgICAgICAgDQogICAgICAgICAgICAgICAgICAgICAgICAgICAgIC AgICAgICAgICAgICAgICAgICAgICAgICAgICAgICAg ICAgICAgICAgICAgICAgICAgICAgICAgICAgICAgICAgICAgICAgDQogICAgICAgICAgICAgICAgICAg ICAgICAgICAgICAgICAgICAgICAgICAgICAgICAgICAgICAgICAgICAgICAgICAgICAgICAgICAgICAg VDGbHROoBNFvNXPbCRVlFRRjTGHhFTu2N1gfFPCsOW WuZZ1eAHz7Vd2+KDhCPvCgALE8lxAzyP0FQS5gu1SaHWzwWJWfj4QdZYx3MU8MJKEmUSjxZE5EEUzjfq 2VSSKmFIJvoHXLx2vyLpGbIPX4WGKoJwkwRV8EQHXgY5zkakPyCSRwEXXLMF3KFgIbD9IkdP38QQOSHq 4+OYmtfnUsLtgQAbW3JCXwz1FbJAx8QB1XSVBuLqhk j7QgOfExLUTEXUssAK7TXVC5HVRpBLMlCp1SOBLoZ131lbIjNI1TMd0RNgSoEA8ppg3TMuIsSEEdVpcG Vwp2RDarOW8MnVIgZNiVgn9lzwBzzhPXr5FgdiInfUWJEZzrEFZsGlGozsYqn5VcDLNLJA8dAIPnJn4v Jp7hXQRgRETzEqZmOTPRHH8VKXFlCIYsmUGrPSOyWX GMOV4GUGyuOYK9AUKpvgXkhJPmCJnwMT1MVZLscjVtNKzwKITVTWt+Ag6PYV6db9UkZYaxYQIqIP7itv 2QJWhFLcBdL2P6gAKxI3C4COajZn6UDGTrQPPxGYovTDDJRZbvVK6EVX3effM1NP3YdWPmEZZzIKFykJ ObSDj0A40weXVkJPlaZF5FOIH+Jeremy+Dr1LCCWaTCLr PZNuVhGfOTXURxIhO3BoU4HUa2DdI7ApEP39lIofgtAnCWeuEO2ABZ4sHAQmLCQBSK6XsHMxtF5oqoIo MBKbDXWQUuMtF89kfDPsECBdCYM3DHZcAo2WBYDoS8KorkGkfQgauxOyQIKgJCFBLG5MPAxpilQunVIo mCweSJ84wMruKQ9BMf9EBnRtEM2cfl2DrREaMm1ODO BcVf0OVBNbNZRaIDPwITS1WABqAxLqZJhdOPAlMFRePBA7YKJxMPNzLY9ITwIhUDZkBKr3SEljEQZtMW Qzep0REHNaWNVaGEM9ZmPsKWAxVGQhICyrCBBpRGLuFDZ3RANvJTHrUL8ERfKmNYEkDAT1RLPqXMAoHM Dxsa4XKLXmPSObAiu2HWAoAKYnUOGiDNmsLFBzOYMg RZB0ZNKtRGVhYT6OAcAwUQXfEWSqSQCjZGCrEFSgaz5EYXCuZJLjESIfNINxKONqKNMgRGzjXJLvBUZ9 CLvtTKWqWAKsKT6FSbWcTQMgYZQcUPLaAMAvVJPrjn9NZVMrQKRiOSM6LKLhEVTzZGWlJGwmNDWqKIT4 GRQ0KTSmNNTyLO4ZChAoOAYzUPcjQCEgCPRfQFIvuy 9INFUvHVQgGfQ0TGXhZDDqXEFxUNtbGYGxFVI1MdhkQLRjGOUpDI2FWvXvIUHiVAd6VebdZMIsZMGjbo 9PFKOjOBXkBWAeSqJpQXKeZWMyDBwrKSDnNEZ9Sgy0EJYiNLHsHQ7PMgJeHMZdFRv2YYLtBNBtXWZkfo 7YSNJsPELsXIb6KYDdCEDhDLQhIEb3pkDysYRmJBi5 RI7FY4EvdiWtHpFTTv1Oz972XDIoDJUaAy1GR3dwGg7zCIGdCVHPXu0JOTs2ClU9ClUyIMuzJXGyYdvj DdIwAmY1RCA9ROS3HKXsLhu+IHsySXIaGHJmU9JwLnAcEIHbRWGuWyZ7UIydNUR7NzJeLq3qMTNYDc2+ CVyqyEIvrLhpNRUTKeKvEYPvNEdqXSHNFk7T ID Date Data Source [id number] 12/05/2019 02:37:04 PM EDT [facility] Measurements & CalculationsHeight: 62 inches (5 [...] Declined Preferred Language: EnglishFamily and Home Address: [address] [place] [address] What is your housing situation today? I have housing Are you worried about losing your housing? YesMoney and Resources In the past year, have you or any family members you live with been unable to get any of the following when it was really needed? 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 Pt states had back surgery in the past but pain started flaring up about 2-3 years ago. HPI performed by: Radha WRIGHT, December 05, 2019 3:14 PMTransitions of Care InboundMedication Reconciliation & ReviewMe dication List was reviewed and/or updated during this visit, including review of any uqpd-bwh-sbqhgpn medications, herbal therapies, and/or supplements.Allergy ReviewAllergy List [...] is? FairAssessment & Plan Problems:Added: Pruritus vulvae (SRD61-P30.2) Assessment: Instructions: We have sent a prescription [...] explanation of examination or test findings (ICD-V65.8) (BTI69-S97.2) Assessment: Instructions: lab results reviewed with you today.Assessed:Chronic low back pain (ICD-724.2) (WFC47-O09.5) Assessment: Instructions: We have made areferral for you today. We will contact you to set this up.May continue muscle relaxers as prescribed.Health Screening (ICD-V70.0) (YWC15-A79.9) Assessment: Instructions: labs reviewed with you today. [...] INJECTION 70MG/MLZOLMITIRIPTAN 5 MGMETOPROLOL TARTRATE 25 MGNYSTATIN 746543 UNIT/GM EXTERNAL OINTMENTBLOOD PRESSURE MONITOR/ARM DEVICELEXAPRO 10 [...] tabs* AIMOVIG INJECTION 70MG/ML-as needed for migrainesRefilled:NYSTATIN 192305 UNIT/GM EXTERNAL OINTMENT-apply to affected area twice daily as needed Qty: 1[Tube] Refills: 1 Method: ElectronicLISINOPRIL-HYDROCHLOROTHIAZIDE 10-12.5 MG ORAL TABLET-take one tablet by mouth daily Qty: 30[Tablet] Refills: 3 Method: ElectronicChanged:From: EXTERNAL NYSTATIN 053344 UNIT/GM EXTERNAL CREAM Qty: [phone] Refills: 1[Tube] To: NYSTATIN 934605 UNIT/GM EXTERNAL OINTMENT- apply to affected area twice daily as needed Qty: 1[Tube] Refills: 1From: ORAL LISINOPRIL-HYDROCHLOROTHIAZIDE 20-12.5 MG ORAL TABLET Qty: [phone] Refills: 30[Tablet] To: LISINOPRIL-HYDROCHLOROTHIAZIDE 10-12.5 MG ORAL TABLET- take one tablet by mouth daily Qty: 30[Tablet] Refills: 3Allergies:* TRAMADOL (Critical)PREDNISONE (PREDNISONE TABS) (Critical)* CYMBALTA (Critical)Orders:Pain Management Consult [CPT-32763] COMP METABOLIC PANEL [CPT- 21873] CBC W/DIFF [CPT-80546] TSH [CPT-01982] T-4 free [CPT-16514] Adult - Ofc Vst, EST, Level IV [CPT-76864] Follow-Up Return to clinic: 4-6 weeks for follow up Clinical Visit Summary CompletedMedications:LISINOPRIL-HYDROCHLOROTHIAZIDE 10-12.5 MG ORAL TABLET (LISINOPRIL-HYDROCHLOROTHIAZIDE) take one tablet by mouth daily #30[Tablet] x 3 Route:ORAL Entered and Authorized by: Radha WRIGHT Method used: Electronically to [facility] (retail) [id number] [facility] [address] [place] [address] Ph: Note to Pharmacy: Route: ORAL; Indications: ESSENTIAL (PRIMARY) HYPERTENSION RxID: [id number] UNIT/GM EXTERNAL OINTMENT (NYSTATIN) apply to affected area twice daily as needed #1[Tube] x 1 Route:EXTERNAL Entered and Authorized by: Radha WRIGHT Method used: Electronically to [facility] (retail) [address] [facility] [address] [place] [id number] Note to Pharmacy: Route: EXTERNAL; Indications: PRURITUS VULVAE RxID: [id number] signed by Radha WRIGHT on 12/10/2019 at 3:31 PM Name Value Range Interpretation Code Description Data Elli rce(s) Supporting Document(s) ID Date Data Source [id number] 11/05/2019 12:00:00 PM EDT [facility] Name Value Range Interpretation Code Description Data Elli rce(s) Supporting Document(s) VIT D25 TOT 25.8 ng/mL 30.0-100.0 L [facility] BG FASTING 101 mg/dL 70-100 H [facility] T4, FREE 0.88 ng/dL 0.76-1.46 N [facility] TSH 0.342 microintl units/mL 0.358-3.740 L [facility] ID Date Data Source [id number] 11/05/2019 12:00:00 PM EDT [facility] Name Value Range Interpretation Code Description Data Elli rce(s) Supporting Document(s) HCT 38.8 % 36.0-47.0 N [facility] HGB 12.4 g/dL 12.0-15.5 N [facility] MCH 32.0 G/DL pg 32.0-36.5 N [facility] MCHC 30.4 PG % 27.0-33.0 N [facility] PLATELETS 260 10 10*3/mm3 150-450 N [facility] RBC 4.08 10 10*6/mm3 4.00-5.40 [facility] RDW 14.2 % 11.5-14.5 [facility] WBC TOTAL 6.3 4.0-10.0 N [facility] ID Date Data Source [id number] 11/05/2019 12:00:00 PM EDT [facility] Name Value Range Interpretation Code Description Data Elli rce(s) Supporting Document(s) HGBA1C 6.0 % N [facility] ID Date Data Source [id number] 11/05/2019 11:55:36 AM EDT [facility] Information From: patientRoom #: 9Infect ious [...] November 05, 2019 11:56 AMAssessment & Plan Orders:23535-Lvf Vst-Est Level I [CPT-77935] 32735 - Venipuncture [CPT-18419] Vital SignsTemperature: 98.4FPulse Rate: 60 beats/minuteRespiratory Rate: 14 respirations/minuteBlood Pressure: 135/66 Vital Signs performed by: Shanice Seaman, November 05, 2019 11:57 AMVital Signs performed by: Shanice Seaman, November 05, 2019 11:57 AMElect ronically signed by Radha WRIGHT on 11/07/2019 at 3:27 PM Name Value Range Interpretation Code Description Data Elli rce(s) Supporting Document(s) ID Date Data Source [id number] 10/28/2019 02:57:49 PM EDT [facility] Vital Signs performed by: Delmy Espino, [...] during this visit, including review of any gdnr-pus-plhlkab medications, herbal therapies, and/or supplements.Allergy ReviewAllergy List [...] CareInboundAssessment & Plan Problems:Added: Health Screening (ICD-V70.0) (DDF59-Z50.9) Assessment: telephone visit 12 minutes Instructions: We have ordered fasting labs for you today.Assessed:Essential (primary) hypertension (GXJ35-T90) Assessment: Blood pressure management discussed. Pt requesting [...] try to avoid processed foods.Overactive bladder (ICD-596.51) (XJU46-W99.81) Assessment: Instructions: We have refilled medication for [...] (PREDNISONE TABS) (Critical)* CYMBALTA (Critical)Orders:COMP METABOLIC PANEL [CPT-57273] CBC W/DIFF [CPT-28365] HgBA1c [CPT-11344] LIPID PANEL [CPT-81105] TSH [CPT-63584] T-4 free [CPT-23061] Vitamin D 250H Unspecified [CPT-22053] URINALYSIS [CPT-44226] Telephone E&M 11-20 min Medical Discussion [CPT-53138] Follow-Up Return to clinic: 4-6 weeks for follow up. Additional Follow-Up: nurse visit for BP check and labsMedications:BLOOD PRESSURE MONITOR/ARM DEVICE (BLOOD PRESSURE MONITORING) use to monitor blood pressure twice daily #1[Device] x 0 Entered and Authorized by: Radha WRIGHT Method used: Electronically to [facility] (retail) [address] [place] [address] Ph: Indications: ESSENTIAL (PRIMARY) HYPERTENSION RxID: [id number] 25 MG ORAL TABLET EXTENDED RELEASE 24 HOUR (MIRABEGRON) Take one tab po qd #90[Tablet] x 1 Route:ORAL Entered and Authorized by: Radha WRIGHT Method used: Electronically to [facility] (retail) [address] [place] [address] Note to Pharmacy: Route: ORAL; Indications: OVERACTIVE BLADDER RxID: [id number] TESSALSANTANA PERLES 100 MG ORAL CAPSULE (BENZONATATE) take one capsule by mouth three times daily as needed x 10 day. #30[Capsule] x 0 Route:ORAL Entered by: Delmy Scott LPN Authorized by: Radha WRIGHT Method used: Electronically to [facility] (retail) [address] [facility] [address] [place] [address] Ph: RxID: [id number] signed by Radha WRIGHT on 10/28/2019 at 4:22 PM Name Value Range Interpretation Code Description Data Elli rce(s) Supporting Document(s) ID Date Data Source [id number] 08/12/2019 01:07:12 PM [facility] Initial Intake Information from: patient Room #: 10Chief ComplaintBP recheckVital SignsPulse Rate: 75 beats/minuteRespiratory Rate: 14 respirations/minuteBlood Pressure: 134/90 Vital Signs performed by: Shanice Seaman, August 12, 2019 1:10 PMVital Signs performed by: Shanice Seaman, August 12, 2019 1:10 PM Name Value Range Interpretation Code Description Data Elli rce(s) Supporting Document(s) ID Date Data Source [id number] 08/09/2019 12:00:00 AM EST [facility] [place] Patient Name: TORRIE RAMOS Date of : 1955[address] Date of Exam: 08/09/2019YOSELIN Whyte [id number]#: Fax: [phone] EXAM: MRI BRAIN WITHOUT CONTRASTPROCEDURE [...] rce(s) Supporting Document(s) ID Date Data Source [id number] 08/05/2019 01:07:02 PM [facility] Measurements & CalculationsHeight: 62 inches (5 ft. [...] a 2nd opinion. Would like referral to [facility] in [place] as it is too hard to get to her appts in [place]. Pt states was seen in [facility] for a sinus infection 2-3 weeks ago and does not feel as if she is getting any better. Pt requesting refills on Myrbetriq. HPI performed by: Radha WRIGHT, August 05, 2019 1:30 PMTransitions of Care InboundProblem ReviewProblem List was reviewed and/or updated during this visit.Medication Reconciliation & ReviewMedication List was reviewed and/or updated during this visit, including review of any zfjt-hry-lpyjgng medications, herbal therapies, and/or supplements.Allergy ReviewAllergy List [...] & Plan Problems:Added: Pain in unspecified joint (IDB78-H08.50) Assessment: Instructions: We have made a referral to Rheumatology. We will contact you to set this up.Cough (ICD-786.2) (JFG28-U83) Assessment: Instructions: We have sent a prescription to your pharmacy today. Please take medication as prescribed. Please report any major side effects.Please try to maintain adequate fluid intake to include 6-8 glasses of water daily.Congestion of nasal sinus (ICD-478.19) (JAP15-G54.81) Assessment: Instructions: We have sent a prescription to your pharmacy today. Please take medication as prescribed. Please report any major side effects.Please try to maintain adequate fluid intake to include 6-8 glasses of water daily.Nausea with vomiting, unspecified (ICD-787.01) (QQL96-E50.2) Assessment: Instructions: Please continue medications as prescribed. Please continue to maintain lifestyle changes to include a bland diet. Please try to avoid spicy or acidic foods. Please try to limit your caffeine intake. Please try to maintain adequate fluid intake.Burning epigastric pain (ICD-789.06) (RSP47-F71.13) Assessment: Instructions: Please continue medications as prescribed. Please continue to maintain lifestyle changes to include a bland diet. Please try to avoid spicy or acidic foods. Please try to limit your caffeine intake. Please try to maintain adequate fluid intake.Assessed:Essential (primary) hypertension (UCA05-H81) Assessment: Instructions: Your Blood Pressure is elevated today. We have added norvasc. Please take this medication as prescribed. Please report any lonny or side effects. Please start lifestyle changes to include healthy diet and physical activities. Please try to avoid added sodium in your diet. Please try to quit smoking.Smokes tobacco daily (ICD-305.1) (FTO03-P23.0) Assessment: Instructions: Please try to quit smoking. [...] ORAL TABLET EXTENDED RELEASE 24 HOUR Qty: [id number] Refills: 90[Tablet] To: MYRBETRIQ 25 MG ORAL TABLET EXTENDED RELEASE 24 HOUR-Take one tab po qd Qty: 90[Tablet] Refills: 1All ergies:* TRAMADOL (Critical)PREDNISONE (PREDNISONE TABS) (Critical)* CYMBALTA (Critical)Orders:Rheumatology Consult [CPT-67760] Gastroenterology Consult [CPT- 69894] Adult - Ofc Vst, EST, Level IV [CPT-74659] Follow-Up Return to clinic: 4- 6 weeks for follow up Additional Follow-Up: please return in one week for nurse visit to have BP rechecked. Clinical Visit Summary Completed Name Value Range Interpretation Code Description Data Elli rce(s) Supporting Document(s) ID Date Data Source [id number] 07/22/2019 02:52:00 PM EST [facility] ([facility]) Name Value Range Interpretation Code Description Data Elli rce(s) Supporting Document(s) MRI Brain W/O Contrast Laboratory test result [facility] ([facility]) ID Date Data Source [id number] 07/14/2019 02:31:00 PM EST [facility] ([facility]) Name Value Range Interpretation Code Description Data Elli rce(s) Supporting Document(s) Bacteria identified in Urine by Culture <pending> [facility] ([facility]) ID Date Data Source [id number] 06/26/2019 08:52:48 AM EST [facility] Name Value Range Interpretation Code Description Data Elli rce(s) Supporting Document(s) Progress Note [facility] NWSYEe2bTdDWKsGi82/IEFtkZPLyg9EbNMqxJCs6GYgbDCQmF7VjUPE2qN4oPQH3GRgSWhUbXDjmPaR0 [facility] [file] Wnt862koc0oWMOmp/+1fM+6b/9S3V/roe+bsfZDLiiq+9gxIyLOOYoOUpi5MighOiuYFAqWAQf5rmRYvr i2vgZDHlao8/samSjAG2nG8De9H7hJxAR/ujm1iyrM 18Cb2DkN6Xz6FGldKTE06YBXh7DZ7UDdlf1QtRTJS3YlHhf0U8KnH6qpPQFzVkojlnoIfFnvIAiXOFUo k99OiUj7W7FBbmdq08RxdOtOAY/+XqvNTdoWhm8lBUVCwMJImE9Uk4MdpI8LsrKRfSEoMmbtewU2z6sO f5w2HgE8H1V4Ptqylzc874zoFhe9u9+jl0MQHvEuWz IkpK8MXg/sjSowpPWYLRdpDoBVWMTf1BnCMdPtkT+37n00GULzCdY18L4ICUZC32qdnn2oVl8mdQYfCq PVIBaCxPukYnfLH8ANluwVEZFx4WE/m2pf0AJR5LM3qCk5vOThksVLyDJn+/hhJSvJDZ9wvtRIUmHGVl TnY6ZTqiLwJ2L6rxuxJC6XG+arq0UExbBmpMaUiV8Z Wr8NDDNtMrT2oUE9kGURJYap/2IxawPelFnU2iv0shYECtK2rgHRlKtR5dtPOcSOZK2kSyv6eYVvAUaO VwFWfBf01WnFK8qvAfJfssiAQzIclvUyRqHBdmXWgaCWjWOcTDf3LePRIXBKr8oC5+tA/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 [file] 3n7rB6RYHpRSu/ILeP4SWZ31WRwgFE5bGF9k8jQ55MJyfCga7hCWtwuoCPct/Hernán/qsYeUDMl67PTiVa [file] XSANCj4+HSlrzSQsfOffDDEKWyM8RvZfDQbcJWJOBv7B Procedure Social History Code Duration Value Status Description Data Source(s ) Alcohol intake 05/13/2020 12:00:00 AM EST Never completed [facility] Cigarette pack-years 05/13/2020 12:00:00 AM EST UNK completed [facility] Cigarettes smoked current (pack per day) - Reported 05/13/20 12:00:00 AM EST UNK completed [facility] Smoking 05/13/2020 12:00:00 AM EST Current some day smoker com pleted Current some day smoker [facility] Smoking 05/01/2020 12:00:00 AM EDT Current Smoker completed [facility] Smoker eCW1 ([facility]) Alcohol intake 12/30/2019 12:00:00 AM EDT Current non-d brendan of alcohol (finding) completed Current non-drinker of alcohol (finding) [facility] Cigarette pack-years 12/30/2019 12:00:00 AM EDT UNK [facility] Cigarettes smoked current (pack per day) - Reported 12/30/19 12:00:00 AM EDT UNK completed [facility] Smoking 12/30/2019 12:00:00 AM EDT Current some day smoker com pleted Current some day smoker [facility] Vital Signs ID Date Data Source UNK Name Value Range Interpretation Code Description Data Source(s) Body weight 3139.2 [oz_av] 3139.2 [oz_av] ATHEN A ([facility]) Systolic blood pressure 131 mm[Hg] 131 mm[Hg] A THENA ([facility]) Body mass index (BMI) [Ratio] 35.9 kg/m2 35.9 k g/m2 BERNIE ([facility]) Body height 62 [in_i] 62 [in_i] BERNIE ([facility]) Diastolic blood pressure 69 mm[Hg] 69 mm[Hg] BERNIE ([facility]) Body weight 3078.4 [oz_av] 3078.4 [oz_av] ATHEN A ([facility]) Body mass index (BMI) [Ratio] 35.2 kg/m2 35.2 k g/m2 BERNIE ([facility]) Body height 62 [in_i] 62 [in_i] BERNIE ([facility]) Body weight 3078.4 [oz_av] 3078.4 [oz_av] ATHMYNOR A ([facility]) Body mass index (BMI) [Ratio] 35.2 kg/m2 35.2 k g/m2 BERNIE ([facility]) Body height 62 [in_i] 62 [in_i] BERNIE ([facility]) Oxygen saturation in Arterial blood by Pulse oximetry 96 % 96 % [facility] Body mass index (BMI) [Ratio] 35.23 kg/m2 35.23 kg/m2 [facility] Body weight 87.363 kg 87.363 kg [facility] Body height 157.5 cm 157.5 cm [facility] Heart rate 59 /min 59 /min [facility] Diastolic blood pressure 80 mm[Hg] 80 mm[Hg] [facility] Systolic blood pressure 130 mm[Hg] 130 mm[Hg] [facility] Diastolic blood pressure 82 mm[Hg] 82 mm[Hg] eCW1 ([facility]) Systolic blood pressure 142 mm[Hg] 142 mm[Hg] e CW1 ([facility]) Body temperature 97.7 [degF] 97.7 [degF] eCW1 ( [facility]) Respiratory rate 18 /min 18 /min eCW1 ([facility]) Body height 62 [in_i] 62 [in_i] eCW1 ([facility]) Body weight 194.2 [lb_av] 194.2 [lb_av] eCW1 ([facility]) Heart rate 61 /min 61 /min eCW1 ([facility]) Body mass index (BMI) [Ratio] 35.52 kg/m2 35.52 kg/m2 eCW1 ([facility]) Body mass index (BMI) [Ratio] 34.7 kg/m2 34.7 k g/m2 [facility] ([facility]) Body height 62 [in_i] 62 [in_i] [facility] ([facility]) 5'2" Body weight 190.00 [lb_av] 190.00 [lb_av] MEDEN T ([facility], [facility]) Body temperature 97.3 [degF] 97.3 [degF] [facility] ([facility], [facility]) Oxygen saturation in Arterial blood by Pulse oximetry 98 % 98 % [facility] ([facility], [facility]) Respiratory rate 16 /min 16 /min [facility] ( [facility], [facility]) Heart rate 66 /min 66 /min [facility] ([facility]) Diastolic blood pressure 80 mm[Hg] 80 mm[Hg] MEDENT ([facility], [facility]) Systolic blood pressure 125 mm[Hg] 125 mm[Hg] M EDENT ([facility], [facility]) Body weight 3048 [oz_av] 3048 [oz_av] BERNIE ([facility]) Body height 62 [in_i] 62 [in_i] BERNIE ([facility]) Body weight 3048 [oz_av] 3048 [oz_av] BERNIE ([facility]) Body height 62 [in_i] 62 [in_i] BERNIE ([facility]) Body weight 3046.08 [oz_av] 3046.08 [oz_av] ATH AGGIE ([facility]) Body height 62 [in_i] 62 [in_i] BERNIE ([facility]) Body weight 3046.08 [oz_av] 3046.08 [oz_av] ATH AGGIE ([facility]) Body height 62 [in_i] 62 [in_i] BERNIE ([facility]) Body weight 2982.08 [oz_av] 2982.08 [oz_av] ATH AGGIE ([facility]) Systolic blood pressure 112 mm[Hg] 112 mm[Hg] A THENA ([facility]) Body height 62 [in_i] 62 [in_i] BERNIE ([facility]) Diastolic blood pressure 71 mm[Hg] 71 mm[Hg] BERNIE ([facility]) Body weight 2982.08 [oz_av] 2982.08 [oz_av] ATH AGGIE ([facility]) Systolic blood pressure 112 mm[Hg] 112 mm[Hg] A THENA ([facility]) Body height 62 [in_i] 62 [in_i] BERNIE ([facility]) Diastolic blood pressure 71 mm[Hg] 71 mm[Hg] BERNIE ([facility]) Systolic blood pressure 135 mm[Hg] 135 mm[Hg] A THENA ([facility]) Diastolic blood pressure 66 mm[Hg] 66 mm[Hg] BERNIE ([facility]) Systolic blood pressure 135 mm[Hg] 135 mm[Hg] A THENA ([facility]) Diastolic blood pressure 66 mm[Hg] 66 mm[Hg] BERNIE ([facility]) Systolic blood pressure 112 mm[Hg] 112 mm[Hg] e CW1 ([facility]) Body temperature 97.8 [degF] 97.8 [degF] eCW1 ( [facility]) Respiratory rate 18 /min 18 /min eCW1 ([facility]) Heart rate 59 /min 59 /min eCW1 ([facility]) Body mass index (BMI) [Ratio] 34.97 kg/m2 34.97 kg/m2 [facility] ([facility]) Body height 62 [in_us] 62 [in_us] eCW1 ([facility]) Body weight Measured 191.2 [lb_av] 191.2 [lb_av ] eCW1 ([facility]) Diastolic blood pressure 60 mm[Hg] 60 mm[Hg] eCW1 ([facility]) Body weight 3056.96 [oz_av] 3056.96 [oz_av] ATH AGGIE ([facility]) Body height 62 [in_i] 62 [in_i] BERNIE ([facility]) Body weight 3056.96 [oz_av] 3056.96 [oz_av] ATH AGGIE ([facility]) Body height 62 [in_i] 62 [in_i] BERNIE ([facility]) Diastolic blood pressure 80 mm[Hg] 80 mm[Hg] eCW1 ([facility], [facility]) Systolic blood pressure 132 mm[Hg] 132 mm[Hg] e CW1 ([facility]ly [facility], [facility]) Body temperature 98.4 [degF] 98.4 [degF] eCW1 ( [facility]) Respiratory rate 18 /min 18 /min eCW1 ([facility]) Heart rate 69 /min 69 /min eCW1 ([facility]) Body mass index (BMI) [Ratio] 35.55 kg/m2 35.55 kg/m2 eCW1 ([facility], [facility]) Body height 62 [in_us] 62 [in_us] eCW1 ([facility]) Body weight Measured 194.4 [lb_av] 194.4 [lb_av ] eCW1 ([facility]) Systolic blood pressure 134 mm[Hg] 134 mm[Hg] A [facility] ([facility]) Diastolic blood pressure 90 mm[Hg] 90 mm[Hg] BERNIE ([facility]) Systolic blood pressure 134 mm[Hg] 134 mm[Hg] A [facility] ([facility]) Diastolic blood pressure 90 mm[Hg] 90 mm[Hg] BERNIE ([facility]) Body weight 3129.6 [oz_av] 3129.6 [oz_av] ATHEN A ([facility]) Systolic blood pressure 156 mm[Hg] 156 mm[Hg] [facility] Body height 62 [in_i] 62 [in_i] BERNIE ([facility]) Diastolic blood pressure 96 mm[Hg] 96 mm[Hg] BERNIE ([facility]) Body weight 3129.6 [oz_av] 3129.6 [oz_av] ATHEN A ([facility]) Systolic blood pressure 156 mm[Hg] 156 mm[Hg] [facility] Body height 62 [in_i] 62 [in_i] BERNIE ([facility]) Diastolic blood pressure 96 mm[Hg] 96 mm[Hg] BERNIE ([facility]) Respiratory rate 16 /min 16 /min MEDENT ( [facility]) Body temperature 36.5 Camryn 36.5 Camryn MEDENT ( [facility]) Body temperature 97.7 [degF] 97.7 [degF] MEDENT ([facility]) Heart rate 84 /min 84 /min MEDENT ([facility]) Diastolic blood pressure 81 mm[Hg] 81 mm[Hg] MEDENT ([facility]) Systolic blood pressure 132 mm[Hg] 132 mm[Hg] EDENT ([facility]) Respiratory rate 16 /min 16 /min MEDENT ( [facility]) Body temperature 97.7 [degF] 97.7 [degF] MEDENT ([facility]) Heart rate 84 /min 84 /min MEDENT ([facility]) Diastolic blood pressure 81 mm[Hg] 81 mm[Hg] MEDENT ([facility]) Systolic blood pressure 132 mm[Hg] 132 mm[Hg] [facility] ([facility]) Body mass index (BMI) [Ratio] 36.6 kg/m2 36.6 k g/m2 [facility], [facility]) Body height 62 [in_i] 62 [in_i] [facility] ([facility], [facility]) 5'2" Body weight 200.00 [lb_av] 200.00 [lb_av] MEDEN T ([facility], [facility]) Body temperature 98.4 [degF] 98.4 [degF] MEDENT ([facility], [facility]) Oxygen saturation in Arterial blood by Pulse oximetry 96 % 96 % MEDENT ([facility], [facility]) Respiratory rate 18 /min 18 /min MEDENT ( [facility], [facility]) Heart rate 89 /min 89 /min MEDENT ([facility], [facility]) Diastolic blood pressure 84 mm[Hg] 84 mm[Hg] MEDENT ([facility], [facility]) Systolic blood pressure 135 mm[Hg] 135 mm[Hg] [facility] Body weight 2854.08 [oz_av] 2854.08 [oz_av] ATH AGGIE ([facility]) Systolic blood pressure 153 mm[Hg] 153 mm[Hg] A THENA ([facility]) Body height 62 [in_i] 62 [in_i] BERNIE ([facility]) Diastolic blood pressure 104 mm[Hg] 104 mm[Hg] BERNIE ([facility]) Body weight 2854.08 [oz_av] 2854.08 [oz_av] ATH AGGIE ([facility]) Systolic blood pressure 153 mm[Hg] 153 mm[Hg] A BRANDT ([facility]) Body height 62 [in_i] 62 [in_i] BERNIE ([facility]) Diastolic blood pressure 104 mm[Hg] 104 mm[Hg] BERNIE ([facility]) ID Date Data Source [id number] 07/17/2019 01:31:45 PM [facility] Name Value Range Interpretation Code Description Data Source(s) WEIGHT RECORDED 202.4 lb 202.4 lb [facility] Body height Measured 62.01 in 62.01 in [facility] Patient Treatment Plan of Care Planned Activity Planned Date Details Description Data Source (s) varenicline 1 MG Oral Tablet 05/13/2020 12:00:00 AM [facility] varenicline (CHANTIX STARTING MONTH ) 0.5 MG X 11 & 1 MG X 42 tablet 05/13/2020 12:00:00 AM EST [facility] Ondansetron 8 MG Oral Tablet 05/03/2020 12:00:00 AM EDT [facility] zolmitriptan 5 MG Oral Tablet 05/03/2020 12:00:00 AM EDT [facility] zaleplon 10 MG Oral Capsule 04/25/2020 12:00:00 AM EDT [facility] Nystatin 100 UNT/MG Topical Ointment 04/21/2020 12:00:00 AM EDT [facility] Escitalopram 20 MG Oral Tablet 04/20/2020 12:00:00 AM EDT [facility] AIMOVIG 140 MG/ML SOAJ 04/08/2020 12:00:00 AM EDT [facility] atorvastatin 20 MG Oral Tablet 01/23/2020 12:00:00 AM EDT [facility] Hydrochlorothiazide 12.5 MG / Lisinopril 20 MG Oral Ta blet 01/23/2020 12:00:00 AM EDT [facility] Metoprolol Tartrate 25 MG Oral Tablet 12/23/2019 12:00:00 AM EDT [facility] ropinirole 2 MG Oral Tablet 11/15/2019 12:00:00 AM EDT [facility] ropinirole 2 MG Oral Tablet 11/15/2019 12:00:00 AM [facility] zaleplon 10 MG Oral Capsule 10/30/2019 12:00:00 AM [facility] zolmitriptan 5 MG Oral Tablet 10/17/2019 12:00:00 AM [facility] AIMOVIG 70 MG/ML SOAJ 08/22/2019 12:00:00 AM [facility] Amlodipine 2.5 MG Oral Tablet 08/05/2019 12:00:00 AM EST [facility] Baclofen 20 MG Oral Tablet 06/24/2019 12:00:00 AM EST [facility] ropinirole 2 MG Oral Tablet 06/03/2019 12:00:00 AM [facility] ropinirole 2 MG Oral Tablet 06/03/2019 12:00:00 AM [facility] Escitalopram 10 MG Oral Tablet BERNIE ([facility]) Clindamycin 300 MG Oral Capsule BERNIE ([facility]) Cephalexin 500 MG Oral Capsule BERNIE ([facility]) atorvastatin 10 MG Oral Tablet BERNIE ([facility]) lamotrigine 100 MG Oral Tablet BERNIE ([facility])
== END 2020-08-13 01:03 | disposition home or self-care (01) ==
LOC: M ED 22:31
DX: S60.222A Contusion of left hand, initial encounter (principal); W22.8XXA Striking against or struck by other objects, initial encounter; Y92.018 Other place in single-family (private) house as the place of occurrence of the external cause; I10 Essential (primary) hypertension; Z79.899 Other long term (current) drug therapy; Z88.5 Allergy status to narcotic agent; Z88.8 Allergy status to other drugs, medicaments and biological substances; F17.210 Nicotine dependence, cigarettes, uncomplicated

== ENCOUNTER → 2020-08-14 | Outpatient (CLI) | payer MEDICARE, MEDICAID ==
[~2020-08-14] MED LIST changes: +AMLO2.5T3; +ATOR1TAB21; +ESCI20TA16; +LAMO200T3; +LISI20TA35; +METO1TAB87; +MYRB25TA; +ZALE10CA
== END ==
LOC: M LABSMTC 13:54
PROVIDERS: ATTEND Anesthesiology
DX: Z01.812 Encounter for preprocedural laboratory examination (principal); Z20.822 Contact with and (suspected) exposure to COVID-19

== ENCOUNTER 2021-02-12 00:37 | Emergency (ER) | payer MEDICARE, MEDICAID ==
[~2021-02-12] VITALS: Ht 157.5 cm; Wt 89.8 kg
[2021-02-12] MEDS ORDERED: diazePAM 5MG TABLET PO ONE (01:40)
[2021-02-12] MEDS ORDERED: LIDOCAINE 5% (LIDODERM) PATCH TD ONE (01:40)
[2021-02-12] MEDS ORDERED: GABAPENTIN 300 MG CAP PO ONE (01:40)
[2021-02-12] MEDS ORDERED: KETOROLAC 60MG 2ML VIAL IM ONE (01:40)
--- NOTE | 2021-02-12 02:46 | REPVR ---
PROCEDURE INFORMATION: Exam: CT Cervical Spine Without Contrast Exam date and time: 02/12/2021 1:37 AM Age: 66 years old Clinical indication: Neck pain; Additional info: Paravertebral neck pain, radiates to shoulder, tingling lue TECHNIQUE: Imaging protocol: Computed tomography images of the cervical spine without contrast. Radiation optimization: All CT scans at this facility use at least one of these dose optimization techniques: automated exposure control; mA and/or kV adjustment per patient size (includes targeted exams where dose is matched to clinical indication); or iterative reconstruction. COMPARISON: MRI-Spine,Cervical without con 01/22/2018 3:36 PM FINDINGS: Bones/joints: No acute cervical spine fracture. The facet alignment is preserved bilaterally. The occipital condyles and C1-C2 articulations appear intact. The cervical lordosis is straightened. Mild anterolisthesis of C4 on C5 with mild retrolisthesis of C5 on C6. Hypertrophic degenerative changes are identified at the junction of the anterior C1 arch and dens process. A mineralized density is identified inferior to the anterior C1 arch. Discs/Spinal canal/Neural foramina: Degenerative changes are visualized at multiple cervical levels. Facet arthropathy is identified at multiple cervical levels. There is a significant decrease in disc height at C5-C6 with sclerotic changes. Mild spinal canal stenosis at C5-C6. Bilateral neural foraminal narrowing at C5-C6, with right neural foraminal narrowing at C3-C4. Lungs: No pneumothorax, as visualized. Soft tissues: No significant prevertebral soft tissue swelling. IMPRESSION: 1. No acute cervical spine fracture. 2. The cervical lordosis is straightened. 3. Mild anterolisthesis of C4 on C5 with mild retrolisthesis of C5 on C6. 4. Degenerative changes are visualized at multiple cervical levels. Mild spinal canal stenosis at C5-C6. Bilateral neural foraminal narrowing at C5-C6, with right neural foraminal narrowing at C3-C4. These findings can be further evaluated with a follow-up MRI. Electronically signed by: Dickson Tijerina On 02/12/2021 02:45:59 AM
--- NOTE | 2021-02-12 02:54 | REPVR ---
PROCEDURE INFORMATION: Exam: US Duplex Left Upper Extremity Veins, Limited Exam date and time: 02/12/2021 2:17 AM Age: 66 years old Clinical indication: Pain; Arm, upper and other: Shoulder; Left; Additional info: Left arm tingling from shoulder, burning pain TECHNIQUE: Imaging protocol: Real-time Duplex ultrasound of the Left Upper Extremity with 2-D boone scale, color Doppler flow and spectral waveform analysis with image documentation. Limited exam focused on the left upper extremity veins. COMPARISON: CR Wrist, complete 08/12/2020 10:38 PM FINDINGS: Left deep veins: Axillary and brachial veins are patent throughout without thrombus. Normal Doppler waveforms. Normal compressibility and/or augmentation response. Visualized internal jugular and subclavian veins are patent. Left superficial veins: Visualized cephalic and basilic veins are patent without thrombus. Soft tissues: Unremarkable. IMPRESSION: No evidence of deep vein thrombosis involving the left upper extremity, as visualized. Electronically signed by: Dickson Tijerina On 02/12/2021 02:53:39 AM
[2021-02-12 02:59] VITALS: BP 114/71
[2021-02-12] MEDS ORDERED: NAPR-885 PO (02:59)
[2021-02-12] MEDS ORDERED: NEUR300C PO (03:41)
--- NOTE | 2021-02-12 08:53 | ED PDOC ---
Post-Departure Follow-Up radiology repor tfaxed to Masha Huddleston MD Feb 12, 2021 08:53
[2021-02-12] MEDS ORDERED: **NOTE PATIENT COMMENT** MISC XX SCH (21:00)
== END 2021-02-12 03:50 | disposition home or self-care (01) ==
LOC: M ED 00:37
DX: R20.2 Paresthesia of skin (principal); M79.602 Pain in left arm; M43.12 Spondylolisthesis, cervical region; M50.30 Other cervical disc degeneration, unspecified cervical region; M48.02 Spinal stenosis, cervical region; I10 Essential (primary) hypertension; E78.5 Hyperlipidemia, unspecified; K21.9 Gastro-esophageal reflux disease without esophagitis; Z87.442 Personal history of urinary calculi; F17.200 Nicotine dependence, unspecified, uncomplicated; Z88.8 Allergy status to other drugs, medicaments and biological substances; Z79.899 Other long term (current) drug therapy
CPT/HCPCS: 72125; 93971; 96372; 99283; J1885

== ENCOUNTER → 2022-05-02 | Outpatient (REF) | payer OTHER, MEDICAID ==
[~2022-05-02] MED LIST changes: +NAPR-885 PO
== END ==
LOC: M LAB REF 11:41
PROVIDERS: ATTEND Nurse Practitioner Family
DX: J02.9 Acute pharyngitis, unspecified (principal)

== ENCOUNTER → 2022-05-03 | Outpatient (CLI) | payer OTHER, MEDICAID | LOC: M ADAMS 15:07 | PROVIDERS: ATTEND Nurse Practitioner Family | DX: R06.2 Wheezing (principal) ==

== ENCOUNTER → 2022-05-05 | Outpatient (REF) | payer OTHER, MEDICAID | LOC: M LAB REF 20:59 | PROVIDERS: ATTEND Nurse Practitioner Family | DX: J02.9 Acute pharyngitis, unspecified (principal) ==

== ENCOUNTER → 2022-10-05 | Outpatient (CLI) | payer MEDICARE, MEDICAID ==
[~2022-10-05] MED LIST changes: -PAXI40TA10 PO; +PAXI40TA12 PO
[2022-10-05 11:08] LABS: BASO % 0.5 % (0.0-1.0); EOS # 0.2 10^3/uL (0.0-0.5); EOS % 3.6 % (0.0-3.0); HEMATOCRIT 38.6 % (36.0-47.0); HEMOGLOBIN 12.2 g/dl (12.0-15.5); LYMPH # 1.8 10^3/uL (1.5-5.0); LYMPH % 29.7 % (24.0-44.0); MEAN CORPUSCULAR HEMOGLOBIN 30.5 pg (27.0-33.0); MEAN CORPUSCULAR HGB CONC 31.6 g/dl (32.0-36.5); MEAN CORPUSCULAR VOLUME 96.5 fl (80.0-96.0); MONO # 0.3 10^3/uL (0.0-0.8); MONO % 5.3 % (2.0-8.0); NEUTROPHILS # 3.6 10^3/uL (1.5-8.5); NEUTROPHILS % 60.4 % (36.0-66.0); PLATELET COUNT, AUTOMATED 227 10^3/uL (150-450); WHITE BLOOD COUNT 5.9 10^3/uL (4.0-10.0)
[2022-10-05 11:40] LABS: BLOOD UREA NITROGEN 25 MG/DL (9-23); CALCIUM LEVEL 8.9 MG/DL (8.3-10.6); CARBON DIOXIDE LEVEL 30 MMOL/L (20-31); CHLORIDE LEVEL 106 MMOL/L (98-107); CREATININE FOR GFR 0.75 MG/DL (0.55-1.30); GLOMERULAR FILTRATION RATE > 60.0 (>45); GLUCOSE, FASTING 93 MG/DL (74-106); SODIUM LEVEL 140 MMOL/L (136-145)
== END ==
LOC: M LAB 09:20
PROVIDERS: ATTEND Physician Assistant
DX: R07.89 Other chest pain (principal)

== ENCOUNTER 2022-11-09 06:33 | Inpatient (IN) | payer MEDICARE, MEDICAID ==
[2022-11-09] VITALS (8 sets, daily range): BP systolic 125–178; BP diastolic 70–91; O2SAT 96–97
[~2022-11-09] VITALS: Ht 157.5 cm; Wt 85.6 kg
[~2022-11-09 06:33] MED LIST changes: -ATOR1TAB21; +ATOR1TAB21 PO; -LAMO200T3; +LAMO200T3 PO; -LISI20TA35; +LISI20TA35 PO; -METO1TAB87; +METO1TAB87 PO; -MYRB25TA; +MYRB25TA PO; -ZALE10CA; +ZALE10CA PO
[2022-11-09 07:07] LABS: BASO % 0.6 % (0.0-1.0); EOS # 0.2 10^3/uL (0.0-0.5); EOS % 3.2 % (0.0-3.0); HEMOGLOBIN 12.3 g/dl (12.0-15.5); LYMPH # 1.8 10^3/uL (1.5-5.0); LYMPH % 33.1 % (24.0-44.0); MEAN CORPUSCULAR HEMOGLOBIN 30.8 pg (27.0-33.0); MEAN CORPUSCULAR HGB CONC 32.4 g/dl (32.0-36.5); MONO # 0.4 10^3/uL (0.0-0.8); MONO % 7.3 % (2.0-8.0); NEUTROPHILS % 55.4 % (36.0-66.0); PLATELET COUNT, AUTOMATED 233 10^3/uL (150-450); WHITE BLOOD COUNT 5.3 10^3/uL (4.0-10.0)
[2022-11-09 07:33] LABS: ALBUMIN 4.1 G/DL (3.2-5.2); ALKALINE PHOSPHATASE 62 U/L (46-116); ALT/SGPT 35 U/L (7.0-40); AST/SGOT 59 U/L (<34); BILIRUBIN,DIRECT < 0.1 MG/DL (<0.4); BILIRUBIN,TOTAL 0.2 MG/DL (0.3-1.2); BLOOD UREA NITROGEN 35 MG/DL (9-23); CALCIUM LEVEL 8.6 MG/DL (8.3-10.6); CARBON DIOXIDE LEVEL 24 MMOL/L (20-31); CHLORIDE LEVEL 111 MMOL/L (98-107); CREATININE FOR GFR 1.33 MG/DL (0.55-1.30); GLOMERULAR FILTRATION RATE 42.2 (>45); GLUCOSE, FASTING 139 MG/DL (74-106); POTASSIUM SERUM 3.7 MMOL/L (3.5-5.1); SODIUM LEVEL 143 MMOL/L (136-145); TOTAL PROTEIN 6.4 G/DL (5.7-8.2)
[2022-11-09 07:38] LABS: ABG BASE EXCESS -4.3 (-2.0-2.0); ABG HCO3 20.4 MMOL/L (22.0-26.0); ABG O2 SATURATION 97.3 % (95.0-99.0); ABG PARTIAL PRESSURE CO2 36.1 mmHg (35.0-45.0); ABG PARTIAL PRESSURE O2 97.3 mmHg (75.0-100.0); ABG STANDARD HCO3 20.9 MMOL/L. (22.0-26.0); ABG TOTAL CO2 21.5 MMOL/L (23.0-31.0); ABG pH (ARTERIAL) 7.369 UNITS (7.350-7.450)
[2022-11-09 07:46] LABS: ETHYL ALCOHOL (ETHANOL) < 0.003 % (0.000-0.010)
[2022-11-09 07:48] LABS: ACETAMINOPHEN LEVEL < 2.0 UG/ML (10.0-20.0); SALICYLATE LEVEL < 3.0 MG/DL (<30)
[2022-11-09] MEDS ORDERED: NS 1,000 ML IV SCH ×2 (08:00→10:05)
[2022-11-09] MEDS ORDERED: METOCLOPRAMIDE INJ 10MG/2ML VIAL IV ONE (08:00)
[2022-11-09 08:03] LABS: OSMOLALITY SERUM 301 MOSM/KG (280-301)
[2022-11-09 08:17] LABS: THYROID STIMULATING HORMONE 0.228 uIU/ML (0.55-4.78)
[2022-11-09 08:57] LABS: CK-MB VALUE MASS 37.3 NG/ML (<3.6)
[2022-11-09 09:08] LABS: CPK CREATINE PHOSPHOKINASE 1247 U/L (34-145); MB/CK RELATIVE INDEX 2.99 (< OR =4)
[2022-11-09 09:22] LABS: RSV AMPLIFICATION NEGATIVE (NEGATIVE)
[2022-11-09] MEDS: amLODIPine 5 MG TAB PO ONE ×2 (09:40→13:42)
[2022-11-09] MEDS: METOPROLOL TART 25 MG TABLET PO ONE ×2 (09:41→13:42)
[2022-11-09 10:03] LABS: AMPHETAMINES LEVEL URINE NEGATIVE (NEGATIVE); BARBITURATES URINE NEGATIVE (NEGATIVE); BENZODIAZEPINES URINE NEGATIVE (NEGATIVE); CANNABINOIDS URINE NEGATIVE (NEGATIVE); COCAINE METABOLITE URINE NEGATIVE (NEGATIVE); METHADONE URINE NEGATIVE (NEGATIVE); PHENCYCLIDINE URINE NEGATIVE (NEGATIVE)
[2022-11-09 10:19] LABS: OPIATES URINE POSITIVE (NEGATIVE)
[2022-11-09] MEDS ORDERED: MOM 30ML SUSPENSION UDC PO PRN (10:45)
[2022-11-09] MEDS ORDERED: ACETAMINOPHEN TAB 650MG DOSE (2X325MG) PO PRN (10:45)
[2022-11-09] MEDS ORDERED: MAALOX 30 ML SUSP *UDC PO PRN (10:45)
[2022-11-09] MEDS ORDERED: BUPR15TASR PO (12:43)
[2022-11-09] MEDS ORDERED: ALBU8.5H INH (12:43)
[2022-11-09] MEDS ORDERED: LEXA1TAB2 PO (12:43)
[2022-11-09] MEDS ORDERED: AIMO70IN2 SC (12:43)
[2022-11-09] MEDS ORDERED: VARE1TAB2 PO (12:43)
[2022-11-09] MEDS ORDERED: VITA200032 PO (12:43)
[2022-11-09] MEDS ORDERED: OMEP40CA5 PO (12:43)
[2022-11-09] MEDS ORDERED: TRAZ-252 PO (12:43)
[2022-11-09 12:54] LABS: CHLORIDE,RANDOM URINE 83 MMOL/L; OSMOLALITY URINE 574 MOSM/KG (50-1400); SODIUM,RANDOM URINE 82 MMOL/L
[2022-11-09 13:00] LABS: MYOGLOBIN SCREEN, URINE NEGATIVE (NEGATIVE)
[2022-11-09] MEDS ORDERED: MED REC COMMENT (13:03)
[2022-11-09 13:04] LABS: CREATININE,RANDOM URINE 145.9 MG/DL
[2022-11-09] MEDS ORDERED: AMLO1TAB24 PO (13:21)
[2022-11-09] MEDS ORDERED: HOME MED LIST COMPLETE! XX SCH (13:30)
[2022-11-09] MEDS: DOCUSATE SODIUM 100MG CAPSULE PO SCH ×2 (13:41→20:42)
[2022-11-09] MEDS: HEPARIN SOD (PORCINE) 5000UNITS/ML 1ML VIAL/SYRINGE SC SCH ×2 (15:43→22:08)
[2022-11-09] MEDS: NS 1,000 ML IV SCH ×2 (15:43→20:45)
[2022-11-09] MEDS: OMEPRAZOLE 20MG CAP PO SCH (20:42)
[2022-11-09] MEDS: METOPROLOL TART 25 MG TABLET PO SCH (20:43)
[2022-11-10] VITALS (17 sets, daily range): BP systolic 144–180; BP diastolic 70–95; O2SAT 92–97
[2022-11-10] MEDS ORDERED: ASPIRIN 81MG CHEW TABLET PO ONE (02:00)
[2022-11-10] MEDS: HEPARIN SOD (PORCINE) 5000UNITS/ML 1ML VIAL/SYRINGE SC SCH ×2 (05:03→13:08)
[2022-11-10] MEDS: NS 1,000 ML IV SCH (05:03)
[2022-11-10] MEDS ORDERED: amLODIPine 5 MG TAB PO ONE (06:00)
[2022-11-10 06:14] LABS: BASO % 0.3 % (0.0-1.0); EOS # 0.1 10^3/uL (0.0-0.5); EOS % 1.9 % (0.0-3.0); HEMATOCRIT 39.3 % (36.0-47.0); HEMOGLOBIN 12.2 g/dl (12.0-15.5); LYMPH # 2.7 10^3/uL (1.5-5.0); LYMPH % 42.5 % (24.0-44.0); MEAN CORPUSCULAR VOLUME 96.6 fl (80.0-96.0); MONO # 0.4 10^3/uL (0.0-0.8); MONO % 5.6 % (2.0-8.0); NEUTROPHILS # 3.2 10^3/uL (1.5-8.5); NEUTROPHILS % 49.2 % (36.0-66.0); PLATELET COUNT, AUTOMATED 232 10^3/uL (150-450); RED BLOOD COUNT 4.07 10^6/uL (4.00-5.40); WHITE BLOOD COUNT 6.4 10^3/uL (4.0-10.0)
[2022-11-10 06:46] LABS: BLOOD UREA NITROGEN 24 MG/DL (9-23); CALCIUM LEVEL 8.8 MG/DL (8.3-10.6); CARBON DIOXIDE LEVEL 28 MMOL/L (20-31); CHLORIDE LEVEL 110 MMOL/L (98-107); CREATININE FOR GFR 0.89 MG/DL (0.55-1.30); GLOMERULAR FILTRATION RATE > 60.0 (>45); GLUCOSE, FASTING 89 MG/DL (74-106); POTASSIUM SERUM 4.8 MMOL/L (3.5-5.1); SODIUM LEVEL 142 MMOL/L (136-145)
[2022-11-10 07:35] LABS: CPK CREATINE PHOSPHOKINASE 514 U/L (34-145)
[2022-11-10 08:27] LABS: CK-MB VALUE MASS 11.8 NG/ML (<3.6); MB/CK RELATIVE INDEX 2.29 (< OR =4)
[2022-11-10] MEDS ORDERED: ALBUTEROL 90 MCG/ACT 8GM HFA INHALER INH PRN (08:50)
[2022-11-10] MEDS ORDERED: ESCITALOPRAM OXALATE 10 MG TAB (LEXAPRO) PO SCH (09:00)
[2022-11-10] MEDS ORDERED: ATORVASTATIN 20 MG TAB PO SCH (09:00)
[2022-11-10] MEDS ORDERED: lamoTRIgine 100MG TAB PO SCH (09:00)
[2022-11-10] MEDS ORDERED: buPROPion **SR TABLET** (ZYBAN) 150MG PO SCH (09:00)
[2022-11-10] MEDS ORDERED: amLODIPine 5 MG TAB PO SCH (09:00)
[2022-11-10] MEDS ORDERED: VARENICLINE 1MG TABLET PO SCH (09:00)
[2022-11-10] MEDS: OMEPRAZOLE 20MG CAP PO SCH (09:39)
[2022-11-10] MEDS: DOCUSATE SODIUM 100MG CAPSULE PO SCH (09:41)
[2022-11-10] MEDS: METOPROLOL TART 25 MG TABLET PO SCH (09:43)
[2022-11-10] MEDS ORDERED: TRAZ-252 PO (10:26)
[2022-11-10] MEDS ORDERED: LISI20TA33 PO (12:44)
[2022-11-10] MEDS ORDERED: METO1TAB87 PO (14:00)
[2022-11-10] MEDS ORDERED: traZODone 50 MG TAB PO SCH (21:00)
[2022-11-10] MEDS ORDERED: rOPINIRole 1MG TAB PO SCH (21:00)
== END 2022-11-10 14:12 | disposition home or self-care (01) | DRG 92 ==
LOC: M ED 06:33 → M ED INP 10:41 → M PCU 14:17
PROVIDERS: ADMIT Internal Medicine; ATTEND Internal Medicine
DX: G92.8 Other toxic encephalopathy (principal); N17.9 Acute kidney failure, unspecified; M62.82 Rhabdomyolysis; F17.200 Nicotine dependence, unspecified, uncomplicated; G43.909 Migraine, unspecified, not intractable, without status migrainosus; G89.29 Other chronic pain; I10 Essential (primary) hypertension; K21.9 Gastro-esophageal reflux disease without esophagitis; M79.7 Fibromyalgia; F32.A Depression, unspecified; F41.9 Anxiety disorder, unspecified; F31.9 Bipolar disorder, unspecified; Z88.8 Allergy status to other drugs, medicaments and biological substances; Z79.899 Other long term (current) drug therapy

== ENCOUNTER → 2023-03-24 | Outpatient (CLI) | payer MEDICARE, MEDICAID ==
[~2023-03-24] MED LIST changes: +AIMO70IN2 SC; +ALBU8.5H INH; +AMLO1TAB24 PO; +BUPR15TASR PO; +LEXA1TAB2 PO; +LISI20TA33 PO; +MED REC COMMENT; +OMEP40CA5 PO; -ROPI2TAB3 PO; +ROPI2TAB46 PO; +TRAZ-252 PO; +VARE1TAB2 PO; +VITA200032 PO
[2023-03-24 18:25] LABS: BLOOD UREA NITROGEN 19 MG/DL (9-23); CREATININE FOR GFR 0.79 MG/DL (0.55-1.30); GLOMERULAR FILTRATION RATE > 60.0 (>45)
== END ==
LOC: M LAB 16:50
PROVIDERS: ATTEND Nurse Practitioner Adult Health
DX: Z01.818 Encounter for other preprocedural examination (principal); M54.50 Low back pain, unspecified

== ENCOUNTER → 2023-06-07 | Outpatient (REF) | payer MEDICARE, MEDICAID ==
[~2023-06-07] MED LIST changes: -OXYB5TAB10 PO; +OXYB5TAB11 PO
[2023-06-07 16:59] LABS: BASO % 0.4 % (0.0-1.0); EOS # 0.3 10^3/uL (0.0-0.5); EOS % 6.9 % (0.0-3.0); HEMATOCRIT 37.2 % (36.0-47.0); HEMOGLOBIN 11.5 g/dl (12.0-15.5); LYMPH # 1.7 10^3/uL (1.5-5.0); LYMPH % 35.7 % (24.0-44.0); MEAN CORPUSCULAR HEMOGLOBIN 30.5 pg (27.0-33.0); MEAN CORPUSCULAR HGB CONC 30.9 g/dl (32.0-36.5); MEAN CORPUSCULAR VOLUME 98.7 fl (80.0-96.0); MONO # 0.3 10^3/uL (0.0-0.8); MONO % 6.9 % (2.0-8.0); NEUTROPHILS # 2.4 10^3/uL (1.5-8.5); NEUTROPHILS % 49.9 % (36.0-66.0); PLATELET COUNT, AUTOMATED 206 10^3/uL (150-450); RED BLOOD COUNT 3.77 10^6/uL (4.00-5.40); WHITE BLOOD COUNT 4.8 10^3/uL (4.0-10.0)
[2023-06-07 17:21] LABS: HEMOGLOBIN A1c 5.3 % (4.0-6.0)
[2023-06-07 17:31] LABS: ALBUMIN 3.7 G/DL (3.2-5.2); ALKALINE PHOSPHATASE 73 U/L (46-116); ALT/SGPT 11 U/L (7.0-40); AST/SGOT 13 U/L (<34); BILIRUBIN,TOTAL < 0.2 MG/DL (0.3-1.2); BLOOD UREA NITROGEN 13 MG/DL (9-23); CALCIUM LEVEL 8.6 MG/DL (8.3-10.6); CARBON DIOXIDE LEVEL 30 MMOL/L (20-31); CHLORIDE LEVEL 109 MMOL/L (98-107); CHOLESTEROL LEVEL 119 MG/DL (<200); CHOLESTEROL RISK RATIO 2.82 (<5); CREATININE FOR GFR 0.83 MG/DL (0.55-1.30); GLOMERULAR FILTRATION RATE > 60.0 (>45); GLUCOSE, FASTING 122 MG/DL (74-106); HDL CHOLESTEROL 42.1 MG/DL (>40); LDL CHOLESTEROL 48.7 MG/DL (<100); NON-HDL-C 76.9 MG/DL; POTASSIUM SERUM 4.5 MMOL/L (3.5-5.1); SODIUM LEVEL 142 MMOL/L (136-145); THYROID STIMULATING HORMONE 0.468 uIU/ML (0.55-4.78); TOTAL 25(OH) VITAMIN D 30.7 NG/ML (20.0-100.0); TOTAL PROTEIN 6.1 G/DL (5.7-8.2); TRIGLYCERIDES LEVEL 141 MG/DL (<150)
== END ==
LOC: M LAB REF 16:26
PROVIDERS: ATTEND Nurse Practitioner Family
DX: E55.9 Vitamin D deficiency, unspecified (principal); E66.9 Obesity, unspecified; Z79.899 Other long term (current) drug therapy

== ENCOUNTER → 2023-08-10 | Outpatient (REF) | payer MEDICARE, MEDICAID ==
[2023-08-10 14:15] LABS: FREE T4 0.98 NG/DL (0.89-1.76); THYROID STIMULATING HORMONE 1.092 uIU/ML (0.55-4.78)
== END ==
LOC: M LAB REF 13:27
PROVIDERS: ATTEND Nurse Practitioner Family
DX: R89.1 Abnormal level of hormones in specimens from other organs, systems and tissues (principal); Z86.39 Personal history of other endocrine, nutritional and metabolic disease; Z79.899 Other long term (current) drug therapy

== ENCOUNTER 2023-08-17 09:55 | Emergency (ER) | payer MEDICARE, MEDICAID ==
[~2023-08-17] VITALS: Ht 157.5 cm; Wt 83.4 kg
[2023-08-17 11:54] LABS: BASO % 0.3 % (0.0-1.0); EOS # 0.3 10^3/uL (0.0-0.5); EOS % 3.8 % (0.0-3.0); HEMATOCRIT 40.2 % (36.0-47.0); HEMOGLOBIN 12.8 g/dl (12.0-15.5); LYMPH # 1.6 10^3/uL (1.5-5.0); LYMPH % 19.7 % (24.0-44.0); MEAN CORPUSCULAR HEMOGLOBIN 30.8 pg (27.0-33.0); MEAN CORPUSCULAR HGB CONC 31.8 g/dl (32.0-36.5); MEAN CORPUSCULAR VOLUME 96.6 fl (80.0-96.0); MONO # 0.4 10^3/uL (0.0-0.8); MONO % 5.1 % (2.0-8.0); NEUTROPHILS # 5.6 10^3/uL (1.5-8.5); NEUTROPHILS % 70.7 % (36.0-66.0); PLATELET COUNT, AUTOMATED 208 10^3/uL (150-450); RED BLOOD COUNT 4.16 10^6/uL (4.00-5.40); WHITE BLOOD COUNT 7.9 10^3/uL (4.0-10.0)
[2023-08-17] MEDS ORDERED: ISOVUE-370 76% 100ML VIAL As Ordered ONE (11:58)
[2023-08-17 12:16] LABS: CK-MB VALUE MASS 1.6 NG/ML (<3.6)
[2023-08-17 12:19] LABS: ALBUMIN 4.1 G/DL (3.2-5.2); BILIRUBIN,DIRECT 0.1 MG/DL (<0.4); BILIRUBIN,TOTAL 0.3 MG/DL (0.3-1.2); MAGNESIUM LEVEL 1.9 MG/DL (1.8-2.4); MB/CK RELATIVE INDEX 1.77 (< OR =4)
[2023-08-17 12:21] LABS: THYROID STIMULATING HORMONE 0.779 uIU/ML (0.55-4.78)
[2023-08-17 13:57] VITALS: BP 147/87; TEMP 97.4; O2SAT 99
== END 2023-08-17 14:01 | disposition home or self-care (01) ==
LOC: M ED 09:55
DX: K52.9 Noninfective gastroenteritis and colitis, unspecified (principal); R00.1 Bradycardia, unspecified; I10 Essential (primary) hypertension; K21.9 Gastro-esophageal reflux disease without esophagitis; E03.9 Hypothyroidism, unspecified; G43.909 Migraine, unspecified, not intractable, without status migrainosus; F41.9 Anxiety disorder, unspecified; F32.A Depression, unspecified; F43.10 Post-traumatic stress disorder, unspecified; M79.7 Fibromyalgia; J44.9 Chronic obstructive pulmonary disease, unspecified; F17.200 Nicotine dependence, unspecified, uncomplicated; Z88.5 Allergy status to narcotic agent; Z88.8 Allergy status to other drugs, medicaments and biological substances; Z79.52 Long term (current) use of systemic steroids; Z79.811 Long term (current) use of aromatase inhibitors; Z79.83 Long term (current) use of bisphosphonates; Z79.899 Other long term (current) drug therapy
CPT/HCPCS: 36415; 70450; 74177; 80047; 80076; 81001; 82550; 82553; 83690; 83735; 84443; 84484; 85025; 93005; 99284; Q9967

== ENCOUNTER 2023-11-29 08:17 | Day surgery (SDC) | payer MEDICARE, MEDICAID ==
[~2023-11-29] VITALS: Ht 157.5 cm; Wt 83.9 kg
[~2023-11-29 08:17] MED LIST changes: +EMGA120I SC; +MYRB50TA PO; +ONDA-84 PO; -OXYB5TAB11 PO; +OXYB5TAB14 PO; +PRAZ2CAP PO; +PREG25CA3 PO; +TRAZ1TAB14 PO; +ZOLM5TAB20 PO; +propofoL 500 MG/50 ML VIAL As Ordered ONE
[2023-11-29] MEDS: NS 1,000 ML IV ONE (08:54)
[2023-11-29] MEDS ORDERED: fentaNYL 100 MCG/2 ML INJECTION As Ordered ONE (09:24)
[2023-11-29] MEDS ORDERED: GLYCOPYRROLATE INJ 0.2 MG/ML 2 ML VIAL As Ordered ONE (09:45)
[2023-11-29 10:30] VITALS: BP 136/88; TEMP 97; O2SAT 93
== END 2023-11-29 10:39 | disposition home or self-care (01) ==
LOC: M OPP 08:17
PROVIDERS: ATTEND Surgery
DX: K64.0 First degree hemorrhoids (principal); K52.9 Noninfective gastroenteritis and colitis, unspecified; K44.9 Diaphragmatic hernia without obstruction or gangrene; K29.70 Gastritis, unspecified, without bleeding; K31.89 Other diseases of stomach and duodenum; R13.10 Dysphagia, unspecified; G47.30 Sleep apnea, unspecified; F17.200 Nicotine dependence, unspecified, uncomplicated; Z79.02 Long term (current) use of antithrombotics/antiplatelets; Z79.1 Long term (current) use of non-steroidal anti-inflammatories (NSAID); Z79.51 Long term (current) use of inhaled steroids; Z79.83 Long term (current) use of bisphosphonates; Z79.899 Other long term (current) drug therapy; Z99.89 Dependence on other enabling machines and devices; Z88.5 Allergy status to narcotic agent; Z88.6 Allergy status to analgesic agent; Z88.8 Allergy status to other drugs, medicaments and biological substances
CPT/HCPCS: 43239; 45378; 88305; J3010

== ENCOUNTER 2024-02-07 18:15 | Observation (INO) | payer MEDICARE, MEDICAID ==
[~2024-02-07] VITALS: Ht 157.5 cm; Wt 82.9 kg
[~2024-02-07 18:15] MED LIST changes: -propofoL 500 MG/50 ML VIAL As Ordered ONE
[2024-02-07] MEDS: LABETALOL 100MG/20ML VIAL IV STA (18:51)
[2024-02-07 19:18] LABS: BASO % 0.5 % (0.0-1.0); EOS # 0.1 10^3/uL (0.0-0.5); EOS % 2.3 % (0.0-3.0); HEMATOCRIT 39.7 % (36.0-47.0); HEMOGLOBIN 12.6 g/dl (12.0-15.5); LYMPH # 1.9 10^3/uL (1.5-5.0); MEAN CORPUSCULAR HEMOGLOBIN 30.7 pg (27.0-33.0); MEAN CORPUSCULAR HGB CONC 31.7 g/dl (32.0-36.5); MEAN CORPUSCULAR VOLUME 96.8 fl (80.0-96.0); MONO # 0.4 10^3/uL (0.0-0.8); NEUTROPHILS # 3.6 10^3/uL (1.5-8.5); NEUTROPHILS % 59.9 % (36.0-66.0); PLATELET COUNT, AUTOMATED 221 10^3/uL (150-450)
[2024-02-07 19:19] LABS: BLOOD UREA NITROGEN 14 MG/DL (9-23); CALCIUM LEVEL 9.1 MG/DL (8.3-10.6); CARBON DIOXIDE LEVEL 28 MMOL/L (20-31); CHLORIDE LEVEL 106 MMOL/L (98-107); CK-MB VALUE MASS 2.6 NG/ML (<3.6); CREATININE FOR GFR 0.73 MG/DL (0.55-1.30); GLOMERULAR FILTRATION RATE > 60.0 (>39); GLUCOSE, FASTING 108 MG/DL (74-106); SODIUM LEVEL 139 MMOL/L (136-145)
[2024-02-07 19:21] LABS: FREE T4 0.99 NG/DL (0.89-1.76); THYROID STIMULATING HORMONE 0.403 uIU/ML (0.55-4.78)
[2024-02-07 19:24] LABS: CPK CREATINE PHOSPHOKINASE 152 U/L (34-145); MB/CK RELATIVE INDEX 1.71 (< OR =4)
[2024-02-07] MEDS: METOPROLOL TART 25 MG TABLET PO ONE (20:16)
[2024-02-07] MEDS ORDERED: MOM 30ML SUSPENSION UDC PO PRN (20:30)
[2024-02-07] MEDS: DOCUSATE SODIUM 100MG CAPSULE PO SCH (21:05)
[2024-02-07] MEDS ORDERED: EXCETAB32 PO (21:13)
[2024-02-07] MEDS ORDERED: PREG75CA3 PO (21:13)
[2024-02-07] MEDS ORDERED: BIOT10009 PO (21:13)
[2024-02-07] MEDS ORDERED: LISI20TA33 PO (21:13)
[2024-02-07] MEDS ORDERED: MYRB25TA PO (21:13)
[2024-02-07] MEDS ORDERED: HOME MED LIST COMPLETE! XX SCH (21:15)
[2024-02-07 23:32] VITALS: BP 154/104; TEMP 97.4; O2SAT 96
[2024-02-07] MEDS: rOPINIRole 1MG TAB PO SCH (23:49)
[2024-02-07] MEDS: OMEPRAZOLE 20MG CAP PO SCH (23:50)
[2024-02-07] MEDS: PREGABALIN 75 MG CAP(LYRICA) PO SCH (23:50)
[2024-02-07] MEDS: ATORVASTATIN 20 MG TAB PO SCH (23:50)
[2024-02-07] MEDS: traZODone 50 MG TAB PO SCH (23:50)
[2024-02-08] VITALS (10 sets, daily range): BP systolic 125–220; BP diastolic 57–120; TEMP 97.1–97.8; O2SAT 95–98
[2024-02-08 05:18] LABS: HEMOGLOBIN 11.8 g/dl (12.0-15.5); MEAN CORPUSCULAR HEMOGLOBIN 30.6 pg (27.0-33.0); MEAN CORPUSCULAR HGB CONC 31.1 g/dl (32.0-36.5); MEAN CORPUSCULAR VOLUME 98.4 fl (80.0-96.0); PLATELET COUNT, AUTOMATED 190 10^3/uL (150-450); RED BLOOD COUNT 3.86 10^6/uL (4.00-5.40); WHITE BLOOD COUNT 4.9 10^3/uL (4.0-10.0)
[2024-02-08 05:43] LABS: BLOOD UREA NITROGEN 13 MG/DL (9-23); CALCIUM LEVEL 8.5 MG/DL (8.3-10.6); CARBON DIOXIDE LEVEL 30 MMOL/L (20-31); CHLORIDE LEVEL 108 MMOL/L (98-107); GLOMERULAR FILTRATION RATE > 60.0 (>39); GLUCOSE, FASTING 138 MG/DL (74-106); POTASSIUM SERUM 3.7 MMOL/L (3.5-5.1); SODIUM LEVEL 144 MMOL/L (136-145)
[2024-02-08] MEDS ORDERED: ALBUTEROL 90 MCG/ACT 8GM HFA INHALER INH PRN (07:10)
[2024-02-08] MEDS ORDERED: ONDANSETRON 4MG TAB PO PRN (07:10)
[2024-02-08] MEDS: ENOXAPARIN 40MG/0.4ML SYRINGE (J1650 PER 10MG) SC SCH (07:45)
[2024-02-08] MEDS: amLODIPine 5 MG TAB PO SCH (07:47)
[2024-02-08] MEDS: lamoTRIgine 100MG TAB PO SCH (07:48)
[2024-02-08] MEDS: hydrALAZINE 20MG/ML 1ML VIAL IV PRN (09:11)
[2024-02-08] MEDS: EXCEDRIN MIGRAINE TABLET PO PRN (10:01)
[2024-02-08 11:44] LABS: HEMOGLOBIN A1c 5.1 % (4.0-6.0)
[2024-02-08] MEDS: NICOTINE 21MG/24HR 1 EA TRANSDERMAL TD SCH (12:30)
[2024-02-08] MEDS: ACETAMINOPHEN TAB 650MG DOSE (2X325MG) PO ONE (20:54)
[2024-02-09 03:44] VITALS: BP 169/79; TEMP 97.2; O2SAT 96
[2024-02-09 06:01] LABS: ALBUMIN 3.4 G/DL (3.2-5.2); ALKALINE PHOSPHATASE 89 U/L (46-116); ALT/SGPT 10 U/L (7.0-40); AST/SGOT 8 U/L (<34); BILIRUBIN,TOTAL 0.2 MG/DL (0.3-1.2); BLOOD UREA NITROGEN 19 MG/DL (9-23); CALCIUM LEVEL 8.7 MG/DL (8.3-10.6); CARBON DIOXIDE LEVEL 30 MMOL/L (20-31); CHLORIDE LEVEL 109 MMOL/L (98-107); CHOLESTEROL LEVEL 105 MG/DL (<200); CHOLESTEROL RISK RATIO 2.94 (<5); CREATININE FOR GFR 0.82 MG/DL (0.55-1.30); GLOMERULAR FILTRATION RATE > 60.0 (>39); GLUCOSE, FASTING 107 MG/DL (74-106); HDL CHOLESTEROL 35.6 MG/DL (>40); LDL CHOLESTEROL 48.4 MG/DL (<100); NON-HDL-C 69.4 MG/DL; POTASSIUM SERUM 4.1 MMOL/L (3.5-5.1); SODIUM LEVEL 142 MMOL/L (136-145); TOTAL PROTEIN 5.6 G/DL (5.7-8.2); TRIGLYCERIDES LEVEL 105 MG/DL (<150)
[2024-02-09 07:32] VITALS: BP 170/80; TEMP 97.6; O2SAT 95
[2024-02-09 11:48] VITALS: BP 156/70; TEMP 97.2; O2SAT 95
[2024-02-09 16:00] VITALS: BP 155/69; TEMP 97.5; O2SAT 95
[2024-02-09 19:51] VITALS: BP 164/84; TEMP 98.8; O2SAT 96
[2024-02-09] MEDS: **hydrALAZINE HCL** 25 MG TAB PO ONE (21:08)
[2024-02-09] MEDS: SUMAtriptan SUCCINATE 6MG/0.5ML VIAL SC ONE (21:10)
[2024-02-09] MEDS: MORPHINE 2 MG/ML 1ML VIAL IV ONE (21:10)
[2024-02-09 23:34] VITALS: BP 156/88; TEMP 98.4; O2SAT 95
[2024-02-10] VITALS (7 sets, daily range): BP systolic 117–182; BP diastolic 66–110; TEMP 96.9–97.9; O2SAT 93–97
[2024-02-10 07:00] LABS: HEMATOCRIT 38.8 % (36.0-47.0); HEMOGLOBIN 12.5 g/dl (12.0-15.5); MEAN CORPUSCULAR HEMOGLOBIN 30.6 pg (27.0-33.0); MEAN CORPUSCULAR HGB CONC 32.2 g/dl (32.0-36.5); MEAN CORPUSCULAR VOLUME 95.1 fl (80.0-96.0); PLATELET COUNT, AUTOMATED 219 10^3/uL (150-450); RED BLOOD COUNT 4.08 10^6/uL (4.00-5.40); WHITE BLOOD COUNT 6.7 10^3/uL (4.0-10.0)
[2024-02-10] MEDS: METOPROLOL SUCC (TopROL XL) 50MG **XL** TAB PO SCH (08:26)
[2024-02-11] MEDS: ACETAMINOPHEN TAB 650MG DOSE (2X325MG) PO ONE (03:04)
[2024-02-11 04:22] VITALS: BP 104/71; TEMP 97.4; O2SAT 96
[2024-02-11 07:42] VITALS: BP 123/66; TEMP 97.7; O2SAT 95
[2024-02-11 08:15] VITALS: BP 123/66
[2024-02-11] MEDS ORDERED: AMLO1TAB24 PO (10:29)
[2024-02-11] MEDS ORDERED: METO1TAB32 PO (10:29)
== END 2024-02-11 12:05 | disposition home or self-care (01) ==
LOC: M ED 18:15 → M ED INP 18:16 → M PCU 23:29
PROVIDERS: ADMIT Family Medicine; ATTEND Family Medicine
DX: I16.0 Hypertensive urgency (principal); I50.9 Heart failure, unspecified; I1A.0 Resistant hypertension; G43.909 Migraine, unspecified, not intractable, without status migrainosus; G89.4 Chronic pain syndrome; E78.5 Hyperlipidemia, unspecified; Z79.899 Other long term (current) drug therapy; J44.9 Chronic obstructive pulmonary disease, unspecified; F17.218 Nicotine dependence, cigarettes, with other nicotine-induced disorders; Z79.82 Long term (current) use of aspirin; Z88.8 Allergy status to other drugs, medicaments and biological substances
CPT/HCPCS: 36415; 70450; 71046; 80048; 80053; 80061; 82550; 82553; 83036; 84439; 84443; 84484; 85025; 85027; 93005; 93041; 93306; 94760; 96372; 96374; 96375; 99285; G0378; J0360; J1650; J1920; J3030

== ENCOUNTER → 2024-02-15 | Outpatient (CLI) | payer MEDICARE, MEDICAID ==
[~2024-02-15] MED LIST changes: +BIOT10009 PO; +BIOT2500 PO; +EXCETAB32 PO; +METO1TAB32 PO; +NICO1DIS10 TOP; +PREG75CA3 PO
== END ==
LOC: M RAD 09:01
PROVIDERS: ATTEND Physician Assistant
DX: G43.719 Chronic migraine without aura, intractable, without status migrainosus (principal)

== ENCOUNTER 2024-02-17 13:30 | Observation (INO) | payer MEDICARE, MEDICAID ==
[~2024-02-17] VITALS: Ht 157.5 cm; Wt 86.3 kg
[~2024-02-17 13:30] MED LIST changes: -BIOT2500 PO; -NICO1DIS10 TOP
[2024-02-17 14:17] LABS: BASO % 0.7 % (0.0-1.0); EOS # 0.2 10^3/uL (0.0-0.5); EOS % 3.4 % (0.0-3.0); HEMATOCRIT 35.4 % (36.0-47.0); HEMOGLOBIN 11.4 g/dl (12.0-15.5); LYMPH # 2.1 10^3/uL (1.5-5.0); LYMPH % 36.7 % (24.0-44.0); MEAN CORPUSCULAR HEMOGLOBIN 31.3 pg (27.0-33.0); MEAN CORPUSCULAR HGB CONC 32.2 g/dl (32.0-36.5); MEAN CORPUSCULAR VOLUME 97.3 fl (80.0-96.0); MONO # 0.4 10^3/uL (0.0-0.8); MONO % 6.6 % (2.0-8.0); NEUTROPHILS % 52.4 % (36.0-66.0); PLATELET COUNT, AUTOMATED 202 10^3/uL (150-450); RED BLOOD COUNT 3.64 10^6/uL (4.00-5.40); WHITE BLOOD COUNT 5.8 10^3/uL (4.0-10.0)
[2024-02-17 14:40] LABS: CPK CREATINE PHOSPHOKINASE 173 U/L (34-145)
[2024-02-17] MEDS ORDERED: ISOVUE-370 76% 100ML VIAL As Ordered ONE (14:48)
[2024-02-17] MEDS: NS 500 ML IV ONE (15:02)
[2024-02-17 15:08] LABS: ALBUMIN 3.6 G/DL (3.2-5.2); ALKALINE PHOSPHATASE 72 U/L (46-116); ALT/SGPT 18 U/L (7.0-40); AST/SGOT 11 U/L (<34); BILIRUBIN,DIRECT < 0.1 MG/DL (<0.4); BILIRUBIN,TOTAL 0.2 MG/DL (0.3-1.2); BLOOD UREA NITROGEN 28 MG/DL (9-23); CALCIUM LEVEL 8.3 MG/DL (8.3-10.6); CARBON DIOXIDE LEVEL 30 MMOL/L (20-31); CHLORIDE LEVEL 108 MMOL/L (98-107); CREATININE FOR GFR 0.84 MG/DL (0.55-1.30); GLOMERULAR FILTRATION RATE > 60.0 (>39); GLUCOSE, FASTING 94 MG/DL (74-106); SODIUM LEVEL 138 MMOL/L (136-145); TOTAL PROTEIN 6.2 G/DL (5.7-8.2)
[2024-02-17 15:10] LABS: FREE T4 0.88 NG/DL (0.89-1.76); THYROID STIMULATING HORMONE 0.257 uIU/ML (0.55-4.78)
[2024-02-17 15:13] LABS: MB/CK RELATIVE INDEX 3.46 (< OR =4)
[2024-02-17 16:02] LABS: CK-MB VALUE MASS 4.5 NG/ML (<3.6)
[2024-02-17 16:04] LABS: MB/CK RELATIVE INDEX 2.92 (< OR =4)
[2024-02-17] MEDS ORDERED: ZOLM5TAB20 PO (17:23)
[2024-02-17] MEDS ORDERED: BIOT2500 PO (17:23)
[2024-02-17] MEDS ORDERED: NICO1DIS10 TOP (17:23)
[2024-02-17] MEDS ORDERED: METO1TAB32 PO (17:23)
[2024-02-17] MEDS ORDERED: HOME MED LIST COMPLETE! XX SCH (17:25)
[2024-02-17] MEDS: NS 1,000 ML IV SCH (17:25)
[2024-02-17] MEDS ORDERED: ALBUTEROL 90 MCG/ACT 8GM HFA INHALER INH PRN (18:00)
[2024-02-17] MEDS ORDERED: ONDANSETRON 4MG TAB PO PRN (18:00)
[2024-02-17] MEDS ORDERED: RIZATRIPTAN BENZOATE 10 MG TAB PO PRN (18:05)
[2024-02-17] MEDS ORDERED: ENTER DRUG NAME HERE (PATIENT'S OWN MED) PO SCH (21:00)
[2024-02-17] MEDS ORDERED: amLODIPine 5 MG TAB PO PRN (21:00)
[2024-02-17] MEDS ORDERED: ZALEPLON 10 MG PO SCH (21:00)
[2024-02-17] MEDS: PREGABALIN 75 MG CAP(LYRICA) PO SCH (22:05)
[2024-02-17] MEDS: traZODone 50 MG TAB PO SCH (22:05)
[2024-02-17] MEDS: OMEPRAZOLE 20MG CAP PO SCH (22:06)
[2024-02-17] MEDS: rOPINIRole 1MG TAB PO SCH (22:08)
[2024-02-17] MEDS: ATORVASTATIN 20 MG TAB PO SCH (22:08)
[2024-02-17] MEDS: EXCEDRIN MIGRAINE TABLET PO PRN (22:47)
[2024-02-17] MEDS: zolPIDEM TARTRATE 5 MG TAB PO PRN (22:47)
[2024-02-18 07:01] VITALS: BP 157/81; TEMP 97.2; O2SAT 96
[2024-02-18] MEDS: NICOTINE 14 MG/24 HR TRANSDERMAL TOP SCH (09:00)
[2024-02-18] MEDS: VITAMIN D 1,000 INTERNATIONAL UNITS TABLET PO SCH (09:24)
[2024-02-18] MEDS: ESCITALOPRAM OXALATE 10 MG TAB (LEXAPRO) PO SCH (09:24)
[2024-02-18] MEDS: lamoTRIgine 100MG TAB PO SCH (09:24)
== END 2024-02-18 12:53 | disposition home or self-care (01) ==
LOC: M ED 13:30 → M ED INP 13:31 → UNDOADMOB 16:39 → M ED INP 16:39
PROVIDERS: ADMIT General Practice; ATTEND General Practice
DX: T46.5X1A Poisoning by other antihypertensive drugs, accidental (unintentional), initial encounter (principal); R00.1 Bradycardia, unspecified; I95.9 Hypotension, unspecified; E78.5 Hyperlipidemia, unspecified; G43.909 Migraine, unspecified, not intractable, without status migrainosus; M79.7 Fibromyalgia; F41.9 Anxiety disorder, unspecified; F32.A Depression, unspecified; F31.9 Bipolar disorder, unspecified; K21.9 Gastro-esophageal reflux disease without esophagitis; Z79.899 Other long term (current) drug therapy; Z88.8 Allergy status to other drugs, medicaments and biological substances
CPT/HCPCS: 70450; 71045; 71275; 80047; 80048; 80076; 82550; 82553; 83735; 84439; 84443; 84484; 85025; 93005; 93041; 94760; 96361; 96374; 97161; 99285; G0378; Q9967

== ENCOUNTER → 2024-03-26 | Outpatient (CLI) | payer MEDICARE, MEDICAID ==
[~2024-03-26] MED LIST changes: +BIOT2500 PO; +E-Z-GAS II EFFERVESCENT PACKET (SODIUM BICARB./CITRIC ACID/SIMETHICONE) As Ordered ONE; +E-Z-HD 98% w/w 340GM SUSP BTL As Ordered ONE; +E-Z-PAQUE 96% w/w SUSP 176GM BTL As Ordered ONE; +NICO1DIS10 TOP
== END ==
LOC: M RAD 09:39
PROVIDERS: ATTEND Physician Assistant
DX: R13.10 Dysphagia, unspecified (principal); K44.9 Diaphragmatic hernia without obstruction or gangrene; K21.9 Gastro-esophageal reflux disease without esophagitis

== ENCOUNTER → 2024-03-28 | Outpatient (CLI) | payer MEDICARE, MEDICAID ==
[~2024-03-28] MED LIST changes: -E-Z-GAS II EFFERVESCENT PACKET (SODIUM BICARB./CITRIC ACID/SIMETHICONE) As Ordered ONE; -E-Z-HD 98% w/w 340GM SUSP BTL As Ordered ONE; -E-Z-PAQUE 96% w/w SUSP 176GM BTL As Ordered ONE
== END ==
LOC: M PLAIMG 09:31
PROVIDERS: ATTEND Physical Medicine & Rehabilitation Pain Medicine
DX: M53.3 Sacrococcygeal disorders, not elsewhere classified (principal); M51.27 Other intervertebral disc displacement, lumbosacral region; M48.07 Spinal stenosis, lumbosacral region

== ENCOUNTER 2024-07-30 17:44 | Emergency (ER) | payer MEDICARE, MEDICAID ==
[~2024-07-30] VITALS: Ht 157.5 cm; Wt 74.7 kg
[2024-07-30 17:55] VITALS: BP 115/78; TEMP 97.4; O2SAT 95
[2024-07-30 19:06] LABS: BASO % 0.6 % (0.0-1.0); EOS % 0.6 % (0.0-3.0); HEMATOCRIT 42.1 % (36.0-47.0); HEMOGLOBIN 13.6 g/dl (12.0-15.5); LYMPH # 1.1 10^3/uL (1.5-5.0); LYMPH % 31.5 % (24.0-44.0); MEAN CORPUSCULAR HEMOGLOBIN 30.4 pg (27.0-33.0); MEAN CORPUSCULAR HGB CONC 32.3 g/dl (32.0-36.5); MEAN CORPUSCULAR VOLUME 94.2 fl (80.0-96.0); MONO # 0.4 10^3/uL (0.0-0.8); MONO % 12.2 % (2.0-8.0); NEUTROPHILS # 1.9 10^3/uL (1.5-8.5); NEUTROPHILS % 54.8 % (36.0-66.0); PLATELET COUNT, AUTOMATED 178 10^3/uL (150-450); RED BLOOD COUNT 4.47 10^6/uL (4.00-5.40); WHITE BLOOD COUNT 3.4 10^3/uL (4.0-10.0)
[2024-07-30 19:30] LABS: LIPASE 48 U/L (12-53)
[2024-07-30 19:31] LABS: KETONE, URINE AUTO RFX NEGATIVE (NEGATIVE); LEUKOCYTE ESTERASE UR AUTO RFX NEGATIVE (NEGATIVE); MUCUS, URINE RFX SMALL (NEGATIVE); NITRITE, URINE AUTO RFX NEGATIVE (NEGATIVE); RBC, URINE AUTO RFX 1 /HPF (0-3); SQUAM EPITHELIAL CELL UR AURFX 20 /HPF (0-6); WBC, URINE AUTO RFX 0 /HPF (0-3)
[2024-07-30 19:32] LABS: ALBUMIN 4.1 G/DL (3.2-5.2); ALKALINE PHOSPHATASE 85 U/L (35-104); ALT/SGPT 19 U/L (7.0-40); AST/SGOT 26 U/L (<34); BILIRUBIN,DIRECT 0.1 MG/DL (<0.4); BILIRUBIN,TOTAL 0.3 MG/DL (0.3-1.2); BLOOD UREA NITROGEN 15 MG/DL (9-23); CALCIUM LEVEL 9.1 MG/DL (8.3-10.6); CARBON DIOXIDE LEVEL 30 MMOL/L (20-31); CHLORIDE LEVEL 107 MMOL/L (98-107); CREATININE FOR GFR 0.78 MG/DL (0.55-1.30); GLOMERULAR FILTRATION RATE > 60.0 (>39); GLUCOSE, FASTING 105 MG/DL (74-106); POTASSIUM SERUM 3.6 MMOL/L (3.5-5.1); SODIUM LEVEL 142 MMOL/L (136-145); TOTAL PROTEIN 7.4 G/DL (5.7-8.2)
== END 2024-07-30 21:30 | disposition left against medical advice (07) ==
LOC: M ED 17:44
DX: Z53.21 Procedure and treatment not carried out due to patient leaving prior to being seen by health care provider (principal)

== ENCOUNTER 2024-08-04 16:15 | Emergency (ER) | payer MEDICARE, MEDICAID ==
[~2024-08-04] VITALS: Ht 157.5 cm; Wt 66.4 kg
[2024-08-04] MEDS: NS (Normal Saline) 0.9% 1,000 ML IV ONE (17:05)
[2024-08-04] MEDS: NS (Normal Saline) 0.9% 1,990 ML in IV 1 EA IV ONE (17:10)
[2024-08-04] MEDS: cefTRIAXone SOD 2 GM in DEXTROSE 5% (D5W) ADV/MINI-BAG 50 ML IV ONE (17:10)
[2024-08-04] MEDS: IPRATROPIUM 0.5MG/ALBUTEROL 2.5MG INH SOL UD 3ML (DUONEB) NEB ONE (17:23)
[2024-08-04] MEDS: ALBUTEROL SULFATE 2.5MG/0.5ML INH NEB SOLN INH ONE (17:23)
[2024-08-04 17:32] LABS: VENOUS BASE EXCESS 0.4 (-2.0-2.0); VENOUS HCO3 27.1 MMOL/L (23.0-27.0); VENOUS PARTIAL PRESSURE CO2 51.4 mmHg (38.0-50.0); VENOUS PARTIAL PRESSURE O2 41.5 mmHg (30.0-50.0); VENOUS STANDARD HCO3 24.3 MMOL/L; VENOUS TOTAL CO2 28.7 MMOL/L (24.0-28.0)
[2024-08-04 17:35] LABS: VENOUS O2 SATURATION 73.3 % (60.0-80.0)
[2024-08-04 17:40] LABS: BASO % 0.2 % (0.0-1.0); EOS % 0.5 % (0.0-3.0); HEMATOCRIT 38.9 % (36.0-47.0); HEMOGLOBIN 12.8 g/dl (12.0-15.5); LYMPH # 1.5 10^3/uL (1.5-5.0); LYMPH % 36.8 % (24.0-44.0); MEAN CORPUSCULAR HEMOGLOBIN 29.8 pg (27.0-33.0); MEAN CORPUSCULAR HGB CONC 32.9 g/dl (32.0-36.5); MEAN CORPUSCULAR VOLUME 90.7 fl (80.0-96.0); MONO # 0.3 10^3/uL (0.0-0.8); MONO % 6.3 % (2.0-8.0); NEUTROPHILS # 2.3 10^3/uL (1.5-8.5); PLATELET COUNT, AUTOMATED 172 10^3/uL (150-450); RED BLOOD COUNT 4.29 10^6/uL (4.00-5.40); WHITE BLOOD COUNT 4.1 10^3/uL (4.0-10.0)
[2024-08-04 18:05] LABS: ALBUMIN 3.6 G/DL (3.2-5.2); ALKALINE PHOSPHATASE 66 U/L (35-104); ALT/SGPT 16 U/L (7.0-40); AST/SGOT 15 U/L (<34); BILIRUBIN,DIRECT 0.2 MG/DL (<0.4); BILIRUBIN,TOTAL 0.5 MG/DL (0.3-1.2); BLOOD UREA NITROGEN 16 MG/DL (9-23); CALCIUM LEVEL 8.8 MG/DL (8.3-10.6); CARBON DIOXIDE LEVEL 30 MMOL/L (20-31); CHLORIDE LEVEL 104 MMOL/L (98-107); GLOMERULAR FILTRATION RATE > 60.0 (>39); GLUCOSE, FASTING 92 MG/DL (74-106); POTASSIUM SERUM 3.8 MMOL/L (3.5-5.1); SODIUM LEVEL 142 MMOL/L (136-145); TOTAL PROTEIN 6.6 G/DL (5.7-8.2)
[2024-08-04 18:07] LABS: THYROID STIMULATING HORMONE 0.227 uIU/ML (0.55-4.78)
[2024-08-04 18:17] LABS: PROCALCITONIN <0.04 ng/ml
[2024-08-04 20:04] LABS: APPEARANCE, URINE HAZY (CLEAR); BACTERIA, URINE AUTO NEGATIVE (NEGATIVE); BILIRUBIN, URINE AUTO NEGATIVE (NEGATIVE); BLOOD, URINE BLOOD NEGATIVE (NEGATIVE); COLOR, URINE AMBER (YELLOW); GLUCOSE, URINE (UA) AUTO NEGATIVE (NEGATIVE); KETONE, URINE AUTO TRACE mg/dL (NEGATIVE); LEUKOCYTE ESTERASE, URINE AUTO NEGATIVE (NEGATIVE); MUCUS, URINE LARGE (NEGATIVE); NITRITE, URINE AUTO NEGATIVE (NEGATIVE); PROTEIN, URINE AUTO 1+ mg/dL (NEGATIVE); RBC, URINE AUTO 1 /HPF (0-3); SPECIFIC GRAVITY URINE AUTO 1.025 (1.002-1.035); SQUAMOUS EPITHELIAL CELL UR AU 3 /HPF (0-6); WBC, URINE AUTO 3 /HPF (0-3)
[2024-08-04] MEDS: methylPREDNISolone 125MG 2ML VIAL IV ONE (20:32)
[2024-08-04] MEDS ORDERED: PRED20TA PO (20:41)
[2024-08-04 21:16] VITALS: BP 159/79; TEMP 98.3; O2SAT 96
== END 2024-08-04 21:18 | disposition home or self-care (01) ==
LOC: M ED 16:15 → EDBD 16:15 → M ED 21:18
DX: J09.X2 Influenza due to identified novel influenza A virus with other respiratory manifestations (principal); J45.909 Unspecified asthma, uncomplicated; I10 Essential (primary) hypertension; E78.5 Hyperlipidemia, unspecified; G43.909 Migraine, unspecified, not intractable, without status migrainosus; K21.9 Gastro-esophageal reflux disease without esophagitis; F17.200 Nicotine dependence, unspecified, uncomplicated; Z88.5 Allergy status to narcotic agent; Z88.8 Allergy status to other drugs, medicaments and biological substances; Z79.52 Long term (current) use of systemic steroids; Z79.82 Long term (current) use of aspirin; Z79.02 Long term (current) use of antithrombotics/antiplatelets; Z79.83 Long term (current) use of bisphosphonates; Z79.899 Other long term (current) drug therapy
CPT/HCPCS: 71045; 80048; 80076; 81001; 82803; 83605; 83880; 84145; 84443; 85025; 87040; 87086; 87486; 87581; 87633; 87798; 93005; 93041; 94640; 94760; 96374; 96375; 99285; J0696; J2919

== ENCOUNTER 2024-08-22 14:51 | Emergency (ER) | payer MEDICARE, MEDICAID ==
[~2024-08-22] VITALS: Ht 165.1 cm; Wt 74.1 kg
[~2024-08-22 14:51] MED LIST changes: +PRED20TA PO
[2024-08-22 15:00] VITALS: BP 138/58; TEMP 98.5; O2SAT 98
== END 2024-08-22 18:22 | disposition home or self-care (01) ==
LOC: M ED 14:51
DX: S62.014A Nondisplaced fracture of distal pole of navicular [scaphoid] bone of right wrist, initial encounter for closed fracture (principal); W19.XXXA Unspecified fall, initial encounter; G43.909 Migraine, unspecified, not intractable, without status migrainosus; E78.5 Hyperlipidemia, unspecified; I10 Essential (primary) hypertension; F17.200 Nicotine dependence, unspecified, uncomplicated; M79.7 Fibromyalgia; Z88.5 Allergy status to narcotic agent; Z88.8 Allergy status to other drugs, medicaments and biological substances; Y92.9 Unspecified place or not applicable; Y93.89 Activity, other specified; Y99.9 Unspecified external cause status; Z79.52 Long term (current) use of systemic steroids; Z79.83 Long term (current) use of bisphosphonates; Z79.899 Other long term (current) drug therapy; Z79.02 Long term (current) use of antithrombotics/antiplatelets

== ENCOUNTER → 2024-08-23 | Outpatient (REF) | payer MEDICARE, MEDICAID | LOC: M LAB REF 16:20 | PROVIDERS: ATTEND Student in an Organized Health Care Education/Training Program | DX: R30.0 Dysuria (principal) ==

== ENCOUNTER → 2024-09-10 | Outpatient (CLI) | payer MEDICARE, MEDICAID | LOC: M SOG 07:54 | PROVIDERS: ATTEND Orthopaedic Surgery | DX: S62.001A Unspecified fracture of navicular [scaphoid] bone of right wrist, initial encounter for closed fracture (principal) ==

== ENCOUNTER → 2024-10-01 | Outpatient (CLI) | payer MEDICARE, MEDICAID | LOC: M SOG 07:51 | PROVIDERS: ATTEND Orthopaedic Surgery | DX: S62.001D Unspecified fracture of navicular [scaphoid] bone of right wrist, subsequent encounter for fracture with routine healing (principal) ==

== ENCOUNTER 2024-10-19 13:32 | Inpatient (IN) | payer MEDICARE, MEDICAID ==
[~2024-10-19] VITALS: Ht 157.5 cm; Wt 73.6 kg
[2024-10-19] MEDS: NS (Normal Saline) 0.9% 1,000 ML IV ONE (14:04)
[2024-10-19] MEDS: PANTOPRAZOLE 40MG VIAL IV ONE (14:09)
[2024-10-19 14:13] LABS: VENOUS BASE EXCESS -0.4 (-2.0-2.0); VENOUS PARTIAL PRESSURE O2 34.4 mmHg (30.0-50.0); VENOUS PH 7.373 UNITS (7.330-7.430); VENOUS STANDARD HCO3 23.4 MMOL/L; VENOUS TOTAL CO2 26.4 MMOL/L (24.0-28.0)
[2024-10-19] MEDS ORDERED: ISOVUE-370 76% 100ML VIAL As Ordered ONE (14:16)
[2024-10-19 14:21] LABS: BASO % 0.1 % (0.0-1.0); HEMATOCRIT 40.2 % (36.0-47.0); HEMOGLOBIN 13.2 g/dl (12.0-15.5); LYMPH # 1.8 10^3/uL (1.5-5.0); LYMPH % 12.2 % (24.0-44.0); MEAN CORPUSCULAR HEMOGLOBIN 30.4 pg (27.0-33.0); MEAN CORPUSCULAR HGB CONC 32.8 g/dl (32.0-36.5); MEAN CORPUSCULAR VOLUME 92.6 fl (80.0-96.0); MONO # 0.8 10^3/uL (0.0-0.8); MONO % 5.3 % (2.0-8.0); PLATELET COUNT, AUTOMATED 252 10^3/uL (150-450); RED BLOOD COUNT 4.34 10^6/uL (4.00-5.40); WHITE BLOOD COUNT 14.6 10^3/uL (4.0-10.0)
[2024-10-19 14:35] LABS: INR 0.91; PARTIAL THROMBOPLASTIN TIME 26.2 SECONDS (24.8-34.2); PROTHROMBIN TIME 12.6 SECONDS (12.5-14.5)
[2024-10-19] MEDS: cefTRIAXone SOD 2 GM in DEXTROSE 5% (D5W) ADV/MINI-BAG 50 ML IV ONE (14:38)
[2024-10-19] MEDS: NS (Normal Saline) 0.9% 2,140 ML in IV 1 EA IV ONE (14:38)
[2024-10-19 14:42] LABS: ALBUMIN 3.9 G/DL (3.2-5.2); BILIRUBIN,TOTAL 0.4 MG/DL (0.3-1.2); CALCIUM LEVEL 9.3 MG/DL (8.3-10.6); CREATININE FOR GFR 1.25 MG/DL (0.55-1.30); GLOMERULAR FILTRATION RATE 46.4 (>39); POTASSIUM SERUM 3.7 MMOL/L (3.5-5.1); TOTAL PROTEIN 6.5 G/DL (5.7-8.2)
[2024-10-19 14:54] LABS: PROCALCITONIN 0.94 ng/ml
[2024-10-19 14:58] LABS: KETONE, URINE AUTO RFX NEGATIVE (NEGATIVE); LEUKOCYTE ESTERASE UR AUTO RFX NEGATIVE (NEGATIVE); MUCUS, URINE RFX SMALL (NEGATIVE); NITRITE, URINE AUTO RFX NEGATIVE (NEGATIVE); RBC, URINE AUTO RFX 4 /HPF (0-3); SQUAM EPITHELIAL CELL UR AURFX 0 /HPF (0-6); WBC, URINE AUTO RFX 4 /HPF (0-3)
[2024-10-19] MEDS ORDERED: GLUCAGON INJ 1MG VIAL SC PRN (15:45)
[2024-10-19] MEDS ORDERED: GLUCOSE 4 GM CHEW PO PRN (15:45)
[2024-10-19] MEDS ORDERED: DEXTROSE 50% 50ML SYRINGE IV PRN (15:45)
[2024-10-19] MEDS ORDERED: OXYB10TA23 PO (16:30)
[2024-10-19] MEDS ORDERED: BUPR-71 PO (16:30)
[2024-10-19] MEDS ORDERED: DOCU100C16 PO (16:30)
[2024-10-19] MEDS ORDERED: ATOG60TA PO (16:30)
[2024-10-19] MEDS ORDERED: CLON0.5T2 PO (16:30)
[2024-10-19] MEDS ORDERED: HOME MED LIST COMPLETE! XX SCH (16:35)
[2024-10-19 16:45] VITALS: BP 112/58; TEMP 97.5; O2SAT 99
[2024-10-19] MEDS: NS (Normal Saline) 0.9% 1,000 ML IV SCH (17:37)
[2024-10-19] MEDS ORDERED: ALBUTEROL SULFATE 2.5MG/0.5ML INH CONCENTRATE NEB SOLN NEB PRN (17:55)
[2024-10-19] MEDS: lamoTRIgine 100MG TAB PO SCH (18:42)
[2024-10-19] MEDS: ESCITALOPRAM OXALATE 10 MG TAB (LEXAPRO) PO SCH (18:42)
[2024-10-19 20:00] VITALS: BP 112/58; PULSE 90; TEMP 97.5; O2SAT 99
[2024-10-19 20:31] VITALS: BP 139/70; TEMP 97.4; O2SAT 95
[2024-10-19] MEDS: PIPERACILLIN/TAZOBACTAM SOD 4.5 GM in DEXTROSE 5% (D5W) ADV/MINI-BAG 50 ML IV SCH (21:03)
[2024-10-19] MEDS: traZODone 50 MG TAB PO SCH (21:04)
[2024-10-19] MEDS: rOPINIRole 1MG TAB PO SCH (21:04)
[2024-10-19] MEDS: PANTOPRAZOLE 40MG VIAL IV SCH (21:04)
[2024-10-19] MEDS: ATORVASTATIN 20 MG TAB PO SCH (21:04)
[2024-10-19] MEDS: oxyBUTYnin *DITROPAN XL* 5 MG TABCR PO SCH (21:04)
[2024-10-19] MEDS: buPROPion **SR TABLET** (ZYBAN) 150MG PO SCH (21:22)
[2024-10-19 23:30] VITALS: BP 105/56; TEMP 97.5; O2SAT 95
[2024-10-20] VITALS: BP 105/56; PULSE 90; TEMP 97.5; O2SAT 95
[2024-10-20] MEDS: ACETAMINOPHEN 325 MG TAB PO ONE (00:17)
[2024-10-20 04:18] VITALS: BP 125/78; TEMP 98.7; O2SAT 96
[2024-10-20 06:27] LABS: HEMATOCRIT 33.6 % (36.0-47.0); MEAN CORPUSCULAR HEMOGLOBIN 30.3 pg (27.0-33.0); MEAN CORPUSCULAR HGB CONC 32.1 g/dl (32.0-36.5); MEAN CORPUSCULAR VOLUME 94.1 fl (80.0-96.0); PLATELET COUNT, AUTOMATED 167 10^3/uL (150-450); RED BLOOD COUNT 3.57 10^6/uL (4.00-5.40); WHITE BLOOD COUNT 9.6 10^3/uL (4.0-10.0)
[2024-10-20 06:51] LABS: CALCIUM LEVEL 7.9 MG/DL (8.3-10.6); CREATININE FOR GFR 0.81 MG/DL (0.55-1.30); HEMOGLOBIN 10.8 g/dl (12.0-15.5); POTASSIUM SERUM 3.1 MMOL/L (3.5-5.1)
[2024-10-20] MEDS: KCL 10MEQ/100ML SWI (KRUN) 10 MEQ in IV 1 EA IV SCH (07:27)
[2024-10-20 08:03] VITALS: BP 145/80; TEMP 97.9; O2SAT 96
[2024-10-20] MEDS: POTASSIUM CHLORIDE 10MEQ SR TABLET PO ONE (08:33)
[2024-10-20] MEDS ORDERED: ACETAMINOPHEN *IV* 500 MG in IV 1 EA IV PRN (09:15)
[2024-10-20] MEDS: PIPERACILLIN/TAZOBACTAM SOD 4.5 GM in DEXTROSE 5% (D5W) ADV/MINI-BAG 50 ML IV SCH (10:54)
[2024-10-20] MEDS: FLUBLOK(EGGFREE) TRIVAL(24-25) VACCINE PF 0.5ML SYRINGE 18YRS & OLDER IM.IMMUN ONE (11:13)
[2024-10-20] MEDS: D5W/0.45% SODIUM CHLORIDE 1,000 ML IV SCH (13:12)
[2024-10-20] MEDS: MORPHINE 2 MG/ML 1ML VIAL IV PRN (14:02)
[2024-10-20 15:54] VITALS: BP 160/90; TEMP 99.1; O2SAT 95
[2024-10-20] MEDS: amLODIPine 5 MG TAB PO SCH (16:38)
[2024-10-20 19:28] VITALS: BP 149/74; TEMP 98.6; O2SAT 96
[2024-10-20 23:17] VITALS: BP 149/66; TEMP 98.4; O2SAT 98
[2024-10-21 03:22] VITALS: BP 141/67; TEMP 98.1; O2SAT 95
[2024-10-21 06:00] LABS: BASO % 0.2 % (0.0-1.0); EOS # 0.1 10^3/uL (0.0-0.5); HEMATOCRIT 30.9 % (36.0-47.0); HEMOGLOBIN 10.2 g/dl (12.0-15.5); LYMPH # 1.4 10^3/uL (1.5-5.0); LYMPH % 14.4 % (24.0-44.0); MEAN CORPUSCULAR HEMOGLOBIN 30.4 pg (27.0-33.0); MEAN CORPUSCULAR VOLUME 92.2 fl (80.0-96.0); MONO # 0.5 10^3/uL (0.0-0.8); MONO % 5.5 % (2.0-8.0); NEUTROPHILS # 7.6 10^3/uL (1.5-8.5); NEUTROPHILS % 78.4 % (36.0-66.0); PLATELET COUNT, AUTOMATED 149 10^3/uL (150-450); RED BLOOD COUNT 3.35 10^6/uL (4.00-5.40); WHITE BLOOD COUNT 9.7 10^3/uL (4.0-10.0)
[2024-10-21 06:18] LABS: BLOOD UREA NITROGEN 5 MG/DL (9-23); CARBON DIOXIDE LEVEL 27 MMOL/L (20-31); CHLORIDE LEVEL 106 MMOL/L (98-107); CREATININE FOR GFR 0.67 MG/DL (0.55-1.30); GLOMERULAR FILTRATION RATE > 90.0 (>39); GLUCOSE, FASTING 108 MG/DL (74-106); POTASSIUM SERUM 3.5 MMOL/L (3.5-5.1); SODIUM LEVEL 141 MMOL/L (136-145)
[2024-10-21 07:31] VITALS: BP 150/80; TEMP 97.9; O2SAT 94
[2024-10-21 09:40] VITALS: BP 133/66
[2024-10-21 15:27] VITALS: BP 138/69; TEMP 98.4; O2SAT 94
[2024-10-21 19:04] VITALS: BP 122/63; TEMP 99.3; O2SAT 94
[2024-10-21] MEDS: ATOGEPANT 60 MG PO SCH (21:00)
[2024-10-22 03:53] VITALS: BP 153/73; TEMP 98.6; O2SAT 93
[2024-10-22 06:16] LABS: BASO % 0.2 % (0.0-1.0); EOS # 0.2 10^3/uL (0.0-0.5); EOS % 2.3 % (0.0-3.0); HEMATOCRIT 33.5 % (36.0-47.0); HEMOGLOBIN 10.8 g/dl (12.0-15.5); LYMPH # 1.2 10^3/uL (1.5-5.0); LYMPH % 13.3 % (24.0-44.0); MEAN CORPUSCULAR HEMOGLOBIN 30.1 pg (27.0-33.0); MEAN CORPUSCULAR HGB CONC 32.2 g/dl (32.0-36.5); MEAN CORPUSCULAR VOLUME 93.3 fl (80.0-96.0); MONO # 0.5 10^3/uL (0.0-0.8); MONO % 5.1 % (2.0-8.0); NEUTROPHILS # 6.9 10^3/uL (1.5-8.5); NEUTROPHILS % 78.6 % (36.0-66.0); PLATELET COUNT, AUTOMATED 169 10^3/uL (150-450); RED BLOOD COUNT 3.59 10^6/uL (4.00-5.40); WHITE BLOOD COUNT 8.8 10^3/uL (4.0-10.0)
[2024-10-22 06:40] LABS: BLOOD UREA NITROGEN < 5 MG/DL (9-23); CALCIUM LEVEL 8.5 MG/DL (8.3-10.6); CARBON DIOXIDE LEVEL 29 MMOL/L (20-31); CHLORIDE LEVEL 108 MMOL/L (98-107); CREATININE FOR GFR 0.69 MG/DL (0.55-1.30); GLOMERULAR FILTRATION RATE > 90.0 (>39); GLUCOSE, FASTING 91 MG/DL (74-106); POTASSIUM SERUM 3.6 MMOL/L (3.5-5.1); SODIUM LEVEL 145 MMOL/L (136-145)
[2024-10-22 07:35] VITALS: BP 142/97; TEMP 98.8; O2SAT 94
[2024-10-22] MEDS: PERCOCET 5MG/325MG TAB PO PRN ×2 (10:11→16:27)
[2024-10-22 16:06] VITALS: BP 143/77; TEMP 97.7; O2SAT 97
[2024-10-22 21:00] VITALS: BP 157/93; TEMP 97.9; O2SAT 96
[2024-10-23 03:51] VITALS: BP 155/91; TEMP 97.9; O2SAT 90
[2024-10-23 05:49] LABS: BASO % 0.3 % (0.0-1.0); EOS # 0.2 10^3/uL (0.0-0.5); EOS % 2.8 % (0.0-3.0); HEMATOCRIT 32.4 % (36.0-47.0); HEMOGLOBIN 10.7 g/dl (12.0-15.5); LYMPH # 1.4 10^3/uL (1.5-5.0); LYMPH % 17.1 % (24.0-44.0); MEAN CORPUSCULAR VOLUME 93.9 fl (80.0-96.0); MONO # 0.4 10^3/uL (0.0-0.8); MONO % 5.6 % (2.0-8.0); NEUTROPHILS # 5.9 10^3/uL (1.5-8.5); NEUTROPHILS % 73.9 % (36.0-66.0); PLATELET COUNT, AUTOMATED 176 10^3/uL (150-450); RED BLOOD COUNT 3.45 10^6/uL (4.00-5.40); WHITE BLOOD COUNT 7.9 10^3/uL (4.0-10.0)
[2024-10-23 06:19] LABS: BLOOD UREA NITROGEN 6 MG/DL (9-23); CALCIUM LEVEL 8.2 MG/DL (8.3-10.6); CARBON DIOXIDE LEVEL 29 MMOL/L (20-31); CHLORIDE LEVEL 104 MMOL/L (98-107); CREATININE FOR GFR 0.71 MG/DL (0.55-1.30); GLOMERULAR FILTRATION RATE > 90.0 (>39); GLUCOSE, FASTING 91 MG/DL (74-106); POTASSIUM SERUM 3.4 MMOL/L (3.5-5.1); SODIUM LEVEL 143 MMOL/L (136-145)
[2024-10-23 08:01] LABS: C REACTIVE PROTEIN QUANTITATIV 4.36 MG/DL (<1.0)
[2024-10-23] MEDS: POTASSIUM CHLORIDE 10MEQ SR TABLET PO STA (09:04)
[2024-10-23 12:00] VITALS: BP 124/77; TEMP 97.9; O2SAT 96
[2024-10-23] MEDS: LevoFLOXacin 750 MG TABLET PO SCH (15:01)
[2024-10-23 20:07] VITALS: BP 152/96; TEMP 98.1; O2SAT 97
[2024-10-24 03:15] VITALS: BP 152/95; TEMP 97.9; O2SAT 95
[2024-10-24 06:25] LABS: BASO % 0.4 % (0.0-1.0); EOS # 0.2 10^3/uL (0.0-0.5); EOS % 2.9 % (0.0-3.0); HEMATOCRIT 34.7 % (36.0-47.0); HEMOGLOBIN 11.3 g/dl (12.0-15.5); LYMPH # 1.4 10^3/uL (1.5-5.0); LYMPH % 25.5 % (24.0-44.0); MEAN CORPUSCULAR HEMOGLOBIN 29.8 pg (27.0-33.0); MEAN CORPUSCULAR HGB CONC 32.6 g/dl (32.0-36.5); MEAN CORPUSCULAR VOLUME 91.6 fl (80.0-96.0); MONO # 0.4 10^3/uL (0.0-0.8); MONO % 6.4 % (2.0-8.0); NEUTROPHILS # 3.6 10^3/uL (1.5-8.5); NEUTROPHILS % 64.4 % (36.0-66.0); PLATELET COUNT, AUTOMATED 208 10^3/uL (150-450); RED BLOOD COUNT 3.79 10^6/uL (4.00-5.40); WHITE BLOOD COUNT 5.6 10^3/uL (4.0-10.0)
[2024-10-24 06:52] LABS: BLOOD UREA NITROGEN 7 MG/DL (9-23); CALCIUM LEVEL 9.2 MG/DL (8.3-10.6); CARBON DIOXIDE LEVEL 30 MMOL/L (20-31); CHLORIDE LEVEL 102 MMOL/L (98-107); CREATININE FOR GFR 0.67 MG/DL (0.55-1.30); GLOMERULAR FILTRATION RATE > 90.0 (>39); GLUCOSE, FASTING 90 MG/DL (74-106); POTASSIUM SERUM 3.8 MMOL/L (3.5-5.1); SODIUM LEVEL 140 MMOL/L (136-145)
[2024-10-24 08:39] VITALS: BP 147/97
[2024-10-24] MEDS ORDERED: LEVO75TAB PO (11:40)
[2024-10-24] MEDS ORDERED: OMEP40CA5 PO ×2 (11:42→14:54)
[2024-10-24] MEDS ORDERED: DIFI200T PO (13:37)
[2024-10-24] MEDS ORDERED: FAMO20TA PO (13:41)
[2024-10-24] MEDS: AZITHROMYCIN 250MG TABLET PO STA (13:46)
[2024-10-24 15:46] VITALS: BP 133/88; TEMP 98.8; O2SAT 96
== END 2024-10-24 17:19 | disposition home or self-care (01) | DRG 372 ==
LOC: M ED 13:32 → M ED INP 15:44 → M PCU 16:38 → M MSPAV 10-22 16:06
PROVIDERS: ADMIT Internal Medicine; ATTEND Student in an Organized Health Care Education/Training Program
DX: A04.5 Campylobacter enteritis (principal); K92.1 Melena; E87.20 Acidosis, unspecified; K92.0 Hematemesis; I10 Essential (primary) hypertension; I95.9 Hypotension, unspecified; E87.6 Hypokalemia; K21.9 Gastro-esophageal reflux disease without esophagitis; G25.81 Restless legs syndrome; D64.9 Anemia, unspecified; D69.6 Thrombocytopenia, unspecified; E78.5 Hyperlipidemia, unspecified; J45.909 Unspecified asthma, uncomplicated; R51.9 Headache, unspecified; F32.9 Major depressive disorder, single episode, unspecified; Z88.8 Allergy status to other drugs, medicaments and biological substances; Z79.899 Other long term (current) drug therapy; R32 Unspecified urinary incontinence

== ENCOUNTER 2024-10-28 12:26 | Emergency (ER) | payer MEDICARE, MEDICAID ==
[~2024-10-28] VITALS: Ht 157.5 cm; Wt 68.2 kg
[~2024-10-28 12:26] MED LIST changes: +ATOG60TA PO; +BUPR-71 PO; +CLON0.5T2 PO; +DIFI200T PO; +DOCU100C16 PO; +FAMO20TA PO; +LEVO75TAB PO; +OXYB10TA23 PO
[2024-10-28] MEDS: ACETAMINOPHEN 325 MG TAB PO ONE (15:10)
[2024-10-28 15:41] LABS: BASO # 0.1 10^3/uL (0.0-0.2); BASO % 0.6 % (0.0-1.0); EOS # 0.1 10^3/uL (0.0-0.5); EOS % 1.7 % (0.0-3.0); HEMATOCRIT 41.6 % (36.0-47.0); HEMOGLOBIN 13.4 g/dl (12.0-15.5); LYMPH # 1.5 10^3/uL (1.5-5.0); LYMPH % 18.4 % (24.0-44.0); MEAN CORPUSCULAR HEMOGLOBIN 31.2 pg (27.0-33.0); MEAN CORPUSCULAR HGB CONC 32.2 g/dl (32.0-36.5); MONO # 0.4 10^3/uL (0.0-0.8); MONO % 4.8 % (2.0-8.0); NEUTROPHILS # 6.1 10^3/uL (1.5-8.5); NEUTROPHILS % 73.9 % (36.0-66.0); PLATELET COUNT, AUTOMATED 326 10^3/uL (150-450); RED BLOOD COUNT 4.29 10^6/uL (4.00-5.40); WHITE BLOOD COUNT 8.3 10^3/uL (4.0-10.0)
[2024-10-28 15:52] LABS: INR 0.89; PROTHROMBIN TIME 12.4 SECONDS (12.5-14.5)
[2024-10-28 16:09] LABS: LIPASE 40 U/L (12-53)
[2024-10-28 16:12] LABS: ALBUMIN 3.8 G/DL (3.2-5.2); ALKALINE PHOSPHATASE 59 U/L (35-104); ALT/SGPT 9 U/L (7.0-40); AST/SGOT 10 U/L (<34); BILIRUBIN,DIRECT 0.1 MG/DL (<0.4); BILIRUBIN,TOTAL 0.3 MG/DL (0.3-1.2); BLOOD UREA NITROGEN 13 MG/DL (9-23); CALCIUM LEVEL 10.1 MG/DL (8.3-10.6); CARBON DIOXIDE LEVEL 30 MMOL/L (20-31); CHLORIDE LEVEL 103 MMOL/L (98-107); GLOMERULAR FILTRATION RATE > 90.0 (>39); GLUCOSE, FASTING 103 MG/DL (74-106); POTASSIUM SERUM 4.1 MMOL/L (3.5-5.1); SODIUM LEVEL 141 MMOL/L (136-145); TOTAL PROTEIN 7.3 G/DL (5.7-8.2)
[2024-10-28 16:26] LABS: KETONE, URINE AUTO RFX NEGATIVE (NEGATIVE); LEUKOCYTE ESTERASE UR AUTO RFX NEGATIVE (NEGATIVE); MUCUS, URINE RFX SMALL (NEGATIVE); NITRITE, URINE AUTO RFX NEGATIVE (NEGATIVE); RBC, URINE AUTO RFX 20 /HPF (0-3); SQUAM EPITHELIAL CELL UR AURFX 4 /HPF (0-6); WBC, URINE AUTO RFX 0 /HPF (0-3)
[2024-10-28] MEDS ORDERED: FAMO1TAB11 PO (17:37)
[2024-10-28] MEDS ORDERED: HOME MED LIST COMPLETE! XX SCH (17:40)
[2024-10-28] MEDS ORDERED: ALBUTEROL 90 MCG/ACT 8GM HFA INHALER INH PRN (18:55)
[2024-10-28] MEDS ORDERED: ONDANSETRON 4MG TAB PO PRN (18:55)
[2024-10-28] MEDS ORDERED: clonazePAM 0.5 MG TAB PO PRN (18:55)
[2024-10-28] MEDS ORDERED: EXCEDRIN MIGRAINE TABLET PO PRN (18:55)
[2024-10-28] MEDS ORDERED: ACETAMINOPHEN 325 MG TAB PO PRN (19:00)
[2024-10-28 19:23] LABS: PROCALCITONIN <0.04 ng/ml
[2024-10-28] MEDS: ATORVASTATIN 20 MG TAB PO SCH (20:27)
[2024-10-28] MEDS: FAMOTIDINE 20 MG TAB PO SCH (20:27)
[2024-10-28] MEDS: LIDOCAINE 5% (LIDODERM) PATCH TD SCH (20:27)
[2024-10-28] MEDS: rOPINIRole 1MG TAB PO SCH (23:39)
[2024-10-29] MEDS: DOCUSATE SODIUM 100MG CAPSULE PO SCH (08:26)
[2024-10-29] MEDS: buPROPion **SR TABLET** (ZYBAN) 150MG PO SCH (08:27)
[2024-10-29] MEDS: amLODIPine 5 MG TAB PO SCH (08:27)
[2024-10-29] MEDS: lamoTRIgine 100MG TAB PO SCH (08:27)
[2024-10-29] MEDS: ESCITALOPRAM OXALATE 10 MG TAB (LEXAPRO) PO SCH (08:27)
[2024-10-29 10:13] LABS: HEMATOCRIT 35.9 % (36.0-47.0); HEMOGLOBIN 11.3 g/dl (12.0-15.5); MEAN CORPUSCULAR HEMOGLOBIN 30.3 pg (27.0-33.0); MEAN CORPUSCULAR HGB CONC 31.5 g/dl (32.0-36.5); MEAN CORPUSCULAR VOLUME 96.2 fl (80.0-96.0); PLATELET COUNT, AUTOMATED 236 10^3/uL (150-450); RED BLOOD COUNT 3.73 10^6/uL (4.00-5.40)
[2024-10-29 10:45] LABS: BLOOD UREA NITROGEN 14 MG/DL (9-23); CARBON DIOXIDE LEVEL 29 MMOL/L (20-31); CHLORIDE LEVEL 103 MMOL/L (98-107); CREATININE FOR GFR 0.62 MG/DL (0.55-1.30); GLOMERULAR FILTRATION RATE > 90.0 (>39); GLUCOSE, FASTING 86 MG/DL (74-106); POTASSIUM SERUM 4.4 MMOL/L (3.5-5.1); SODIUM LEVEL 138 MMOL/L (136-145)
[2024-10-29] MEDS ORDERED: PERCOCET 5MG/325MG TAB PO PRN (13:20)
[2024-10-30] MEDS: ENOXAPARIN 40MG/0.4ML SYRINGE (J1650 PER 10MG) SC SCH (09:14)
[2024-10-30 09:15] VITALS: BP 137/76
[2024-10-30] MEDS: PERCOCET 5MG/325MG TAB PO PRN (09:55)
[2024-10-30 12:53] VITALS: BP 119/70; TEMP 98.2; O2SAT 100
== END 2024-10-30 12:55 | disposition home or self-care (01) ==
LOC: EDBD 12:26 → M ED 12:26
DX: M54.50 Low back pain, unspecified (principal); R26.81 Unsteadiness on feet; R94.31 Abnormal electrocardiogram [ECG] [EKG]; I10 Essential (primary) hypertension; J44.9 Chronic obstructive pulmonary disease, unspecified; K21.9 Gastro-esophageal reflux disease without esophagitis; Z87.891 Personal history of nicotine dependence; Z88.1 Allergy status to other antibiotic agents; Z88.5 Allergy status to narcotic agent; Z88.8 Allergy status to other drugs, medicaments and biological substances; Z79.1 Long term (current) use of non-steroidal anti-inflammatories (NSAID); Z79.51 Long term (current) use of inhaled steroids; Z79.899 Other long term (current) drug therapy
CPT/HCPCS: 36415; 70450; 71045; 72131; 80048; 80076; 80307; 81001; 83690; 84145; 85025; 85027; 85610; 87486; 87581; 87633; 87798; 93005; 96372; 97116; 97161; 97530; 99285; J1650

== ENCOUNTER → 2024-11-12 | Outpatient (CLI) | payer MEDICARE, MEDICAID ==
[~2024-11-12] MED LIST changes: +FAMO1TAB11 PO
== END ==
LOC: M SOG 07:52
PROVIDERS: ATTEND Orthopaedic Surgery
DX: S62.001D Unspecified fracture of navicular [scaphoid] bone of right wrist, subsequent encounter for fracture with routine healing (principal); Z53.9 Procedure and treatment not carried out, unspecified reason

== ENCOUNTER → 2024-11-21 | Outpatient (CLI) | payer MEDICARE, MEDICAID | LOC: M SOG 06:52 | PROVIDERS: ATTEND Orthopaedic Surgery | DX: S62.001D Unspecified fracture of navicular [scaphoid] bone of right wrist, subsequent encounter for fracture with routine healing (principal) ==

== ENCOUNTER → 2025-02-05 | Outpatient (CLI) | payer MEDICARE, MEDICAID ==
[~2025-02-05] MED LIST changes: +E-Z-GAS II EFFERVESCENT PACKET (SODIUM BICARB./CITRIC ACID/SIMETHICONE) As Ordered ONE; +E-Z-HD 98% w/w 340 GM SUSP BTL As Ordered ONE; +E-Z-PAQUE 96% w/w SUSP 176 GM BTL As Ordered ONE
== END ==
LOC: M RAD 08:43
PROVIDERS: ATTEND Physician Assistant
DX: R11.2 Nausea with vomiting, unspecified (principal); K44.9 Diaphragmatic hernia without obstruction or gangrene; K21.9 Gastro-esophageal reflux disease without esophagitis; K22.89 Other specified disease of esophagus

== ENCOUNTER → 2025-05-08 | Outpatient (CLI) | payer MEDICARE, MEDICAID ==
[~2025-05-08] MED LIST changes: -E-Z-GAS II EFFERVESCENT PACKET (SODIUM BICARB./CITRIC ACID/SIMETHICONE) As Ordered ONE; -E-Z-HD 98% w/w 340 GM SUSP BTL As Ordered ONE; -E-Z-PAQUE 96% w/w SUSP 176 GM BTL As Ordered ONE
== END ==
LOC: M PLARAD 09:30
PROVIDERS: ATTEND Neurological Surgery
DX: M51.16 Intervertebral disc disorders with radiculopathy, lumbar region (principal); M54.2 Cervicalgia; M47.815 Spondylosis without myelopathy or radiculopathy, thoracolumbar region; M47.816 Spondylosis without myelopathy or radiculopathy, lumbar region; M47.817 Spondylosis without myelopathy or radiculopathy, lumbosacral region